=== PATIENT | female | born 1950 | race Caucasian/White ===

== ENCOUNTER → 2017-09-19 09:53 | Outpatient (CLI) | payer MEDICARE, OTHER, SELFPAY ==
[2017-09-27 14:22] LABS: HPV Reflexed? YES, CHARGE PATIENT
== END ==
PROVIDERS: Visit Provider Obstetrics & Gynecology
DX: Z12.4 Encounter for screening for malignant neoplasm of cervix (principal)
CPT/HCPCS: 87624; 88175; G0145

== ENCOUNTER → 2018-01-15 17:03 | Outpatient (CLI) | payer MEDICARE, OTHER, SELFPAY ==
[2018-01-15 18:32] LABS: Hematocrit 38.8 % (37-47); Hemoglobin 13.2 g/dl (12.0-15.0); Mean Corpuscular Volume 87.8 fL (81-99); Red Blood Count 4.42 M/mm3 (4.2-5.4); White Blood Count 6.2 K/mm3 (4.4-11.0)
[2018-01-15 18:34] LABS: Mean Corpuscular Hgb 29.9 pg (27.0-32.0)
[2018-01-15 18:39] LABS: Basophil% 0.5 % (0-1); Eosinophils% 0.8 % (0-5); Lymphocyte % 35.7 % (19-41); Mean Platelet Vol. 9.4 fl (6.2-12.0); Monocyte% 7.2 % (0-10); Neutrophil % 55.6 % (47-70); POSITIVE COUNT NO; POSITIVE DIFFERENTIAL NO; POSITIVE MORPHOLOGY NO; Platelet Count 249 K/mm3 (150-450); RBC Distribution Width SD 38.1 fl (35.1-43.9)
[2018-01-15 18:40] LABS: Absolute Lymphocyte Count 2.22 X10^3/ul (0.83-4.51); Absolute Neutrophil Count 3.5 X10^3/uL (2.0-7.7); Basophil# 0.03 X10^3/uL; Eosinophil# 0.05 X10^3/uL; Lymphocyte # 2.22 X10^3/ul (4.0); Monocyte# 0.45 X10^3/uL; Neutrophil # 3.45 X10^3/uL (2.7-7.7)
[2018-01-15 18:58] LABS: ALB/GLOB Ratio 1.5 RATIO (0.9-2.4); AST(SGOT) 17 U/L (15-37); Alanine Aminotransfer ALT/SGPT 29 U/L (13-56); Albumin, Serum 4.1 g/dL (3.2-5.0); Alkaline Phosphatase 78 U/L (45-117); Anion Gap 7 (5-15); BUN 11 mg/dL (7-18); BUN/Creat Ratio 15.4 RATIO (10-20); Calcium,Total 9.6 mg/dL (8.5-10.1); Chloride 103 mmol/L (98-107); Creatinine, Serum 0.71 mg/dL (0.55-1.02); EST Glomerular Filtration Rate 87 mL/min (>60); Est Glom Filt Rate - Afr Amer 105 mL/min (>60); Globulin 2.8 g/dL (2.2-4.2); Glucose 101 mg/dL (74-106); Potassium 3.6 mmol/L (3.5-5.1); Protein, Total 6.9 g/dL (6.4-8.2); Sodium Level 141 mmol/L (136-145); Thyroid Stim Hormone (TSH) 0.09 uIU/mL (0.358-3.74)
[2018-01-16 09:12] LABS: Vitamin D,25 Hydroxy 50.4 ng/mL (29.95-100.01)
[2018-01-17 09:34] LABS: Hep C Antibodies <0.1 s/co ratio (0.0-0.9)
== END ==
PROVIDERS: Family Provider Family Medicine Geriatric Medicine; PCP Family Medicine Geriatric Medicine; Visit Provider Family Medicine Geriatric Medicine
DX: E55.9 Vitamin D deficiency, unspecified (principal); I10 Essential (primary) hypertension; Z13.89 Encounter for screening for other disorder
CPT/HCPCS: 36415; 80053; 82306; 84443; 85025; 86803

== ENCOUNTER → 2018-01-29 08:53 | Outpatient (CLI) | payer MEDICARE, OTHER, SELFPAY ==
--- NOTE | 2018-01-29 08:55 | BI_ITS ---
MAMMOGRAPHY - BILATERAL SCREENING REASON FOR EXAM: Female, 67 years old. Routine annual screening examination. PERTINENT HISTORY: Non-contributory. TECHNIQUE: Digital bilateral breast ya (3D mammographic acquisition) in the CC and MLO projections. 2-D mediolateral oblique (MLO) and craniocaudad (CC) views of both breasts were obtained. CAD: Full Field Digital Mammography with Computer Added Detection was performed. COMPARISON: Comparison is made with prior study dated January 25, 2016 April 20, 2014. FINDINGS: Breast Composition: There are scattered areas of fibroglandular density. There are no dominant masses or suspicious calcifications. Stable benign-appearing bilateral axillary lymph nodes. No other significant abnormalities are identified. BI/SCREENING MAMM (CAD), BILAT IMPRESSION: Stable bilateral screening mammogram. Yearly follow-up mammogram recommended. (A) ASSESSMENT CATEGORY: BIRADS Category 2: Benign. A letter regarding these results will be sent to the patient by the facility within 30 days. Approximately 10% of breast cancers are not detected by mammography. A normal mammogram should not delay biopsy of a clinically suspicious abnormality. [id number] Electronically Signed: Chema Olguin MD at 10:17 EDT Tel [phone], Service support ,
--- NOTE | 2018-01-29 09:16 | BD_ITS ---
STUDY: DUAL ENERGY X-RAY ABSORPTIOMETRY / DXA REASON FOR EXAM: Female, 67 years old. The patient is postmenopausal. Loss of height. TECHNIQUE: Bone Mineral Density (BMD) measurements of lumbar spine and bilateral hips were obtained. COMPARISON: Comparison is made with prior examination dated January 25, 2016. FINDINGS: Lumbar Spine (L1-L4): g/cm2 (1.145) / T-score (-0.3) / Z-score (1.3) Findings are suggestive of normal bone density with a low fracture risk. Left Femur Total: g/cm2 (0.946) / T-score (-0.5) / Z-score (0.8) Left Femoral Neck: g/cm2 (0.938) / T-score (-0.7) / Z-score (0.8) Right Femur Total: g/cm2 (0.873) / T-score (-1.1) / Z-score (0.2) Right Femoral Neck: g/cm2 (0.764) / T-score (-2.0) / Z-score (0.4) The T-Scores on the most recent prior examination were: Lumbar Spine (L1-L4): There has been worsening of bone density since the previous examination. Left Femur Total: which represents a worsening of 1.1%. Right Femur Total: which represents no significant change. . BD/Dexa Bone Density Study IMPRESSION: The patient is considered osteopenic as outlined below according to World Misael Organization (WHO) criteria with a moderate fracture risk. There has been worsening of bone density since the previous examination. Reference Information: The T-score is the number of standard deviations above or below the standard which is normal for young adults at their peak bone mineral density. The World Health Organization (WHO) interprets the T-scores as follows: Above -1 Normal bone density Between -1 and -2.5 Osteopenia Equal to / or below -2.5 Osteoporosis As a practical clinical guideline, osteopenia may be graded as follows: Mild -1 through -1.5 Moderate -1.6 through -2.0 Severe -2.1 through -2.4 The Z-score is the number of standard deviations above or below age-matched controls. A Z-score of less than -1.5 would be considered abnormal. References: 1. NIH Osteoporosis and Related Bone Diseases http://www.osteo.org 2. International Society for Clinical Densitometry http://www.iscd.org 3. National Osteoporosis Foundation http://www.nof.org Electronically Signed: Chema Olguin MD at 14:36 EDT Tel [phone], Service support ,
== END ==
PROVIDERS: Family Provider Family Medicine Geriatric Medicine; PCP Family Medicine Geriatric Medicine; Visit Provider Obstetrics & Gynecology
DX: Z12.31 Encounter for screening mammogram for malignant neoplasm of breast (principal); Z78.0 Asymptomatic menopausal state
CPT/HCPCS: 77063; 77067; 77080

== ENCOUNTER → 2018-03-19 16:55 | Outpatient (CLI) | payer MEDICARE, OTHER, SELFPAY ==
--- NOTE | 2018-03-19 17:00 | RAD_ITS ---
STUDY: X-RAY - UNILATERAL RIBS ( LEFT ) WITH CHEST REASON FOR EXAM: Female, 67 years old. Lateral left rib pain one week after fall. TECHNIQUE - RIBS: 4 view(s) of the ribs. TECHNIQUE - CHEST: Single frontal view of the chest. COMPARISON: None. FINDINGS - RIBS: Normal visualized ribs without a demonstrated fracture. FINDINGS - CHEST: The lungs are clear and expanded. There is no demonstrated pleural abnormality. Normal size heart. Normal mediastinum and felipe. Normal visualized pulmonary arteries. Normal visualized aortic arch and descending thoracic aorta. Normal visualized thoracic spine. Normal visualized ribs, clavicles, and shoulders. There is no demonstrated abnormality of the visualized soft tissue structures of the upper abdomen. RAD/Ribs Uni Min 3V w/PA Chest IMPRESSION: RIBS: Normal x-ray examination of the left ribs. CHEST: Normal x-ray examination of the chest. Electronically Signed: Phil Mares MD at 19:59 EDT , Service support ,
== END ==
PROVIDERS: Family Provider Family Medicine Geriatric Medicine; PCP Family Medicine Geriatric Medicine; Visit Provider Family Medicine Geriatric Medicine
DX: R07.81 Pleurodynia (principal)
CPT/HCPCS: 71101

== ENCOUNTER 2018-04-30 08:59 | Emergency (ER) | payer MEDICARE, OTHER, SELFPAY ==
[2018-04-30 09:00] VITALS: BP 122/88; PULSE 64; RESP 15; TEMP 36.4; O2SAT 99; BMI 27.7
--- NOTE | 2018-04-30 09:26 | ED.VISSUMM ---
- ER Visit Summary Date of Service: 04/30/18 Chief Complaint: Pain deformity left wrist and abrasion right forearm status post fall History of Present Illness: The patient is a 67 F who presents because of deformity left wrist status post fall. She was walking down a disability ramp that apparently was covered for loss. She lost her balance. She landed on her outstretched left upper extremity. She also noted abrasion distal volar right forearm. She is on no anticoagulant. She denies head trauma. Denies neck pain. She denies paresthesia, anesthesia motor expressly the time of the injury. She denies cardiac respiratory symptoms. Please read written note for complete detail. Physical Examination: Vital signs noted. Head is atraumatic normocephalic. Pupils equal round reactive. Extra muscle intact. There is no confines basal skull fracture. Trach is midline. Is no pain the patient cervical spine and C-spine was cleared per Nexus criteria. Heart is regular without murmur, gallop or rub. S1 and S2 are normal. Lungs are clear to auscultation with good movement of air bilaterally. Axillary, median, radial and ulnar function intact. There is no pain palpation of the clavicle, AC joint or proximal humerus bilaterally. There is no pain the patient of the medial or lateral epicondyles, olecranon process or radial head bilaterally. There is slight discomfort volar surface distal right forearm. There is no pain the patient of the distal radius or ulna. There is no pain the patient of the carpal bones, metacarpal bones or phalanges on the right. There is deformity to the left wrist. There is no pain the patient the phalanges or metacarpal bones. There is a step-off appreciated distal left radius. Test Results: Three-view x-ray of the left wrist was obtained which reveals a distal transverse radial fracture with 30 degrees volar apex angulation and a nondisplaced fracture of the ulnar styloid. This film was interpreted by me. Postreduction film reveals good alignment and to length on the PA film. Lateral film reveals 5% step-off with loss of volar tilt. The ulnar styloid is now displaced. Emergency Department Course and Treatment: A hematoma block was placed with 1% lidocaine by me prior to x-rays. Patient was placed in finger traps with weight added gradually to a total of 12-1/2 pounds. Reduction was undertaken by me. She was placed in short arm AP plaster splint.. Treatment Plan: Rest, ice and elevation. She was referred to orthopedics. Spoke with Dr. Heena Street who requested patient call the office to be seen next week. He was discharged with a sling. Disposition: Discharged to home Impression: 1. Fall secondary to snider/ice 2. Abrasion and contusion distal right volar forearm 3. Colles' fracture left wrist initial encounter 4. Hematoma block placed by ED physician 5. Reduction of Colles' fracture by ED physician 6. Application of plaster short arm AP splint by ED physician This note was generated with [employer] dictation software. It may contain incorrect words, spelling, and punctuation that were not noted in review of the chart prior to signing ED Disposition - Plan for ED Patient: Chief Complaint: Upper Extremity Injury Instructions: ED Fx Forearm Radius Ulna Redu Requ Prescriptions: Oxycodone HCl/Acetaminophen [Percocet 5/325] 1 tablet PO Q6H PRN PRN 5 Days #20 tablet PRN Reason: Pain Referrals: Lamine Manzanares Chi, MD [Primary Care Provider] - Allyssa Cabral DO [STAFF PHYSICIAN] - 5-7 Days Additional Instructions: Keep your left wrist elevated for the next 2-3 days above your nose. Apply ice 6-8 times a day 20-30 minutes at a time. Your prescription was electronically transmitted to [facility] pharmacy your designated pharmacy of choice.
--- NOTE | 2018-04-30 09:30 | ED.DCSUM_ITS ---
- ER Visit Summary Date of Service: 04/30/18 Chief Complaint: Pain deformity left wrist and abrasion right forearm status post fall History of Present Illness: The patient is a 67 F who presents because of deformity left wrist status post fall. She was walking down a disability ramp that apparently was covered for loss. She lost her balance. She landed on her outstretched left upper extremity. She also noted abrasion distal volar right forearm. She is on no anticoagulant. She denies head trauma. Denies neck pain. She denies paresthesia, anesthesia motor expressly the time of the injury. She denies cardiac respiratory symptoms. Please read written note for complete detail. Physical Examination: Vital signs noted. Head is atraumatic normocephalic. Pupils equal round reactive. Extra muscle intact. There is no confines basal skull fracture. Trach is midline. Is no pain the patient cervical spine and C- spine was cleared per Nexus criteria. Heart is regular without murmur, gallop or rub. S1 and S2 are normal. Lungs are clear to auscultation with good moveme nt of air bilaterally. Axillary, median, radial and ulnar function intact. There is no pain palpation of the clavicle, AC joint or proximal humerus bilaterally. There is no pain the patient of the medial or lateral epicondyles, olecranon process or radial head bilaterally. There is slight discomfort volar surface distal right forearm. There is no pain the patient of the distal radius or ulna. There is no pain the patient of the carpal bones, metacarpal bones or phalanges on the right. There is deformity to the left wrist. There is no pain the patient the phalanges or metacarpal bones. There is a step-off appreciated distal left radius. Test Results: Three-view x-ray of the left wrist was obtained which reveals a distal transverse radial fracture with 30 degrees volar apex angulation and a nondisplaced fracture of the ulnar styloid. This film was interpreted by me. Postreduction film reveals good alignment and to length on the PA film. Lateral film reveals 5% step-off with loss of volar tilt. The ulnar styloid is now displaced. Emergency Department Course and Treatment: A hematoma block was placed with 1% lidocaine by me prior to x-rays. Patient was placed in finger traps with weight added gradually to a total of 12-1/2 pounds. Reduction was undertaken by me. She was placed in short arm AP plaster splint.. Treatment Plan: Rest, ice and elevation. She was referred to orthopedics. Spoke with Dr. Heena Street who requested patient call the office to be seen next week. He was discharged with a sling. Disposition: Discharged to home Impression: 1. Fall secondary to snider/ice 2. Abrasion and contusion distal right volar forearm 3. Colles' fracture left wrist initial encounter 4. Hematoma block placed by ED physician 5. Reduction of Colles' fracture by ED physician 6. Application of plaster short arm AP splint by ED physician This note was generated with [employer] dictation software. It may contain incorrect words, spelling, and punctuation that were not noted in review of the chart prior to signing ED Disposition - Plan for ED Patient: Chief Complaint: Upper Extremity Injury Instructions: ED Fx Forearm Radius Ulna Redu Requ Prescriptions: Oxycodone HCl/Acetaminophen [Percocet 5/325] 1 tablet PO Q6H PRN PRN 5 Days #20 tablet PRN Reason: Pain Referrals: Lamine Manzanares Chi, MD [Primary Care Provider] - Allyssa Cabral DO [STAFF PHYSICIAN] - 5-7 Days Additional Instructions: Keep your left wrist elevated for the next 2-3 days above your nose. Apply ice 6-8 times a day 20-30 minutes at a time. Your prescription was electronically transmitted to [facility] pharmacy your designated pharmacy of choice.
--- NOTE | 2018-04-30 09:35 | RAD_ITS ---
STUDY: X-RAY - LEFT WRIST REASON FOR EXAM: Female, 67 years old. Pain and swelling. TECHNIQUE: 3 view(s) of the wrist were obtained. COMPARISON: None. FINDINGS: There is a comminuted fracture of the distal radial metaphysis with dorsal facing. Nondisplaced linear fracture of the distal ulna extending to the ulnar styloid. Normal radiocarpal articulation. Disruption of the distal radial ulnar articulation. Normal carpal bones. Normal carpal articulations. Normal carpometacarpal articulation of the thumb. Normal second through fifth carpometacarpal articulations. Normal visualized metacarpal bones. Diffuse soft tissue swelling. RAD/Wrist min 3 Views IMPRESSION: Comminuted fracture of the distal radial metaphysis with dorsal facing. Nondisplaced linear fracture of the distal ulna with extension to the ulnar styloid. Electronically Signed: Chema Olguin MD at 9:52 EDT Tel [phone], Service support ,
--- NOTE | 2018-04-30 10:28 | RAD_ITS ---
STUDY: X-RAY - LEFT WRIST REASON FOR EXAM: Female, 67 years old. Post reduction examination. TECHNIQUE: 3 view(s) of the wrist were obtained in a cast. COMPARISON: None. FINDINGS: There is satisfactory reduction of the comminuted fracture of the distal radius as well as the distal ulna. RAD/Wrist min 3 Views IMPRESSION: Satisfactory reduction Electronically Signed: Chema Olguin MD at 10:50 EDT Tel [phone], Service support ,
[2018-04-30] MEDS: oxyCODONE 5 MG Tablet PO (12:27)
[2018-04-30 12:33] VITALS: BP 123/82; PULSE 72; RESP 14; O2SAT 98
== END 2018-04-30 12:35 | disposition home or self-care (01) ==
PROVIDERS: Emergency Provider Emergency Medicine; Family Provider Family Medicine Geriatric Medicine; PCP Family Medicine Geriatric Medicine
DX: S52.532A Colles' fracture of left radius, initial encounter for closed fracture (principal); S52.612A Displaced fracture of left ulna styloid process, initial encounter for closed fracture; S50.811A Abrasion of right forearm, initial encounter; S50.11XA Contusion of right forearm, initial encounter; W00.9XXA Unspecified fall due to ice and snow, initial encounter; Y93.01 Activity, walking, marching and hiking; Y92.9 Unspecified place or not applicable; I10 Essential (primary) hypertension; E78.00 Pure hypercholesterolemia, unspecified; E03.9 Hypothyroidism, unspecified; Z79.82 Long term (current) use of aspirin; Z79.899 Other long term (current) drug therapy
CPT/HCPCS: 25605; 73110; 99284

== ENCOUNTER → 2018-05-07 14:38 | Outpatient (CLI) | payer MEDICARE, OTHER, SELFPAY ==
--- NOTE | 2018-05-07 14:40 | RAD_ITS ---
STUDY: X-RAY - LEFT WRIST REASON FOR EXAM: Fracture. TECHNIQUE: 2 view(s) of the wrist were obtained. COMPARISON: Radiographs 04/30/2018. FINDINGS: There is no interval change of the distal radial fracture with mild dorsal displacement as on the post reduction radiographs. There is no interval change of the nondisplaced distal ulnar fracture. Normal radiocarpal articulation. Normal distal radioulnar articulation. Normal carpal bones. Normal carpal articulations. There is joint space narrowing of the carpometacarpal articulation of the thumb. Normal second through fifth carpometacarpal articulations. Normal visualized metacarpal bones. There is an overlying cast. RAD/Wrist 2 Views IMPRESSION: No interval change distal radial and ulnar fractures. Electronically Signed: David Mosquera MD at 10:12 EST Tel , Service support ,
== END ==
PROVIDERS: Family Provider Family Medicine Geriatric Medicine; PCP Family Medicine Geriatric Medicine; Referring Provider Orthopaedic Surgery; Visit Provider Orthopaedic Surgery
DX: M25.532 Pain in left wrist (principal)
CPT/HCPCS: 73100

== ENCOUNTER → 2018-05-11 07:07 | Outpatient (CLI) | payer MEDICARE, OTHER, SELFPAY ==
--- NOTE | 2018-05-11 06:16 | CT_ITS ---
STUDY: CT OF THE LEFT WRIST WITHOUT CONTRAST REASON FOR EXAM: Female, 67 years old. No left wrist fracture. Work up. RADIATION DOSAGE (If Supplied By Facility): CTDIvol = ( 24.58 ) mGy, DLP = ( 597.48 ) mGycm. Individualized dose optimization techniques were used for this CT.? TECHNIQUE: Contiguous axial images of the left wrist were obtained without contrast. Coronal, sagittal, 3-D reconstruction and bone and soft tissue algorithm images were provided for interpretation. COMPARISON: X-rays of the wrist dated April 30, 2018 and May 07, 2018. FINDINGS: There is generalized osteopenia. There is a comminuted fracture of the distal radius with impaction at the fracture site. There are fracture fragments projected radially. There is a minimally displaced fracture of the base of the ulnar styloid (coronal series 601 images 19-30). There is severe arthrosis of the first carpometacarpal joint with multiple intra-articular osteochondral bodies (coronal series 601 images 22-29). CT/Extremity Upper without Contra IMPRESSION: Osteopenia with an impacted comminuted fracture of the distal radius. Minimally displaced fracture through the base of the ulnar styloid. Severe osteoarthritic changes of the first carpometacarpal joint. Electronically Signed: Celestino Lowe MD at 17:49 EST , Service support ,
--- NOTE | 2018-05-11 06:16 | CT_ITS ---
STUDY: CT OF THE LEFT WRIST WITHOUT CONTRAST REASON FOR EXAM: Female, 67 years old. No left wrist fracture. Work up. RADIATION DOSAGE (If Supplied By Facility): CTDIvol = ( 24.58 ) mGy, DLP = ( 597.48 ) mGycm. Individualized dose optimization techniques were used for this CT.? TECHNIQUE: Contiguous axial images of the left wrist were obtained without contrast. Coronal, sagittal, 3-D reconstruction and bone and soft tissue algorithm images were provided for interpretation. COMPARISON: X-rays of the wrist dated April 30, 2018 and May 07, 2018. FINDINGS: There is generalized osteopenia. There is a comminuted fracture of the distal radius with impaction at the fracture site. There are fracture fragments projected radially. There is a minimally displaced fracture of the base of the ulnar styloid (coronal series 601 images 19-30). There is severe arthrosis of the first carpometacarpal joint with multiple intra-articular osteochondral bodies (coronal series 601 images 22-29). CT/Coronals Sag Multi Obl 3-D Rec IMPRESSION: Osteopenia with an impacted comminuted fracture of the distal radius. Minimally displaced fracture through the base of the ulnar styloid. Severe osteoarthritic changes of the first carpometacarpal joint. Electronically Signed: Celestino Lowe MD at 17:49 EST , Service support ,
== END ==
PROVIDERS: Family Provider Family Medicine Geriatric Medicine; PCP Family Medicine Geriatric Medicine; Referring Provider Orthopaedic Surgery; Visit Provider Orthopaedic Surgery
DX: S62.102A Fracture of unspecified carpal bone, left wrist, initial encounter for closed fracture (principal)
CPT/HCPCS: 73200; 76377

== ENCOUNTER 2018-05-15 11:11 | Day surgery (SDC) | payer MEDICARE, OTHER, SELFPAY ==
--- NOTE | 2018-05-14 14:15 | EKG12_ITS ---
Test Reason : PREOP Blood Pressure : / mmHG Vent. Rate : 057 BPM Atrial Rate : 057 BPM P-R Int : 162 ms QRS Dur : 082 ms QT Int : 394 ms P-R-T Axes : 052 024 020 degrees QTc Int : 383 ms Sinus bradycardia Otherwise normal ECG Confirmed by DAVID LYNCH, JULES ([id number]), multimedia editor MODESTO GOINS ([id number]) on 05/17/2018 2:38:44 PM Referred By: Allyssa Cabral Confirmed By:JULES HERNANDEZ MD
[2018-05-14 16:32] LABS: Anion Gap 5 (5-15); BUN 10 mg/dL (7-18); BUN/Creat Ratio 15.9 RATIO (10-20); Calcium,Total 9.4 mg/dL (8.5-10.1); Chloride 105 mmol/L (98-107); Creatinine, Serum 0.63 mg/dL (0.55-1.02); EST Glomerular Filtration Rate 100 mL/min (>60); Est Glom Filt Rate - Afr Amer 121 mL/min (>60); Glucose 80 mg/dL (74-106); Potassium 3.2 mmol/L (3.5-5.1); Sodium Level 141 mmol/L (136-145); Thyroid Stim Hormone (TSH) 0.37 uIU/mL (0.358-3.74)
[2018-05-15] VITALS (7 sets, daily range): BP systolic 107–154; BP diastolic 62–77; PULSE 62–80; RESP 16; TEMP 36.6–37; O2SAT 93–100; BMI 26.9
--- NOTE | 2018-05-15 12:30 | RAD_ITS ---
STUDY: X-RAY - LEFT WRIST REASON FOR EXAM: ORIF left wrist. TECHNIQUE: 2 fluoroscopic views view(s) of the wrist were obtained. COMPARISON: Radiographs 05/07/2018. FINDINGS: There is an orthopedic plate and screws transfixing a distal radial fracture in anatomical alignment and position. There is a nondisplaced fracture of the distal ulna. Electronically Signed: David Mosquera MD at 15:45 EST Tel , Service support , RAD/Wrist 2 Views
[2018-05-15] MEDS: Cefazolin 2 GM in 0.9% Normal Saline 100 ML IV (13:35)
--- NOTE | 2018-05-15 13:37 | DCINST_ITS ---
Discharge Diet: No Restrictions - follow up in 2 weeks in clinic, keep dressing clean and dry, call with concerns Allergies/Adverse Reactions: Allergies No Known Allergies Allergy (Verified 05/14/18 13:31) Medications to take at Discharge Aspirin [Aspirin EC] 81 mg PO DAILY 04/30/18 Calcium Carbonate/Vitamin D3 [Calcium 500-Vit D3 600 Tablet] 1 ea PO BID 04/30/18 Levothyroxine Sodium 112 mcg PO DAILY 04/30/18 Losartan/Hydrochlorothiazide [Hyzaar 100-12.5 Tablet] 1 ea PO DAILY 04/30/18 Multivitamin [Daily Multiple Vitamin] 1 ea PO DAILY 04/30/18 Furlong-3 Fatty Acids/Fish Oil [Fish Oil 1,000 mg Capsule] 1 ea PO DAILY 04/30/18 Pravastatin Sodium 40 mg PO DAILY 04/30/18 Vitamin E 1,000 unit PO DAILY 04/30/18 Acetaminophen/Codeine #3 [Tylenol #3 Tablet] 1 - 2 tablet PO Q6H PRN PRN #30 tablet 05/15/18 The following prescriptions were given: Acetaminophen/Codeine #3 [Tylenol #3 Tablet] 1 - 2 tablet PO Q6H PRN PRN #30 tablet PRN Reason: Pain Orders to be completed after discharge: 12 Lead EKG [CVS] Time Frame: 05/14/18, Location: None Selected Basic Metabolic Profile (BMP) Time Frame: 05/14/18, Location: Laboratory Thyroid Stim Hormone (TSH) Time Frame: 05/14/18, Location: Laboratory Primary Care Physician: Lamine Manzanares Chi, MD [Primary Care Provider] - Test Results: Test results from this visit will be discussed in further detail at your follow- up appointment, if applicable.
--- NOTE | 2018-05-15 13:39 | OP.PCM_ITS ---
Report of Operation Date of Procedure: 05/15/18 Pre-Operative Diagnosis: left distal radius and ulna fracture Post-Operative Diagnosis: same Surgery/Procedure Performed:: orif left distal radius Type of Anesthesia:: General Anesthesiologist: Christian Madsen Estimated Blood Loss (mL): none Fluids Replaced: 1200ml lr Description of Procedure: Preoperative note Patient is a 67-year-old female who fell onto outstretched left right hand left hand. She had immediate pain deformity ER confirmed distal radius and distal ulna fracture she was seen in my clinic we did order a CAT scan to see how the ulnar was in her radius. All treatment options were given to patient. 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 Risks benefits and alternatives surgery discussed with patient. Risks including but not limited to blood loss, blood clot, infection, neurovascular injury, failure procedure, loss of life and loss of limb. Patient is aware like proceed with ORIF left distal radius possible ulna. Operative note Patient seen and examined preoperative holding area. Left wrist was marked. Patient brought to the operating placed supine on the operating table. Signing, anesthesia, antibiotics were administered. Left arm was prepped and draped in usual sterile fashion with a tourniquet around her upper arm. We marked out our incision by palpating her FCR. Timeout was performed. Then elevated exsanguinated and the tourniquet was raised to 250 torr. We then performed a timeout. We then used a 15 blade to cut through the skin dissect down tenotomies of the FCR the FCR was resected with retracted ulnarly resect r esected the FCR fascia down to the pronator quadratus pronator quadratus was resected sharply off of its radial portal border. We then were able to dissect down she had quite a bit of scar tissue around her distal radius fracture it was [id number] is quite comminuted. We did use a bone pick to irrigate out the fracture site. The incision was irrigated with copious muscle sterile saline. We placed the appropriate plate and placed on the regular width 2.4 volar distal radius plate. We then used a K wire was transfixed the plate to bone after we had good placement of the plate on the bone. We then placed a cortical screw in the radial styloid piece to suck the bone plate down to bone. We then filled the remaining holes with locking screws we did have one exchanged for locking from a cortical screw which was the ulnar distal hole after transfixing the plate to bone just for better fixation after all of the screws were placed. See chart for further details as far as screw length. We then placed our 2 7 screws cortical screws after drilling appropriately we did with the distal screws as well. Placed 212 and 140 mm screw in the shaft. We irrigated the incision with copious amounts of sterile saline. The pronator was laid on top of the plate as well as the FCR fascia. We then closed the skin and subcu subcuticular with 3-0 Vicryl in a running 4-0 Monocryl. Sterile dressings and a splint was applied. Patient tolerated procedure well there are no comp occasions tourniquet was deflated for total working time of 70 minutes. Postoperative note Nonweightbearing left upper extremity Hospital pharmacy has prescription Call with increased pain numbness tingling or further issues arise Follow-up in 2 weeks Keep dressing clean and dry Dragon disclaimer This note was generated with [employer] dictation software. It may contain incorrect words, spelling, and punctuation that were not noted in checking the note before signing.
[2018-05-15] MEDS: Mupirocin Ointment 22gm Tube 1 APPLIC (14:19)
[2018-05-15] MEDS: HYDROcodone Bitartrate/Apap 5/325 Tablet PO (16:46)
== END 2018-05-15 18:42 | disposition home or self-care (01) ==
LOC: SDC 11:12 → AC 11:12
PROVIDERS: Family Provider Family Medicine Geriatric Medicine; PCP Family Medicine Geriatric Medicine; Referring Provider Orthopaedic Surgery; Visit Provider Orthopaedic Surgery
PROC: (CPT 25607; principal; 2018-05-15 12:15)
DX: S52.552A Other extraarticular fracture of lower end of left radius, initial encounter for closed fracture (principal); S52.602A Unspecified fracture of lower end of left ulna, initial encounter for closed fracture; W19.XXXA Unspecified fall, initial encounter; Y93.9 Activity, unspecified; Y92.9 Unspecified place or not applicable; I10 Essential (primary) hypertension; R00.1 Bradycardia, unspecified; Z79.82 Long term (current) use of aspirin; Z79.899 Other long term (current) drug therapy
CPT/HCPCS: 01830; 25607; 36415; 73100; 76000; 80048; 84443; 93005; C1713; J7120; J2405

== ENCOUNTER → 2018-05-30 13:00 | Outpatient (CLI) | payer MEDICARE, OTHER, SELFPAY ==
[2018-05-30 12:59] VITALS: BMI 26.9
--- NOTE | 2018-05-30 13:04 | RAD_ITS ---
STUDY: X-RAY - LEFT WRIST REASON FOR EXAM: Female, 67 years old. Postop TECHNIQUE: 3 view(s) of the wrist were obtained. COMPARISON: May 07, 2018 FINDINGS: Status post ORIF for a distal radial fracture. Fracture fragments are well aligned and approximated. Healing fracture involving distal end of the ulna. Cast in place. RAD/Wrist min 3 Views IMPRESSION: Status post ORIF of the distal radial fracture. Healing distal ulnar fracture. Electronically Signed: Billy Colemna DO at 8:22 EST Tel [phone], Service support ,
--- OUTSIDE RECORDS SUMMARY | 2018-07-25 16:54 | XMS RPT_ITS ---
:1950 Author Organization OHIP Support Name Relationship Address Phone EUGENIA CASON Unavailable [id number] + [place] [address] MOSHE STEPHANIE Unavailable [address] + [place] [address] [employer] Unavailable [address] + [place] [address] HOLLIS CASONSA Unavailable [address] + [place] [address] MOSHE STEPHANIE Unavailable [address] + [place] [address] [employer] Unavailable [address] + [place] [address] TIMNicole, EUGENIA Unavailable [address] + [place] [address] MOSHE, STEPHANIE Unavailable [address] + [place] [address] [employer] Unavailable [address] + [place] [address] YOAV, EUGENIA Unavailable [address] + [place] [address] MOSHE, STEPHANIE Unavailable [address] + [place] [address] [employer] Unavailable [address] + [place] [address] YOAV, EUGENIA Unavailable [address] + [place] [address] MOSHE STEPHANIE Unavailable [address] + [place] [address] [employer] Unavailable [address] + [place] [address] YOAVHOLLISSA Unavailable [address] + [place] [address] STEPHANIE MESA Unavailable [address] + [place] [address] [employer] Unavailable [address] + [place] [address] YOAVHOLLISSA Unavailable [address] + [place] [address] STEPHANIE MESA Unavailable [address] + [place] [address] [employer] Unavailable [address] + [place] [address] YOAVHOLLISSA Unavailable [address] + [place] [address] STEPHANIE MESA Unavailable [address] + [place] [address] [employer] Unavailable [address] + [place] [address] YOAV, EUGENIA Unavailable [address] + [place] [address] STEPHANIE MESA Unavailable [address] + [place] [address] [employer] Unavailable [address] + [place] [address] YOAV, EUGENIA Unavailable [address] + [place] [address] STEPHANIE MESA Unavailable [address] + [place] [address] [employer] Unavailable [address] + [place] [address] HOLLIS CASONSA Unavailable [address] + [place] [address] STEPHANIE MESA Unavailable [address] + [place] [address] [employer] Unavailable [address] + [place] [address] YOAV, EUGENIA Unavailable [address] + [place] [address] STEPHANIE MESA Unavailable [address] + [place] [address] [employer] Unavailable [address] + [place] [address] YOAV, EUGENIA Unavailable [address] + [place] [address] STEPHANIE MESA Unavailable [address] + [place] [address] [employer] Unavailable [address] + [place] [address] YOAV, EUGENIA Unavailable [address] + [place] [address] STEPHANIE MESA Unavailable [address] + [place] [address] [employer] Unavailable [address] + [place] [address] YOAV, EUGENIA Unavailable [address] + [place] [address] STEPHANIE MESA Unavailable [address] + [place] [address] [employer] Unavailable [address] + [place] [address] YOAV, EUGENIA Unavailable [address] + [place] [address] STEPHANIE MESA Unavailable [address] + [place] [address] [employer] Unavailable [address] + [place] [address] YOAV, EUGENIA Unavailable [address] + [place] [address] STEPHANIE MESA Unavailable [address] + [place] [address] [employer] Unavailable [address] + [place] [address] HOLLIS CASONSA Unavailable [address] + [place] [address] ELDER MESAOLE Unavailable [address] + [place] [address] [employer] Unavailable [address] + [place] [address] YOAV, EUGENIA Unavailable [address] + [place] [address] MOSHE STEPHANIE Unavailable [address] + [place] [address] [employer] Unavailable [address] + [place] [address] HOLLIS CASONSA Unavailable [address] + [place] [address] ELDER MESAOLE Unavailable [address] + [place] [address] [employer] Unavailable [address] + [place] [address] YOAV, EUGENIA Unavailable [address] + [place] [address] ELDER MESAOLE Unavailable [address] + [place] [address] [employer] Unavailable [address] + [place] [address] Care Team Providers Name Role Phone Allyssa Leal Attending Unavailable Allyssa Leal Referring Unavailable Leighton, Lamine Chi Primary Care Unavailable Leighton, Lamine Chi Attending Unavailable Leighton, Lamine Chi Primary Care Unavailable Leighton, Lamine Chi Attending Unavailable Leighton, Lamine Chi Primary Care Unavailable Leighton, Lamine Chi Attending Unavailable Leighton, Lamine Chi Primary Care Unavailable Allyssa Leal Attending Unavailable Leighton, Lamine Chi Attending Unavailable Leighton, Lamine Chi Primary Care Unavailable Leighton, Lamine Chi Attending Unavailable Leighton, Lamine Chi Referring Unavailable Leighton, Lamine Chi Primary Care Unavailable Allyssa Leal Attending Unavailable Leighton, Lamine Chi Primary Care Unavailable Leighton, Lamine Chi Attending Unavailable Leighton, Lamine Chi Primary Care Unavailable Leighton, Lamine Chi Attending Unavailable Leighton, Lamine Chi Referring Unavailable Leighton, Lamine Chi Primary Care Unavailable Leighton, Lamine Chi Primary Care Unavailable Prieto, Idris Attending Unavailable Chicorelli, Allyssa Attending Unavailable Leighton, Lamine Chi Referring Unavailable Chicorelli, Allyssa Attending Unavailable Chicorelli, Allyssa Referring Unavailable Leighton, Lamine Chi Primary Care Unavailable Chicorelli, Allyssa Attending Unavailable Leighton, Lamine Chi Primary Care Unavailable Chicorelli, Allyssa Referring Unavailable Chicorelli, Allyssa Attending Unavailable Chicorelli, Allyssa Referring Unavailable Leighton, Lamine Chi Primary Care Unavailable DeHorta, Evan Consulting Unavailable Chicorelli, Allyssa Attending Unavailable Leighton, Lamine Chi Referring Unavailable Lavinia, Gaylord Attending Unavailable Chicorelli, Allyssa Referring Unavailable Chicorelli, Allyssa Attending Unavailable Leighton, Lamine Chi Referring Unavailable Chicorelli, Allyssa Attending Unavailable Chicorelli, Allyssa Referring Unavailable Leighton, Lamine Chi Primary Care Unavailable Chicorelli, Allyssa Attending Unavailable Leighton, Lamine Chi Primary Care Unavailable Chicorelli, Allyssa Referring Unavailable Chicorelli, Allyssa Attending Unavailable PROBLEMS PROBLEMS DATE TYPE CONDITION / CODE ATTENDING STATUS SOURCE 06/12/2018 Unknown R87.610 - Atypical ShrinerAllyssa Active [facility] squamous cells of Community undetermined Hospital significance on Repository cytologic smear of cervix (ASC-US) / R87.610(ICD-10) 05/30/2018 Unknown S52.502A - Chicorelli, Active [facility] Unspecified fracture Allyssa Community of the lower end of Hospital left radius, initial Repository encounter for closed fracture / S52.502A(ICD-10) 06/03/2018 Unknown S52.552A - Other Chicorelli, Active [facility] extraarticular Allyssa Community fracture of lower Hospital end of left radius, Repository initial encounter for closed fracture / S52.552A(ICD-10) 06/03/2018 Unknown S52.602A - Chicorelli, Active [facility] Unspecified fracture Allyssa Community of lower end of left Hospital ulna, initial Repository encounter for closed fracture / S52.602A(ICD-10) 05/14/2018 Unknown S52.552D - Other Chicorelli, Active [facility] extraarticular Allyssa Community fracture of lower Hospital end of left radius, Repository subsequent encounter for closed fracture with routine healing / S52.552D(ICD-10) 05/22/2018 Unknown R00.1 - Bradycardia, Lavinia, Dayday Active [facility] unspecified / Community R00.1(ICD-10) Hospital Repository 05/11/2018 Unknown S62.102A - Fracture Chicorelli, Active [facility] of unspecified Allyssa [facility] carpal bone, left Hospital wrist, initial Repository encounter for closed fracture / S62.102A(ICD-10) 05/07/2018 Unknown M25.531 - Pain in Chicorelli, Active [facility] right wrist / [facility] M25.531(ICD-10) Hospital Repository 04/30/2018 Unknown S52.599A - Other Prieto, Idris Active [facility] fractures of lower Community end of unspecified Hospital radius, initial Repository encounter for closed fracture / S52.599A(ICD-10) 03/19/2018 Unknown R07.89 - Other chest Leighton, Lamine Chi Active [place] pain / Community R07.89(ICD-10) Hospital Repository 01/29/2018 Unknown Z12.31 - Encounter Allyssa Leal Active [place] for screening Community mammogram for Hospital malignant neoplasm Repository of breast / Z12.31(ICD-10) 01/29/2018 Unknown Z78.0 - Asymptomatic Allyssa Leal Active [place] menopausal state / Community Z78.0(ICD-10) Hospital Repository 09/19/2017 Unknown Z12.4 - Encounter Allyssa Leal Active [place] for screening for Community malignant neoplasm Hospital of cervix / Repository Z12.4(ICD-10) 09/10/2017 Unknown E03.9 - Leighton, Lamine Chi Active [facility] Hypothyroidism, Community unspecified / Hospital E03.9(ICD-10) Repository 10/24/2017 Unknown M54.9 - Dorsalgia, Leighton, Lamine Chi Active [facility] unspecified / Community M54.9(ICD-10) Hospital Repository 08/10/2017 Unknown I10 - Essential Leighton, Lamine Chi Active [place] (primary) Community hypertension / Hospital I10(ICD-10) Repository PROCEDURES PROCEDURES No Procedure Records FoundRESULTS RESULTS OT GENERAL EVALUATION Observed: 06/18/2018 Status: F Source: [place] 1:29 PM [facility] HOSPITAL REPOSITORY [facility] Occupational Therapy [facility] [address] [place] [address]. [address] [place] [address] Fax REHABILITATION SERVICES INITIAL EVALUATION MR#: [id number] Acct: [id number] Name: KJ DUMAS Rep #: [id number] : 1950 67 From: Riya JUSTICE/Kaley, CHT Referring Dr.: Allyssa Cabral DO Status: REG RCR Insurance: MEDICARE PART A B Eval Date: AE SR SUPPLEMENT INS Patient's Visit Information KJ DUMAS is a 67 year old F, referred to Occupational Therapy by Allyssa Cabral DO, with a diagnosis of S/P L ORIF. Date of Evaluation: 06/17/18 Occupational Therapist: Riya Willett, BOBR/Kaley, CHT - Subjective Subjective: pt. arrives and states that she fell outside on a handicap ramp on 04/30/18. Pt. went to the ER, and the MD tried to reset the radius. pt. had sx on 05/15/18 and is now almost 5 weeks post sx. pt. reports that she has been exercising her wrist at home and that it is doing well. pt. here today to make sure that she is doing everything she can at home, and today would like HEP. pt. does not want to recieve OT services at this time. - Pain L wrist 0 Pain Intensity Range: 0, 1, 2, 3 - Objective Objective/Observation: pt. ulnar head is very prominent - ROM Wrist: 43/43 L 70/48 R ROM Comments: supination 85 in L and 100 in R. UD 10, RD [address], 30 UD L - Strength Rental Sales Agent: 16# in L and 50# in R Lateral Pinch: 7# in L and 13# in R Tripod Pinch: 6# in L and 12# in R Strength Comments: no pain during strength testing - Sensation Sensation Comments: denies - Quick DASH-Disab of Arm,Shoulder AND Hand Quick DASH Score: 6.6650 - Goals Goal:: Patient will increase overall expander strength by 20 lbs. by completing strengthening exercises and stretches in order to complete BADL s and IADL s. Patient will improve lateral and tripod grasps by 5 lbs. by completing strengthening and stretching exercises in order to complete BADL s and IADL s. Goal:: Patient will increase ROM in wrist in all planes by 10 degrees by completing strengthening and stretching exercises in order to complete BADL s and IADL s. Goal:: Patient will report no pain in order to complete BADL s and IADL s with increased I. Goal:: patient will report completion of and demo understanding of HEP for increased I with BADL's and IADL's. - Rehabilitation General Assessment: Patient presents today after having S/P L ORIF on 05/15/18. pt. presents with decrease in strength, ROM, increase in pain and decreased ability to complete BADL's and IADL's. pt. reports that she is doing well and would like a HEP and no OT services at this time. Today, OT educated and instructed pt. in HEP and provided theraband to assist with exercises. Rehabilitation Potential: Good - Anticipated Interventions Anticipated Interventions: A/AAROM/PROM, Strengthening, Triggerpoint Release, Modalities, Joint Protection/Energy Conservation, Ergonomic Education, ADL Training, Home Program - Visit Plan Frequency: eval only Duration: eval only TEXT: Thank you for the opportunity to evaluate your patient. For Medicare and Medicare HMO plans, please review the plan of care and approve it. It will need to be FAXED BACK to us at [phone] for Medicare purposes. Please let me know if there are questions or concerns regarding this plan of care. Physician Signature: Date: <Electronically signed by Riya JUSTICE/KVNG Roche> 06/18/18 1329 CC: Allyssa Cabral DO; Lamine Manzanares MD RADHA Signed For Medicare only, by signing this I certify the plan of care. Physicians Signature Date PAP Chris W/RFX HRHPV Collected: 06/12/2018 Status: F Source: [place] 2:15 PM [facility] REPOSITORY Order Comment: CYTOLOGY INFORMATION: - CLINICAL INFORMATION: - DATE LMP/MENOPAUSE: MENOPAUSE - COLLECTION VIAL: Thin Prep Vial - PATHOLOGIST ASSISTANT SOURCE: CERVICAL/ENDOCERVICAL - COLLECTION TECHNIQUE: BRUSH/SPATULA Specimen Comment: [id number] Specimen Comment: Source.............Cervix;Endocervix Specimen Comment: Other..............Post Menopausal Specimen Comment: No. of containers..01 ThinPrep Vial TYPE CODE TESTS RESULT OUT OF RANGE REFERENCE UNITS LAB L7400.0800 . Normal DIAGN Comment Result Comment: NEGATIVE FOR INTRAEPITHELIAL LESION AND MALIGNANCY. CELLULAR CHANGES ASSOCIATED WITH ATROPHY ARE PRESENT. LAB L7400.0900 . Normal ADEQ Comment Result Comment: Satisfactory for evaluation. Endocervical component may not be distinguished in cases of atrophy. LAB L7400.1400 . Normal PERFORM Comment Result Comment: Olivia Bauer, Telecasting Technician (ASCP) LAB L7400.2575 . Normal TEST METHOD Comment Result Comment: This liquid based ThinPrep(R) pap test was screened with the use of an image guided system. LAB L7400.2600 . Normal . COMM LAB L7400.2700 . Normal PAPSMR Comment Result Comment: The Pap smear is a screening test designed to aid in the detection of premalignant and malignant conditions of the uterine cervix. It is not a diagnostic procedure and should not be used as the sole means of detecting cervical cancer. Both false-positive and false-negative reports do occur. LAB L7400.2800 . Normal HPV RFLX Comment Result Comment: The HPV DNA reflex criteria were not met with this specimen result therefore, no HPV testing was performed. Performed at: [facility] [place] [id number] [employer]: Karen Yusuf MD, Phone: [phone] Performed By: #### L7400.0350 #### [facility] (refer to report for specific site) refer to report for address and phone number ORTHOPEDIC VISIT Observed: 06/11/2018 Status: F Source: [place] REPORT 9:19 AM [facility] REPOSITORY [facility] [address] [place] [address] OFFICE VISIT Date of Service: 05/30/18 MR#: [id number] Acct: [id number] Name: KJ DUMAS Rep #: [id number] : 1950 Provider: Allyssa Cabral DO Age/Sex: 67/F Location: [facility] [place].[facility] Status: Signed Intake Vital Signs05/30/18 Body Mass Index (BMI) 26.9 Intake Visit Reasons: LEFT WRIST Is patient in pain?: Yes Allergies No Known Allergies Allergy (Verified 05/30/18 12:57) Medications Aspirin [Aspirin EC] 81 mg PO DAILY 04/30/18 [History Confirmed 05/14/18] Calcium Carbonate/Vitamin D3 [Calcium 500-Vit D3 600 Tablet] 1 ea PO BID 04/30/18 [History Confirmed 05/14/18] Levothyroxine Sodium 112 mcg PO DAILY 04/30/18 [History Confirmed 05/14/18] Losartan/Hydrochlorothiazide [Hyzaar 100-12.5 Tablet] 1 ea PO DAILY 04/30/18 [History Confirmed 05/14/18] Multivitamin [Daily Multiple Vitamin] 1 ea PO DAILY 04/30/18 [History Confirmed 05/14/18] [place]-3 Fatty Acids/Fish Oil [Fish Oil 1,000 mg Capsule] 1 ea PO DAILY 04/30/18 [History Confirmed 05/14/18] Pravastatin Sodium 40 mg PO DAILY 04/30/18 [History Confirmed 05/14/18] Vitamin E 1,000 unit PO DAILY 04/30/18 [History Confirmed 05/14/18] Acetaminophen/Codeine #3 [Tylenol #3 Tablet] 1 - 2 tab PO Q6H PRN PRN #30 tab 05/15/18 [Rx] PFSH Social History Smoking Status: Never smoker HPI LEFT WRIST: Details: KJ DUMAS is a 67 year old F here today for left wrist ORIF dos 05/15/18. Patient is doing well. She continues to wear her splint at all times. She is able to move her fingers with no pain. Denies numbness, tingling or other associated symptoms. [facility] Const Reports system reviewed and no additional complaints, except as docu Eyes Reports system reviewed and no additional complaints, except as docu ENT Reports system reviewed and no additional complaints, except as docu Card Reports system reviewed and no additional complaints, except as docu Resp Reports system reviewed and no additional complaints, except as docu GI Reports system reviewed and no additional complaints, except as docu Reports system reviewed and no additional complaints, except as docu Musc Reports joint pain Skin/Breast Reports system reviewed and no additional complaints, except as docu Neuro Yes system reviewed and no additional complaints, except as docu Psych Reports system reviewed and no additional complaints, except as docu Endo Reports system reviewed and no additional complaints, except as docu Ortho Exam Left Wrist/Hand Skin/Wound: Yes healing Contralateral Normal: Yes A1 radha trigger: No Motor: EPL: 5, FDP-2: 5, 1st Dorsal Interosseous: 5, APB: 5 Sensation: Radial: I, Ulnar: I, Median: I Assessment AND Plan Plan Personally reviewed the surgical images if available, the surgery procedure and reviewed the post op care instructions. Monitor for signs of infection, redness, warmth, swelling in excess, drainage, opening of incision site/sites, and/or fever. Patient with signs of stiffness consistent with postop changes. No numbness tingling or other issues. Patient given a prescription for OT for therapy to regain range of motion. Patient recently lost her and is taking time for herself so not sure she will do occupational therapy for a little while. X-rays of the wrist show well aligned fracture no signs of loosening or other issues. All questions answered. Patient in agreement of plan.Follow up in 4 weeks with Brenden or sooner if pain, swelling, numbness or associated symptoms, or concerns develop. Orders Orders: Coding Level of Care Code Global Post Op 06/11/18 0919 <Electronically signed by Allyssa Cabral DO> Date Allyssa Cabral DO Cosigner Signature: Date (if applicable) CC: OPERATIVE REPORT Observed: 06/04/2018 Status: F Source: [place] 2:33 PM [facility] REPOSITORY [facility] Medical Records Department [address] [place] [address] Operative Report 05/15/18 1339 MR#: [id number] Acct: [id number] Name: KJ DUMAS Rep #: [id number] : 1950 67 From: Allyssa Cabral DO PCP: Leighton LYNCH,Lamine Jordan [place] [facility] [facility] of Operation Date of Procedure: 05/15/18 Pre-Operative Diagnosis: left distal radius and ulna fracture Post-Operative Diagnosis: same Surgery/Procedure Performed:: orif left distal radius Type of Anesthesia:: General Anesthesiologist: Christian Madsen Estimated Blood Loss (mL): none Fluids Replaced: 1200ml lr Description of Procedure: Preoperative note Patient is a 67-year-old female who fell onto outstretched left right hand left hand. She had immediate pain deformity ER confirmed distal radius and distal ulna fracture she was seen in my clinic we did order a CAT scan to see how the ulnar was in her radius. All treatment options were given to patient. 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 Risks benefits and alternatives surgery discussed with patient. Risks including but not limited to blood loss, blood clot, infection, neurovascular injury, failure procedure, loss of life and loss of limb. Patient is aware like proceed with ORIF left distal radius possible ulna. Operative note Patient seen and examined preoperative holding area. Left wrist was marked. Patient brought to the operating placed supine on the operating table. Signing, anesthesia, antibiotics were administered. Left arm was prepped and draped in usual sterile fashion with a tourniquet around her upper arm. We marked out our incision by palpating her FCR. Timeout was performed. Then elevated exsanguinated and the tourniquet was raised to 250 torr. We then performed a timeout. We then used a 15 blade to cut through the skin dissect down tenotomies of the FCR the FCR was resected with retracted ulnarly resect resected the FCR fascia down to the pronator quadratus pronator quadratus was resected sharply off of its radial portal border. We then were able to dissect down she had quite a bit of scar tissue around her distal radius fracture it was [id number] is quite comminuted. We did use a bone pick to irrigate out the fracture site. The incision was irrigated with copious muscle sterile saline. We placed the appropriate plate and placed on the regular width 2.4 volar distal radius plate. We then used a K wire was transfixed the plate to bone after we had good placement of the plate on the bone. We then placed a cortical screw in the radial styloid piece to suck the bone plate down to bone. We then filled the remaining holes with locking screws we did have one exchanged for locking from a cortical screw which was the ulnar distal hole after transfixing the plate to bone just for better fixation after all of the screws were placed. See chart for further details as far as screw length. We then placed our 2 7 screws cortical screws after drilling appropriately we did with the distal screws as well. Placed 212 and 140 mm screw in the shaft. We irrigated the incision with copious amounts of sterile saline. The pronator was laid on top of the plate as well as the FCR fascia. We then closed the skin and subcu subcuticular with 3-0 Vicryl in a running 4-0 Monocryl. Sterile dressings and a splint was applied. Patient tolerated procedure well there are no comp occasions tourniquet was deflated for total working time of 70 minutes. Postoperative note Nonweightbearing left upper extremity Hospital pharmacy has prescription Call with increased pain numbness tingling or further issues arise Follow-up in 2 weeks Keep dressing clean and dry Dragon disclaimer This note was generated with [employer] dictation software. It may contain incorrect words, spelling, and punctuation that were not noted in checking the note before signing. 06/04/18 7163 <Electronically signed by Allyssa Cabral DO> Date Allyssa Cabral DO CC: Allyssa Cabral DO; Evan Hager MD; Lamine Manzanares MD Signed WRIST MIN 3 VIEWS Observed: 05/30/2018 Status: F Source: [place] 1:04 PM [facility] HOSPITAL REPOSITORY [facility] Imaging Services [address] [place] [address] Wrist min 3 Views MR#: [id number] Acct: [id number] Name: KJ DUMAS Rep #: [id number] : 1950 F 67 From: Billy Coleman DO PCP: Lamine Manzanares MD, Chi Status: REG CLI Study: Wrist min 3 Views Date of Exam: 05/30/18 Exam# [id number] Ordering Dr: Allyssa Cabral DO STUDY: X-RAY - LEFT WRIST REASON FOR EXAM: Female, 67 years old. Postop TECHNIQUE: 3 view(s) of the wrist were obtained. COMPARISON: May 07, 2018 FINDINGS: Status post ORIF for a distal radial fracture. Fracture fragments are well aligned and approximated. Healing fracture involving distal end of the ulna. Cast in place. RAD/Wrist min 3 Views IMPRESSION: Status post ORIF of the distal radial fracture. Healing distal ulnar fracture. Electronically Signed: Billy Coleman DO at 8:22 EST Tel [phone], Service support , CC: Allyssa Cabral DO; Lamine Manzanares MD Debt Recovery Officer: Signed 12 LEAD ELECTROCARDIOGRAM Observed: 05/17/2018 Status: F Source: [place] 2:39 PM [facility] REPOSITORY [facility] Cardiovascular Services [address] [place] [address] 12 Lead EKG 05/14/18 1422 MR#: [id number] Acct: [id number] Name: KJ DUMAS Rep #: [id number] : 1950 67 From: Dayday Kate MD Attending Dr: Allyssa Cabral DO Status: [facility] Ordering Dr: Allyssa Cabral DO Date: 05/14/18 [place] [facility] [place] F C Admitted: Test Reason : PREOP Blood Pressure : / mmHG Vent. Rate : 057 BPM Atrial Rate : 057 BPM P-R Int : 162 ms QRS Dur : 082 ms QT Int : 394 ms P-R-T Axes : 052 024 020 degrees QTc Int : 383 ms Sinus bradycardia Otherwise normal ECG Confirmed by LAVINIA LYNCH, DAYDAY ([id number]), newspaper or periodical editor MODESTO GOINS ([id number]) on 05/17/2018 2:38:44 PM Referred By: Allyssa Cabral Confirmed By:DAYDAY KATE MD 05/17/18 1438 Date Dayday Kate MD CC: Allyssa Cabral DO; Lamine Manzanares MD Signed DISCHARGE INSTRUCTION Observed: 05/15/2018 Status: F Source: [place] 1:37 PM [facility] REPOSITORY [facility] Medical Records Department [address] [place] [address] Instructions for Home/Discharge Instructions 05/15/18 1335 MR#: [id number] Acct: [id number] Name: KJ DUMAS Rep #: [id number] : 1950 67 From: Allyssa Cabral DO PCP: Lamine Manzanares MD, Chi Status: REG SDC Discharge Diet: No Restrictions - follow up in 2 weeks in clinic, keep dressing clean and dry, call with concerns Allergies/Adverse Reactions: Allergies No Known Allergies Allergy (Verified 05/14/18 13:31) Medications to take at Discharge Aspirin [Aspirin EC] 81 mg PO DAILY 04/30/18 Calcium Carbonate/Vitamin D3 [Calcium 500-Vit D3 600 Tablet] 1 ea PO BID 04/30/18 Levothyroxine Sodium 112 mcg PO DAILY 04/30/18 Losartan/Hydrochlorothiazide [Hyzaar 100-12.5 Tablet] 1 ea PO DAILY 04/30/18 Multivitamin [Daily Multiple Vitamin] 1 ea PO DAILY 04/30/18 [place]-3 Fatty Acids/Fish Oil [Fish Oil 1,000 mg Capsule] 1 ea PO DAILY 04/30/18 Pravastatin Sodium 40 mg PO DAILY 04/30/18 Vitamin E 1,000 unit PO DAILY 04/30/18 Acetaminophen/Codeine #3 [Tylenol #3 Tablet] 1 - 2 tablet PO Q6H PRN PRN #30 tablet 05/15/18 The following prescriptions were given: Acetaminophen/Codeine #3 [Tylenol #3 Tablet] 1 - 2 tablet PO Q6H PRN PRN #30 tablet PRN Reason: Pain Orders to be completed after discharge: 12 Lead EKG [CVS] Time Frame: 05/14/18, Location: None Selected Basic Metabolic Profile (BMP) Time Frame: 05/14/18, Location: Laboratory Thyroid Stim Hormone (TSH) Time Frame: 05/14/18, Location: Laboratory Primary Care Physician: Lamine Manzanares Chi, MD [Primary Care Provider] - Test Results: Test results from this visit will be discussed in further detail at your follow-up appointment, if applicable. 05/15/18 1337 <Electronically signed by Allyssa Cabral DO> Date Allyssa Cabral DO CC: Evan Hager MD; Lamine Manzanares MD WRIST 2 VIEWS Observed: 05/15/2018 Status: F Source: [place] 4:40 AM [facility] REPOSITORY [facility] Imaging Services [address] [place] [address] Wrist 2 Views MR#: [id number] Acct: [id number] Name: KJ DUMAS Rep #: [id number] : 1950 F 67 From: David Mosquera MD PCP: Lamine Manzanares MD, Chi Status: REG [facility] [place]: Wrist 2 Views Date of Exam: 05/15/18 Exam# [id number] Ordering Dr: Allyssa Cabral DO STUDY: X-RAY - LEFT WRIST REASON FOR EXAM: ORIF left wrist. TECHNIQUE: 2 fluoroscopic views view(s) of the wrist were obtained. COMPARISON: Radiographs 05/07/2018. FINDINGS: There is an orthopedic plate and screws transfixing a distal radial fracture in anatomical alignment and position. There is a nondisplaced fracture of the distal ulna. Electronically Signed: David Mosquera MD at 15:45 EST Tel , Service support , RAD/Wrist 2 Views CC: Allyssa Cabral DO; Lamine Manzanares MD Debt Recovery Officer: Signed BASIC METABOLIC Collected: 05/14/2018 Status: F Source: [place] PROFILE (BMP) 2:07 PM [facility] REPOSITORY TYPE CODE TESTS RESULT OUT OF RANGE REFERENCE UNITS LAB L501.0100 74-106 mg/dL Normal GLU 80 Result Comment: Please note revised GLUCOSE reference range effective 2017. LAB L501.1000 7-18 mg/dL Normal BUN 10 LAB L501.1100 0.55-1.02 mg/dL Normal CREAT,SERUM 0.63 Result Comment: The validity of the calculated GFR AND GFRAA in patients over 70 years has not been determined. Clinical correlation is essential. LAB L501.1110 >60 mL/min Normal EST GFR 100 Result Comment: Non- GFR Calc LAB L501.1115 >60 mL/min Normal EST GFR - AA 121 Result Comment: GFR Calc LAB L501.1300 10-20 RATIO Normal BUN/CRE 15.9 LAB L501.2200 8.5-10.1 mg/dL CA Normal 9.4 LAB L501.5300 136-145 mmol/L NA Normal 141 LAB L501.5600 3.5-5.1 mmol/L Low K 3.2 LAB L501.5900 98-107 mmol/L CL Normal 105 LAB L501.6100 21.0-32.0 mmol/L Normal CO2 31.0 LAB L501.6200 5-15 Normal GAP 5 Performed By: #### L500.2500, L501.9520 #### [facility] [address] [place], [place], [address] THYROID STIM HORMONE Collected: 05/14/2018 Status: F Source: [place] (TSH) 2:07 PM [facility] REPOSITORY TYPE CODE TESTS RESULT OUT OF RANGE REFERENCE UNITS LAB L501.9520 0.358-3.74 uIU/mL Normal TSH 0.37 Performed By: #### L500.2500, L501.9520 #### [facility] [address] [place], [address] ORTHOPEDIC VISIT Observed: 05/14/2018 Status: F Source: [place] REPORT 1:41 PM [facility] REPOSITORY [facility] [address] [place] [address] [address] [place] [address] OFFICE VISIT Date of Service: 05/14/18 MR#: [id number] Acct: [id number] Name: KJ DUMAS Rep #: [id number] : 1950 Provider: Allyssa Cabral DO Age/Sex: 67/F [place] [facility] [place] [place]: Signed Intake Intake Visit Reasons: LEFT WRIST Is patient in pain?: Yes Allergies No Known Allergies Allergy (Verified 05/14/18 13:31) Medications Aspirin [Aspirin EC] 81 mg PO DAILY 04/30/18 [History Confirmed 05/14/18] Calcium Carbonate/Vitamin D3 [Calcium 500-Vit D3 600 Tablet] 1 ea PO BID 04/30/18 [History Confirmed 05/14/18] Levothyroxine Sodium 112 mcg PO DAILY 04/30/18 [History Confirmed 05/14/18] Losartan/Hydrochlorothiazide [Hyzaar 100-12.5 Tablet] 1 ea PO DAILY 04/30/18 [History Confirmed 05/14/18] Multivitamin [Daily Multiple Vitamin] 1 ea PO DAILY 04/30/18 [History Confirmed 05/14/18] [place]-3 Fatty Acids/Fish Oil [Fish Oil 1,000 mg Capsule] 1 ea PO DAILY 04/30/18 [History Confirmed 05/14/18] Pravastatin Sodium 40 mg PO DAILY 04/30/18 [History Confirmed 05/14/18] Vitamin E 1,000 unit PO DAILY 04/30/18 [History Confirmed 05/14/18] PFSH Social History Smoking Status: Never smoker HPI LEFT WRIST: Details: KJ DUMAS is a 67 year old F here today for a followup on her right wrist fracture. Patient states that she is doing better and her pain is less. She has been wearing her splint at all times. Patient is able to move his fingers with no pain. Denies numbness, tingling or other associated symptoms. She had her CT scan which is here for review. ROS Const Reports system reviewed and no additional complaints, except as docu Eyes Reports system reviewed and no additional complaints, except as docu ENT Reports system reviewed and no additional complaints, except as docu Card Reports system reviewed and no additional complaints, except as docu Resp Reports system reviewed and no additional complaints, except as docu GI Reports system reviewed and no additional complaints, except as docu Reports system reviewed and no additional complaints, except as docu Musc Reports joint pain Skin/Breast Reports system reviewed and no additional complaints, except as docu Neuro Yes system reviewed and no additional complaints, except as docu Psych Reports system reviewed and no additional complaints, except as docu Endo Reports system reviewed and no additional complaints, except as docu Ortho Exam Left Wrist/Hand Motor: EPL: 5, FDP-2: 5, 1st Dorsal Interosseous: 5, APB: 5 Sensation: Radial: I, Ulnar: I, Median: I Assessment AND Plan 1. Other closed extra-articular fracture of distal end of left radius with routine healing, subsequent encounter S52.220M Plan Personally reviewed the CT scan and explained that the best option based on her injury and her lifestyle is to plate the radius and leave the ulna to heal. Reviewed the pre-operative plans with the patient. Risks and benefits of the procedure were fully explained, including but not limited to infection, neurovascular injury, continued pain, arthritis, stiffness, need for further surgery, re-injury, DVT, PE, general risks of anesthesia, and loss of limb or life. The patient understands all the risks and does wish to proceed with written consent. Follow up postop or sooner if pain, swelling, numbness or associated symptoms, or concerns develop. All questions answered. Patient in agreement of plan. Coding Level of Care Code Off vis,est,level 3 Diagnoses Other closed extra-articular fracture of distal end of left radius with routine healing, subsequent encounter S52.100O Encounter type: subsequent encounter Fracture healing: with routine healing Fracture morphology: other extra-articular Fracture type: closed 05/14/18 1341 <Electronically signed by Allyssa Chicorelli DO> Date Allyssa Cabral DO Cosigner Signature: Date (if applicable) CC: EXTREMITY UPPER Observed: 05/11/2018 Status: F Source: [place] WITHOUT CONTRA 6:25 AM [facility] REPOSITORY [facility] Imaging Services [address] [place] [address] Extremity Upper without Contra MR#: [id number] Acct: [id number] Name: KJ DUMAS Rep #: [id number] : 1950 F 67 From: Celestino Lowe MD PCP: Leighton LYNCH,Lamine Jordan Status: REG CLI Study: Extremity Upper without Contra Date of Exam: 05/11/18 Exam# [id number] Ordering Dr: Allyssa Cabral DO STUDY: CT OF THE LEFT WRIST WITHOUT CONTRAST REASON FOR EXAM: Female, 67 years old. No left wrist fracture. Work up. RADIATION DOSAGE (If Supplied By Facility): CTDIvol = ( 24.58 ) mGy, DLP = ( 597.48 ) mGycm. Individualized dose optimization techniques were used for this CT.? TECHNIQUE: Contiguous axial images of the left wrist were obtained without contrast. Coronal, sagittal, 3-D reconstruction and bone and soft tissue algorithm images were provided for interpretation. COMPARISON: X-rays of the wrist dated April 30, 2018 and May 07, 2018. FINDINGS: There is generalized osteopenia. There is a comminuted fracture of the distal radius with impaction at the fracture site. There are fracture fragments projected radially. There is a minimally displaced fracture of the base of the ulnar styloid (coronal series 601 images 19-30). There is severe arthrosis of the first carpometacarpal joint with multiple intra-articular osteochondral bodies (coronal series 601 images 22-29). CT/Extremity Upper without Contra IMPRESSION: Osteopenia with an impacted comminuted fracture of the distal radius. Minimally displaced fracture through the base of the ulnar styloid. Severe osteoarthritic changes of the first carpometacarpal joint. Electronically Signed: Celestino Lowe MD at 17:49 EST , Service support , CC: Allyssa Cabral DO; Lamine Manzanares MD Debt Recovery Officer: Signed UDAY LAMB Observed: 05/11/2018 Status: F Source: [place] OBL 3-D REC 6:25 AM [facility] Imaging Services [address] [place] [address] Obl 3-D Rec MR#: [id number] Acct: [id number] Name: KJ DUMAS Rep #: [id number] : 1950 F 67 From: Celestino Lowe MD PCP: Leighton LYNCH,Lamine Jordan Status: REG CLI Study: Uday Graham Multi Obl 3-D Rec Date of Exam: 05/11/18 Exam# [id number] Ordering Dr: Allyssa Cabral DO STUDY: CT OF THE LEFT WRIST WITHOUT CONTRAST REASON FOR EXAM: Female, 67 years old. No left wrist fracture. Work up. RADIATION DOSAGE (If Supplied By Facility): CTDIvol = ( 24.58 ) mGy, DLP = ( 597.48 ) mGycm. Individualized dose optimization techniques were used for this CT.? TECHNIQUE: Contiguous axial images of the left wrist were obtained without contrast. Coronal, sagittal, 3-D reconstruction and bone and soft tissue algorithm images were provided for interpretation. COMPARISON: X-rays of the wrist dated April 30, 2018 and May 07, 2018. FINDINGS: There is generalized osteopenia. There is a comminuted fracture of the distal radius with impaction at the fracture site. There are fracture fragments projected radially. There is a minimally displaced fracture of the base of the ulnar styloid (coronal series 601 images 19-30). There is severe arthrosis of the first carpometacarpal joint with multiple intra-articular osteochondral bodies (coronal series 601 images 22-29). CT/Coronals Sag Multi Obl 3-D Rec IMPRESSION: Osteopenia with an impacted comminuted fracture of the distal radius. Minimally displaced fracture through the base of the ulnar styloid. Severe osteoarthritic changes of the first carpometacarpal joint. Electronically Signed: Celestino Lowe MD at 17:49 EST , Service support , CC: Allyssa Cabral DO; Lamine Manzanares MD Debt Recovery Officer: Signed ORTHOPEDIC VISIT Observed: 05/09/2018 Status: F Source: [place] REPORT 1:38 PM [facility] REPOSITORY [facility] [address] [place] [address] OFFICE VISIT Date of Service: 05/07/18 MR#: [id number] Acct: [id number] Name: KJ DUMAS Rep #: [id number] : 1950 Provider: Allyssa Cabral DO Age/Sex: 67/F [place] [facility] [place] [place]: Signed Intake Intake Visit Reasons: LEFT WRIST Is patient in pain?: Yes Pain scale (1-10): 8 Allergies No Known Allergies Allergy (Verified 05/07/18 14:38) Medications Aspirin [Aspirin EC] 81 mg PO DAILY 04/30/18 [History Confirmed 05/07/18] Baclofen [Lioresal] 10 mg PO QHS 04/30/18 [History Confirmed 05/07/18] Bupropion HCl [Bupropion HCl Sr] 150 mg PO DAILY 04/30/18 [History Confirmed 05/07/18] Calcium Carbonate/Vitamin D3 [Calcium 500-Vit D3 600 Tablet] 1 ea PO DAILY 04/30/18 [History Confirmed 05/07/18] Diclofenac Sodium 50 mg PO BID 04/30/18 [History Confirmed 05/07/18] Levothyroxine Sodium 112 mcg PO DAILY 04/30/18 [History Confirmed 05/07/18] Losartan/Hydrochlorothiazide [Hyzaar 100-12.5 Tablet] 1 ea PO DAILY 04/30/18 [History Confirmed 05/07/18] Multivitamin [Daily Multiple Vitamin] 1 ea PO DAILY 04/30/18 [History Confirmed 05/07/18] [place]-3 Fatty Acids/Fish Oil [Fish Oil 1,000 mg Capsule] 1 ea PO DAILY 04/30/18 [History Confirmed 05/07/18] Pravastatin Sodium 40 mg PO DAILY 04/30/18 [History Confirmed 05/07/18] Vitamin E 1,000 unit PO DAILY 04/30/18 [History Confirmed 05/07/18] PFSH Social History Smoking Status: Never smoker HPI LEFT WRIST: Details: KJ DUMAS is a 67 year old F here today for a left wrist fracture. Patient notes that she fell on 04/30/18. She had wrist deformity and went to the ED. She was reduced and put into a splint which she has been wearing at all times. Patient notes that she had a nurse rewrap her wrist due to tightness and she has a blister which she now has covered. She is able to move her fingers with no pain. Patient has swelling and bruising of her fingers. She states that she is in significant pain. She is taking tylenol for pain. Denies numbness, tingling or other associated symptoms. ROS Const Reports system reviewed and no additional complaints, except as docu Eyes Reports system reviewed and no additional complaints, except as docu ENT Reports system reviewed and no additional complaints, except as docu Card Reports system reviewed and no additional complaints, except as docu Resp Reports system reviewed and no additional complaints, except as docu GI Reports system reviewed and no additional complaints, except as docu Reports system reviewed and no additional complaints, except as docu Musc Reports joint pain Skin/Breast Reports system reviewed and no additional complaints, except as docu Neuro Yes system reviewed and no additional complaints, except as docu Psych Reports system reviewed and no additional complaints, except as docu Endo Reports system reviewed and no additional complaints, except as docu Assessment AND Plan Plan patient has well aligned radius but ulnar styloid is off so needs provisional stabilization as druj may be unstable and would assess this intraop. 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 In the interim we will get a CAT scan see the quality of the bone of the ulnar styloid determine whether or not this can be pinned versus needing a plate. We will discuss this once we get her CT results and follow-up with her on Sunday possible OR on Sunday. All questions answered. Patient in agreement of plan. Personally reviewed the patient's medical history, medications, surgeries and recent exams if available. X-rays were reviewed. There is improved alignment post reduction of the ulna and radius noted. She has fracture blisters and is not a great candidate for casting, we will order a CT scan and consent for surgery. She has Orders Orders: Coding Level of Care Code Off vis,new,level 3 05/09/18 1338 <Electronically signed by Allyssa Cabral DO> Date Allyssa Cabral DO Cosigner Signature: Date (if applicable) CC: WRIST 2 VIEWS Observed: 05/07/2018 Status: F Source: [place] 2:41 PM [facility] REPOSITORY [facility] Imaging Services [address] [place] [address] Wrist 2 Views MR#: [id number] Acct: [id number] Name: KJ DUMAS Dimitris Rep #: [id number] : 1950 F 67 From: David Mosquera MD PCP: Leighton LYNCH,Lamine Jordan Status: REG CLI Study: Wrist 2 Views Date of Exam: 05/07/18 Exam# [id number] Ordering Dr: Allyssa Cabral DO STUDY: X-RAY - LEFT WRIST REASON FOR EXAM: Fracture. TECHNIQUE: 2 view(s) of the wrist were obtained. COMPARISON: Radiographs 04/30/2018. FINDINGS: There is no interval change of the distal radial fracture with mild dorsal displacement as on the post reduction radiographs. There is no interval change of the nondisplaced distal ulnar fracture. Normal radiocarpal articulation. Normal distal radioulnar articulation. Normal carpal bones. Normal carpal articulations. There is joint space narrowing of the carpometacarpal articulation of the thumb. Normal second through fifth carpometacarpal articulations. Normal visualized metacarpal bones. There is an overlying cast. RAD/Wrist 2 Views IMPRESSION: No interval change distal radial and ulnar fractures. Electronically Signed: David Mosquera MD at 10:12 EST Tel , Service support , CC: Allyssa Cabral DO; Lamine Manzanares MD Debt Recovery Officer: Signed EMERGENCY DEPARTMENT Observed: 04/30/2018 Status: F Source: [place] SUMMARY 11:12 AM [facility] REPOSITORY [facility] Medical Records Department [address] [place] [address] Emergency Department Summary 04/30/18 0926 MR#: [id number] Acct: [id number] Name: KJ DUMAS Dimitris Rep #: [id number] : 1950 67 From: Idris Prieto MD PCP: Lamine Manzanares MD, Chi Status: REG ER - ER Visit Summary Date of Service: 04/30/18 Chief Complaint: Pain deformity left wrist and abrasion right forearm status post fall History of Present Illness: The patient is a 67 F who presents because of deformity left wrist status post fall. She was walking down a disability ramp that apparently was covered for loss. She lost her balance. She landed on her outstretched left upper extremity. She also noted abrasion distal volar right forearm. She is on no anticoagulant. She denies head trauma. Denies neck pain. She denies paresthesia, anesthesia motor expressly the time of the injury. She denies cardiac respiratory symptoms. Please read written note for complete detail. Physical Examination: Vital signs noted. Head is atraumatic normocephalic. Pupils equal round reactive. Extra muscle intact. There is no confines basal skull fracture. Trach is midline. Is no pain the patient cervical spine and C-spine was cleared per Nexus criteria. Heart is regular without murmur, gallop or rub. S1 and S2 are normal. Lungs are clear to auscultation with good movement of air bilaterally. Axillary, median, radial and ulnar function intact. There is no pain palpation of the clavicle, AC joint or proximal humerus bilaterally. There is no pain the patient of the medial or lateral epicondyles, olecranon process or radial head bilaterally. There is slight discomfort volar surface distal right forearm. There is no pain the patient of the distal radius or ulna. There is no pain the patient of the carpal bones, metacarpal bones or phalanges on the right. There is deformity to the left wrist. There is no pain the patient the phalanges or metacarpal bones. There is a step-off appreciated distal left radius. Test Results: Three-view x-ray of the left wrist was obtained which reveals a distal transverse radial fracture with 30 degrees volar apex angulation and a nondisplaced fracture of the ulnar styloid. This film was interpreted by me. Postreduction film reveals good alignment and to length on the PA film. Lateral film reveals 5% step-off with loss of volar tilt. The ulnar styloid is now displaced. Emergency Department Course and Treatment: A hematoma block was placed with 1% lidocaine by me prior to x-rays. Patient was placed in finger traps with weight added gradually to a total of 12-1/2 pounds. Reduction was undertaken by me. She was placed in short arm AP plaster splint.. Treatment Plan: Rest, ice and elevation. She was referred to orthopedics. Spoke with Dr. Heena Street who requested patient call the office to be seen next week. He was discharged with a sling. Disposition: Discharged to home Impression: 1. Fall secondary to snider/ice 2. Abrasion and contusion distal right volar forearm 3. Colles' fracture left wrist initial encounter 4. Hematoma block placed by ED physician 5. Reduction of Colles' fracture by ED physician 6. Application of plaster short arm AP splint by ED physician This note was generated with [employer] dictation software. It may contain incorrect words, spelling, and punctuation that were not noted in review of the chart prior to signing ED Disposition - Plan for ED Patient: Chief Complaint: Upper Extremity Injury Instructions: ED Fx Forearm Radius Ulna Redu Requ Prescriptions: Oxycodone HCl/Acetaminophen [Percocet 5/325] 1 tablet PO Q6H PRN PRN 5 Days #20 tablet PRN Reason: Pain Referrals: Lamine Manzanares Chi, MD [Primary Care Provider] - Allyssa Cabral DO [STAFF PHYSICIAN] - 5-7 Days Additional Instructions: Keep your left wrist elevated for the next 2-3 days above your nose. Apply ice 6-8 times a day 20-30 minutes at a time. Your prescription was electronically transmitted to [facility] pharmacy your designated pharmacy of choice. What to do if you have Problems For any increased pain, shortness of breath, bleeding, nausea or vomiting, chest pain, or any unexpected problems, contact your Primary Care Provider. Call [facility] ([phone]) or report to the closest Emergency Room. Call 911 if necessary. 04/30/18 1112 <Electronically signed by Idris Prieto MD> Date Idris Prieto MD Cosigner Signature (If Indicated): Date CC: Allyssa Cabral DO; Lamine Manzanares MD WRIST MIN 3 VIEWS Observed: 04/30/2018 Status: F Source: [place] 10:27 AM [facility] REPOSITORY [facility] Imaging Services [address] [place] [address] Wrist min 3 Views MR#: [id number] Acct: [id number] Name: KJ DUMAS Rep #: [id number] : 1950 F 67 From: Chema Olguin MD PCP: Lamine Manzanares MD, Chi Status: REG ER Study: Wrist min 3 Views Date of Exam: 04/30/18 Exam# [id number] Ordering Dr: Idris Prieto MD STUDY: X-RAY - LEFT WRIST REASON FOR EXAM: Female, 67 years old. Post reduction examination. TECHNIQUE: 3 view(s) of the wrist were obtained in a cast. COMPARISON: None. FINDINGS: There is satisfactory reduction of the comminuted fracture of the distal radius as well as the distal ulna. RAD/Wrist min 3 Views IMPRESSION: Satisfactory reduction Electronically Signed: Chema Olguin MD at 10:50 EDT Tel [phone], Service support , CC: Lamine Manzanares MD; Idris Prieto MD Debt Recovery Officer: Signed WRIST MIN 3 VIEWS Observed: 04/30/2018 Status: F Source: [place] 9:18 AM [facility] REPOSITORY [facility] Imaging Services [address] [place], [place] [id number] Wrist min 3 Views MR#: [id number] Acct: [id number] Name: DUMASKJ K Rep #: [id number] : 1950 F 67 From: Chema Olguin MD PCP: Lamine Manzanares MD, Chi Status: REG ER Study: Wrist min 3 Views Date of Exam: 04/30/18 Exam# [id number] Ordering Dr: Idris Prieto MD STUDY: X-RAY - LEFT WRIST REASON FOR EXAM: Female, 67 years old. Pain and swelling. TECHNIQUE: 3 view(s) of the wrist were obtained. COMPARISON: None. FINDINGS: There is a comminuted fracture of the distal radial metaphysis with dorsal facing. Nondisplaced linear fracture of the distal ulna extending to the ulnar styloid. Normal radiocarpal articulation. Disruption of the distal radial ulnar articulation. Normal carpal bones. Normal carpal articulations. Normal carpometacarpal articulation of the thumb. Normal second through fifth carpometacarpal articulations. Normal visualized metacarpal bones. Diffuse soft tissue swelling. RAD/Wrist min 3 Views IMPRESSION: Comminuted fracture of the distal radial metaphysis with dorsal facing. Nondisplaced linear fracture of the distal ulna with extension to the ulnar styloid. Electronically Signed: Chema Olguin MD at 9:52 EDT Tel [phone], Service support , CC: Lamine Manzanares MD; Idris Prieto MD Debt Recovery Officer: Signed RIBS UNI MIN 3V Observed: 03/19/2018 Status: F Source: [place] W/PA CHEST 4:58 PM [facility] REPOSITORY [facility] Imaging Services [address] [place] [address]90 Ribs Uni Min 3V w/PA Chest MR#: [id number] Acct: [id number] Name: KJ DUMAS Rep #: [id number] : 1950 F 67 From: Luis Mares MD PCP: Lamine Manzanares MD, Chi Status: REG CLI Study: Ribs Uni Min 3V w/PA Chest Date of Exam: 03/19/18 Exam# [id number] Ordering Dr: Lamine Manzanares MD STUDY: X-RAY - UNILATERAL RIBS ( LEFT ) WITH CHEST REASON FOR EXAM: Female, 67 years old. Lateral left rib pain one week after fall. TECHNIQUE - RIBS: 4 view(s) of the ribs. TECHNIQUE - CHEST: Single frontal view of the chest. COMPARISON: None. FINDINGS - RIBS: Normal visualized ribs without a demonstrated fracture. FINDINGS - CHEST: The lungs are clear and expanded. There is no demonstrated pleural abnormality. Normal size heart. Normal mediastinum and felipe. Normal visualized pulmonary arteries. Normal visualized aortic arch and descending thoracic aorta. Normal visualized thoracic spine. Normal visualized ribs, clavicles, and shoulders. There is no demonstrated abnormality of the visualized soft tissue structures of the upper abdomen. RAD/Ribs Uni Min 3V w/PA Chest IMPRESSION: RIBS: Normal x-ray examination of the left ribs. CHEST: Normal x-ray examination of the chest. Electronically Signed: Phil Mares MD at 19:59 EDT , Service support , CC: Lamine Manzanares MD Debt Recovery Officer: Signed SCREENING MAMM (CAD), Observed: 01/29/2018 Status: F Source: [facility] 8:55 AM [facility] REPOSITORY [facility] Imaging Services [address] [place] [address] SCREENING MAMM (CAD), BILAT MR#: [id number] Acct: [id number] Name: KJ DUMAS Rep #: [id number] : 1950 F 67 From: Chema Olguin MD PCP: Lamine Manzanares MD, Chi Status: REG CLI Study: SCREENING MAMM (CAD), BILAT Date of Exam: 01/29/18 Exam# [id number] Ordering Dr: Allyssa Leal MD MAMMOGRAPHY - BILATERAL SCREENING REASON FOR EXAM: Female, 67 years old. Routine annual screening examination. PERTINENT HISTORY: Non-contributory. TECHNIQUE: Digital bilateral breast ya (3D mammographic acquisition) in the CC and MLO projections. 2-D mediolateral oblique (MLO) and craniocaudad (CC) views of both breasts were obtained. CAD: Full Field Digital Mammography with Computer Added Detection was performed. COMPARISON: Comparison is made with prior study dated January 25, 2016 April 20, 2014. FINDINGS: Breast Composition: There are scattered areas of fibroglandular density. There are no dominant masses or suspicious calcifications. Stable benign-appearing bilateral axillary lymph nodes. No other significant abnormalities are identified. BI/SCREENING MAMM (CAD), BILAT IMPRESSION: Stable bilateral screening mammogram. Yearly follow-up mammogram recommended. (A) ASSESSMENT CATEGORY: BIRADS Category 2: Benign. A letter regarding these results will be sent to the patient by the facility within 30 days. Approximately 10% of breast cancers are not detected by mammography. A normal mammogram should not delay biopsy of a clinically suspicious abnormality. [id number] Electronically Signed: Chema Olguin MD at 10:17 EDT Tel [phone], Service support , CC: Allyssa Leal MD; Lamine Manzanares MD Debt Recovery Officer: Signed DEXA BONE DENSITY Observed: 01/29/2018 Status: F Source: [place] STUDY 8:55 AM [facility] REPOSITORY [facility] Imaging Services [address] [place] [address]671 Dexa Bone Density Study MR#: [id number] Acct: [id number] Name: KJ DUMAS Rep #: [id number] : 1950 F 67 From: Chema Olguin MD PCP: Lamine Manzanares MD, Chi Status: REG CLI Study: Dexa Bone Density Study Date of Exam: 01/29/18 Exam# [id number] Ordering Dr: Allyssa Leal MD STUDY: DUAL ENERGY X-RAY ABSORPTIOMETRY / DXA REASON FOR EXAM: Female, 67 years old. The patient is postmenopausal. Loss of height. TECHNIQUE: Bone Mineral Density (BMD) measurements of lumbar spine and bilateral hips were obtained. COMPARISON: Comparison is made with prior examination dated January 25, 2016. FINDINGS: Lumbar Spine (L1-L4): g/cm2 (1.145) / T-score (-0.3) / Z-score (1.3) Findings are suggestive of normal bone density with a low fracture risk. Left Femur Total: g/cm2 (0.946) / T-score (-0.5) / Z- score (0.8) Left Femoral Neck: g/cm2 (0.938) / T-score (-0.7) / Z- score (0.8) Right Femur Total: g/cm2 (0.873) / T-score (-1.1) / Z- score (0.2) Right Femoral Neck: g/cm2 (0.764) / T-score (-2.0) / Z-score (0.4) The T-Scores on the most recent prior examination were: Lumbar Spine (L1-L4): There has been worsening of bone density since the previous examination. Left Femur Total: which represents a worsening of 1.1%. Right Femur Total: which represents no significant change. . BD/Dexa Bone Density Study IMPRESSION: The patient is considered osteopenic as outlined below according to World Misael Organization (WHO) criteria with a moderate fracture risk. There has been worsening of bone density since the previous examination. Reference Information: The T-score is the number of standard deviations above or below the standard which is normal for young adults at their peak bone mineral density. The World Health Organization (WHO) interprets the T-scores as follows: Above -1 Normal bone density Between -1 and -2.5 Osteopenia Equal to / or below -2.5 Osteoporosis As a practical clinical guideline, osteopenia may be graded as follows: Mild -1 through -1.5 Moderate -1.6 through -2.0 Severe -2.1 through -2.4 The Z-score is the number of standard deviations above or below age-matched controls. A Z-score of less than -1.5 would be considered abnormal. References: 1. NIH Osteoporosis and Related Bone Diseases http://www.osteo.org 2. International Society for Clinical Densitometry http://www.iscd.org 3. National Osteoporosis Foundation http://www.nof.org Electronically Signed: Chema Olguin MD at 14:36 EDT Tel [phone], Service support , CC: Allyssa Leal MD; Lamine Manzanares MD Debt Recovery Officer: Signed CBC W/DIFF, AUTOMATED Collected: 01/15/2018 Status: F Source: [place] 5:10 PM [facility] REPOSITORY TYPE CODE TESTS RESULT OUT OF RANGE REFERENCE UNITS LAB L100.1000 4.4-11.0 K/mm3 Normal WBC 6.2 LAB L100.1200 4.2-5.4 M/mm3 Normal RBC 4.42 LAB L100.1300 12.0-15.0 g/dl Normal HGB 13.2 LAB L100.1400 37-47 % Normal HCT 38.8 LAB L100.1500 81-99 fL Normal MCV 87.8 LAB L100.1600 27.0-32.0 pg Normal MCH 29.9 LAB L100.1700 32-36 g/gl Normal MCHC 34.0 LAB L100.1810 11.6-14.6 % Normal RDW CV 12.0 LAB L100.1820 35.1-43.9 fl Normal RDW SD 38.1 LAB L100.1900 150-450 K/mm3 Normal PLT 249 LAB L100.2000 6.2-12.0 fl Normal MPV 9.4 LAB L100.2100 47-70 % Normal NEUT% 55.6 LAB L100.2200 19-41 % Normal LY% 35.7 LAB L100.2300 0-10 % Normal MONO% 7.2 LAB L100.2400 0-5 % Normal EO% 0.8 LAB L100.2500 0-1 % Normal BASO% 0.5 LAB L100.2550 0.0-0.9 % Normal IM GRAN % 0.200 Result Comment: IG% - Immature Granulocytes (promyelocytes, myelocytes and metamyelocytes) > 1% indicates that a LEFT SHIFT is Present. LAB L100.2620 2.0-7.7 X10 3/uL Normal Absolute Neut 3.5 LAB L100.2720 0.83-4.51 X10 3/ul Normal Absolute Lymph 2.22 Performed By: #### L100.0100 #### [facility] [address] [place], [address] COMPREHENSIVE METABOLIC Collected: 01/15/2018 Status: F Source: [facility] 5:10 PM [facility] REPOSITORY TYPE CODE TESTS RESULT OUT OF RANGE REFERENCE UNITS LAB L501.0100 74-106 mg/dL Normal GLU 101 Result Comment: Fasting Glucose result from 100 to 125 mg/dL suggests IMPAIRED HOMEOSTASIS per A.D.A. criteria. Please note revised GLUCOSE reference range effective 2017. LAB L501.1000 7-18 mg/dL Normal BUN 11 LAB L501.1100 0.55-1.02 mg/dL Normal CREAT,SERUM 0.71 Result Comment: The validity of the calculated GFR AND GFRAA in patients over 70 years has not been determined. Clinical correlation is essential. LAB L501.1110 >60 mL/min Normal EST GFR 87 Result Comment: Non- GFR Calc LAB L501.1115 >60 mL/min Normal EST GFR - AA 105 Result Comment: GFR Calc LAB L501.1300 10-20 RATIO Normal BUN/CRE 15.4 LAB L501.1500 6.4-8.2 g/dL T Normal PROT 6.9 LAB L501.1800 3.2-5.0 g/dL Normal ALB 4.1 LAB L501.1950 2.2-4.2 g/dL Normal GLOB 2.8 LAB L501.2000 0.9-2.4 RATIO Normal A/G 1.5 LAB L501.2200 8.5-10.1 mg/dL CA Normal 9.6 LAB L501.4100 15-37 U/L Normal AST 17 LAB L501.4305 45-117 U/L Normal ALK P 78 LAB L501.4405 13-56 U/L Normal ALT 29 LAB L501.4600 0.20-1.00 mg/dL T Normal BILI 0.40 LAB L501.5300 136-145 mmol/L NA Normal 141 LAB L501.5600 3.5-5.1 mmol/L K Normal 3.6 LAB L501.5900 98-107 mmol/L CL Normal 103 LAB L501.6100 21.0-32.0 mmol/L Normal CO2 31.0 LAB L501.6200 5-15 Normal GAP 7 Performed By: #### L500.4050, L501.9520 #### [facility] [address] [facility] [address] [place], [place], [id number] THYROID STIM HORMONE Collected: 01/15/2018 Status: F Source: [place] (TSH) 5:10 PM [facility] REPOSITORY TYPE CODE TESTS RESULT OUT OF RANGE REFERENCE UNITS LAB L501.9520 0.358-3.74 uIU/mL Low TSH 0.09 Performed By: #### L500.4050, L501.9520 #### [facility] [address] [facility] [address] [place], [place], [address] VITAMIN D,25 HYDROXY Collected: 01/15/2018 Status: F Source: [place] 5:10 PM [facility] REPOSITORY TYPE CODE TESTS RESULT OUT OF RANGE REFERENCE UNITS LAB L506.1000 29.95-100.01 ng/mL Normal Vitamin D 50.4 25-OH Result Comment: Vitamin D 25(OH) Status Range Deficiency <20 ng/mL (50nmol/L) Insuffciency 20 - 30 ng/mL (50 - 75 nmol/L) Sufficiency 30 - 100 ng/mL (75 - 250 nmol/L) Toxicity >100 ng/mL (>250 nmol/L) Performed By: #### L506.1000 #### [facility] [address] [facility] [place], [place], [address] HEPATITIS C ANTIBODIES Collected: 01/15/2018 Status: F Source: [place] 5:10 PM [facility] REPOSITORY TYPE CODE TESTS RESULT OUT OF RANGE REFERENCE UNITS LAB L3100.0650 0.0-0.9 s/co ratio Normal HEP C AB <0.1 Result Comment: Negative: < 0.8 Indeterminate: 0.8 - 0.9 Positive: > 0.9 The CDC recommends that a positive HCV antibody result be followed up with a HCV Nucleic Acid Amplification test (426469). Performed at: [facility] [id number] [employer]: Rashel Mclain PhD, Phone: [phone] Performed By: #### L3100.0625 #### [facility] (refer to report for specific site) refer to report for address and phone number PAP I-G W/RFX HRHPV Collected: 09/19/2017 Status: C Source: [place] 9:15 AM [facility] REPOSITORY Order Comment: CYTOLOGY INFORMATION: - CLINICAL INFORMATION: - DATE LMP/MENOPAUSE: MENOPAUSE - COLLECTION VIAL: Thin Prep Vial - PATHOLOGIST ASSISTANT SOURCE: CERVICAL/ENDOCERVICAL - COLLECTION TECHNIQUE: BRUSH/SPATULA Specimen Comment: [id number] Specimen Comment: No. of containers..01 ThinPrep Vial TYPE CODE TESTS RESULT OUT OF REFERENCE UNITS RANGE LAB L7400.0800 . High DIAGN Comment Result Comment: EPITHELIAL CELL ABNORMALITY. ATYPICAL SQUAMOUS CELLS OF UNDETERMINED SIGNIFICANCE. CELLULAR CHANGES ASSOCIATED WITH ATROPHY ARE PRESENT. LAB L7400.0900 . Normal ADEQ Comment Result Comment: Satisfactory for evaluation. Endocervical component may not be distinguished in cases of atrophy. LAB L7400.1400 . Normal PERFORM Comment Result Comment: Charles Gunn, Telecasting Technician (ASCP) LAB L7400.1700 . Normal SIGN Comment Result Comment: Maame Echols MD, Pathologist LAB L7400.1720 . Normal Path prov. Comment ICD9 Result Comment: R87.610 LAB L7400.2575 . Normal TEST METHOD Comment Result Comment: This liquid based ThinPrep(R) pap test was screened with the use of an image guided system. LAB L7400.2600 . Normal . COMM LAB L7400.2700 . Normal PAPSMR Comment Result Comment: The Pap smear is a screening test designed to aid in the detection of premalignant and malignant conditions of the uterine cervix. It is not a diagnostic procedure and should not be used as the sole means of detecting cervical cancer. Both false-positive and false-negative reports do occur. LAB L7400.2800 . Normal HPV RFLX Comment Result Comment: See below for HPV testing results. LAB L7400.2900 . Normal Test not HPV HC,HGH performed RISK Result Comment: The quantity of specimen remaining in the vial after Pap slide preparation was less than the 4 mL minimum cell suspension required. Low sample cellularity may be the cause. See HPV, low volume rfx test result. This high-risk HPV test detects thirteen high-risk types (16/18/31/33/35/39/45/51/52/56/58/59/68) without differentiation. HPV, low volume rfx: Negative AMENDED REPORT 09/27/17 1422 HPV HC,HGH RISK previously reported as: Test not performed The quantity of specimen remaining in the vial after Pap slide preparation was less than the 4 mL minimum cell suspension required. Low sample cellularity may be the cause. See HPV, low volume rfx test result. This high-risk HPV test detects thirteen high-risk types (16/18/31/33/35/39/45/51/52/56/58/59/68) without differentiation. Performed By: #### L7400.0350 #### [facility] (refer to report for specific site) refer to report for address and phone number LUMBAR SPINE 2 OR 3 Observed: 07/18/2017 Status: F Source: [place] VIEWS 5:28 PM [facility] REPOSITORY [facility] Imaging Services [address] [place] [address] Lumbar Spine 2 or 3 Views MR#: [id number] Acct: [id number] Name: KJ DUMAS Rep #: [id number] : 1950 F 66 From: Elayne Aguirre MD PCP: Lamine Manzanares MD, Chi Status: REG CLI Study: Lumbar Spine 2 or 3 Views Date of Exam: 07/18/17 Exam# [id number] Ordering Dr: Lamine Manzanares MD STUDY: X-RAY - LUMBAR SPINE REASON FOR EXAM: Female, 66 years old. Lower back pain. TECHNIQUE: 3 view(s) of the lumbar spine were obtained. COMPARISON: None FINDINGS: Normal lumbar lordosis. There is no substantial scoliosis. There is a normal alignment of the vertebrae. There is multilevel endplate spondylosis of the lumbar vertebrae. There is multi-level degenerative disc disease with multi-level disc space narrowing. The soft tissue structures are unremarkable. RAD/Lumbar Spine 2 or 3 Views IMPRESSION: Degenerative changes of the spine, as detailed above. Electronically Signed: Elayne Aguirre MD at 7:04 EST Tel , Service support , CC: Lamine Manzanares MD Debt Recovery Officer: Signed CBC W/DIFF, AUTOMATED Collected: 07/18/2017 Status: F Source: [place] 4:22 PM [facility] REPOSITORY TYPE CODE TESTS RESULT OUT OF RANGE REFERENCE UNITS LAB L100.1000 4.4-11.0 K/mm3 Normal WBC 5.8 LAB L100.1200 4.2-5.4 M/mm3 Normal RBC 4.38 LAB L100.1300 12.0-15.0 g/dl Normal HGB 12.9 LAB L100.1400 37-47 % Normal HCT 40.2 LAB L100.1500 81-99 fL Normal MCV 91.8 LAB L100.1600 27.0-32.0 pg Normal MCH 29.5 LAB L100.1700 32-36 g/gl Normal MCHC 32.1 LAB L100.1810 11.6-14.6 % Normal RDW CV 12.7 LAB L100.1820 35.1-43.9 fl Normal RDW SD 42.7 LAB L100.1900 150-450 K/mm3 Normal PLT 238 LAB L100.2000 6.2-12.0 fl Normal MPV 9.9 LAB L100.2100 47-70 % Normal NEUT% 55.8 LAB L100.2200 19-41 % Normal LY% 38.0 LAB L100.2300 0-10 % Normal MONO% 3.6 LAB L100.2400 0-5 % Normal EO% 2.1 LAB L100.2500 0-1 % Normal BASO% 0.5 LAB L100.2550 0.0-0.9 % Normal IM GRAN % 0.000 Result Comment: IG% - Immature Granulocytes (promyelocytes, myelocytes and metamyelocytes) > 1% indicates that a LEFT SHIFT is Present. LAB L100.2620 2.0-7.7 X10 3/uL Normal Absolute Neut 3.2 LAB L100.2720 0.83-4.51 X10 3/ul Normal Absolute Lymph 2.19 Performed By: #### L100.0100 #### [facility] [address] [place], [place], [address] VITAMIN D,25 HYDROXY Collected: 07/18/2017 Status: F Source: [place] 4:22 PM [facility] REPOSITORY TYPE CODE TESTS RESULT OUT OF RANGE REFERENCE UNITS LAB L506.1000 ng/mL Normal Vitamin D 25.9 25-OH Result Comment: Vitamin D 25(OH) Status Range Deficiency <20 ng/mL (50nmol/L) Insuffciency 20 - 30 ng/mL (50 - 75 nmol/L) Sufficiency 30 - 100 ng/mL (75 - 250 nmol/L) Toxicity >100 ng/mL (>250 nmol/L) Performed By: #### L506.1000 #### [facility] [address] [place], [place], [address] COMPREHENSIVE METABOLIC Collected: 07/18/2017 Status: F Source: [facility] 4:22 PM [facility] REPOSITORY TYPE CODE TESTS RESULT OUT OF RANGE REFERENCE UNITS LAB L501.0100 70-110 mg/dL High GLU 130 Result Comment: Fasting Glucose result greater than or equal to 126 mg/dL suggests DIABETES MELLITUS per A.D.A. criteria. LAB L501.1000 7-18 mg/dL Normal BUN 13 LAB L501.1100 0.55-1.02 mg/dL High CREAT,SERUM 1.18 Result Comment: The validity of the calculated GFR AND GFRAA in patients over 70 years has not been determined. Clinical correlation is essential. LAB L501.1110 >60 mL/min Low EST GFR 49 Result Comment: Non- GFR Calc LAB L501.1115 >60 mL/min Low EST GFR - AA 59 Result Comment: GFR Calc LAB L501.1300 10-20 RATIO Normal BUN/CRE 11.0 LAB L501.1500 6.4-8.2 g/dL T Normal PROT 6.8 LAB L501.1800 3.4-5.0 g/dL Normal ALB 3.8 Result Comment: Please note revised Albumin AND Globulin reference range effective 2017. LAB L501.1950 2.2-4.2 g/dL Normal GLOB 3.0 LAB L501.2000 0.9-2.4 RATIO Normal A/G 1.3 LAB L501.2200 8.5-10.1 mg/dL Normal CA 9.4 LAB L501.4100 15-37 U/L Normal AST 15 LAB L501.4305 45-117 U/L Normal ALK P 75 LAB L501.4405 12-78 U/L Normal ALT 30 LAB L501.4600 0.20-1.00 mg/dL Normal T BILI 0.30 LAB L501.5300 136-145 mmol/L Normal NA 140 LAB L501.5600 3.5-5.1 mmol/L Normal K 3.5 LAB L501.5900 98-107 mmol/L Normal CL 105 LAB L501.6100 21.0-32.0 mmol/L Normal CO2 27.0 LAB L501.6200 5-15 Normal GAP 8 Performed By: #### L500.4050, L501.9520 #### [facility] [address] [place], [place], [address] THYROID STIM HORMONE Collected: 07/18/2017 Status: F Source: [place] (TSH) 4:22 PM [facility] REPOSITORY TYPE CODE TESTS RESULT OUT OF RANGE REFERENCE UNITS LAB L501.9520 0.358-3.74 uIU/mL High TSH 6.52 Performed By: #### L500.4050, L501.9520 #### [facility] [address] [place], [place], [address] ALLERGIES ALLERGIES DATE TYPE / CODE NAME / CODE REACTION SEVERITY SOURCE 05/30/2018 Drug No Known Unknown [facility] Allergy/4160 Allergies/F00 Hospital 26789(SNOMED 6370300(RXNOR Repository CT) M) ENCOUNTERS ENCOUNTERS ADMIT/DISCHARGE ACCOUNT ADMITTING ENCOUNTER LOCATION SOURCE NUMBER CLASS 06/17/2018 [id number] Ambulatory [place] 4 [facility] Repository 06/12/2018 [id number] Ambulatory [place] 3 [facility] ing[facility] Repository 05/30/2018 [id number] Ambulatory [place] 4 [facility] ing:HPRAD Repository 05/30/2018/ [id number] Ambulatory BMSBuilding:B [place] 8 5 [facility] Repository 05/15/2018/ [id number] Ambulatory [place] 8 8 [facility] Hospital ing:SDCRoom: Repository AC17 05/15/2018/ [id number] Ambulatory BMSBuilding:B [place] 8 4 MS.[facility] Repository 05/14/2018/ [id number] Ambulatory BMSBuilding:B [place] 8 8 [facility] Repository 05/14/2018 [id number] Ambulatory BMSBuilding:W [place] 2 [facility] Repository 05/11/2018 [id number] Ambulatory [place] 5 [facility] ing:CT Repository 05/07/2018 [id number] Ambulatory [place] 0 [facility] ing:HPRAD Repository 05/07/2018/ [id number] Ambulatory BMSBuilding:B [place] 8 7 [facility] Repository 04/30/2018/ [id number] Emergency [place] 8 0 [facility]ED Repository 03/21/2018 [id number] Ambulatory [place] 9 [facility] ing:LAB.FUTUR Repository E 03/19/2018 [id number] Ambulatory [place] 8 [facility] ing[facility]RAD Repository 01/29/2018 [id number] Ambulatory [place] 1 [facility] ing:OPBD Repository 01/15/2018 [id number] Ambulatory [place] 5 [facility] ing:LAB Repository 01/01/2018 [id number] Ambulatory [place] 4 [facility] ing:LAB.FUTUR Repository E 09/19/2017 [id number] Ambulatory [place] 3 [facility] ing:LABSPEC Repository 08/30/2017 [id number] Ambulatory [place] 2 [facility] ing:LAB.FUTUR Repository E 07/18/2017 [id number] Ambulatory [place] 8 [facility] ing:RAD Repository 07/18/2017 [id number] Ambulatory [place] 2 [facility] ing:POLAB3 Repository PAYERS PAYERS ENCOUNTER GUARANTOR PAYER SUBSCRIBER SOURCE 06/17/2018 KJ K Primary KJ K [place] [address] Insurance:MEDICARE PART SORENSENDOB: [address] BPolicy Number: [id number] Hospital [address]Chn: ([phone] [id number] Repository [phone] () Date:2015-10-31 06/17/2018 Secondary KJ K [place] Insurance:AETNA SR SORENSENDOB: Community SUPPLEMENT INSPolicy [id number] Hospital Number: Repository [id number] Date:3473-12-36SJVOZ SENIOR SUPPLEMENT [id number] [place] [id number]: 06/17/2018 Tertiary Insurance:SELF NOT GIVENUNK [place] PAY INSURANCEPolicy Community Number: Effective Hospital Date:2018-05-30 Repository 06/12/2018 KJ K Primary KJ K [place] [address] Insurance:MEDICARE PART SORENSENDOB: [address] BPolicy Number: [id number] Hospital [address]Hdp: [phone] [id number] Repository [phone] () Date:2018-06-12 06/12/2018 Secondary KJ K [place] Insurance:AETNA SR SORENSENDOB: Community SUPPLEMENT INSPolicy [id number] Hospital Number: Repository [id number] Date:[id number] SENIOR SUPPLEMENT INSPO [id number] [place] [phone]: 06/12/2018 Tertiary Insurance:SELF NOT GIVENUNK [place] PAY INSURANCEPolicy Community Number: Effective Hospital Date:2018-06-12 Repository 05/30/2018 KJ K Primary KJ K [place] [address] Insurance:MEDICARE PART SORENSENDOB: Community [address] [place], [place] [address] A BPolicy Number: [id number] [facility] 01476Swh: [phone] [id number] Repository [phone] () Date:2018-05-30 05/30/2018 Secondary KJ K Brandyn Insurance:AETNA SR SOR[place]: Community SUPPLEMENT INSPolicy [id number] Hospital Number: Repository [id number] Date:0770-00-85AJQNG SENIOR SUPPLEMENT IN[address] [place] [address]CD: 05/30/2018 Tertiary Insurance:SELF NOT GIVENUNK Shubert PAY INSURANCEPolicy Community Number: Effective Hospital Date:2018-05-30 Repository 05/30/2018 KJ K Primary KJ K Shubert [address] Insurance:MEDICARE PART SORENSENDOB: Community [address] [place] [address] A BPolicy Number: [id number] Hospital 70364Qqq: [phone] [id number] Repository [phone] () Date:2018-05-27 05/30/2018 Secondary KJ K Brandyn Insurance:AETNA SR SORENSENDOB: Community SUPPLEMENT INSPolicy [id number] Hospital Number: Repository [id number] Date:2206-39-51KIAKV SENIOR SUPPLEMENT [address] [place] [address]-9[address]QS: 05/30/2018 Tertiary Insurance:SELF NOT GIVENUNK Shubert PAY INSURANCEPolicy Community Number: Effective Hospital Date:2018-05-30 Repository 05/15/2018 KJ K Primary KJ K Brandyn [address] Insurance:MEDICARE PART SORENSENDOB: Community [address] [place] [address] az A BPolicy Number: [id number] Hospital 98919Ded: [phone] [id number] Repository [phone] () Date:2018-05-10 05/15/2018 Secondary KJ K Brandyn Insurance:AETNA SR SORENSENDOB: Community SUPPLEMENT INSPolicy [id number] Hospital Number: Repository [id number] Date:1784-05-69FSLUN SENIOR SUPPLEMENT [address] [place] [address]GD: 05/15/2018 Tertiary Insurance:SELF NOT GIVENUNK Brandyn PAY INSURANCEPolicy Community Number: Effective Hospital Date:2018-05-10 Repository 05/15/2018 KJ K Primary KJ K Shubert [address] Insurance:MEDICARE PART SORENSENDOB: Community [address] [place] [address] A BPolicy Number: [id number] Hospital 07227Igx: [phone] [id number] Repository [phone] () Date:2018-05-10 05/15/2018 Secondary KJ K Shubert Insurance:AETNA SR [place]OB: Community SUPPLEMENT INSPolicy [id number] Hospital Number: Repository [id number] Date:9796-97-54YURXQ SENIOR SUPPLEMENT [address] [place] [address]SM: 05/15/2018 Tertiary Insurance:SELF NOT GIVENUNK Shubert PAY INSURANCEPolicy Community Number: Effective Hospital Date:2018-05-15 Repository 05/14/2018 KJ K Primary KJ K Brandyn [address] Insurance:MEDICARE PART SORENSENDOB: Community [address] [place] [address] A BPolicy Number: [id number] Hospital 99432Hzo: [phone] [id number] Repository [phone] () Date:2018-05-07 05/14/2018 Secondary KJ K Shubert Insurance:AETNA SR [place]ORENSENDOB: Community SUPPLEMENT INSPolicy [id number] Hospital Number: Repository [id number] Date:8017-65-74AGONU SENIOR SUPPLEMENT [address] [place] [address]SP: 05/14/2018 Tertiary Insurance:SELF NOT GIVENUNK Shubert PAY INSURANCEPolicy Community Number: Effective Hospital Date:2018-05-14 Repository 05/14/2018 KJ K Primary KJ K Brandyn [address] Insurance:MEDICARE PART SORENSENDOB: Community [address] [place], [place] [address]jens A BPolicy Number: [id number] Hospital 227[address]Aku: [phone] [id number] Repository [phone] () Date:2018-05-10 05/14/2018 Secondary KJ K Shubert Insurance:AETNA SR SORENSENDOB: Community SUPPLEMENT INSPolicy [id number] Hospital Number: Repository [id number] Date:6104-03-31ZQTZL SENIOR SUPPLEMENT [address] [place] [address]TZ: 05/14/2018 Tertiary Insurance:SELF NOT GIVENUNK Shubert PAY INSUR[employer]Policy Community Number: Effective Hospital Date:2018-05-14 Repository 05/11/2018 KJ K Primary KJ K Brandyn [address] Insurance:MEDICARE PART SORENSENDOB: Community [address] [place] [address] az A BPolicy Number: [id number] Hospital 41113Bfp: [phone] [id number] Repository [phone] () Date:2018-05-08 05/11/2018 Secondary KJ K Shubert Insurance:AETNA SR [place]ORENSENDOB: Community SUPPLEMENT INSPolicy [id number] Hospital Number: Repository [id number] Date:4389-11-62BKSRE SENIOR SUPPLEMENT [address] [place] [address]224[address]XV: 05/11/2018 Tertiary Insurance:SELF NOT GIVENUNK Brandyn PAY INSURANCEPolicy Community Number: Effective Hospital Date:2018-05-08 Repository 05/07/2018 KJ K Primary KJ K Shubert [address] Insurance:MEDICARE PART SORENSENDOB: Community [address] [place] [address] az Patrick BPolicy Number: [id number] Hospital 53[address]Hye: ([phone]) [id number] Repository [phone] () Date:2018-05-07 05/07/2018 Secondary KJ K Shubert Insurance:AETNA SR [place]ORENSENDOB: Community SUPPLEMENT INSPolicy [id number] Hospital Number: Repository [id number] Date:3433-11-80MMHMG SENIOR SUPPLEMENT [address] [address] [address]CO: 05/07/2018 Tertiary Insurance:SELF NOT GIVENUNK Brandyn PAY INSURANCEPolicy Community Number: Effective Hospital Date:2018-05-07 Repository 05/07/2018 KJ K Primary KJ K Brandyn [address] Insurance:MEDICARE PART SORENSENDOB: Community [address] [place] [address] A BPolicy Number: [id number] Hospital 57712Zzv: [phone] [id number] Repository [phone] () Date:2018-04-30 05/07/2018 Secondary KJ K Shubert Insurance:AETNA SR SORENSENDOB: Community SUPPLEMENT INSPolicy [id number] Hospital Number: Repository [id number] Date:6754-33-64XCYCH SENIOR SUPPLEMENT [address] [address], [place] [address]FW: 05/07/2018 Tertiary Insurance:SELF NOT GIVENUNK Shubert PAY INSURANCEPolicy Community Number: Effective Hospital Date:2018-04-30 Repository 04/30/2018 KJ K Primary KJ K Brandyn [address] Insurance:MEDICARE PART SORENSENDOB: Community [address] [place] [address] A BPolicy Number: [id number] Hospital 34245Hpt: [phone] [id number] Repository [phone] () Date:2018-04-30 04/30/2018 Secondary KJ K Shubert Insurance:AETNAPolicy SORENSENDOB: Community Number: [id number] Hospital [id number] Repository Date:7968-16-77KV [address] KISHAN SMITH [address]EF: 04/30/2018 Tertiary Insurance:SELF NOT GIVENUNK Shubert PAY INSURANCEPolicy Community Number: Effective Hospital Date:2018-04-30 Repository 03/21/2018 KJ K Primary KJ K Brandyn [address] Insurance:MEDICARE PART SORENSENDOB: Community [id number] Dariela Nguyen BPolicy Number: [id number] [id number] Repository 495[address]Yks: ([phone]) Date:2018-02-07 [phone] () 03/21/2018 Secondary KJ K Shubert Insurance:AETNAPolicy [place]ORENSENDOB: Community Number: [id number] Indian Health CenterBPVZRXEffective Repository Date:8654-86-27[address] [address]ID: 03/21/2018 Tertiary Insurance:SELF NOT GIVENUNK Brandyn PAY INSURANCEPolicy Community Number: Effective Hospital Date:2018-02-07 Repository 03/19/2018 KJ K Primary KJ K Brandyn [address] Insurance:MEDICARE PART SORENSENDOB: Community [id number] Dariela Nguyen BPolicy Number: [id number] [place], [place] [id number] Repository [address]Qnw: ([phone]) Date:2018-03-19 [phone] () 03/19/2018 Secondary KJ K Brandyn Insurance:AETNAPolicy SORENSENDOB: Community Number: [id number] McKinley Christian [facility] Care ServicesVZRXEffective Repository Date:9554-23-59[address] [address]JU: 03/19/2018 Tertiary Insurance:SELF NOT GIVENUNK Brandyn PAY INSURANCEPolicy Community Number: Effective Hospital Date:2018-03-19 Repository 01/29/2018 KJ K Primary KJ K Shubert [address] Insurance:MEDICARE PART SORENSENDOB: Community [id number] Dariela Nguyen BPolicy Number: [id number] Bend, [place] [id number] Repository 00[address]Kxi: ([phone]) Date:2017-09-21 [phone] () 01/29/2018 Secondary KJ K Shubert Insurance:AETNAPolicy SORENSENDOB: Community Number: [id number] McKinley Christian Health Care ServicesVZRXEffective Repository Date:7878-16-99[id number] KISHAN SMITH [address]ZA: 01/29/2018 Tertiary Insurance:SELF NOT GIVENUNK Shubert PAY INSUR[employer]Policy Community Number: Effective Hospital Date:2017-09-21 Repository 01/15/2018 KJ K Primary KJ K Shubert [address] Insurance:MEDICARE PART SORENSENDOB: Community [id number] A BPolicy Number: [id number] [place], [place] [id number] Repository [address]Ewt: ([phone]) Date:2018-01-15 [phone] () 01/15/2018 Secondary KJ K Brandyn Insurance:AETNA SR SORENSENDOB: Community SUPPLEMENT INSPolicy [id number] Hospital Number: Repository [id number] Date:7143-98-60BVVPZ SENIOR SUPPLEMENT INSPO [address] [place] [address]RS: 01/15/2018 Tertiary Insurance:SELF NOT GIVENUNK Shubert PAY INSUR[employer]Policy Community Number: Effective Hospital Date:2018-01-15 Repository 01/01/2018 KJ Primary KJ Shubert [address] Insurance:MEDICARE PART SORENSENDOB: Community [id number] Dariela ORTEGA A BPolicy Number: [id number] Bend, [place] [id number] Repository [address]Key: ([phone]) Date:2018-01-01 [phone] () 01/01/2018 Secondary KJ Brandyn Insurance:AETNA SR SORENSENDOB: Community SUPPLEMENT INSPolicy [id number] Hospital Number: Repository [id number] Date:0534-31-47CGGKS SENIOR SUPPLEMENT INSPO [address] [place] [address]IN: 01/01/2018 Tertiary Insurance:SELF NOT GIVENUNK Brandyn PAY INSURANCEPolicy Community Number: Effective Hospital Date:2018-01-01 Repository 09/19/2017 KJ Primary KJ Brandyn [address] Insurance:MEDICARE PART SORENSENDOB: Community [id number] Dariela Nguyen BPolicy Number: [id number] Bend, [place] [id number] Repository 587[address]Bgu: (740) Date:2017-09-19 [phone] () 09/19/2017 Secondary KJ Shubert Insurance:AETNAPolicy SORENSENDOB: Community Number: [id number] Ana Health [id number] Repository Date:6999-82-17IS [address] KISHAN SMITH [address]PJ: 09/19/2017 Tertiary Insurance:SELF NOT GIVENUNK Shubert PAY INSUR[employer]Policy Community Number: Effective Hospital Date:2017-09-19 Repository 08/30/2017 KJ Primary KJ Brandyn [address] Insurance:MEDICARE PART SORENSENDOB: Community [id number] Dariela Nguyen BPolicy Number: [id number] Bend, [place] [id number] Repository [address]Hpd: (740) Date:2017-07-27 [phone] () 08/30/2017 Secondary NOT GIVENUNK Brandyn Insurance:SELF PAY Community INSURANCEPolicy Number: Hospital Effective Repository Date:2017-07-27 07/18/2017 KJ Primary KJ Brandyn [address] Insurance:MEDICARE PART SORENSENDOB: Community [id number] Dariela Nguyen BPolicy Number: [id number] Bend, [place] [id number] Repository [address]67[address]Urz: (740) Date:2017-07-18 [phone] () 07/18/2017 Secondary KJ Brandyn Insurance:AETNAPolicy SORENSENDOB: Community Number: [id number] Ana Health [id number] Repository Date:4468-53-11[address]TYKISHAN QUEZADA [address]SE: 07/18/2017 Tertiary Insurance:SELF NOT GIVENUNK Shubert PAY INSURANCEPolicy Community Number: Effective Hospital Date:2017-07-18 Repository 07/18/2017 KJ Primary KJ Shubert [address] Insurance:MEDICARE PART SORENSENDOB: Community [id number] Nguyen BPolicy Number: [id number] Bend, [place] [id number] Repository 14262Zld: [phone]) Date:2017-07-18 [phone] ([phone]) 07/18/2017 Secondary NOT GIVENUNK Brandyn Insurance:SELF PAY Community INSURANCEPolicy Number: Hospital Effective Repository Date:2017-07-18
== END ==
PROVIDERS: Family Provider Family Medicine Geriatric Medicine; PCP Family Medicine Geriatric Medicine; Referring Provider Orthopaedic Surgery; Visit Provider Orthopaedic Surgery
DX: S52.502A Unspecified fracture of the lower end of left radius, initial encounter for closed fracture (principal)
CPT/HCPCS: 73110

== ENCOUNTER → 2018-06-12 15:58 | Outpatient (CLI) | payer MEDICARE, OTHER, SELFPAY ==
[2018-05-30 12:59] VITALS: BMI 26.9
[2018-06-18 10:34] LABS: HPV Reflexed? NOT INDICATED
--- OUTSIDE RECORDS SUMMARY | 2018-07-29 21:47 | XMS RPT_ITS ---
:1950 Author Organization OHIP Support Name Relationship Address Phone EUGENIA CASON Unavailable [id number] + [place] [address] MOSHE STEPHANIE Unavailable [address] + [place] [address] [employer] [employer] Unavailable [address] + [place] [address] HOLLIS CASONSA Unavailable [address] + [place] [address] MOSHE STEPHANIE Unavailable [address] + [place] [address] [employer] [facility] Unavailable [address] + [place] [address] TIMHOLLIS RiveraSA Unavailable [address] + [place] [address] MOSHE, STEPHANIE Unavailable [address] + [place] [address] [employer] [facility] [employer] Unavailable [address] + [place] [address] YOAV, EUGENIA Unavailable [address] + [place] [address] MOSHE, STEPHANIE Unavailable [address] + [place] [address] [employer] [facility] Unavailable [address] + [place] [address] YOAV, EUGENIA Unavailable [address] + [place] [address] MOSHE STEPHANIE Unavailable [address] + [place] [address] [employer] [facility] Unavailable [address] + [place] [address] HOLLIS CASONSA Unavailable [address] + [place] [address] STEPHANIE MESA Unavailable [address] + [place] [address] [employer] [facility] Unavailable [address] + [place] [address] YOAV, EUGENIA Unavailable [address] + [place] [address] STEPHANIE MESA Unavailable [address] + [place] [address] [employer] [facility] Unavailable [address] + [place] [address] HOLLIS CASONSA Unavailable [address] + [place] [address] STEPHANIE MESA Unavailable [address] + [place] [address] [employer] [facility] Unavailable [address] + [place] [address] YOAV, EUGENIA Unavailable [address] + [place] [address] STEPHANIE MESA Unavailable [address] + [place] [address] [employer] [facility] Unavailable [address] + [place] [address] YOAV, EUGENIA Unavailable [address] + [place] [address] STEPHANIE MESA Unavailable [address] + [place] [address] [employer] [facility] Unavailable [address] + [place] [address] HOLLIS CASONSA Unavailable [address] + [place] [address] STEPHANIE MESA Unavailable [address] + [place] [address] [employer] [facility] Unavailable [address] + [place] [address] YOAVHOLLISSA Unavailable [address] + [place] [address] STEPHANIE MESA Unavailable [address] + [place] [address] [employer] [facility] Unavailable [address] + [place] [address] YOAV, EUGENIA Unavailable [address] + [place] [address] STEPHANIE MESA Unavailable [address] + [place] [address] [employer] [facility] Unavailable [address] + [place] [address] YOAVHOLLISSA Unavailable [address] + [place] [address] STEPHANIE MESA Unavailable [address] + [place] [address] [employer] [facility] Unavailable [address] + [place] [address] YOAV, EUGENIA Unavailable [address] + [place] [address] STEPHANIE MESA Unavailable [address] + [place] [address] [employer] [facility] Unavailable [address] + [place] [address] YOAV, EUGENIA Unavailable [address] + [place] [address] STEPHANIE MESA Unavailable [address] + [place] [address] [employer] [facility] Unavailable [address] + [place] [address] YOAV EUGENIA Unavailable [address] + [place] [address] STEPHANIE MESA Unavailable [address] + [place] [address] [employer] [facility] Unavailable [address] + [place] [address] HOLLIS CASONSA Unavailable [address] + [place] [address] ELDER MESAOLE Unavailable [address] + [place] [address] [employer] [facility] Unavailable [address] + [place] [address] YOAV, EUGENIA Unavailable [address] + [place] [address] ELDER MESAOLE Unavailable [address] + [place] [address] [facility] [facility] Unavailable [address] + [place] [address] YOAV EUGENIA Unavailable [address] + [place] [address] ELDER MESAOLE Unavailable [address] + [place] [address] [employer] [facility] Unavailable [address] + [place] [address] YOAV, EUGENIA Unavailable [address] + [place] [address] ELDER MESAOLE Unavailable [address] + [place] [address] [employer] [facility] Unavailable [address] + [place] [address] Care Team Providers Name Role Phone Allyssa Leal Attending Unavailable Allyssa Leal Referring Unavailable Leihgton, Lamine Chi Primary Care Unavailable Zain Rodriguez Attending Unavailable Leighton, Lamine Chi Referring Unavailable Leighton, Lamine Chi Attending Unavailable Leighton, [...] Attending Unavailable Leighton, Lamine Chi Referring Unavailable LaviniaConstantino paredesril Attending Unavailable Chicorelli, Allyssa Referring Unavailable Chicorelli, [...] R87.610(ICD-10) 05/30/2018 Unknown S52.502A - Chicorelli, Active [place] Unspecified fracture Allyssa Community of the lower [...] S52.552D(ICD-10) 05/22/2018 Unknown R00.1 - Bradycardia, Lavinia, [place] Active [place] unspecified / Community R00.1(ICD-10) Hospital Repository 05/11/2018 Unknown S62.102A - Fracture Chicorelli, Active [place] of unspecified Allyssa [facility] carpal bone, left Hospital wrist, initial Repository encounter for closed fracture / S62.102A(ICD-10) 05/07/2018 Unknown M25.531 - Pain in Chicorelli, Active [place] right wrist / [facility] M25.531(ICD-10) Hospital Repository 04/30/2018 Unknown S52.599A - Other Prieto, Idris Active [place] fractures of lower Community end of unspecified Hospital radius, initial Repository encounter for closed fracture / S52.599A(ICD-10) 03/19/2018 Unknown R07.89 - Other chest Leighton, Lamine Chi Active [place] pain / Community R07.89(ICD-10) Hospital Repository 01/29/2018 Unknown Z12.31 - Encounter Allyssa Leal Active [place] for screening Community mammogram for Hospital malignant neoplasm Repository of breast / Z12.31(ICD-10) 01/29/2018 Unknown Z78.0 - Asymptomatic Allyssa Leal Active [place] menopausal state / Community Z78.0(ICD-10) Hospital Repository 09/19/2017 Unknown Z12.4 - Encounter Allyssa Leal Active [place] for screening for Community malignant neoplasm Hospital of cervix / Repository Z12.4(ICD-10) 09/10/2017 Unknown E03.9 - Leighton, Lamine Chi Active [place] Hypothyroidism, Community unspecified / Hospital E03.9(ICD-10) Repository PROCEDURES PROCEDURES No Procedure Records FoundRESULTS RESULTS CBC W/DIFF, AUTOMATED Collected: 07/16/2018 Status: F Source: [facility] TYPE CODE TESTS RESULT OUT OF RANGE REFERENCE UNITS LAB L100.1000 4.4-11.0 K/mm3 Normal WBC 7.1 LAB L100.1200 4.2-5.4 M/mm3 Normal RBC 4.27 LAB L100.1300 12.0-15.0 g/dl Normal HGB 12.7 LAB L100.1400 37-47 % Normal HCT 38.8 LAB L100.1500 81-99 fL Normal MCV 90.9 LAB L100.1600 27.0-32.0 pg Normal MCH 29.7 LAB L100.1700 32-36 g/gl Normal MCHC 32.7 LAB L100.1810 11.6-14.6 % Normal RDW CV 12.5 LAB L100.1820 35.1-43.9 fl Normal RDW SD 40.9 LAB L100.1900 150-450 K/mm3 Normal PLT 267 LAB L100.2000 6.2-12.0 fl Normal MPV 9.9 LAB L100.2100 47-70 % Normal NEUT% 59.7 LAB L100.2200 19-41 % Normal LY% 30.4 LAB L100.2300 0-10 % Normal MONO% 6.8 LAB L100.2400 0-5 % Normal EO% 2.4 LAB L100.2500 0-1 % Normal BASO% 0.4 LAB L100.2550 0.0-0.9 % Normal IM GRAN % 0.300 Result Comment: IG% - Immature Granulocytes (promyelocytes, myelocytes and metamyelocytes) > 1% indicates that a LEFT SHIFT is Present. LAB L100.2620 2.0-7.7 X10 3/uL Normal Absolute Neut 4.2 LAB L100.2720 0.83-4.51 X10 3/ul Normal Absolute Lymph 2.16 Performed By: #### L100.0100 #### [facility] [address] [place], [address] COMPREHENSIVE METABOLIC Collected: 07/16/2018 Status: F Source: [facility] 4:35 PM [facility] REPOSITORY TYPE CODE TESTS RESULT OUT OF RANGE REFERENCE UNITS LAB L501.0100 74-106 mg/dL Normal GLU 97 Result Comment: Please note revised GLUCOSE reference range effective 2017. LAB L501.1000 7-18 mg/dL Normal BUN 16 LAB L501.1100 0.55-1.02 mg/dL Normal CREAT,SERUM 0.79 Result Comment: The validity of the calculated GFR AND GFRAA in patients over 70 years has not been determined. Clinical correlation is essential. LAB L501.1110 >60 mL/min Normal EST GFR 78 Result Comment: Non- GFR Calc LAB L501.1115 >60 mL/min Normal EST GFR - AA 94 Result Comment: GFR Calc LAB L501.1300 10-20 RATIO High BUN/CRE 20.4 LAB L501.1500 6.4-8.2 g/dL T Normal PROT 6.8 LAB L501.1800 3.2-5.0 g/dL Normal ALB 3.7 LAB L501.1950 2.2-4.2 g/dL Normal GLOB 3.1 LAB L501.2000 0.9-2.4 RATIO Normal A/G 1.2 LAB L501.2200 8.5-10.1 mg/dL CA Normal 9.1 LAB L501.4100 15-37 U/L Low AST 14 LAB L501.4305 45-117 U/L Normal ALK P 84 LAB L501.4405 13-56 U/L Normal ALT 30 LAB L501.4600 0.20-1.00 mg/dL T Normal BILI 0.20 LAB L501.5300 136-145 mmol/L NA Normal 139 LAB L501.5600 3.5-5.1 mmol/L K Normal 3.5 LAB L501.5900 98-107 mmol/L CL Normal 105 LAB L501.6100 21.0-32.0 mmol/L Normal CO2 25.0 LAB L501.6200 5-15 Normal GAP 9 Performed By: #### L500.4050, L501.9520 #### [facility] [address] [place], [address] THYROID STIM HORMONE Collected: 07/16/2018 Status: F Source: [place] (TSH) 4:35 PM [facility] REPOSITORY TYPE CODE TESTS RESULT OUT OF RANGE REFERENCE UNITS LAB L501.9520 0.358-3.74 uIU/mL Normal TSH 0.64 Performed By: #### L500.4050, L501.9520 #### [facility] [address] [place], [address] VITAMIN D,25 HYDROXY Collected: 07/16/2018 Status: F Source: [place] 4:35 PM [facility] REPOSITORY TYPE CODE TESTS RESULT OUT OF RANGE REFERENCE UNITS LAB L506.1000 29.95-100.01 ng/mL Normal Vitamin D 57.1 25-OH Result Comment: Vitamin D 25(OH) Status Range Deficiency <20 ng/mL (50nmol/L) Insuffciency 20 - 30 ng/mL (50 - 75 nmol/L) Sufficiency 30 - 100 ng/mL (75 - 250 nmol/L) Toxicity >100 ng/mL (>250 nmol/L) Performed By: #### L506.1000 #### [facility] [address] [place], [address] ORTHOPEDIC VISIT Observed: 06/28/2018 Status: F Source: [place] REPORT 4:10 PM [facility] REPOSITORY [facility] Orthopaedics AND Sports Medicine [address] [place] [address] [address] [place] [address] OFFICE VISIT Date of Service: 06/27/18 MR#: [id number] Acct: [id number] Name: KJ DUMAS Dimitris Rep #: [id number] : 1950 Provider: ROSALINO Rodriguez Age/Sex: 67/F Location: [facility] Status: Signed Intake Intake Visit Reasons: LEFT WRIST Allergies No Known Allergies Allergy (Verified 05/30/18 [...] ea PO DAILY 04/30/18 [History Confirmed 05/14/18] [place]-3 Fatty Acids/Fish Oil [Fish Oil 1,000 mg [...] 67 year old F here today for postop follow-up from ORIF of the left wrist which was done 6 weeks ago. This time patient states she is doing well with almost full range of motion. She has minimal discomfort no evidence of swelling. She has no numbness or tingling noted in the hands. She has no other concerns at this time. Ortho Exam Right Wrist/Hand Skin/Wound: No Ecchymosis, No Swelling Left Wrist/Hand Skin/Wound: Yes healed, No Ecchymosis, No Swelling Contralateral Normal: Yes Left Wrist: Yes ROM-Extension 0-60 and Yes ROM-Flexion 0-80 Motor: EPL: 5, FDP-2: 5 Sensation: Radial: I, Ulnar: I, Median: I WRIST: At this time patient has no evident abnormality of the wrist. She has no localized or generalized swelling. Her incision is healing well without any redness or signs of infection. She has some minor areas with some evidence of scar tissue at the same time there is no tenderness on palpation. Her range of motion is pretty much back to full range of motion comparable to the right wrist. She has very good strength that is almost back to full strength. She does have some minor discomfort with resistance. Assessment AND Plan Problems 1. Status post wrist surgery Z98.890 2. Orthopedic aftercare Z47.89 Plan Patient is doing very well 6 weeks postop from left wrist ORIF. Range of motion is almost back to full range of motion comparable to the right wrist as well as her strength. She has a very good healed incision site without any signs of infection or tingling. At this time patient can continue working on range of motion and strength as tolerated. She can ice and take anti-inflammatories as needed for pain and inflammation. We will recheck in 6 weeks making sure that range of motion and strength is back to full. She can notify sooner of any injuries, increasing pain, increased swelling or other symptoms. This note was generated with [email or web address] software. It may contain incorrect words, spelling, and punctuation that were not noted in checking the note before signing. Coding Level of Care Code Global Post Op Diagnoses Status post wrist surgery Z98.890 Orthopedic aftercare Z47.89 06/28/18 1610 <Electronically signed by Zain JERRY> Date Zain JERRY Cosigner Signature: Date (if applicable) CC: OT GENERAL EVALUATION Observed: 06/18/2018 Status: F Source: [place] 1:29 PM [facility] REPOSITORY [facility] Occupational Therapy [facility] [address] [place] [address]. [address] [place], [place] [address] Fax REHABILITATION SERVICES INITIAL EVALUATION MR#: [id number] Acct: [id number] Name: KJ DUMAS Rep #: [id number] : 1950 67 From: Riya JUSTICE/BEV RocheT Referring Dr.: Alylssa Cabral DO Status: REG RCR Insurance: MEDICARE PART A B Eval Date: SR SUPPLEMENT INS Patient's Visit Information KJ DUMAS is a 67 year old F, referred to Occupational Therapy by Allyssa Cabral DO, with a diagnosis of S/P L ORIF. Date of Evaluation: 06/17/18 Occupational Therapist: RESHMA Farley/Kaley, CHT - Subjective Subjective: pt. 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 by completing strengthening [...] to be FAXED BACK to us at [phone] for Medicare purposes. Please let me know if there are questions or concerns regarding this plan of care. Physician Signature: Date: <Electronically signed by Riya ALICEA CHT> 06/18/18 1329 CC: Allyssa Cabral DO; Lamine Manzanares MD MK Signed For Medicare only, by signing this I certify the plan of care. 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 Normal PERFORM Comment Result Comment: Oilvia Bauer, Terrazzo Polisher (ASCP) LAB L7400.0566 . Normal TEST METHOD Comment Result Comment: [...] no HPV testing was performed. Performed at: [facility] [id number] Apiarist: Karen Yusuf MD, Phone: [phone] Performed By: #### L7400.0350 #### [facility] (refer to report for specific site) refer to report for address and phone number ORTHOPEDIC VISIT Observed: 06/11/2018 Status: F Source: [place] REPORT 9:19 AM [facility] REPOSITORY [facility] Orthopaedics AND Sports Medicine [address] [place] [address] OFFICE VISIT Date of Service: 05/30/18 MR#: [id number] Acct: [id number] Name: DUMASKJ K Rep #: [id number] : 1950 Provider: Allyssa Cabral DO Age/Sex: 67/F Location: [facility] Status: Signed Intake Vital Signs05/30/18 Body Mass [...] ea PO DAILY 04/30/18 [History Confirmed 05/14/18] Renton-3 Fatty Acids/Fish Oil [Fish Oil 1,000 mg [...] OPERATIVE REPORT Observed: 06/04/2018 Status: F Source: [place] 2:33 PM [facility] REPOSITORY [facility] Medical Records Department [address] [place] [address] Operative Report 05/15/18 1339 MR#: [id number] Acct: [id number] Name: KJ DUMAS Rep #: [id number] : 1950 67 From: Allyssa Cabral DO PCP: Lamine Manzanares MD, Chi Status: [facility] Y Location: [facility] Report of Operation Date of Procedure: 05/15/18 [...] 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 We did use a [...] Dragon disclaimer This note was generated with [employer] dictation software. It may contain incorrect words, spelling, and punctuation that were not noted in checking the note before signing. 06/04/18 1433 <Electronically signed by Allyssa Cabral DO> Date Allyssa Cabral DO CC: Allyssa Cabral DO; Evan Hager MD; Lamine Manzanares MD Signed WRIST MIN 3 VIEWS Observed: 05/30/2018 Status: F Source: [place] 1:04 PM [facility] REPOSITORY [facility] Imaging Services [address] [place] [address] Wrist min 3 Views MR#: [id number] Acct: [id number] Name: KJ DUMAS Rep #: [id number] : 1950 F 67 From: Billy Coleman DO PCP: Lamine Manzanares MD, Chi Status: REG CLI Study: Wrist min 3 Views Date of Exam: 05/30/18 Exam# [id number] Ordering Dr: Allyssa Cabral DO STUDY: X-RAY [...] Billy Coleman DO at 8:22 EST Tel [phone], Service support , CC: Allyssa Cabral DO; Lamine Manzanares MD Tub Chucker: Signed 12 LEAD ELECTROCARDIOGRAM Observed: 05/17/2018 Status: F Source: [place] 2:39 PM [facility] REPOSITORY [facility] Cardiovascular Services [address] [place] [address] 12 Lead EKG 05/14/18 1422 MR#: [id number] Acct: [id number] Name: KJ DUMAS Rep #: [id number] : 1950 67 From: Dayday Kate MD Attending Dr: Allyssa Cabral DO Status: DEP SDC Ordering Dr: Allyssa Cabral DO Date: 05/14/18 Location: [facility] Sex: F C Admitted: Test Reason : PREOP Blood Pressure : / mmHG Vent. Rate : 057 BPM Atrial Rate : 057 BPM P-R Int : 162 ms QRS Dur : 082 ms QT Int : 394 ms P-R-T Axes : 052 024 020 degrees QTc Int : 383 ms Sinus bradycardia Otherwise normal ECG Confirmed by LAVINIA LYNCH, DAYDAY ([id number]), story editor MODESTO GOINS ([id number]) on 05/17/2018 2:38:44 PM Referred By: Allyssa Cabral Confirmed By:DAYDAY KATE MD 05/17/18 1438 Date Dayday Kate MD CC: Allyssa Cabral DO; Lamine Manzanares MD Signed DISCHARGE INSTRUCTION Observed: 05/15/2018 Status: F Source: [place] 1:37 PM [facility] REPOSITORY [facility] Medical Records Department [address] [place] [address] Instructions for Home/Discharge Instructions 05/15/18 1335 MR#: [id number] Acct: [id number] Name: KJ DUMAS Rep #: [id number] : 1950 67 From: Allyssa Cabral DO PCP: Lamine Manzanares MD, Chi Status: REG [facility] Discharge Diet: No Restrictions - follow up [...] Multiple Vitamin] 1 ea PO DAILY 04/30/18 [place]-3 Fatty Acids/Fish Oil [Fish Oil 1,000 mg [...] 2 VIEWS Observed: 05/15/2018 Status: F Source: [place] 4:40 AM [facility] REPOSITORY [facility] Imaging Services [address] [place] [address] Wrist 2 Views MR#: [id number] Acct: [id number] Name: KJ DUMAS Rep #: [id number] : 1950 F 67 From: David Mosquera MD PCP: Leighton LYNCH,Lamine Jordan Status: REG [facility] Study: Wrist 2 Views Date of Exam: 05/15/18 Exam# [id number] Ordering Dr: Allyssa Cabral DO STUDY: X-RAY [...] CC: Allyssa Cabral DO; Lamine Manzanares MD Tub Chucker: Signed BASIC METABOLIC Collected: 05/14/2018 Status: F Source: [place] PROFILE (BMP) 2:07 PM [facility] REPOSITORY TYPE CODE TESTS RESULT OUT OF [...] 5 Performed By: #### L500.2500, L501.9520 #### [facility] [address] [place], [place], [id number] THYROID STIM HORMONE Collected: 05/14/2018 Status: F Source: [place] ([facility]) 2:07 PM [facility] REPOSITORY TYPE CODE TESTS RESULT OUT OF RANGE REFERENCE UNITS LAB L501.9520 0.358-3.74 uIU/mL Normal TSH 0.37 Performed By: #### L500.2500, L501.9520 #### [facility] [address] [place], [place], [address] ORTHOPEDIC VISIT Observed: 05/14/2018 Status: F Source: [place] RE[facility] 1:41 PM [facility] REPOSITORY [facility] [address] [place] [address] OFFICE VISIT Date of Service: 05/14/18 MR#: [id number] Acct: [id number] Name: KJ DUMAS Rep #: [id number] : 1950 Provider: Allyssa Cabral DO Age/Sex: 67/F Location: [facility] Status: Signed Intake Intake Visit Reasons: LEFT [...] ea PO DAILY 04/30/18 [History Confirmed 05/14/18] [place]-3 Fatty Acids/Fish Oil [Fish Oil 1,000 mg [...] left radius with routine healing, subsequent encounter S54.487M Plan Personally reviewed the CT scan and [...] left radius with routine healing, subsequent encounter S52.552D Encounter type: subsequent encounter Fracture healing: with routine healing Fracture morphology: other extra-articular Fracture type: closed 05/14/18 1341 <Electronically signed by Allyssa Cabral DO> Date Allyssa Cabral DO Cosigner Signature: Date (if applicable) CC: EXTREMITY UPPER Observed: 05/11/2018 Status: F Source: [place] WITHOUT CONTRA 6:25 AM [facility] REPOSITORY [facility] Imaging Services [address] [place] [address] Extremity Upper without Contra MR#: [id number] Acct: [id number] Name: KJ DUMAS Rep #: [id number] : 1950 F 67 From: Celestino Lowe MD PCP: Leighton LYNCH,Lamine Chi Status: REG CLI Study: Extremity Upper without Contra Date of Exam: 05/11/18 Exam# [id number] Ordering Dr: Allyssa Cabral DO STUDY: CT [...] CC: Allyssa Cabral DO; Lamine Manzanares MD Tub Chucker: Signed CARENBritt JR ADONIS Observed: 05/11/2018 Status: F Source: [place] OBL 3-D REC 6:25 AM [facility] REPOSITORY [facility] Imaging Services [address] [place] [address] [facility] Multi Obl 3-D Rec MR#: [id number] Acct: [id number] Name: KJ DUMAS Rep #: [id number] : 1950 F 67 From: Celestino Lowe MD PCP: Leighton LYNCH,Lamine Jordan Status: REG CLI Study: [facility] Multi Obl 3-D Rec Date of Exam: 05/11/18 Exam# [id number] Ordering Dr: Allyssa Cabral DO STUDY: CT [...] CC: Allyssa Cabral DO; Lamine Manzanares MD Tub Chucker: Signed ORTHOPEDIC VISIT Observed: 05/09/2018 Status: F Source: [place] REPORT 1:38 PM [facility] REPOSITORY [facility] Orthopaedics AND Sports Medicine [address] [place] [address] OFFICE VISIT Date of Service: 05/07/18 MR#: [id number] Acct: [id number] Name: KJ DUMAS Rep #: [id number] : 1950 Provider: Allyssa Cabral DO Age/Sex: 67/F Location: [facility] Status: Signed Intake Intake Visit Reasons: LEFT [...] ea PO DAILY 04/30/18 [History Confirmed 05/07/18] [place]-3 Fatty Acids/Fish Oil [Fish Oil 1,000 mg Capsule] 1 ea PO DAILY 04/30/18 [History Confirmed 05/07/18] Pravastatin Sodium 40 mg PO DAILY 04/30/18 [History Confirmed 05/07/18] Vitamin E 1,000 unit PO DAILY 04/30/18 [History Confirmed 05/07/18] [facility] Social History Smoking Status: Never smoker HPI [...] 2 VIEWS Observed: 05/07/2018 Status: F Source: [place] 2:41 PM [facility] REPOSITORY [facility] Imaging Services [address] [place] [address] Wrist 2 Views MR#: [id number] Acct: [id number] Name: KJ DUMAS Rep #: [id number] : 1950 F 67 From: David Mosquera MD PCP: Lamine Manzanares MD, Chi Status: REG CLI Study: Wrist 2 Views Date of Exam: 05/07/18 Exam# [id number] Ordering Dr: Allyssa Cabral DO STUDY: X-RAY [...] CC: Allyssa Cabral DO; Lamine Manzanares MD Tub Chucker: Signed EMERGENCY DEPARTMENT Observed: 04/30/2018 Status: F Source: [place] SUMMARY 11:12 AM [facility] REPOSITORY [facility] Medical Records Department [address] [place] [address] Emergency Department Summary 04/30/18 0926 MR#: [id number] Acct: [id number] Name: KJ DUMAS Rep #: [id number] : 1950 67 From: Idris Preito MD PCP: Leighton LYNCH,Lamine Jordan Status: REG ER - ER Visit Summary [...] ED physician This note was generated with DarkWorks dictation software. It may contain incorrect words, [...] time. Your prescription was electronically transmitted to [facility] pharmacy your designated pharmacy of choice. What to do if you have Problems For any increased pain, shortness of breath, bleeding, nausea or vomiting, chest pain, or any unexpected problems, contact your Primary Care Provider. Call [employer] [facility] ([phone]) or report to the closest Emergency Room. Call 911 if necessary. 04/30/18 1112 <Electronically signed by Idris Prieto MD> Date Idris Rogers Signature (If Indicated): Date CC: Allyssa Cabral DO; Lamine Manzanares MD WRIST MIN 3 VIEWS Observed: 04/30/2018 Status: F Source: [place] 10:27 AM [facility] REPOSITORY [facility] Imaging Services [address] [place] [address] Wrist min 3 Views MR#: [id number] Acct: [id number] Name: KJ DUMAS Rep #: [id number] : 1950 F 67 From: Chema Olguin MD PCP: Lamine Manzanares MD, Chi Status: REG ER Study: Wrist min 3 Views Date of Exam: 04/30/18 Exam# [id number] Ordering Dr: Idris Prieto MD STUDY: X-RAY [...] Chema Olguin MD at 10:50 EDT Tel [phone], Service support , CC: Lamine Manzanares MD; Idris Prieto MD Tub Chucker: Signed WRIST MIN 3 VIEWS Observed: 04/30/2018 Status: F Source: [place] 9:18 AM [facility] REPOSITORY [facility] Imaging Services [address] [place] [address] Wrist min 3 Views MR#: [id number] Acct: [id number] Name: KJ DUMAS Rep #: [id number] : 1950 F 67 From: Chema Olguin MD PCP: Leighton LYNCH,Lamine Jordan Status: REG ER Study: Wrist min 3 Views Date of Exam: 04/30/18 Exam# [id number] Ordering Dr: Idris Prieto MD STUDY: X-RAY [...] Chema Olguin MD at 9:52 EDT Tel [phone], Service support , CC: Lamine Manzanares MD; Idris Prieto MD Tub Chucker: Signed RIBS UNI MIN 3V Observed: 03/19/2018 Status: F Source: [place] W/PA CHEST 4:58 PM [facility] REPOSITORY [facility] Imaging Services [address] [place] [address] Ribs Uni Min 3V w/PA Chest MR#: [id number] Acct: [id number] Name: KJ DUMAS Rep #: [id number] : 1950 F 67 From: Luis Mares MD PCP: Lamine Manzanares MD, Chi Status: REG CLI Study: Ribs Uni Min 3V w/PA Chest Date of Exam: 03/19/18 Exam# [id number] Ordering Dr: Lamine Manzanares MD STUDY: X-RAY [...] Service support , CC: Lamine Manzanares MD Tub Chucker: Signed SCREENING MAMM (CAD), Observed: 01/29/2018 Status: F Source: [place] BILAT 8:55 AM [facility] REPOSITORY [facility] Imaging Services [address] [place] [address] SCREENING MAMM (CAD), BILAT MR#: [id number] Acct: [id number] Name: KJ DUMAS Rep #: [id number] : 1950 F 67 From: Chema Olguin MD PCP: Leighton LYNCH,Lamine Jordan Status: REG CLI Study: SCREENING MAMM (CAD), BILAT Date of Exam: 01/29/18 Exam# [id number] Ordering Dr: Allyssa Leal MD MAMMOGRAPHY - [...] delay biopsy of a clinically suspicious abnormality. [id number] Electronically Signed: Chema Olguin MD at 10:17 EDT Tel [phone], Service support , CC: Allyssa Leal MD; Lamine Manzanares MD Tub Chucker: Signed DEXA BONE DENSITY Observed: 01/29/2018 Status: F Source: [place] STUDY 8:55 AM [facility] REPOSITORY [facility] Imaging Services [address] [place] [address] Dexa Bone Density Study MR#: [id number] Acct: [id number] Name: KJ DUMAS Rep #: [id number] : 1950 F 67 From: Chema Olguin MD PCP: Lamine Manzanares MD, Chi Status: REG CLI Study: Dexa Bone Density Study Date of Exam: 01/29/18 Exam# [id number] Ordering Dr: Allyssa Leal MD STUDY: DUAL [...] Chema Olguin MD at 14:36 EDT Tel [phone], Service support , CC: Allyssa Leal MD; Lamine Manzanares MD Tub Chucker: Signed CBC W/DIFF, AUTOMATED Collected: 01/15/2018 Status: F Source: [place] 5:10 PM [facility] REPOSITORY TYPE CODE TESTS RESULT OUT OF [...] Lymph 2.22 Performed By: #### L100.0100 #### [facility] [address] [place], [address] COMPREHENSIVE METABOLIC Collected: 01/15/2018 Status: F Source: [facility] 5:10 PM [facility] REPOSITORY TYPE CODE TESTS RESULT OUT OF [...] 7 Performed By: #### L500.4050, L501.9520 #### [facility] [address] [place], [address] THYROID STIM HORMONE Collected: 01/15/2018 Status: F Source: [place] (TSH) 5:10 PM [facility] REPOSITORY TYPE CODE TESTS RESULT OUT OF RANGE REFERENCE UNITS LAB L501.9520 0.358-3.74 uIU/mL Low TSH 0.09 Performed By: #### L500.4050, L501.9520 #### [facility] [address] [place], [address] VITAMIN D,25 HYDROXY Collected: 01/15/2018 Status: F Source: [place] 5:10 PM [facility] REPOSITORY TYPE CODE TESTS RESULT OUT OF RANGE REFERENCE UNITS LAB L506.1000 29.95-100.01 ng/mL Normal Vitamin D 50.4 25-OH Result Comment: Vitamin D 25(OH) Status Range Deficiency <20 ng/mL (50nmol/L) Insuffciency 20 - 30 ng/mL (50 - 75 nmol/L) Sufficiency 30 - 100 ng/mL (75 - 250 nmol/L) Toxicity >100 ng/mL (>250 nmol/L) Performed By: #### L506.1000 #### [facility] [address] [place], [address] HEPATITIS C ANTIBODIES Collected: 01/15/2018 Status: F Source: [place] 5:10 PM [facility] REPOSITORY TYPE CODE TESTS RESULT OUT OF RANGE REFERENCE UNITS LAB L3100.0650 0.0-0.9 s/co ratio Normal HEP C AB <0.1 Result Comment: Negative: < 0.8 Indeterminate: 0.8 - 0.9 Positive: > 0.9 The CDC recommends that a positive HCV antibody result be followed up with a HCV Nucleic Acid Amplification test (463071). 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 of containers..01 ThinPrep Vial [...] Normal PERFORM Comment Result Comment: Charles Gunn, Terrazzo Polisher (ASCP) LAB L7400.1700 . Normal SIGN Comment [...] to report for address and phone number ALLERGIES ALLERGIES DATE TYPE / CODE NAME / CODE REACTION SEVERITY SOURCE 05/30/2018 Drug No Known Unknown [place] [facility] Allergy/4160 Allergies/F00 [facility] [address](SNOMED 1070220(RXNOR Repository CT M) ENCOUNTERS ENCOUNTERS ADMIT/DISCHARGE ACCOUNT ADMITTING ENCOUNTER LOCATION SOURCE NUMBER CLASS 07/16/2018 [id number] [place] 1 [facility] ing:POLAB3 Repository 06/27/2018/ [id number] Ambulatory BMSBuilding:B [place] 8 6 [facility] Repository 06/17/2018 [id number] Ambulatory [place] 4 [facility] ing:OT Repository 06/12/2018 [id number] Ambulatory [place] 3 [facility] ing:LABSPEC Repository 05/30/2018 [id number] Ambulatory [place] 4 [facility] ing:HPRAD Repository 05/30/2018/ [id number] Ambulatory BMSBuilding:B [place] 8 5 [facility] Repository 05/15/2018/ [id number] Ambulatory [place] 8 8 [facility] ing:SDCRoom: Repository AC17 05/15/2018/ [id number] Ambulatory BMSBuilding:B [place] 8 4 MS.CF.[facility] Repository 05/14/2018/ [id number] Ambulatory BMSBuilding:B [place] 8 8 [facility] Repository 05/14/2018 [id number] Ambulatory BMSBuilding:W [place] 2 [facility] Repository 05/11/2018 [id number] Ambulatory [place] 5 [facility] ing:CT Repository 05/07/2018 [id number] Ambulatory [place] 0 [facility] ing:HPRAD Repository 05/07/2018/ [id number] Ambulatory BMSBuilding:B [place] 8 7 [facility] Repository 04/30/2018/ [id number] Emergency [place] 8 0 [facility] ing:ED Repository 03/21/2018 [id number] Ambulatory [place] 9 [facility] ing:LAB.FUTUR Repository E 03/19/2018 [id number] Ambulatory [place] 8 [facility] Hospital ing:RAD Repository 01/29/2018 [id number] Ambulatory [place] 1 [facility] ing:OPBD Repository 01/15/2018 [id number] Ambulatory [place] 5 [facility] ing:LAB Repository 01/01/2018 [id number] Ambulatory [place] 4 [facility] ing:LAB.FUTUR Repository E 09/19/2017 [id number] Ambulatory [place] 3 [facility] ing:LABSPEC Repository 08/30/2017 [id number] Ambulatory [place] 2 [facility] ing:LAB.FUTUR Repository E PAYERS PAYERS ENCOUNTER GUARANTOR PAYER SUBSCRIBER SOURCE 07/16/2018 KJ Shanks Primary KJ K [place] [address] Insurance:MEDICARE PART SORENSENDOB: [address] A BPolicy Number: [id number] Hospital [address]Rpl: [phone]) [id number] Repository [phone] () Date:2018-07-16 07/16/2018 Secondary KJ K [place] Insurance:AETNA SR SORENSENDOB: Community SUPPLEMENT INSPolicy [id number] Hospital Number: Repository [id number] Date:6008-94-44COHGZ SENIOR SUPPLEMENT [address] [place] [address]DJ: 07/16/2018 Tertiary Insurance:SELF NOT GIVENUNK [place] PAY INSURANCEPolicy Community Number: Effective Hospital Date:2018-07-16 Repository 06/27/2018 KJ Shanks Primary KJ K [place] [address] Insurance:MEDICARE PART SORENSENDOB: [address] A BPolicy Number: [id number] Hospital [address]Zte: [phone]) [id number] Repository [phone] () Date:2018-05-30 06/27/2018 Secondary KJ K [place] Insurance:AETNA SR SORENSENDOB: Community SUPPLEMENT INSPolicy [id number] Hospital Number: Repository [id number] Date:6402-93-95AWAPO SENIOR SUPPLEMENT [address] [place] [address]BN: 06/27/2018 Tertiary Insurance:SELF NOT GIVENUNK [place] PAY INSURANCEPolicy Community Number: Effective Hospital Date:2018-06-26 Repository 06/17/2018 KJ K Primary KJ K [place] [address] Insurance:MEDICARE PART SORENSENDOB: [facility] A BPolicy Number: [id number] Hospital [address]Pvk: [phone]) [id number] Repository [phone] () Date:2015-10-31 06/17/2018 Secondary KJ K [place] Insurance:AETNA SR SORENSENDOB: Community SUPPLEMENT INSPolicy [id number] Hospital Number: Repository [id number] Date:5852-31-41BOXYR SENIOR SUPPLEMENT [address] [place] [address]KK: 06/17/2018 Tertiary Insurance:SELF NOT GIVENUNK [place] PAY INSURANCEPolicy Community Number: Effective Hospital Date:2018-05-30 Repository 06/12/2018 KJ K Primary KJ K [place] [address] Insurance:MEDICARE PART SORENSENDOB: Community [facility] A BPolicy Number: [id number] Hospital [address]Ari: [phone]) [id number] Repository [phone] () Date:2018-06-12 06/12/2018 Secondary KJ K [place] Insurance:AETNA SR SORENSENDOB: Community SUPPLEMENT INSPolicy [id number] Hospital Number: Repository [id number] Date:6217-07-83ZTMDZ SENIOR SUPPLEMENT [address] [place] [address]GM: 06/12/2018 Tertiary Insurance:SELF NOT GIVENUNK [place] PAY INSURANCEPolicy Community Number: Effective Hospital Date:2018-06-12 Repository 05/30/2018 KJ K Primary KJ K [place] [address] Insurance:MEDICARE PART SORENSENDOB: Community [address] [place], [place] [address]jens A BPolicy Number: [id number] Hospital [address]Jbl: [phone] [id number] Repository [phone] (HP) Date:2018-05-30 05/30/2018 Secondary KJ K [place] Insurance:AETNA SR SORENSENDOB: Community SUPPLEMENT INSPolicy [id number] Hospital Number: Repository [id number] Date:0667-27-28KWCHD SENIOR SUPPLEMENT [id number] [place] [address]JR: 05/30/2018 Tertiary Insurance:SELF NOT GIVENUNK [place] PAY INSURANCEPolicy Community Number: Effective Hospital Date:2018-05-30 Repository 05/30/2018 KJ K Primary KJ K [place] [address] Insurance:MEDICARE PART SORENSENDOB: Community [address] [place] [place] [address] co A BPolicy Number: [id number] Hospital [address]16[address]Mzr: [phone]) [id number] Repository [phone] () Date:2018-05-27 05/30/2018 Secondary KJ K [place] Insurance:AETNA SR SORENSENDOB: Community SUPPLEMENT INSPolicy [id number] Hospital Number: Repository [id number] Date:1557-66-22LWQFP SENIOR SUPPLEMENT [id number] [place] [address]KJ: 05/30/2018 Tertiary Insurance:SELF NOT GIVENUNK [place] PAY INSURANCEPolicy Community Number: Effective Hospital Date:2018-05-30 Repository 05/15/2018 KJ K Primary KJ K [place] [address] Insurance:MEDICARE PART SORENSENDOB: Community [address] [place] [address] co A BPolicy Number: [id number] Hospital [address]Ojn: [phone] [id number] Repository [phone] (HP) Date:2018-05-10 05/15/2018 Secondary KJ K [place] Insurance:AETNA SR SORENSENDOB: Community SUPPLEMENT INSPolicy [id number] Hospital Number: Repository [id number] Date:9525-27-22FTDQS SENIOR SUPPLEMENT [address] [address]ELKVQXQ, [place] [address]OJ: 05/15/2018 Tertiary Insurance:SELF NOT GIVENUNK [place] PAY INSURANCEPolicy Community Number: Effective Hospital Date:2018-05-10 Repository 05/15/2018 KJ K Primary KJ K [place] [address] Insurance:MEDICARE PART SORENSENDOB: Community [facility] [place] A BPolicy Number: [id number] Hospital [address]Ihh: ([phone]) [id number] Repository [phone] () Date:2018-05-10 05/15/2018 Secondary KJ K [place] Insurance:AETNA SR SORENSENDOB: Community SUPPLEMENT INSPolicy [id number] Hospital Number: Repository [id number] Date:3353-85-95XFJJV SENIOR SUPPLEMENT [address] [place] [address]OJ: 05/15/2018 Tertiary Insurance:SELF NOT GIVENUNK [place] PAY INSURANCEPolicy Community Number: Effective Hospital Date:2018-05-15 Repository 05/14/2018 KJ K Primary KJ K [place] [address] Insurance:MEDICARE PART SORENSENDOB: Community [address] [place] [address] [place] A BPolicy Number: [id number] Hospital [address]Xzq: ([phone]) [id number] Repository [phone] () Date:2018-05-07 05/14/2018 Secondary KJ K [place] Insurance:AETNA SR SORENSENDOB: Community SUPPLEMENT INSPolicy [id number] Hospital Number: Repository [id number] Date:9747-64-24EUMLE SENIOR SUPPLEMENT [address] [place] [address]BI: 05/14/2018 Tertiary Insurance:SELF NOT GIVENUNK [place] PAY INSURANCEPolicy Community Number: Effective Hospital Date:2018-05-14 Repository 05/14/2018 KJ K Primary KJ K [place] [address] Insurance:MEDICARE PART SORENSENDOB: Community [address] [place] [address] A BPolicy Number: [id number] Hospital 218[address]Cnw: [phone]) [id number] Repository [phone] () Date:2018-05-10 05/14/2018 Secondary KJ Dimitris [place] Insurance:AETNA SR SORENSENDOB: Community SUPPLEMENT INSPolicy [id number] Hospital Number: Repository [id number] Date:1055-91-18WILYP SENIOR SUPPLEMENT [address] [place] [address]QN: 05/14/2018 Tertiary Insurance:SELF NOT GIVENUNK [place] PAY INSURANCEPolicy Community Number: Effective Hospital Date:2018-05-14 Repository 05/11/2018 KJ Dimitris Primary KJ K [place] [address] Insurance:MEDICARE PART SORENSENDOB: Community [address] [place] [place] [address] co A BPolicy Number: [id number] Hospital 718[address]Gtc: ([phone]) [id number] Repository [phone] () Date:2018-05-08 05/11/2018 Secondary JK K [place] Insurance:AETNA SR SORENSENDOB: Community SUPPLEMENT INSPolicy [id number] Hospital Number: Repository [id number] Date:6756-93-26XSPYU SENIOR SUPPLEMENT [address] [place] [address]JQ: 05/11/2018 Tertiary Insurance:SELF NOT GIVENUNK [place] PAY INSURANCEPolicy Community Number: Effective Hospital Date:2018-05-08 Repository 05/07/2018 KJ Shanks Primary KJ Shanks [place] [address] Insurance:MEDICARE PART SORENSENDOB: Community [address] [place] [address] A BPolicy Number: [id number] Hospital 618[address]Vnx: [phone] [id number] Repository [phone] () Date:2018-05-07 05/07/2018 Secondary KJ K [place] Insurance:AETNA SR SORENSENDOB: Community SUPPLEMENT INSPolicy [id number] Hospital Number: Repository [id number] Date:1487-62-06CIRWV SENIOR SUPPLEMENT [address] [place] [address]PQ: 05/07/2018 Tertiary Insurance:SELF NOT GIVENUNK [place] PAY INSURANCEPolicy Community Number: Effective Hospital Date:2018-05-07 Repository 05/07/2018 KJ K Primary KJ K [place] [address] Insurance:MEDICARE PART SORENSENDOB: Community [address] [place] [address] A BPolicy Number: [id number] Hospital [address]Jer: [phone]) [id number] Repository [phone] (HP) Date:2018-04-30 05/07/2018 Secondary KJ K [place] Insurance:AETNA SR SORENSENDOB: Community SUPPLEMENT INSPolicy [id number] Hospital Number: Repository [id number] Date:3711-64-83VLMEF SENIOR SUPPLEMENT [address] [address], [place] [address]KE: 05/07/2018 Tertiary Insurance:SELF NOT GIVENUNK [place] PAY INSURANCEPolicy Community Number: Effective Hospital Date:2018-04-30 Repository 04/30/2018 KJ K Primary KJ K [place] [address] Insurance:MEDICARE PART SORENSENDOB: Community [address] [place] [address] A BPolicy Number: [id number] Hospital [address]Ssn: ([phone]) [id number] Repository [phone] (HP) Date:2018-04-30 04/30/2018 Secondary KJ K [place] Insurance:AETNAPolicy SORENSENDOB: Community Number: [id number] Hospital [id number] Repository Date:2495-98-58SS [address] KISHAN SMITH [address]EZ: 04/30/2018 Tertiary Insurance:SELF NOT GIVENUNK [place] PAY INSURANCEPolicy Community Number: Effective Hospital Date:2018-04-30 Repository 03/21/2018 KJ K Primary KJ K [place] [address] Insurance:MEDICARE PART SORENSENDOB: Community [id number] Dariela Nguyen BPolicy Number: [id number], [place] [id number] Repository [address]Kdt: (007) Date:2018-02-07 [phone] () 03/21/2018 Secondary KJ K [place] Insurance:AETNAPolicy SORENSENDOB: Community Number: [id number] Health Care [id number] Repository Date:9393-17-32QE [address] [address]AX: 03/21/2018 Tertiary Insurance:SELF NOT GIVENUNK [place] PAY INSURANCEPolicy Community Number: Effective Hospital Date:2018-02-07 Repository 03/19/2018 KJ Dimitris Primary KJ K [place] [address] Insurance:MEDICARE PART SORENSENDOB: Community [id number]iel[address] Nguyen BPolicy Number: [id number], [place] [id number] Repository [address]Biy: (457) Date:2018-03-19 [phone] () 03/19/2018 Secondary KJ K [place] Insurance:AETNAPolicy SORENSENDOB: Community Number: [email or web address]]VZRXEffective Repository Date:9408-64-39[address], [place] [address]ZF: 03/19/2018 Tertiary Insurance:SELF NOT GIVENUNK [place] PAY INSURANCEPolicy Community Number: Effective Hospital Date:2018-03-19 Repository 01/29/2018 KJ Dimitris Primary KJ K [place] [address] Insurance:MEDICARE PART SORENSENDOB: Community [id number] Dariela Nguyen BPolicy Number: [id number], [place] [id number] Repository [address]Mnl: (066) Date:2017-09-21 [phone] () 01/29/2018 Secondary KJ K [place] Insurance:AETNAPolicy SORENSENDOB: Community Number: [id number] [facility] [[email or web address]]VZRXEffective Repository Date:1894-23-90QH [address], [place] [address]RR: 01/29/2018 Tertiary Insurance:SELF NOT GIVENUNK [place] PAY INSURANCEPolicy Community Number: Effective Hospital Date:2017-09-21 Repository 01/15/2018 KJ K Primary KJ K [place] [address] Insurance:MEDICARE PART SORENSENDOB: Community [id number] Dariela Nguyen BPolicy Number: [id number], [place] [id number] Repository [address]Qqo: (843) Date:2018-01-15 [phone] () 01/15/2018 Secondary KJ K [place] Insurance:AETNA SR SORENSENDOB: Community SUPPLEMENT INSPolicy [id number] Hospital Number: Repository [id number] Date:1615-27-74BIFNZ SENIOR SUPPLEMENT [address] [place] [address]MN: 01/15/2018 Tertiary Insurance:SELF NOT GIVENUNK [place] PAY INSURANCEPolicy Community Number: Effective Hospital Date:2018-01-15 Repository 01/01/2018 KJ Primary KJ [place] [address] Insurance:MEDICARE PART SORENSENDOB: Community [id number] Dariela Nguyen BPolicy Number: [id number], [place] [id number] Repository [address]Uwa: (436) Date:2018-01-01 [phone] () 01/01/2018 Secondary KJ [place] Insurance:AETNA SR SORENSENDOB: Community SUPPLEMENT INSPolicy [id number] Hospital Number: Repository [id number] Date:1404-46-06YHZCR SENIOR SUPPLEMENT [id number] [place] [address]DO: 01/01/2018 Tertiary Insurance:SELF NOT GIVENUNK [place] PAY INSURANCEPolicy Community Number: Effective Hospital Date:2018-01-01 Repository 09/19/2017 KJ Primary KJ [place] [address] Insurance:MEDICARE PART SORENSENDOB: Community [id number] Dariela Nguyen BPolicy Number: [id number], [place] [id number] Repository [address]Vwl: (213) Date:2017-09-19 [phone] () 09/19/2017 Secondary KJ [place] Insurance:AETNAPolicy SORENSENDOB: Community Number: [id number] Hospital [id number] Repository Date:7526-62-97EG [address] LUIS KISHAN [address]IV: 09/19/2017 Tertiary Insurance:SELF NOT GIVENUNK [place] PAY INSURANCEPolicy Community Number: Effective Hospital Date:2017-09-19 Repository 08/30/2017 KJ [place] [address] Insurance:MEDICARE PART SORENSENDOB: [facility] [id number] Dariela Nguyen BPolicy Number: [id number], [place] [id number] Repository [address]Yho: [phone]) Date:2017-07-27 [phone] () 08/30/2017 Secondary NOT GIVENUNK [place] Insurance:SELF PAY Community INSURANCEPolicy Number: Hospital Effective Repository Date:2017-07-27
== END ==
PROVIDERS: Family Provider Family Medicine Geriatric Medicine; PCP Family Medicine Geriatric Medicine; Referring Provider Obstetrics & Gynecology; Visit Provider Obstetrics & Gynecology
DX: R87.610 Atypical squamous cells of undetermined significance on cytologic smear of cervix (ASC-US) (principal)
CPT/HCPCS: 88175; G0145

== ENCOUNTER 2018-06-17 16:23 | Outpatient (RCR) | payer MEDICARE, OTHER, SELFPAY ==
[2018-05-30 12:59] VITALS: BMI 26.9
--- NOTE | 2018-06-18 09:52 | HP.OTEVAL_ITS ---
Patient's Visit Information KJ DUMAS is a 67 year old F, referred to Occupational Therapy by Allyssa Cabral DO, with a diagnosis of S/P L ORIF. Date of Evaluation: 06/17/18 Occupational Therapist: Riya Willett, OTR/L, CHT - Subjective Subjective: pt. arrives and states that she fell outside on a handicap ramp on 04/30/18. Pt. went to the ER, and the MD tried to reset the radius. pt. had sx on 05/15/18 and is now almost 5 weeks post sx. pt. reports that she has been exercising her wrist at home and that it is doing well. pt. here today to make sure that she is doing everything she can at home, and today would like HEP. pt. does not want to recieve OT services at this time. - Pain L wrist 0 Pain Intensity Range: 0, 1, 2, 3 - Objective Objective/Observation: pt. ulnar head is very prominent - ROM Wrist: 43/43 L 70/48 R ROM Comments: supination 85 in L and 100 in R. UD 10, RD [address], 30 UD L - Strength Renal Dietitian: 16# in L and 50# in R Lateral Pinch: 7# in L and 13# in R Tripod Pinch: 6# in L and 12# in R Strength Comments: no pain during strength testing - Sensation Sensation Comments: denies - Quick DASH-Disab of Arm,Shoulder& Hand Quick DASH Score: 6.6650 - Goals Goal:: Patient will increase overall sports book writer strength by 20 lbs. by completing strengthening exercises and stretches in order to complete BADL?s and IADL?s. Patient will improve lateral and tripod grasps by 5 lbs. by completing strengthening and stretching exercises in order to complete BADL?s and IADL?s. Goal:: Patient will increase ROM in wrist in all planes by 10 degrees by completing strengthening and stretching exercises in order to complete BADL?s and IADL?s. Goal:: Patient will report no pain in order to complete BADL?s and IADL?s with increased I. Goal:: patient will report completion of and demo understanding of HEP for increased I with BADL's and IADL's. - Rehabilitation General Assessment: Patient presents today after having S/P L ORIF on 05/15/18. pt. presents with decrease in strength, ROM, increase in pain and decreased ability to complete BADL's and IADL's. pt. reports that she is doing well and would like a HEP and no OT services at this time. Today, OT educated and instructed pt. in HEP and provided theraband to assist with exercises. Rehabilitation Potential: Good - Anticipated Interventions Anticipated Interventions: A/AAROM/PROM, Strengthening, Triggerpoint Release, Modalities, Joint Protection/Energy Conservation, Ergonomic Education, ADL Training, Home Program - Visit Plan Frequency: eval only Duration: eval only TEXT: Thank you for the opportunity to evaluate your patient. For Medicare and Medicare HMO plans, please review the plan of care and approve it. It will need to be FAXED BACK to us at [phone] for Medicare purposes. Please let me know if there are questions or concerns regarding this plan of care. Physician Signature: Date:
--- OUTSIDE RECORDS SUMMARY | 2018-09-19 09:10 | XMS RPT_ITS ---
:1950 Author Organization OHIP Support Name Relationship Address Phone EUGENIA CASON Unavailable [id number] + [place] [address] MOSHE STEPHANIE Unavailable [address] + [place] [address] [employer] Unavailable [address] + [place] [address] HOLLIS CASONSA Unavailable [address] + [place] [address] MOSHE STEPHANIE Unavailable [address] + [place] [address] [employer] Unavailable [address] + [place] [address] TIMHOLLIS RiveraSA Unavailable [address] + [place] [address] MOSHE, STEPHANIE Unavailable [address] + [place] [address] [employer] Unavailable [address] + [place] [address] YOAV, EUGENIA Unavailable [address] + [place] [address] MOSHE, STEPHANIE Unavailable [address] + [place] [address] [employer] Unavailable [address] + [place] [address] YOAV, EUGENIA Unavailable [address] + [place] [address] MOSHE STEPHANIE Unavailable [address] + [place] [address] [employer] Unavailable [address] + [place] [address] HOLLIS CASONSA Unavailable [address] + [place] [address] STEPHANIE MESA Unavailable [address] + [place] [address] [employer] Unavailable [address] + [place] [address] YOAV, EUGENIA Unavailable [address] + [place] [address] STEPHANIE MESA Unavailable [address] + [place] [address] [employer] Unavailable [address] + [place] [address] HOLLIS CASONSA Unavailable [address] + [place] [address] STEPHANIE MESA Unavailable [address] + [place] [address] [employer] Unavailable [address] + [place] [address] YOAV, EUGENIA Unavailable [address] + [place] [address] STEPHANIE MESA Unavailable [address] + [place] [address] [employer] Unavailable [address] + [place] [address] YOAV, EUGENIA Unavailable [address] + [place] [address] STEPHANIE MESA Unavailable [address] + [place] [address] [employer] Unavailable [address] + [place] [address] HOLLIS CASONSA Unavailable [address] + [place] [address] STEPHANIE MESA Unavailable [address] + [place] [address] [employer] Unavailable [address] + [place] [address] YOAVHOLLISSA Unavailable [address] + [place] [address] STEPHANIE MESA Unavailable [address] + [place] [address] [employer] Unavailable [address] + [place] [address] YOAV, EUGENIA Unavailable [address] + [place] [address] STEPHANIE MESA Unavailable [address] + [place] [address] [employer] Unavailable [address] + [place] [address] YOAVHOLLISSA Unavailable [address] + [place] [address] STEPHANIE MESA Unavailable [address] + [place] [address] [employer] Unavailable [address] + [place] [address] YOAV, EUGENIA Unavailable [address] + [place] [address] STEPHANIE MESA Unavailable [address] + [place] [address] [employer] Unavailable [address] + [place] [address] YOAV, EUGENIA Unavailable [address] + [place] [address] STEPHANIE MESA Unavailable [address] + [place] [address] [employer] Unavailable [address] + [place] [address] YOAV EUGENIA Unavailable [address] + [place] [address] STEPHANIE MESA Unavailable [address] + [place] [address] [employer] Unavailable [address] + [place] [address] HOLLIS CASONSA Unavailable [address] + [place] [address] ELDER MESAOLE Unavailable [address] + [place] [address] [employer] Unavailable [address] + [place] [address] YOAV, EUGENIA Unavailable [address] + [place] [address] ELDER MESAOLE Unavailable [address] + [place] [address] [employer] Unavailable [address] + [place] [address] YOAV EUGENIA Unavailable [address] + [place] [address] ELDER MESAOLE Unavailable [address] + [place] [address] [employer] Unavailable [address] + [place] [address] YOAV, EUGENIA Unavailable [address] + [place] [address] ELDER MESAOLE Unavailable [address] + [place] [address] [employer] Unavailable [address] + [place] [address] Care Team Providers Name Role Phone Allyssa Leal Attending Unavailable Allyssa Leal Referring Unavailable Leighton, Lamine Chi Primary Care Unavailable Zain Rodriguez [...] R87.610(ICD-10) 05/30/2018 Unknown S52.502A - Chicorelli, Active [place] Unspecified fracture Allyssa Community of the lower [...] S52.552D(ICD-10) 05/22/2018 Unknown R00.1 - Bradycardia, Lavinia, [place] Active [place] unspecified / Community R00.1(ICD-10) Hospital Repository 05/11/2018 Unknown S62.102A - Fracture Chicorelli, Active [place] of unspecified Allyssa [facility] carpal bone, left Hospital wrist, initial Repository encounter for closed fracture / S62.102A(ICD-10) 05/07/2018 Unknown M25.531 - Pain in Chicorelli, Active [place] right wrist / [facility] M25.531(ICD-10) Hospital Repository 04/30/2018 Unknown S52.599A - Other Prieto, Idris Active [place] fractures of lower Community end of unspecified Hospital radius, initial Repository encounter for closed fracture / S52.599A(ICD-10) 03/19/2018 Unknown R07.89 - Other chest Leighton, Lamine Chi Active [place] pain / Community R07.89(ICD-10) Hospital Repository 01/29/2018 Unknown Z12.31 - Encounter Allyssa Leal Active [place] for screening Community mammogram for Hospital malignant neoplasm Repository of breast / Z12.31(ICD-10) 01/29/2018 Unknown Z78.0 - Asymptomatic Allyssa Leal Active [place] menopausal state / Community Z78.0(ICD-10) Hospital Repository 09/19/2017 Unknown Z12.4 - Encounter Allyssa Leal Active [place] for screening for Community malignant neoplasm Hospital of cervix / Repository Z12.4(ICD-10) 09/10/2017 Unknown E03.9 - Leighton, Lamine Chi Active [place] Hypothyroidism, Community unspecified / Hospital E03.9(ICD-10) Repository [...] Lymph 2.16 Performed By: #### L100.0100 #### [facility] [address] [place], [address] COMPREHENSIVE METABOLIC Collected: 07/16/2018 Status: F Source: [facility] 4:35 PM [facility] REPOSITORY TYPE CODE TESTS RESULT OUT OF [...] 9 Performed By: #### L500.4050, L501.9520 #### [facility] [address] [place], [address] THYROID STIM HORMONE Collected: 07/16/2018 Status: F Source: [place] ([facility]) 4:35 PM [facility] REPOSITORY TYPE CODE TESTS RESULT OUT OF RANGE REFERENCE UNITS LAB L501.9520 0.358-3.74 uIU/mL Normal TSH 0.64 Performed By: #### L500.4050, L501.9520 #### [facility] [address] [place], [address] VITAMIN D,25 HYDROXY Collected: 07/16/2018 Status: F Source: [facility] 4:35 PM [facility] REPOSITORY TYPE CODE TESTS RESULT OUT OF RANGE REFERENCE UNITS LAB L506.1000 29.95-100.01 ng/mL Normal Vitamin D 57.1 25-OH Result Comment: Vitamin D 25(OH) Status Range Deficiency <20 ng/mL (50nmol/L) Insuffciency 20 - 30 ng/mL (50 - 75 nmol/L) Sufficiency 30 - 100 ng/mL (75 - 250 nmol/L) Toxicity >100 ng/mL (>250 nmol/L) Performed By: #### L506.1000 #### [facility] [address] [place], [address] ORTHOPEDIC VISIT Observed: 06/28/2018 Status: F Source: [place] REPORT 4:10 PM [facility] REPOSITORY [facility] Orthopa[facility]ics AND Sports Medicine [address] [place] [address] [address] [place] [address] OFFICE VISIT Date of Service: 06/27/18 MR#: [id number] Acct: [id number] Name: KJ DUMAS Dimitris Rep #: [id number] : 1950 Provider: ROSALINO Rodriguez Age/Sex: 67/F Location: [facility] Status: Signed Intake Intake Visit Reasons: LEFT [...] ea PO DAILY 04/30/18 [History Confirmed 05/14/18] [place]-3 Fatty Acids/Fish Oil [Fish Oil 1,000 mg [...] other symptoms. This note was generated with uGiftation software. It may contain incorrect words, spelling, and punctuation that were not noted in checking the note before signing. Coding Level of Care Code Global Post Op Diagnoses Status post wrist surgery Z98.890 Orthopedic aftercare Z47.89 06/28/18 1610 <Electronically signed by Zain JERRY> Date Zain JERRY Cosigner Signature: Date (if applicable) CC: OT GENERAL EVALUATION Observed: 06/18/2018 Status: F Source: [place] 1:29 PM [facility] REPOSITORY [facility] Occupational Therapy [facility] [address] [place] [address]. 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 by completing strengthening [...] to be FAXED BACK to us at [phone] for Medicare purposes. Please let me know [...] 06/12/2018 Status: F Source: [facility] 2:15 PM [facility] REPOSITORY Order Comment: CYTOLOGY INFORMATION: - CLINICAL INFORMATION: - DATE LMP/MENOPAUSE: MENOPAUSE - COLLECTION VIAL: Thin Prep Vial - BOATHOUSE KEEPER SOURCE: CERVICAL/ENDOCERVICAL - COLLECTION TECHNIQUE: BRUSH/SPATULA Specimen Comment: [id number] Specimen Comment: Source.............Cervix;Endocervix Specimen Comment: Other..............Post Menopausal [...] Normal PERFORM Comment Result Comment: Olivia Bauer, Nut Sorter (ASCP) LAB L7400.4708 . Normal TEST METHOD Comment Result Comment: [...] no HPV testing was performed. Performed at: [facility] [id number] Glue Sprayer: Karen Yusuf MD, Phone: [phone] Performed By: #### L7400.0350 #### [facility] (refer to report for specific site) refer to report for address and phone number ORTHOPEDIC VISIT Observed: 06/11/2018 Status: F Source: [place] REPORT 9:19 AM [facility] REPOSITORY [facility] Orthopaedics AND Sports Medicine [address] [place] [address] OFFICE VISIT Date of Service: 05/30/18 MR#: [id number] Acct: [id number] Name: DUMASKJ K Rep #: [id number] : 1950 Provider: Allyssa Cabral DO Age/Sex: 67/F [place] [facility] [place] [place]: Signed Intake Vital Signs05/30/18 Body Mass [...] ea PO DAILY 04/30/18 [History Confirmed 05/14/18] [place]-3 Fatty Acids/Fish Oil [Fish Oil 1,000 mg [...] OPERATIVE REPORT Observed: 06/04/2018 Status: F Source: [place] 2:33 PM [facility] REPOSITORY [facility] Medical Records Department [address] [place] [address] Operative Report 05/15/18 1339 MR#: [id number] Acct: [id number] Name: KJ DUMAS Rep #: [id number] : 1950 67 From: Allyssa Cabral DO PCP: Lamine Manzanares MD, Chi Status: [facility] Location: [facility] Report of Operation Date of Procedure: 05/15/18 [...] 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 We did use a [...] Dragon disclaimer This note was generated with Funderbeam dictation software. It may contain incorrect words, spelling, and punctuation that were not noted in checking the note before signing. 06/04/18 1433 <Electronically signed by Allyssa Cabral DO> Date Allyssa Cabral DO CC: Allyssa Cabral DO; Evan Hager MD; Lamine Manzanares MD Signed WRIST MIN 3 VIEWS Observed: 05/30/2018 Status: F Source: [place] 1:04 PM [facility] REPOSITORY [facility] Imaging Services [address] [place] [address] Wrist min 3 Views MR#: [id number] Acct: [id number] Name: KJ DUMAS Rep #: [id number] : 1950 F 67 From: Billy Coleman DO PCP: Lamine Manzanares MD, Chi Status: REG CLI Study: Wrist min 3 Views Date of Exam: 05/30/18 Exam# [id number] Ordering Dr: Allyssa Cabral DO STUDY: X-RAY [...] Billy Coleman DO at 8:22 EST Tel [phone], Service support , CC: Allyssa Cabral DO; Lamine Manzanares MD Technical Marketing Consultant: Signed 12 LEAD ELECTROCARDIOGRAM Observed: 05/17/2018 Status: F Source: [place] 2:39 PM [facility] REPOSITORY [facility] Cardiovascular Services [address] [place] [address] 12 Lead EKG 05/14/18 1422 MR#: [id number] Acct: [id number] Name: KJ DUMAS Rep #: [id number] : 1950 67 From: Dayday Kate MD Attending Dr: Allyssa Cabral DO Status: DEP SDC Ordering Dr: Allyssa Cabral DO Date: 05/14/18 Location: [facility] Sex: F C Admitted: Test Reason : PREOP Blood Pressure : / mmHG Vent. Rate : 057 BPM Atrial Rate : 057 BPM P-R Int : 162 ms QRS Dur : 082 ms QT Int : 394 ms P-R-T Axes : 052 024 020 degrees QTc Int : 383 ms Sinus bradycardia Otherwise normal ECG Confirmed by LAVINIA LYNCH, DAYDAY ([id number]), science editor MODESTO GOINS ([id number]) on 05/17/2018 2:38:44 PM Referred By: Allyssa Cabral Confirmed By:DAYDAY KATE MD 05/17/18 1438 Date Dayday Kate MD CC: Allyssa Cabral DO; Lamine Manzanares MD Signed DISCHARGE INSTRUCTION Observed: 05/15/2018 Status: F Source: [place] 1:37 PM [facility] REPOSITORY [facility] Medical Records Department [address] [place] [address] Instructions for Home/Discharge Instructions 05/15/18 1335 MR#: [id number] Acct: [id number] Name: KJ DUMAS Rep #: [id number] : 1950 67 From: Allyssa Cabral DO PCP: Lamine Manzanares MD, Chi Status: REG [facility] Discharge Diet: No Restrictions - follow up [...] Multiple Vitamin] 1 ea PO DAILY 04/30/18 [place]-3 Fatty Acids/Fish Oil [Fish Oil 1,000 mg [...] 05/15/2018 Status: F Source: [place] 4:40 AM [facility] REPOSITORY [facility] Imaging Services [address] [place] [address] Wrist 2 Views MR#: [id number] Acct: [id number] Name: KJ DUMAS Rep #: [id number] : 1950 F 67 From: David Mosquera MD PCP: Leighton LYNCH,Lamine Jordan Status: REG [facility] Study: Wrist 2 Views Date of Exam: 05/15/18 Exam# [id number] Ordering Dr: Allyssa Cabral DO STUDY: X-RAY [...] CC: Allyssa Cabral DO; Lamine Manzanares MD Technical Marketing Consultant: Signed BASIC METABOLIC Collected: 05/14/2018 Status: F Source: [place] PROFILE (BMP) 2:07 PM [facility] REPOSITORY TYPE CODE TESTS RESULT OUT OF [...] 5 Performed By: #### L500.2500, L501.9520 #### [facility] [address] [place], [place], [address] THYROID STIM HORMONE Collected: 05/14/2018 Status: F Source: [place] (TSH) 2:07 PM [facility] REPOSITORY TYPE CODE TESTS RESULT OUT OF RANGE REFERENCE UNITS LAB L501.9520 0.358-3.74 uIU/mL Normal TSH 0.37 Performed By: #### L500.2500, L501.9520 #### [facility] [address] [place], [place], [address] ORTHOPEDIC VISIT Observed: 05/14/2018 Status: F Source: [place] REPORT 1:41 PM [facility] REPOSITORY [facility] [address] [place] [address] OFFICE VISIT Date of Service: 05/14/18 MR#: [id number] Acct: [id number] Name: KJ DUMAS Rep #: [id number] : 1950 Provider: Allyssa Cabral DO Age/Sex: 67/F [place] [facility] [place] [place]: Signed Intake Intake Visit Reasons: LEFT [...] ea PO DAILY 04/30/18 [History Confirmed 05/14/18] [place]-3 Fatty Acids/Fish Oil [Fish Oil 1,000 mg [...] left radius with routine healing, subsequent encounter S56.475L Plan Personally reviewed the CT scan and [...] EXTREMITY UPPER Observed: 05/11/2018 Status: F Source: [place] WITHOUT CONTRA 6:25 AM [facility] REPOSITORY [facility] Imaging Services [address] [place] [address] Extremity Upper without Contra MR#: [id number] Acct: [id number] Name: KJ DUMAS Rep #: [id number] : 1950 F 67 From: Celestino Lowe MD PCP: Leighton LYNCH,Lamine Chi Status: REG CLI Study: Extremity Upper without Contra Date of Exam: 05/11/18 Exam# [id number] Ordering Dr: Allyssa Cabral DO STUDY: CT [...] CC: Allyssa Cabral DO; Lamine Manzanares MD Technical Marketing Consultant: Signed CARENBritt JR ADONIS Observed: 05/11/2018 Status: F Source: [place] OBL 3-D REC 6:25 AM [facility] REPOSITORY [facility] Imaging Services [address] [place] [address] [facility] Multi Obl 3-D Rec MR#: [id number] Acct: [id number] Name: KJ DUMAS Rep #: [id number] : 1950 F 67 From: Celestino Lowe MD PCP: Leighton LYNCH,Lamine Jordan Status: REG CLI Study: [facility] Multi Obl 3-D Rec Date of Exam: 05/11/18 Exam# [id number] Ordering Dr: Allyssa Cabral DO STUDY: CT [...] CC: Allyssa Cabral DO; Lamine Manzanares MD Technical Marketing Consultant: Signed ORTHOPEDIC VISIT Observed: 05/09/2018 Status: F Source: [place] REPORT 1:38 PM [facility] REPOSITORY [facility] Orthopaedics AND Sports Medicine [address] [place] [address] OFFICE VISIT Date of Service: 05/07/18 MR#: [id number] Acct: [id number] Name: KJ DUMAS Rep #: [id number] : 1950 Provider: Allyssa Cabral DO Age/Sex: 67/F [place] [facility] [place] Status: Signed Intake Intake Visit Reasons: LEFT [...] ea PO DAILY 04/30/18 [History Confirmed 05/07/18] [place]-3 Fatty Acids/Fish Oil [Fish Oil 1,000 mg Capsule] 1 ea PO DAILY 04/30/18 [History Confirmed 05/07/18] Pravastatin Sodium 40 mg PO DAILY 04/30/18 [History Confirmed 05/07/18] Vitamin E 1,000 unit PO DAILY 04/30/18 [History Confirmed 05/07/18] [facility] Social History Smoking Status: Never smoker HPI [...] 05/07/2018 Status: F Source: [place] 2:41 PM [facility] REPOSITORY [facility] Imaging Services [address] [place] [address] Wrist 2 Views MR#: [id number] Acct: [id number] Name: KJ DUMAS Rep #: [id number] : 1950 F 67 From: David Mosquera MD PCP: Lamine Manzanares MD, Chi Status: REG CLI Study: Wrist 2 Views Date of Exam: 05/07/18 Exam# [id number] Ordering Dr: Allyssa Cabral DO STUDY: X-RAY [...] CC: Allyssa Cabral DO; Lamine Manzanares MD Technical Marketing Consultant: Signed EMERGENCY DEPARTMENT Observed: 04/30/2018 Status: F Source: [facility] SUMMARY 11:12 AM [facility] REPOSITORY [facility] Medical Records Department [address] [place] [address] Emergency Department Summary 04/30/18 0926 MR#: [id number] Acct: [id number] Name: KJ DUMAS Rep #: [id number] : 1950 67 From: Idris Prieto MD PCP: Leighton LYNCH,Lamine Jordan Status: REG [...] ED physician This note was generated with Funderbeam dictation software. It may contain incorrect words, [...] time. Your prescription was electronically transmitted to [facility] pharmacy your designated pharmacy of choice. What to do if you have Problems For any increased pain, shortness of breath, bleeding, nausea or vomiting, chest pain, or any unexpected problems, contact your Primary Care Provider. Call [facility] ([phone]) or report to the closest Emergency Room. Call 911 if necessary. 04/30/18 1112 <Electronically signed by Idris Prieto MD> Date Idris Rogers Signature (If Indicated): Date CC: Allyssa Cabral DO; Lamine Manzanares MD WRIST MIN 3 VIEWS Observed: 04/30/2018 Status: F Source: [place] 10:27 AM [facility] REPOSITORY [facility] Imaging Services [address] [place] [address] Wrist min 3 Views MR#: [id number] Acct: [id number] Name: KJ DUMAS Rep #: [id number] : 1950 F 67 From: Chema Olguin MD PCP: Lamine Manzanares MD, Chi Status: REG ER Study: Wrist min 3 Views Date of Exam: 04/30/18 Exam# [id number] Ordering Dr: Idris Prieto MD STUDY: X-RAY [...] Chema Olguin MD at 10:50 EDT Tel [phone], Service support , CC: Lamine Manzanares MD; Idris Prieto MD Technical Marketing Consultant: Signed WRIST MIN 3 VIEWS Observed: 04/30/2018 Status: F Source: [place] 9:18 AM [facility] REPOSITORY [facility] Imaging Services [address] [place] [address] Wrist min 3 Views MR#: [id number] Acct: [id number] Name: KJ DUMAS Rep #: [id number] : 1950 F 67 From: Chema Olguin MD PCP: Leighton LYNCH,Lamine Jordan Status: REG ER Study: Wrist min 3 Views Date of Exam: 04/30/18 Exam# [id number] Ordering Dr: Idris Prieto MD STUDY: X-RAY [...] Chema Olguin MD at 9:52 EDT Tel [phone], Service support , CC: Lamine Manzanares MD; Idris Prieto MD Technical Marketing Consultant: Signed RIBS UNI MIN 3V Observed: 03/19/2018 Status: F Source: [place] W/PA CHEST 4:58 PM [facility] REPOSITORY [facility] Imaging Services [address] [place] [address] Ribs Uni Min 3V w/PA Chest MR#: [id number] Acct: [id number] Name: KJ DUMAS Rep #: [id number] : 1950 F 67 From: Luis Mares MD PCP: Lamine Manzanares MD, Chi Status: REG CLI Study: Ribs Uni Min 3V w/PA Chest Date of Exam: 03/19/18 Exam# [id number] Ordering Dr: Lamine Manzanares MD STUDY: X-RAY [...] abnormality. Normal size heart. Normal mediastinum and feilpe. Normal visualized pulmonary arteries. Normal visualized aortic [...] Service support , CC: Lamine Manzanares MD Technical Marketing Consultant: Signed SCREENING MAMM (CAD), Observed: 01/29/2018 Status: F Source: [place] BILAT 8:55 AM [facility] REPOSITORY [facility] Imaging Services [address] [place] [address] SCREENING MAMM (CAD), BILAT MR#: [id number] Acct: [id number] Name: KJ DUMAS Rep #: [id number] : 1950 F 67 From: Chema Olguin MD PCP: Leighton LYNCH,Lamine Jordan Status: REG CLI Study: SCREENING MAMM (CAD), BILAT Date of Exam: 01/29/18 Exam# [id number] Ordering Dr: Allyssa Leal MD MAMMOGRAPHY - [...] delay biopsy of a clinically suspicious abnormality. [id number] Electronically Signed: Cheam Olguin MD at 10:17 EDT Tel [phone], Service support , CC: Allyssa Leal MD; Lamine Manzanares MD Technical Marketing Consultant: Signed DEXA BONE DENSITY Observed: 01/29/2018 Status: F Source: [place] STUDY 8:55 AM [facility] REPOSITORY [facility] Imaging Services [address] [place] [address] Dexa Bone Density Study MR#: [id number] Acct: [id number] Name: KJ DUMAS Rep #: [id number] : 1950 F 67 From: Chema Olguin MD PCP: Lamine Manzanares MD, Chi Status: REG CLI Study: Dexa Bone Density Study Date of Exam: 01/29/18 Exam# [id number] Ordering Dr: Allyssa Leal MD STUDY: DUAL [...] Chema Olguin MD at 14:36 EDT Tel [phone], Service support , CC: Allyssa Leal MD; Lamine Manzanares MD Technical Marketing Consultant: Signed CBC W/DIFF, AUTOMATED Collected: 01/15/2018 Status: F Source: [place] 5:10 PM [facility] REPOSITORY TYPE CODE TESTS RESULT OUT OF [...] Lymph 2.22 Performed By: #### L100.0100 #### [facility] [address] [place], [address] COMPREHENSIVE METABOLIC Collected: 01/15/2018 Status: F Source: [facility] 5:10 PM [facility] REPOSITORY TYPE CODE TESTS RESULT OUT OF [...] 7 Performed By: #### L500.4050, L501.9520 #### [facility] [address] [place], [address] THYROID STIM HORMONE Collected: 01/15/2018 Status: F Source: [place] ([facility]) 5:10 PM [facility] REPOSITORY TYPE CODE TESTS RESULT OUT OF RANGE REFERENCE UNITS LAB L501.9520 0.358-3.74 uIU/mL Low TSH 0.09 Performed By: #### L500.4050, L501.9520 #### [facility] [address] [place], [address] VITAMIN D,25 HYDROXY Collected: 01/15/2018 Status: F Source: [place] 5:10 PM [facility] REPOSITORY TYPE CODE TESTS RESULT OUT OF RANGE REFERENCE UNITS LAB L506.1000 29.95-100.01 ng/mL Normal Vitamin D 50.4 25-OH Result Comment: Vitamin D 25(OH) Status Range Deficiency <20 ng/mL (50nmol/L) Insuffciency 20 - 30 ng/mL (50 - 75 nmol/L) Sufficiency 30 - 100 ng/mL (75 - 250 nmol/L) Toxicity >100 ng/mL (>250 nmol/L) Performed By: #### L506.1000 #### [facility] [address] [place], [address] HEPATITIS C ANTIBODIES Collected: 01/15/2018 Status: F Source: [place] 5:10 PM [facility] REPOSITORY TYPE CODE TESTS RESULT OUT OF RANGE REFERENCE UNITS LAB L3100.0650 0.0-0.9 s/co ratio Normal HEP C AB <0.1 Result Comment: Negative: < 0.8 Indeterminate: 0.8 - 0.9 Positive: > 0.9 The CDC recommends that a positive HCV antibody result be followed up with a HCV Nucleic Acid Amplification test ([id number]). Performed at: [facility] [id number] Glue Sprayer: Rashel Mclain PhD, Phone: [phone] Performed By: #### L3100.0625 #### [facility] (refer to report for specific site) refer to report for address and phone number PAP I-G W/RFX HRHPV Collected: 09/19/2017 Status: C Source: [place] 9:15 AM [facility] REPOSITORY Order Comment: CYTOLOGY INFORMATION: - CLINICAL INFORMATION: - DATE LMP/MENOPAUSE: MENOPAUSE - COLLECTION VIAL: Thin Prep Vial - BOATHOUSE KEEPER SOURCE: CERVICAL/ENDOCERVICAL - COLLECTION TECHNIQUE: BRUSH/SPATULA Specimen Comment: [id number] Specimen Comment: No. of containers..01 ThinPrep Vial [...] Normal PERFORM Comment Result Comment: Charles Gunn, Nut Sorter (ASCP) LAB L7400.1700 . Normal SIGN Comment [...] No Known Unknown [place] [facility] Allergy/4160 Allergies/F00 [facility] [address](SNOMED 2010964(RXNOR Repository CT M) ENCOUNTERS ENCOUNTERS ADMIT/DISCHARGE ACCOUNT ADMITTING ENCOUNTER LOCATION SOURCE NUMBER CLASS 07/16/2018 [id number] Ambulatory [place] 1 [facility] Hospital ing:POLAB3 Repository 06/27/2018/ [id number] Ambulatory BMSBuilding:B [place] 8 6 [place].[facility] Repository 06/17/2018 [id number] Ambulatory [place] 4 [facility] Hospital ing:OT Repository 06/12/2018 [id number] Ambulatory [place] 3 [facility] Hospital ing:LABSPEC Repository 05/30/2018 [id number] Ambulatory [place] 4 [facility] Hospital ing:HPRAD Repository 05/30/2018/ [id number] Ambulatory BMSBuilding:B [place] 8 5 MS.[facility] Repository 05/15/2018/ [id number] Ambulatory [place] 8 8 [facility] Hospital ing:SDCRoom: Repository AC17 05/15/2018/ [id number] Ambulatory BMSBuilding:B [place] 8 4 MS.CF.[facility] Repository 05/14/2018/ [id number] Ambulatory BMSBuilding:B [place] 8 8 [facility] Repository 05/14/2018 [id number] Ambulatory BMSBuilding:W [place] 2 [facility] Repository 05/11/2018 [id number] Ambulatory [place] 5 [facility] Hospital ing:CT Repository 05/07/2018 [id number] Ambulatory [place] 0 [facility] Hospital ing:HPRAD Repository 05/07/2018/ [id number] Ambulatory BMSBuilding:B [place] 8 7 [facility] Repository 04/30/2018/ [id number] Emergency [place] 8 0 [facility] Hospital ing:ED Repository 03/21/2018 [id number] Ambulatory [place] 9 [facility] Hospital ing:LAB.FUTUR Repository E 03/19/2018 [id number] Ambulatory [place] 8 [facility] Hospital ing:RAD Repository 01/29/2018 [id number] Ambulatory [place] 1 [facility] ing:OPBD Repository 01/15/2018 [id number] Ambulatory [place] 5 [facility] ing:LAB Repository 01/01/2018 [id number] Ambulatory [place] 4 [facility] ing:LAB.FUTUR Repository E 09/19/2017 [id number] Ambulatory [place] 3 [facility] ing:LABSPEC Repository 08/30/2017 [id number] Ambulatory [place] 2 [facility] ing:LAB.FUTUR Repository E PAYERS PAYERS ENCOUNTER GUARANTOR PAYER SUBSCRIBER SOURCE 07/16/2018 KJ Shanks Primary KJ K [place] [address] Insurance:MEDICARE PART SORENSENDOB: [address] A BPolicy Number: [id number] [address]Gcp: [phone] [id number] Repository [phone] () Date:2018-07-16 07/16/2018 Secondary KJ K [place] Insurance:AETNA SR SORENSENDOB: Community SUPPLEMENT INSPolicy [id number] Hospital Number: Repository [id number] Date:3903-92-52FAUON SENIOR SUPPLEMENT [address] [place] [address]TS: 07/16/2018 Tertiary Insurance:SELF NOT GIVENUNK [place] PAY INSURANCEPolicy Community Number: Effective Hospital Date:2018-07-16 Repository 06/27/2018 KJ Shanks Primary KJ K [place] [address] Insurance:MEDICARE PART SORENSENDOB: [address] A BPolicy Number: [id number] Hospital [address]Fik: [phone] [id number] Repository [phone] () Date:2018-05-30 06/27/2018 Secondary KJ K [place] Insurance:AETNA SR SORENSENDOB: Community SUPPLEMENT INSPolicy [id number] Hospital Number: Repository [id number] Date:6173-06-93ZYEQS SENIOR SUPPLEMENT [id number] [place] [address]TP: 06/27/2018 Tertiary Insurance:SELF NOT GIVENUNK [place] PAY INSURANCEPolicy Community Number: Effective Hospital Date:2018-06-26 Repository 06/17/2018 KJ K Primary KJ K [place] [address] Insurance:MEDICARE PART SORENSENDOB: [facility] A BPolicy Number: [id number] Hospital [address]Kcc: [phone] [id number] Repository [phone] () Date:2015-10-31 06/17/2018 Secondary KJ K [place] Insurance:AETNA SR SORENSENDOB: Community SUPPLEMENT INSPolicy [id number] Hospital Number: Repository [id number] Date:5232-07-08KJPHF SENIOR SUPPLEMENT [address] [place] [address]YN: 06/17/2018 Tertiary Insurance:SELF NOT GIVENUNK [place] PAY INSURANCEPolicy Community Number: Effective Hospital Date:2018-05-30 Repository 06/12/2018 KJ K Primary KJ K [place] [address] Insurance:MEDICARE PART SORENSENDOB: Community [facility] A BPolicy Number: [id number] Hospital [address]Oqt: [phone] [id number] Repository [phone] () Date:2018-06-12 06/12/2018 Secondary KJ K [place] Insurance:AETNA SR SORENSENDOB: Community SUPPLEMENT INSPolicy [id number] Hospital Number: Repository [id number] Date:0685-89-90TIQEY SENIOR SUPPLEMENT [address] [place] [address]JC: 06/12/2018 Tertiary Insurance:SELF NOT GIVENUNK [place] PAY INSURANCEPolicy Community Number: Effective Hospital Date:2018-06-12 Repository 05/30/2018 KJ K Primary KJ K [place] [address] Insurance:MEDICARE PART SORENSENDOB: Community [address] [place], [place] [address]jens A BPolicy Number: [id number] Hospital [address]Ixo: ([phone]) [id number] Repository [phone] (HP) Date:2018-05-30 05/30/2018 Secondary KJ K [place] Insurance:AETNA SR SORENSENDOB: Community SUPPLEMENT INSPolicy [id number] Hospital Number: Repository [id number] Date:2778-65-28XPBAT SENIOR SUPPLEMENT [address] [place] [address]DM: 05/30/2018 Tertiary Insurance:SELF NOT GIVENUNK [place] PAY INSURANCEPolicy Community Number: Effective Hospital Date:2018-05-30 Repository 05/30/2018 KJ K Primary KJ K [place] [address] Insurance:MEDICARE PART SORENSENDOB: Community [address] [place] [address] in A BPolicy Number: [id number] Hospital [address]Ctw: [phone] [id number] Repository [phone] () Date:2018-05-27 05/30/2018 Secondary KJ K [place] Insurance:AETNA SR SORENSENDOB: Community SUPPLEMENT INSPolicy [id number] Hospital Number: Repository [id number] Date:4974-97-54HCCKX SENIOR SUPPLEMENT [address] [place] [address]XO: 05/30/2018 Tertiary Insurance:SELF NOT GIVENUNK [place] PAY INSURANCEPolicy Community Number: Effective Hospital Date:2018-05-30 Repository 05/15/2018 KJ K Primary KJ K [place] [address] Insurance:MEDICARE PART SORENSENDOB: Community [address] [place] [address] in A BPolicy Number: [id number] Hospital [address]Rnw: [phone] [id number] Repository [phone] (HP) Date:2018-05-10 05/15/2018 Secondary KJ K [place] Insurance:AETNA SR SORENSENDOB: Community SUPPLEMENT INSPolicy [id number] Hospital Number: Repository [id number] Date:1210-40-98FWSGL SENIOR SUPPLEMENT [address] [address], [place] [address]ML: 05/15/2018 Tertiary Insurance:SELF NOT GIVENUNK [place] PAY INSURANCEPolicy Community Number: Effective Hospital Date:2018-05-10 Repository 05/15/2018 KJ K Primary KJ K [place] [address] Insurance:MEDICARE PART SORENSENDOB: Community [facility] [place] A BPolicy Number: [id number] Hospital 69[address]Wkx: [phone]) [id number] Repository [phone] () Date:2018-05-10 05/15/2018 Secondary KJ K [place] Insurance:AETNA SR SORENSENDOB: Community SUPPLEMENT INSPolicy [id number] Hospital Number: Repository [id number] Date:5365-09-03GUPLN SENIOR SUPPLEMENT [address] [place] [address]TZ: 05/15/2018 Tertiary Insurance:SELF NOT GIVENUNK [place] PAY INSURANCEPolicy Community Number: Effective Hospital Date:2018-05-15 Repository 05/14/2018 KJ K Primary KJ K [place] [address] Insurance:MEDICARE PART SORENSENDOB: Community [address] [place] [address] [place] A BPolicy Number: [id number] Hospital 420[address]Bfu: [phone]) [id number] Repository [phone] () Date:2018-05-07 05/14/2018 Secondary KJ K [place] Insurance:AETNA SR SORENSENDOB: Community SUPPLEMENT INSPolicy [id number] Hospital Number: Repository [id number] Date:6380-14-54CIDWS SENIOR SUPPLEMENT [address] [place] [address]VX: 05/14/2018 Tertiary Insurance:SELF NOT GIVENUNK [place] PAY INSURANCEPolicy Community Number: Effective Hospital Date:2018-05-14 Repository 05/14/2018 KJ K Primary KJ K [place] [address] Insurance:MEDICARE PART SORENSENDOB: Community [address] [place] [address] A BPolicy Number: [id number] Hospital 04990Zhx: [phone]) [id number] Repository [phone] () Date:2018-05-10 05/14/2018 Secondary KJ Dimitrsi [place] Insurance:AETNA SR SORENSENDOB: Community SUPPLEMENT INSPolicy [id number] Hospital Number: Repository [id number] Date:2352-63-48HBUFN SENIOR SUPPLEMENT [address] [place] [address]NF: 05/14/2018 Tertiary Insurance:SELF NOT GIVENUNK [place] PAY INSURANCEPolicy Community Number: Effective Hospital Date:2018-05-14 Repository 05/11/2018 KJ Dimitris Primary KJ K [place] [address] Insurance:MEDICARE PART SORENSENDOB: Community [address] [place] [address] in A BPolicy Number: [id number] Hospital 352[address]Ecy: ([phone]) [id number] Repository [phone] () Date:2018-05-08 05/11/2018 Secondary KJ K [place] Insurance:AETNA SR SORENSENDOB: Community SUPPLEMENT INSPolicy [id number] Hospital Number: Repository [id number] Date:8454-40-86GEXMA SENIOR SUPPLEMENT IN[address]SYVLC[address]JA[address] [place] [address]PX: 05/11/2018 Tertiary Insurance:SELF NOT GIVENUNK [place] PAY INSURANCEPolicy Community Number: Effective Hospital Date:2018-05-08 Repository 05/07/2018 KJ Shanks Primary KJ Shanks [place] [address] Insurance:MEDICARE PART SORENSENDOB: Community [address] [place] [address] A BPolicy Number: [id number] Hospital 39233Dlg: [phone]) [id number] Repository [phone] () Date:2018-05-07 05/07/2018 Secondary KJ K [place] Insurance:AETNA SR SORENSENDOB: Community SUPPLEMENT INSPolicy [id number] Hospital Number: Repository [id number] Date:7712-57-92NEDTM SENIOR SUPPLEMENT IN[address]O [id number] [place] [address]TZ: 05/07/2018 Tertiary Insurance:SELF NOT GIVENUNK [place] PAY INSURANCEPolicy Community Number: Effective Hospital Date:2018-05-07 Repository 05/07/2018 KJ K Primary KJ K [place] [address] Insurance:MEDICARE PART SORENSENDOB: Community [address] [place] [address] A BPolicy Number: [id number] Hospital 06655Rdt: ([phone]) [id number] Repository [phone] (HP) Date:2018-04-30 05/07/2018 Secondary KJ K [place] Insurance:AETNA SR SORENSENDOB: Community SUPPLEMENT INSPolicy [id number] Hospital Number: Repository [id number] Date:0949-84-25GSTMA SENIOR SUPPLEMENT [address] [address]XJNN[place]MTM, [place] [address]NO: 05/07/2018 Tertiary Insurance:SELF NOT GIVENUNK [place] PAY INSURANCEPolicy Community Number: Effective Hospital Date:2018-04-30 Repository 04/30/2018 KJ K Primary KJ K [place] [address] Insurance:MEDICARE PART SORENSENDOB: Community [address] [place] [address] A BPolicy Number: [id number] Hospital 15243Bas: [phone]) [id number] Repository [phone] (HP) Date:2018-04-30 04/30/2018 Secondary KJ K [place] Insurance:AETNAPolicy SORENSENDOB: Community Number: [id number] Hospital [id number] Repository Date:8277-51-95CD [address] KISHAN SMITH [address]SQ: 04/30/2018 Tertiary Insurance:SELF NOT GIVENUNK [place] PAY INSURANCEPolicy Community Number: Effective Hospital Date:2018-04-30 Repository 03/21/2018 KJ K Primary KJ K [place] [address] Insurance:MEDICARE PART SORENSENDOB: Community [id number] Dariela Nguyen BPolicy Number: [id number], [place] [id number] Repository [address]Biq: (139) Date:2018-02-07 [phone] () 03/21/2018 Secondary KJ K [place] Insurance:AETNAPolicy SORENSENDOB: Community Number: [id number] General HospitalBPVZRXEffective Repository Date:6891-84-36ZF [address] [address]KX: 03/21/2018 Tertiary Insurance:SELF NOT GIVENUNK [place] PAY INSURANCEPolicy Community Number: Effective Hospital Date:2018-02-07 Repository 03/19/2018 KJ Dimitris Primary KJ K [place] [address] Insurance:MEDICARE PART SORENSENDOB: Community [id number] Dariela Nguyen BPolicy Number: [id number], [place] [id number] Repository [address]Dmc: (932) Date:2018-03-19 [phone] () 03/19/2018 Secondary KJ K [place] Insurance:AETNAPolicy SORENSENDOB: Community Number: [id number] Comprehensive Health CenterVZRXEffective Repository Date:1692-26-58PC [address], [place] [address]UB: 03/19/2018 Tertiary Insurance:SELF NOT GIVENUNK [place] PAY INSURANCEPolicy Community Number: Effective Hospital Date:2018-03-19 Repository 01/29/2018 KJ Dimitris Primary KJ K [place] [address] Insurance:MEDICARE PART SORENSENDOB: Community [id number] Dariela Nguyen BPolicy Number: [id number], [place] [id number] Repository [address]Ogh: (162) Date:2017-09-21 [phone] () 01/29/2018 Secondary KJ K [place] Insurance:AETNAPolicy SORENSENDOB: Community Number: [id number] Comprehensive Health CenterVZRXEffective Repository Date:1120-85-36YD [address] [address]WD: 01/29/2018 Tertiary Insurance:SELF NOT GIVENUNK [place] PAY INSURANCEPolicy Community Number: Effective Hospital Date:2017-09-21 Repository 01/15/2018 KJ K Primary KJ K [place] [address] Insurance:MEDICARE PART SORENSENDOB: Community [id number] Dariela Nguyen BPolicy Number: [id number], [place] [id number] Repository [address]Uhd: (997) Date:2018-01-15 [phone] () 01/15/2018 Secondary KJ K [place] Insurance:AETNA SR SORENSENDOB: Community SUPPLEMENT INSPolicy [id number] Hospital Number: Repository [id number] Date:6739-08-36IYYZS SENIOR SUPPLEMENT IN[address] [place] [address]KE: 01/15/2018 Tertiary Insurance:SELF NOT GIVENUNK [place] PAY INSURANCEPolicy Community Number: Effective Hospital Date:2018-01-15 Repository 01/01/2018 KJ Primary KJ [place] [address] Insurance:MEDICARE PART SORENSENDOB: Community [id number] Dariela Nguyen BPolicy Number: [id number], [place] [id number] Repository [address]Xbw: (555) Date:2018-01-01 [phone] () 01/01/2018 Secondary KJ [place] Insurance:AETNA SR SORENSENDOB: Community SUPPLEMENT INSPolicy [id number] Hospital Number: Repository [id number] Date:3784-22-37WPHRM SENIOR SUPPLEMENT IN[address]JV[address] [place] [address]VY: 01/01/2018 Tertiary Insurance:SELF NOT GIVENUNK [place] PAY INSURANCEPolicy Community Number: Effective Hospital Date:2018-01-01 Repository 09/19/2017 KJ Primary KJ [place] [address] Insurance:MEDICARE PART SORENSENDOB: Community [id number] Dariela Nguyen BPolicy Number: [id number], [place] [id number] Repository 235[address]Kll: (928) Date:2017-09-19 [phone] () 09/19/2017 Secondary KJ [place] Insurance:AETNAPolicy SORENSENDOB: Community Number: [id number] Hospital [id number] Repository Date:3165-14-25RO [address] LUIS KISHAN [address]HG: 09/19/2017 Tertiary Insurance:SELF NOT GIVENUNK [place] PAY INSURANCEPolicy Community Number: Effective Hospital Date:2017-09-19 Repository 08/30/2017 KJ [place] [address] Insurance:MEDICARE PART SORENSENDOB: [facility] [id number] Dariela Nguyen BPolicy Number: [id number], [place] [id number] Repository [address]Uaq: 740) Date:2017-07-27 [phone] () 08/30/2017 Secondary NOT GIVENUNK [place] Insurance:SELF PAY Community INSURANCEPolicy Number: Hospital Effective Repository Date:2017-07-27
--- NOTE | 2018-12-12 07:56 | HP.OT.NRP ---
HP - Discharge Summary - Patient Information KJ DUMAS was seen in my office for initial evaluation on 06/17/18. The following Plan of Care was established for this patient: Initial Frequency: eval only Initial Duration: eval only - Anticipated Interventions Anticipated Interventions: A/AAROM/PROM, Strengthening, Triggerpoint Release, Modalities, Joint Protection/Energy Conservation, Ergonomic Education, ADL Training, Home Program This patient was last seen in our office 06/17/18. Pertinent comments regarding their Occupational therapy will appear below: PT was seen for inital Eval only. Pt was given a HEP. Pt has not called with questions or concerns at this time. Pt. D/C. At this point I will be discontinuing this patient from occupational therapy. I would be happy to see this patient again in the future if found appropriate by the physician. Thank you! Riya Willett, OTR/L, CHT
== END 2018-06-17 19:00 | disposition home or self-care (01) ==
LOC: OT 16:23
PROVIDERS: Family Provider Family Medicine Geriatric Medicine; PCP Family Medicine Geriatric Medicine; Referring Provider Orthopaedic Surgery; Visit Provider Orthopaedic Surgery
DX: Z98.890 Other specified postprocedural states (principal)
CPT/HCPCS: 97166

== ENCOUNTER → 2018-07-16 16:33 | Outpatient (CLI) | payer MEDICARE, OTHER, SELFPAY ==
[2018-06-28 16:10] VITALS: BMI 26.9
[2018-07-16 17:16] LABS: Absolute Lymphocyte Count 2.16 X10^3/ul (0.83-4.51); Absolute Neutrophil Count 4.2 X10^3/uL (2.0-7.7); Basophil# 0.03 X10^3/uL; Basophil% 0.4 % (0-1); Eosinophil# 0.17 X10^3/uL; Eosinophils% 2.4 % (0-5); Hematocrit 38.8 % (37-47); Hemoglobin 12.7 g/dl (12.0-15.0); Lymphocyte # 2.16 X10^3/ul (4.0); Lymphocyte % 30.4 % (19-41); Mean Corp Hgb Conc 32.7 g/gl (32-36); Mean Corpuscular Hgb 29.7 pg (27.0-32.0); Mean Corpuscular Volume 90.9 fL (81-99); Mean Platelet Vol. 9.9 fl (6.2-12.0); Monocyte# 0.48 X10^3/uL; Monocyte% 6.8 % (0-10); Neutrophil # 4.24 X10^3/uL (2.7-7.7); Neutrophil % 59.7 % (47-70); Platelet Count 267 K/mm3 (150-450); RBC Distribution Width CV 12.5 % (11.6-14.6); RBC Distribution Width SD 40.9 fl (35.1-43.9); Red Blood Count 4.27 M/mm3 (4.2-5.4); White Blood Count 7.1 K/mm3 (4.4-11.0)
[2018-07-16 17:22] LABS: POSITIVE COUNT NO; POSITIVE DIFFERENTIAL NO; POSITIVE MORPHOLOGY NO
[2018-07-16 17:44] LABS: ALB/GLOB Ratio 1.2 RATIO (0.9-2.4); AST(SGOT) 14 U/L (15-37); Alanine Aminotransfer ALT/SGPT 30 U/L (13-56); Albumin, Serum 3.7 g/dL (3.2-5.0); Alkaline Phosphatase 84 U/L (45-117); Anion Gap 9 (5-15); BUN 16 mg/dL (7-18); BUN/Creat Ratio 20.4 RATIO (10-20); Calcium,Total 9.1 mg/dL (8.5-10.1); Chloride 105 mmol/L (98-107); Creatinine, Serum 0.79 mg/dL (0.55-1.02); EST Glomerular Filtration Rate 78 mL/min (>60); Est Glom Filt Rate - Afr Amer 94 mL/min (>60); Globulin 3.1 g/dL (2.2-4.2); Glucose 97 mg/dL (74-106); Potassium 3.5 mmol/L (3.5-5.1); Protein, Total 6.8 g/dL (6.4-8.2); Sodium Level 139 mmol/L (136-145); Thyroid Stim Hormone (TSH) 0.64 uIU/mL (0.358-3.74)
[2018-07-16 17:47] LABS: Vitamin D,25 Hydroxy 57.1 ng/mL (29.95-100.01)
== END ==
PROVIDERS: Family Provider Family Medicine Geriatric Medicine; PCP Family Medicine Geriatric Medicine; Visit Provider Family Medicine Geriatric Medicine
DX: E55.9 Vitamin D deficiency, unspecified (principal); I10 Essential (primary) hypertension
CPT/HCPCS: 36415; 80053; 82306; 84443; 85025

== ENCOUNTER → 2018-11-07 | Outpatient (CLI) | payer MEDICARE, OTHER, SELFPAY ==
[2018-06-28 16:10] VITALS: BMI 26.9
--- NOTE | 2018-11-07 16:40 | RAD_ITS ---
STUDY: X-RAY CHEST REASON FOR EXAM: Female, 67 years old. Trauma. Left-sided pain. TECHNIQUE: Frontal and lateral views of the chest COMPARISON: 03/09/2018 FINDINGS: The lungs are clear. There are no pleural effusions. There is no pneumothorax. The heart is normal in size. The visualized osseous structures are within normal limits. RAD/Chest PA and Lateral IMPRESSION: No acute thoracic pathology. Electronically Signed: Charles Lai, at 17:12 EDT Tel , Service support ,
== END | disposition home or self-care (01) ==
LOC: POLAB3 16:32 → RAD 16:39
PROVIDERS: Family Provider Family Medicine Geriatric Medicine; PCP Family Medicine Geriatric Medicine; Referring Provider Family Medicine Geriatric Medicine; Visit Provider Family Medicine Geriatric Medicine
DX: R06.02 Shortness of breath (principal); V89.2XXA Person injured in unspecified motor-vehicle accident, traffic, initial encounter
CPT/HCPCS: 36415; 71046; 85379

== ENCOUNTER → 2019-01-30 | Outpatient (CLI) | payer MEDICARE, OTHER, SELFPAY ==
[2018-06-28 16:10] VITALS: BMI 26.9
[2019-01-30 16:55] LABS: Absolute Lymphocyte Count 2.23 X10^3/uL (0.83-4.51); Absolute Neutrophil Count 4.4 X10^3/uL (2.0-7.7); Basophil# 0.04 X10^3/uL; Basophil% 0.6 % (0-1); Eosinophil# 0.07 X10^3/uL; Hematocrit 39.6 % (37-47); Hemoglobin 13.1 g/dL (12.0-15.0); Lymphocyte # 2.23 X10^3/ul (4.0); Lymphocyte % 31.2 % (19-41); Mean Corp Hgb Conc 33.1 g/dL (32-36); Mean Corpuscular Hgb 30.5 pg (27.0-32.0); Mean Corpuscular Volume 92.3 fL (81-99); Mean Platelet Vol. 9.9 fl (6.2-12.0); Monocyte# 0.39 X10^3/uL; Monocyte% 5.5 % (0-10); NRBC Flagged by Analyzer 0 % (0-5); Neutrophil % 61.4 % (47-70); Platelet Count 252 K/mm3 (150-450); RBC Distribution Width CV 12.8 % (11.6-14.6); RBC Distribution Width SD 43.2 fl (35.1-43.9); Red Blood Count 4.29 M/mm3 (4.2-5.4); White Blood Count 7.2 K/mm3 (4.4-11.0)
[2019-01-30 17:21] LABS: Vitamin D,25 Hydroxy 40.2 ng/mL (29.95-100.01)
[2019-01-30 17:22] LABS: BUN 13 mg/dL (7-18); Creatinine, Serum 0.73 mg/dL (0.55-1.02); Glucose 100 mg/dL (74-106)
[2019-01-30 17:23] LABS: ALB/GLOB Ratio 1.3 RATIO (0.9-2.4); AST(SGOT) 10 U/L (15-37); Alanine Aminotransfer ALT/SGPT 27 U/L (13-56); Albumin, Serum 3.9 g/dL (3.2-5.0); Alkaline Phosphatase 79 U/L (45-117); Anion Gap 8 (5-15); BUN/Creat Ratio 17.7 RATIO (10-20); Calcium,Total 9.5 mg/dL (8.5-10.1); Chloride 107 mmol/L (98-107); EST Glomerular Filtration Rate 84 mL/min (>60); Est Glom Filt Rate - Afr Amer 101 mL/min (>60); Globulin 2.9 g/dL (2.2-4.2); Potassium 3.5 mmol/L (3.5-5.1); Protein, Total 6.8 g/dL (6.4-8.2); Sodium Level 143 mmol/L (136-145); Thyroid Stim Hormone (TSH) 0.66 uIU/mL (0.358-3.74)
== END | disposition home or self-care (01) ==
LOC: POLAB3 09:28
PROVIDERS: Family Provider Family Medicine Geriatric Medicine; PCP Family Medicine Geriatric Medicine; Visit Provider Family Medicine Geriatric Medicine
DX: E55.9 Vitamin D deficiency, unspecified (principal); I10 Essential (primary) hypertension
CPT/HCPCS: 36415; 80053; 82306; 84443; 85025

== ENCOUNTER → 2019-02-11 | Outpatient (CLI) | payer MEDICARE, OTHER, SELFPAY ==
[2018-06-28 16:10] VITALS: BMI 26.9
--- NOTE | 2019-02-11 15:11 | BI_ITS ---
MAMMOGRAPHY - BILATERAL SCREENING REASON FOR EXAM: Female, 68 years old. Routine annual screening examination. PERTINENT HISTORY: Non-contributory. TECHNIQUE: Digital bilateral breast karena (3D mammographic acquisition) in the CC and MLO projections. 2-D mediolateral oblique (MLO) and craniocaudad (CC) views of both breasts were obtained. CAD: Full Field Digital Mammography with Computer Added Detection was performed. COMPARISON: Comparison is made with prior study dated January 29, 2018 and January 25, 2016. FINDINGS: Breast Composition: There are scattered areas of fibroglandular density. There are no dominant masses or suspicious calcifications. No other significant abnormalities are identified. There has been no significant change since the prior study. BI/SCREEN MAMM (CAD) W/KARENA BILAT IMPRESSION: Stable bilateral screening mammogram. Yearly follow-up mammogram recommended. (A) ASSESSMENT CATEGORY: BIRADS Category 1: Negative. A letter regarding these results will be sent to the patient by the facility within 30 days. Approximately 10% of breast cancers are not detected by mammography. A normal mammogram should not delay biopsy of a clinically suspicious abnormality. [id number] Electronically Signed: Chema Olguin, at 8:31 EDT , Service support ,
== END | disposition home or self-care (01) ==
LOC: OPBI 15:09
PROVIDERS: Family Provider Family Medicine Geriatric Medicine; PCP Family Medicine Geriatric Medicine; Referring Provider Family Medicine Geriatric Medicine; Visit Provider Family Medicine Geriatric Medicine
DX: Z12.31 Encounter for screening mammogram for malignant neoplasm of breast (principal)
CPT/HCPCS: 77063; 77067

== ENCOUNTER 2019-03-31 14:48 | Emergency (ER) | payer MEDICARE, OTHER, SELFPAY ==
[2018-06-28 16:10] VITALS: BMI 26.9
[2019-03-31 14:48] VITALS: BP 167/73; PULSE 78; RESP 16; TEMP 36.6; O2SAT 99; BMI 27.9
--- NOTE | 2019-03-31 15:02 | VDLE_ITS ---
Reason For Study: Pain RIGHT GSV is normal. CFV is compressible, spontaneous, phasic, competent and demonstrates normal augmentation. FV is compressible, spontaneous, phasic, competent and demonstrates normal augmentation. POP V is compressible, spontaneous, phasic, competent and demonstrates normal augmentation. T/P Trunk is compressible. PTV is compressible. RT PerV is compressible. Nonvascularized structue noted in the right popliteal fossa measuring approximently 1.30 x 1.31 x 3.96 cm. Procedure Exam performed portable in ED. A preliminary report was called and/or faxed to [facility]. Interpretation Summary Deep veins of the right lower extremity are patent and compressible segmentally. There is no evidence of right lower extremity deep vein thrombosis. Valvular competence appears intact within the proximal deep venous system on the right . The right great saphenous vein appears patent and compressible segmentally. A non-vascular, hypoechoic structure is noted in the right popliteal space, measuring 1.30 cm x 1.31 cm x 3.96 cm. This probably represents a popliteal cyst. Clinical correlation is advised. Ordering Physician: Evan Martins Referring Physician: Lamine Manzanares Chi Performed By: Loida Petit RVT
--- NOTE | 2019-03-31 15:33 | RAD_ITS ---
STUDY: X-RAY - RIGHT FEMUR REASON FOR STUDY: Female, 68 years old. Pain following a fall. TECHNIQUE: 2 view(s) of the femur. COMPARISON: None. FINDINGS: Normal visualized femur. Normal visualized soft tissue structure. RAD/Femur Min 2 Views IMPRESSION: Normal x-ray examination of the femur. Electronically Signed: Chema Olguin, at 16:09 EDT , Service support ,
--- NOTE | 2019-03-31 16:29 | ED.VISSUMM ---
- ER Visit Summary Date of Service: 03/31/19 Chief Complaint: Right leg pain History of Present Illness: The patient is a 68 F who presents with right leg pain that has been getting worse over the past 2 weeks. Patient states her pain is worse at night. Patient states she does have some weakness in her right leg. Patient states the pain is sharp. Patient states pain is worse over the anterior aspect of the right thigh. Patient states the pain radiates into her knee. Patient states she has a history of prior DVT and is concerned that this may be from a DVT. Patient is not on any anticoagulants at this time. Physical Examination: Vital signs are stable except for slightly elevated blood pressure 167/73. Patient is afebrile. Patient is in no acute distress. Oral mucosa is pink and moist. Neck is supple. Trachea is midline. There is no JVD noted. Heart was regular rate and rhythm. Lungs are clear and equal bilaterally. Abdomen is soft and nontender. Cranial nerves II through XII are intact. There are no focal motor or sensory deficits noted. Musculoskeletal exam revealed some mild tenderness of the anterior aspect of the right thigh. There is no calf tenderness or edema. Pedal pulses are equal bilaterally. Test Results: Venous duplex of the right lower extremity was obtained. There is no evidence of DVT. X-rays of the right femur were obtained. There is no evidence of bone cancer or fracture. These were interpreted by the radiologist and myself. Emergency Department Course and Treatment: Patient was advised of her results. Patient was instructed to follow-up with her primary care physician tomorrow as scheduled. Patient was instructed to continue Tylenol or ibuprofen as needed for pain. Patient understood and was agreeable with the plan. All questions were answered. Disposition: Discharge home Impression: Right thigh pain This note was generated with [employer] dictation software. It may contain incorrect words, spelling, and punctuation that were not noted in review of the chart prior to signing ED Disposition - Plan for ED Patient: Disposition: Home or Assisted Living Diagnosis: Right thigh pain Instructions: MUSCLE STRAIN, Extremity Referrals: Lamine Manzanares Chi, MD [Primary Care Provider] - Keep Jessica appointment
[2019-03-31 16:43] VITALS: BP 136/83; PULSE 78; RESP 18
[2019-03-31 16:45] VITALS: BP 136/83
== END 2019-03-31 16:45 | disposition home or self-care (01) ==
LOC: ED 16:36
PROVIDERS: Emergency Provider Emergency Medicine; Family Provider Family Medicine Geriatric Medicine; PCP Family Medicine Geriatric Medicine
DX: M79.651 Pain in right thigh (principal); R29.898 Other symptoms and signs involving the musculoskeletal system; I10 Essential (primary) hypertension; E78.00 Pure hypercholesterolemia, unspecified; E03.9 Hypothyroidism, unspecified; Z86.718 Personal history of other venous thrombosis and embolism; Z79.82 Long term (current) use of aspirin; Z79.899 Other long term (current) drug therapy
CPT/HCPCS: 73552; 93971; 99282

== ENCOUNTER → 2019-06-06 08:53 | Outpatient (CLI) | payer MEDICARE, OTHER, SELFPAY ==
[2019-06-06 08:35] VITALS: BMI 27.9
--- NOTE | 2019-06-06 09:02 | RAD_ITS ---
STUDY: X-RAY - RIGHT KNEE REASON FOR EXAM: Female, 68 years old. Pain. TECHNIQUE: 4 view(s) of the knee. COMPARISON: None. FINDINGS: Normal visualized distal femur. Normal visualized proximal tibia and fibula. Normal proximal tibiofibular articulation. Normal medial femorotibial compartment. There is mild degenerative arthrosis of the lateral femorotibial compartment. Normal patellofemoral articulation. The soft tissue structures are unremarkable. RAD/Knee 4 or More Views IMPRESSION: Mild degenerative changes. Electronically Signed: Yi Purvis MD at 22:24 EST Tel , Service support ,
--- NOTE | 2019-06-06 09:02 | RAD_ITS ---
STUDY: X-RAY - RIGHT TIBIA AND FIBULA REASON FOR EXAM: Female, 68 years old. Pain TECHNIQUE: 2 view(s) of the tibia and fibula were obtained. COMPARISON: None. FINDINGS: There is demineralization of the tibia. There is demineralization of the fibula. The soft tissue structures are unremarkable. RAD/Tibia & Fibula 2 Views IMPRESSION: Demineralization of the osseous structures. Electronically Signed: Phil Christina MD at 9:01 EST , Service support ,
== END ==
PROVIDERS: Family Provider Family Medicine Geriatric Medicine; PCP Family Medicine Geriatric Medicine; Referring Provider Orthopaedic Surgery; Visit Provider Orthopaedic Surgery
DX: M25.561 Pain in right knee (principal); M79.661 Pain in right lower leg
CPT/HCPCS: 73564; 73590

== ENCOUNTER → 2019-06-13 16:13 | Outpatient (CLI) | payer MEDICARE, OTHER, SELFPAY ==
[2019-06-06 08:35] VITALS: BMI 27.9
--- NOTE | 2019-06-13 16:20 | MRI_ITS ---
HISTORY: rt pain painno known injury, severe pain entire knee x 2 months EXAMINATION: MR Knee W/O Contrast TECHNIQUE: Multiplanar and multisequence MR images of the right knee. IV Contrast dosage and agent: None. 197 images COMPARISON: X-rays of the right knee from June 06, 2019 FINDINGS: BONE: Minimal marrow edema within the midportion of the posterior aspect of the tibial plateau, deep to the insertion of the PCL. There is an additional marrow edema posteriorly on the medial tibial plateau subcortical marrow, at the insertion of the semimembranosus.. JOINT: A knee effusion is present. MUSCLES: There does appear to be some tendinosis and perhaps partial avulsion of the semimembranosus from the posterior medial portion of the tibial plateau MENISCI: There is fraying and degeneration to the medial meniscus, posterior horn. The anterior horn is somewhat displaced ventrally out of the joint. The meniscus is also somewhat medially displaced out of the joint. There may be a horizontal tear through the inferior aspect of the posterior horn of the medial meniscus extending to the inferior articular surface. There is some additional edema within the tibial plateau at the root origin of the posterior horn of the medial meniscus, posterior to the medial tibial spine There is a horizontal tear with fraying and degeneration and protrusion of the anterior horn of the lateral meniscus. The lateral meniscus is displaced laterally outside of the joint due to disease mostly within the anterior horn of the lateral meniscus. CRUCIATE LIGAMENTS: Anterior and posterior cruciate ligaments are intact. COLLATERAL LIGAMENTS: Some fluid is present both deep and superficial to the lateral collateral ligament at its origin with some increased signal within the ligament itself. Some fluid is present both deep and superficial to the medial collateral ligament, however, with normal signal within the ligament. CARTILAGE: Articular cartilage within the medial portion of the knee joint is slightly thinned especially on the medial aspect of the tibial plateau. There is no denuding of cartilage. There is some thinning to the cartilage on the lateral surface of the trochlea at its articulation with the patella. OTHER SOFT TISSUES: A Edmonds's cyst is present. There is some abnormal increased T2-weighted signal within the origin of the medial head of the gastrocnemius muscle with a partial avulsion perhaps. Similar disease is present to the lateral head, but to a much lesser degree. MRI/Lower Ext Joint Only (Routine) IMPRESSION: Partial avulsion of the semimembranosus from its insertion on the posterior lateral aspect of the tibial plateau with some marrow edema adjacent to the insertion of the tendon. Meniscal degenerative change. I believe there is a horizontal tear to the anterior horn of the lateral meniscus with protrusion of much of the lateral meniscus in a ball lateral to the knee joint. Inferior surface horizontal tearing and/or degeneration of the posterior horn of the medial meniscus with some extension of the medial meniscus medially outside of the joint with some additional chondromalacia on the medial aspect of the tibial plateau. Grade 1 diseased but medial collateral and lateral collateral ligaments. Small effusion. Small Edmonds's cyst. at 0620 Reported and signed by: Jordi Nevarez MD Electronically Signed: Jordi Nevarez MD at 6:20 EST Tel , Service support ,
== END ==
PROVIDERS: Family Provider Family Medicine Geriatric Medicine; PCP Family Medicine Geriatric Medicine; Referring Provider Orthopaedic Surgery; Visit Provider Orthopaedic Surgery
DX: M25.461 Effusion, right knee (principal); M71.21 Synovial cyst of popliteal space [Baker], right knee; M25.561 Pain in right knee
CPT/HCPCS: 73721

== ENCOUNTER → 2019-06-30 16:52 | Outpatient (CLI) | payer MEDICARE, OTHER, SELFPAY ==
[2019-06-18 15:46] VITALS: BMI 27.9
--- NOTE | 2019-06-30 16:54 | RAD_ITS ---
STUDY: X-RAY - LEFT HUMERUS REASON FOR EXAM: Female, 68 years old. arm pain, fall TECHNIQUE: 2 view(s) of the humerus. COMPARISON: None. FINDINGS: Normal visualized humerus. There is no demonstrated fracture or osseous destructive process. There is no demonstrated soft tissue abnormality. RAD/Humerus min 2 Views IMPRESSION: No fracture or malalignment. Electronically Signed: Richie Rivera MD (Brooks) at 13:40 EST , Service support ,
--- NOTE | 2019-06-30 16:55 | RAD_ITS ---
STUDY: X-RAY - LEFT SHOULDER REASON FOR EXAM: Female, 68 years old. fall, arm pain TECHNIQUE: 4 view(s) of the shoulder. COMPARISON: None. FINDINGS: Normal glenohumeral articulation. Normal acromioclavicular joint. Normal acromion. Normal humeral head and visualized proximal humerus. The soft tissue structures are unremarkable. Normal visualized pulmonary apex. RAD/Shoulder min 2 Views IMPRESSION: No fracture or malalignment. Electronically Signed: Richie Rivera MD (Brooks) at 13:39 EST , Service support ,
== END ==
PROVIDERS: Family Provider Family Medicine Geriatric Medicine; PCP Family Medicine Geriatric Medicine; Referring Provider Family Medicine Geriatric Medicine; Visit Provider Family Medicine Geriatric Medicine
DX: M25.512 Pain in left shoulder (principal); M79.602 Pain in left arm
CPT/HCPCS: 73030; 73060

== ENCOUNTER 2019-07-03 05:56 | Day surgery (SDC) | payer MEDICARE, OTHER, SELFPAY ==
[2019-06-18 15:46] VITALS: BMI 27.9
[2019-07-03 06:41] VITALS: BP 158/79; PULSE 66; RESP 14; TEMP 36.5; O2SAT 96; BMI 27.2
[2019-07-03] MEDS: Cefazolin 2 GM in 0.9% Normal Saline 100 ML IV (07:23)
--- NOTE | 2019-07-03 07:28 | HP.PCM_ITS ---
History and Physical Date of Admission: 07/03/19 Intake Vital Signs 06/18/19 BMI 27.9 Intake Visit Reasons: RIGHT KNEE Is patient in pain?: Yes Allergies No Known Allergies Allergy (Verified 06/18/19 15:46) [facility] Social History (Updated 06/18/19 @ 16:24 by Sergo Gipson DO) Smoking Status: Never smoker HPI RIGHT KNEE: Details: Parts of this documentation were recorded by a scribe, this documentation accurately reflects the service provided and the decisions made by me, Sergo Gipson DO 06/18/19 0802. KJ DUMAS is a 68 year old F here today for a followup after her right knee MRI. She states that she is not improved. She complains of pain over her medial knee. Her pain is worse at night. Patient states that her swelling has increased. She describes her pain as a throbbing pain. Denies numbness, tingling or other associated symptoms. She states that she falls frequently. Patient states that she had a fall just prior to when she noticed her pain. She states that she has knee instability. ROS Musc Reports joint pain, Reports joint swelling, Reports stiffness Skin/Breast Reports system reviewed and no additional complaints, except as docu Neuro Yes system reviewed and no additional complaints, except as docu Ortho Exam Right Knee Skin/Wound: Yes CDI, No erythema, No ecchymosis, Yes swelling Examination: Yes Med jt line tenderness, Yes Pain with flexion, Yes Molina's Test KNEE: bakers cyst Right Knee Skin/Wound: No erythema, No ecchymosis, Yes swelling Contralateral Normal: Yes Homans Sign: No 1+: Effusion Knee ROM: No ROM-Extension -20 to 0 (lacking 7), No ROM-Flexion 0-140 (90) Examination: Yes Med jt line tenderness, No Lat jt line tenderness, Yes Molina's Test, Yes TTP Pes Anserine Stability: NML: Anterior Drawer, NML: Posterior Drawer Patella Grind: No KNEE: no patellar instability small backers cyst Supplemental Info 06/13/2019 MRI right knee:IMPRESSION: Partial avulsion of the semimembranosus from its insertion on the posterior lateral aspect of the tibial plateau with some marrow edema adjacent to the insertion of the tendon. Meniscal degenerative change. I believe there is a horizontal tear to the anterior horn of the lateral meniscus with protrusion of much of the lateral meniscus in a ball lateral to the knee joint. Inferior surface horizontal tearing and/or degeneration of the posterior horn of the medial meniscus with some extension of the medial meniscus medially outside of the joint with some additional chondromalacia on the medial aspect of the tibial plateau. Grade 1 diseased but medial collateral and lateral collateral ligaments. Small effusion. Small Edmonds's cyst. Assessment & Plan Problems 1. Acute lateral meniscus tear of right knee, subsequent encounter S83.281D 2. Acute medial meniscus tear of right knee, subsequent encounter S83.241D Plan Spoke with the patient about the anatomy of the knee and etiology of her pain. Spoke with her about her meniscus tears. Recommended a knee arthroscopy. Explained she might continue to have knee pain but the acute pain will be resolved. Patient may take tylenol for pain. Reviewed the pre-operative plans with the patient. Risks and benefits of the procedure were fully explained, including but not limited to infection, neurovascular injury, continued pain, arthritis, stiffness, need for further surgery, re-injury, DVT, PE, general risks of anesthesia, and loss of limb or life. The patient understands all the risks and does wish to proceed with written consent. Follow up for 2 week post op or sooner if pain, swelling, numbness or associated symptoms, or concerns develop. All questions answered. Patient in agreement of plan. Coding Level of Care Code Off vis,est,level 3 Diagnoses Acute lateral meniscus tear of right knee, subsequent encounter S83.281D ??Encounter type: subsequent encounter Acute medial meniscus tear of right knee, subsequent encounter S83.241D ??Encounter type: subsequent encounter I have re-examined the patient. There are no clinical changes since date of exam
[2019-07-03] MEDS: Epinephrine (1 mg/ml) 1 MG/ML VIAL (07:44)
[2019-07-03] MEDS: MethylPREDNISolone Acetate 80 MG/ML Vial (07:50)
[2019-07-03] MEDS: Bupivacaine Mpf 0.5% 30 ML VIAL (07:50)
[2019-07-03] MEDS: Lactated Ringers 1,000 ML 100 ML IV ×2 (08:00→08:42)
[2019-07-03] MEDS: Bupiv/Epi 0.5% Mpf 30 ML Vial (08:05)
[2019-07-03 08:15] VITALS: BP 145/73; BP 158/79; PULSE 85; RESP 16; TEMP 36.3; O2SAT 94
--- NOTE | 2019-07-03 08:18 | PCM.DC.ORTHO ---
Discharge Diet: No Restrictions Call your doctor if you observe: Shortness of breath, Chest pain Additional Instructions: Ice and elevate next 72 hours .keep dressing on clean and dry for 48 hours then may remove begin showering daily but do not submerge in tub or pool. After shower may apply Band-Aids . Encourage knee range of motion weightbearing as tolerated, use crutches until confident in knee then may discontinue. No strenuous activity. When not ambulating keep iced and elevated next 72 hours. Allergies/Adverse Reactions: Allergies No Known Allergies Allergy (Verified 07/03/19 06:40) Medications to take at Discharge Aspirin [Aspirin EC] 81 mg PO DAILY 04/30/18 Calcium Carbonate/Vitamin D3 [Calcium 500-Vit D3 600 Tablet] 1 ea PO BID 04/30/18 Levothyroxine Sodium 112 mcg PO DAILY 04/30/18 Multivitamin [Daily Multiple Vitamin] 1 ea PO DAILY 04/30/18 Fairplay-3 Fatty Acids/Fish Oil [Fish Oil 1,000 mg Capsule] 1 ea PO DAILY 04/30/18 Pravastatin Sodium 40 mg PO DAILY 04/30/18 Vitamin E 1,000 unit PO DAILY 04/30/18 bupropion HCl 150 mg tablet,12 hr sustained-release 150 mg PO BID #180 ea 06/06/19 L.acidoph,Paracasei, B.lactis [Probiotic] 1 ea PO DAILY 06/26/19 Losartan Potassium [Cozaar] 100 mg PO DAILY 06/26/19 Hydrocodone Bitart/Apap 5-325 [[place] 5MG-325MG] 1 - 2 tablet PO Q4H PRN PRN 5 Days #30 tablet 07/03/19 The following prescriptions were given: Hydrocodone Bitart/Apap 5-325 [[place] 5MG-325MG] 1 - 2 tablet PO Q4H PRN PRN 5 Days #30 tablet PRN Reason: Pain Transmission Status: Sent to [facility] Primary Care Physician: Lamine Manzanares Chi, MD [Primary Care Provider] - Test Results: Test results from this visit will be discussed in further detail at your follow-up appointment, if applicable. Please Follow Up With: Sergo Gipson DO - 2 weeks
--- NOTE | 2019-07-03 08:28 | OP.PCM_ITS ---
Report of Operation Date of Procedure: 07/03/19 Description of Surgical Findings:: Preop diagnosis: Right knee medial and lateral meniscal tear Postoperative diagnosis: Right knee horizontal tear posterior horn medial meniscus large radial and horizontal tear anterior horn lateral meniscus grade 2-3 cartilage wear medial and lateral compartments Procedure: Right knee arthroscopic partial medial meniscectomy partial lateral meniscectomy Anesthesia: General Estimated blood loss: 5 mL Tourniquet time: 20 minutes 300 mmHg Complications: none Indication for procedure: 68-year old female with mechanical symptoms and knee pain MRI evidence meniscal tears large. The patient did wish to proceed with an elective arthroscopic surgery to attempt to alleviate the symptoms. Risk benefits and alternatives of the procedure were reviewed including risk of bleeding infection nerve artery tissue damage need for further surgery continued pain and expected postoperative course. Procedure: The patient was met in the preoperative holding area. The operative extremity was identified by both patient and physician and family and marked. Patient was brought back to the operating room on a wheeled cart and transferred to the operating table in the supine position. Anesthesia was started. A well- padded tourniquet was placed on the operative extremity. A lower extremity leg mahmood was secured to the operative extremity. The contralateral extremity was well-padded and the end of the bed was flexed to 90 degrees. The patient was prepped and draped in the usual sterile fashion. A timeout was called to ensure the proper patient, procedure, and extremity were being contemplated. 0.5% Marcaine with epinephrine was injected into the planned incisional areas under the skin only. An Esmarch was used to exsanguinate the extremity and the tourniquet was inflated. An 11 blade scalpel was used to make a stab incision in the anterior lateral portal. The arthroscope was inserted into the intercondylar notch and inflow and outflow tubes were attached. Arthroscopic visualization began. The medial compartment was entered. An 18-gauge spinal needle was used to establish the placement for anterior medial portal. An 11 blade scalpel was used to make a stab incision. Blunt probe was inserted followed by a meniscal probe. Obvious horizontal tear posterior horn medial meniscus with grade 2-3 cartilage wear the ACL was found to be intact. The lateral compartment was entered the anterior horn lateral meniscus tear with the use of arthroscopic biting instruments and deacon and ArthroCare wand a partial lateral meniscectomy was performed. The arthroscope was switched to the medial portal to complete the procedure. The medial and lateral gutters were inspected and were free of loose bodies. The patellofemoral joint was inspected grade 2 patella and trochlea. There was good patellar tracking. The knee was thoroughly irrigated and drained. An intra-articular injection with 5 cc 0.5% Marcaine plain 4 mg of morphine and 40 mg of Depo-Medrol was injected intra- articularly. The arthroscope was removed the portals were closed with 3-0 nylon arthroscopic stitches. Followed by Xeroform 4 x 4's ABDs web roll and an Norberto wrap. The tourniquet was let down and the drapes were removed. All counts were correct. The patient was brought back to the PACU in stable condition.
[2019-07-03 08:30] VITALS: BP 158/79; BP 164/74; PULSE 80; RESP 16; O2SAT 97
[2019-07-03 08:45] VITALS: BP 158/79; BP 161/79; PULSE 71; RESP 16; O2SAT 96
[2019-07-03 09:00] VITALS: BP 152/87; BP 158/79; PULSE 68; RESP 16; TEMP 36.4; O2SAT 96
[2019-07-03 09:56] VITALS: BP 158/79
== END 2019-07-03 09:58 | disposition home or self-care (01) ==
LOC: SDC 06:00 → AC 06:02
PROVIDERS: Family Provider Family Medicine Geriatric Medicine; PCP Family Medicine Geriatric Medicine; Referring Provider Orthopaedic Surgery; Visit Provider Orthopaedic Surgery
PROC: (CPT 29870; principal; 2019-07-03 07:10)
DX: S83.281A Other tear of lateral meniscus, current injury, right knee, initial encounter (principal); S83.241A Other tear of medial meniscus, current injury, right knee, initial encounter; W19.XXXA Unspecified fall, initial encounter; Y93.9 Activity, unspecified; Y92.9 Unspecified place or not applicable; Y99.9 Unspecified external cause status; E78.00 Pure hypercholesterolemia, unspecified; F32.9 Major depressive disorder, single episode, unspecified; F41.9 Anxiety disorder, unspecified; Z79.82 Long term (current) use of aspirin; Z79.899 Other long term (current) drug therapy
CPT/HCPCS: 29880; J7120; J2405

== ENCOUNTER → 2019-07-31 16:11 | Outpatient (CLI) | payer MEDICARE, OTHER, SELFPAY ==
[2019-07-16 10:59] VITALS: BMI 27.2
[2019-07-31 16:37] LABS: Absolute Lymphocyte Count 2.09 X10^3/uL (0.83-4.51); Basophil# 0.03 X10^3/uL; Basophil% 0.4 % (0-1); Eosinophil# 0.07 X10^3/uL; Hematocrit 38.4 % (37-47); Hemoglobin 12.4 g/dL (12.0-15.0); Lymphocyte # 2.09 X10^3/ul (4.0); Lymphocyte % 31.3 % (19-41); Mean Corp Hgb Conc 32.3 g/dL (32-36); Mean Corpuscular Hgb 30.2 pg (27.0-32.0); Mean Corpuscular Volume 93.7 fL (81-99); Mean Platelet Vol. 9.4 fl (6.2-12.0); Monocyte# 0.41 X10^3/uL; Monocyte% 6.1 % (0-10); NRBC Flagged by Analyzer 0 % (0-5); Neutrophil # 4.04 X10^3/uL (2.7-7.7); Neutrophil % 60.8 % (47-70); Platelet Count 295 K/mm3 (150-450); RBC Distribution Width CV 12.3 % (11.6-14.6); RBC Distribution Width SD 42.8 fl (35.1-43.9); White Blood Count 6.7 K/mm3 (4.4-11.0)
[2019-07-31 17:30] LABS: Vitamin D,25 Hydroxy 40.8 ng/mL (29.95-100.01)
[2019-07-31 17:33] LABS: ALB/GLOB Ratio 1.2 RATIO (0.9-2.4); AST(SGOT) 18 U/L (15-37); Alanine Aminotransfer ALT/SGPT 27 U/L (13-56); Albumin, Serum 3.6 g/dL (3.2-5.0); Alkaline Phosphatase 77 U/L (45-117); Anion Gap 3 (5-15); BUN 15 mg/dL (7-18); BUN/Creat Ratio 16.4 RATIO (10-20); Calcium,Total 9.3 mg/dL (8.5-10.1); Chloride 107 mmol/L (98-107); Creatinine, Serum 0.92 mg/dL (0.55-1.02); EST Glomerular Filtration Rate 65 mL/min (>60); Est Glom Filt Rate - Afr Amer 78 mL/min (>60); Globulin 3.1 g/dL (2.2-4.2); Glucose 108 mg/dL (74-106); Potassium 3.7 mmol/L (3.5-5.1); Protein, Total 6.7 g/dL (6.4-8.2); Sodium Level 140 mmol/L (136-145); Thyroid Stim Hormone (TSH) 0.44 uIU/mL (0.358-3.74)
== END ==
PROVIDERS: PCP Family Medicine Geriatric Medicine; Visit Provider Family Medicine Geriatric Medicine
DX: I10 Essential (primary) hypertension (principal); E55.9 Vitamin D deficiency, unspecified
CPT/HCPCS: 36415; 80053; 82306; 84443; 85025

== ENCOUNTER → 2020-01-12 14:34 | Outpatient (CLI) | payer MEDICARE, OTHER, SELFPAY ==
[2020-01-12 14:27] VITALS: BMI 27.2
--- NOTE | 2020-01-12 14:36 | RAD_ITS ---
STUDY: X-RAY - PELVIS AND LEFT HIP REASON FOR EXAM: Pain, recent falls. TECHNIQUE: 2 views of the pelvis and hip. COMPARISON: Radiograph of the pelvis 02/13/2017. FINDINGS: There is a soft tissue calcification lateral to the left iliac wing. Normal visualized bilateral iliac wings, visualized sacroiliac joints and visualized sacrum. Normal bilateral superior and inferior pubic rami. Normal pubic symphysis. Normal bilateral ischial tuberosities. Normal visualized femoral head. Normal acetabulum. Normal hip joint. RAD/HIP, UNI W/ Pelvis 2-3 Views IMPRESSION: Soft tissue calcification lateral to left iliac wing. Otherwise, unremarkable x-ray examination of the pelvis and left hip. Electronically Signed: David Mosquera MD at 15:01 EDT Tel , Service support ,
== END ==
PROVIDERS: PCP Family Medicine Geriatric Medicine; Referring Provider Orthopaedic Surgery; Visit Provider Orthopaedic Surgery
DX: M25.552 Pain in left hip (principal)
CPT/HCPCS: 73502

== ENCOUNTER → 2020-02-03 09:06 | Outpatient (CLI) | payer MEDICARE, OTHER, SELFPAY ==
[2019-08-18 15:42] VITALS: BMI 27.2
[2020-01-12 14:27] VITALS: BMI 27.2
--- NOTE | 2020-02-03 09:11 | BD_ITS ---
STUDY: DUAL ENERGY X-RAY ABSORPTIOMETRY / DXA REASON FOR EXAM: Female, 69 years old. 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 COMPARISON: Comparison is made with prior study dated 01/29/2018. FINDINGS: Lumbar Spine (L1-L4): g/cm2 (1.094) / T-score (-0.7) / Z-score (0.9) Findings are suggestive of normal bone density with a low fracture risk. Left Femur Total: g/cm2 (0.849) / T-score (-1.3) / Z-score (0.2) Left Femoral Neck: g/cm2 (0.842) / T-score (-1.4) / Z-score (0.2) Right Femur Total: g/cm2 (0.761) / T-score (-2.0) / Z-score (-0.5) Right Femoral Neck: g/cm2 (0.708) / T-score (-2.4) / Z-score (-0.7) The T-Scores on the most recent prior examination were: Lumbar Spine (L1-L4): There has been worsening of bone density since the previous examination. Left Femur Total: which represents a worsening of 10.3%. Right Femur Total: which represents a worsening of 12.8%. BD/Dexa Bone Density Study IMPRESSION: The patient is considered osteopenic as outlined below according to World Misael Organization (WHO) criteria with a high fracture risk. There has been worsening of bone density since the previous examination. Reference Information: The T-score is the number of standard deviations above or below the standard which is normal for young adults at their peak bone mineral density. The World Health Organization (WHO) interprets the T-scores as follows: Above -1 Normal bone density Between -1 and -2.5 Osteopenia Equal to / or below -2.5 Osteoporosis As a practical clinical guideline, osteopenia may be graded as follows: Mild -1 through -1.5 Moderate -1.6 through -2.0 Severe -2.1 through -2.4 The Z-score is the number of standard deviations above or below age-matched controls. A Z-score of less than -1.5 would be considered abnormal. References: 1. NIH Osteoporosis and Related Bone Diseases http://www.osteo.org 2. International Society for Clinical Densitometry http://www.iscd.org 3. National Osteoporosis Foundation http://www.nof.org Electronically Signed: Chema Olguin, at 14:16 EDT , Service support ,
== END ==
PROVIDERS: PCP Family Medicine Geriatric Medicine; Referring Provider Family Medicine Geriatric Medicine; Visit Provider Family Medicine Geriatric Medicine
DX: Z78.0 Asymptomatic menopausal state (principal); M85.80 Other specified disorders of bone density and structure, unspecified site
CPT/HCPCS: 77080

== ENCOUNTER → 2020-02-05 10:00 | Outpatient (CLI) | payer MEDICARE, OTHER, SELFPAY ==
[2020-01-12 14:27] VITALS: BMI 27.2
[2020-02-05 17:36] LABS: Vitamin D,25 Hydroxy 51.2 ng/mL
[2020-02-05 17:43] LABS: ALB/GLOB Ratio 1.2 RATIO (0.9-2.4); AST(SGOT) 11 U/L (15-37); Alanine Aminotransfer ALT/SGPT 23 U/L (13-56); Albumin, Serum 3.6 g/dL (3.2-5.0); Alkaline Phosphatase 89 U/L (45-117); Anion Gap 8 (5-15); BUN 13 mg/dL (7-18); BUN/Creat Ratio 18.2 RATIO (10-20); Calcium,Total 9.3 mg/dL (8.5-10.1); Chloride 107 mmol/L (98-107); Creatinine, Serum 0.71 mg/dL (0.55-1.02); EST Glomerular Filtration Rate 86 mL/min (>60); Est Glom Filt Rate - Afr Amer 104 mL/min (>60); Globulin 3.1 g/dL (2.2-4.2); Glucose 106 mg/dL (74-106); Potassium 3.4 mmol/L (3.5-5.1); Protein, Total 6.7 g/dL (6.4-8.2); Sodium Level 141 mmol/L (136-145); Thyroid Stim Hormone (TSH) 0.21 uIU/mL (0.358-3.74)
[2020-02-05 17:48] LABS: Absolute Lymphocyte Count 2.07 X10^3/uL (0.83-4.51); Absolute Neutrophil Count 4.2 X10^3/uL (2.0-7.7); Basophil# 0.04 X10^3/uL; Basophil% 0.6 % (0-1); Eosinophil# 0.12 X10^3/uL; Eosinophils% 1.8 % (0-5); Hematocrit 38.9 % (37-47); Hemoglobin 12.8 g/dL (12.0-15.0); Lymphocyte # 2.07 X10^3/ul (4.0); Lymphocyte % 30.2 % (19-41); Mean Corp Hgb Conc 32.9 g/dL (32-36); Mean Corpuscular Hgb 29.6 pg (27.0-32.0); Mean Platelet Vol. 9.9 fl (6.2-12.0); Monocyte# 0.39 X10^3/uL; Monocyte% 5.7 % (0-10); NRBC Flagged by Analyzer 0 % (0-5); Neutrophil % 61.3 % (47-70); Platelet Count 235 K/mm3 (150-450); RBC Distribution Width CV 12.2 % (11.6-14.6); Red Blood Count 4.32 M/mm3 (4.2-5.4); White Blood Count 6.9 K/mm3 (4.4-11.0)
== END ==
PROVIDERS: PCP Family Medicine Geriatric Medicine; Visit Provider Family Medicine Geriatric Medicine
DX: I10 Essential (primary) hypertension (principal); E55.9 Vitamin D deficiency, unspecified
CPT/HCPCS: 36415; 80053; 82306; 84443; 85025

== ENCOUNTER → 2020-02-13 09:47 | Outpatient (CLI) | payer MEDICARE, OTHER, SELFPAY ==
[2019-08-18 15:42] VITALS: BMI 27.2
[2020-01-12 14:27] VITALS: BMI 27.2
--- NOTE | 2020-02-13 10:03 | BI_ITS ---
MAMMOGRAPHY - BILATERAL SCREENING REASON FOR EXAM: Female, 69 years old. Routine annual screening examination. PERTINENT HISTORY: Non-contributory. TECHNIQUE: Digital bilateral breast karena (3D mammographic acquisition) in the CC and MLO projections. 2-D mediolateral oblique (MLO) and craniocaudad (CC) views of both breasts were obtained. CAD: Full Field Digital Mammography with Computer Added Detection was performed. COMPARISON: Comparison is made with prior study dated 02/11/2019 and 01/29/2018. FINDINGS: Breast Composition: There are scattered areas of fibroglandular density. There are no dominant masses or suspicious calcifications. Stable benign-appearing bilateral axillary lymph nodes. No other significant abnormalities are identified. There has been no significant change since the prior study. BI/SCREEN MAMM (CAD) W/KARENA BILAT IMPRESSION: Stable bilateral screening mammogram. Yearly follow-up mammogram recommended. (A) ASSESSMENT CATEGORY: BIRADS Category 1: Negative. A letter regarding these results will be sent to the patient by the facility within 30 days. Approximately 10% of breast cancers are not detected by mammography. A normal mammogram should not delay biopsy of a clinically suspicious abnormality. [id number] Electronically Signed: Chema Olguin, at 11:03 EDT , Service support ,
== END ==
PROVIDERS: PCP Family Medicine Geriatric Medicine; Referring Provider Family Medicine Geriatric Medicine; Visit Provider Family Medicine Geriatric Medicine
DX: Z12.31 Encounter for screening mammogram for malignant neoplasm of breast (principal); Z78.0 Asymptomatic menopausal state
CPT/HCPCS: 77063; 77067

== ENCOUNTER → 2020-02-24 10:43 | Outpatient (CLI) | payer MEDICARE, OTHER, SELFPAY ==
[2020-01-12 14:27] VITALS: BMI 27.2
[2020-02-24 13:17] LABS: Anion Gap 7 (5-15); BUN 7 mg/dL (7-18); BUN/Creat Ratio 9.6 RATIO (10-20); Calcium,Total 9.6 mg/dL (8.5-10.1); Chloride 110 mmol/L (98-107); Creatinine, Serum 0.73 mg/dL (0.55-1.02); EST Glomerular Filtration Rate 85 mL/min (>60); Est Glom Filt Rate - Afr Amer 102 mL/min (>60); Glucose 86 mg/dL (74-106); Potassium 3.7 mmol/L (3.5-5.1); Sodium Level 143 mmol/L (136-145)
== END ==
PROVIDERS: PCP Family Medicine Geriatric Medicine; Visit Provider Family Medicine Geriatric Medicine
DX: E87.6 Hypokalemia (principal)
CPT/HCPCS: 36415; 80048

== ENCOUNTER → 2020-04-01 16:29 | Outpatient (CLI) | payer MEDICARE, OTHER, SELFPAY ==
[2020-01-12 14:27] VITALS: BMI 27.2
[2020-04-01 17:49] LABS: Thyroid Stim Hormone (TSH) 1.28 uIU/mL (0.358-3.74)
== END ==
PROVIDERS: PCP Family Medicine Geriatric Medicine; Visit Provider Family Medicine Geriatric Medicine
DX: E03.9 Hypothyroidism, unspecified (principal)
CPT/HCPCS: 36415; 84443

== ENCOUNTER → 2020-08-05 13:22 | Outpatient (CLI) | payer MEDICARE, OTHER, SELFPAY ==
[2020-01-12 14:27] VITALS: BMI 27.2
[2020-08-05 17:14] LABS: Absolute Lymphocyte Count 2.47 X10^3/uL (0.83-4.51); Absolute Neutrophil Count 3.5 X10^3/uL (2.0-7.7); Basophil# 0.06 X10^3/uL; Basophil% 0.9 % (0-1); Eosinophil# 0.09 X10^3/uL; Eosinophils% 1.4 % (0-5); Hematocrit 41.1 % (37-47); Hemoglobin 13.4 g/dL (12.0-15.0); Lymphocyte # 2.47 X10^3/ul (4.0); Lymphocyte % 37.9 % (19-41); Mean Corp Hgb Conc 32.6 g/dL (32-36); Mean Corpuscular Hgb 29.5 pg (27.0-32.0); Mean Corpuscular Volume 90.3 fL (81-99); Monocyte% 6.1 % (0-10); NRBC Flagged by Analyzer 0 % (0-5); Neutrophil # 3.49 X10^3/uL (2.7-7.7); Neutrophil % 53.5 % (47-70); Platelet Count 293 K/mm3 (150-450); RBC Distribution Width CV 12.6 % (11.6-14.6); RBC Distribution Width SD 41.4 fl (35.1-43.9); Red Blood Count 4.55 M/mm3 (4.2-5.4); White Blood Count 6.5 K/mm3 (4.4-11.0)
[2020-08-05 17:25] LABS: Vitamin D,25 Hydroxy 36.8 ng/mL
[2020-08-05 17:40] LABS: ALB/GLOB Ratio 1.2 RATIO (0.9-2.4); AST(SGOT) 19 U/L (15-37); Alanine Aminotransfer ALT/SGPT 24 U/L (13-56); Albumin, Serum 3.7 g/dL (3.2-5.0); Alkaline Phosphatase 114 U/L (45-117); Anion Gap 7 (5-15); BUN 15 mg/dL (7-18); BUN/Creat Ratio 16.3 RATIO (10-20); Calcium,Total 9.2 mg/dL (8.5-10.1); Chloride 106 mmol/L (98-107); Creatinine, Serum 0.92 mg/dL (0.55-1.02); EST Glomerular Filtration Rate 64 mL/min (>60); Est Glom Filt Rate - Afr Amer 77 mL/min (>60); Glucose 102 mg/dL (74-106); Potassium 3.4 mmol/L (3.5-5.1); Protein, Total 6.7 g/dL (6.4-8.2); Sodium Level 140 mmol/L (136-145); Thyroid Stim Hormone (TSH) 2.75 uIU/mL (0.358-3.74)
== END ==
PROVIDERS: PCP Family Medicine Geriatric Medicine; Visit Provider Family Medicine Geriatric Medicine
DX: I10 Essential (primary) hypertension (principal); E55.9 Vitamin D deficiency, unspecified; R20.9 Unspecified disturbances of skin sensation
CPT/HCPCS: 36415; 80053; 82306; 84443; 85025

== ENCOUNTER → 2020-08-05 14:25 | Outpatient (CLI) | payer MEDICARE, OTHER, SELFPAY ==
[2020-01-12 14:27] VITALS: BMI 27.2
--- NOTE | 2020-08-05 14:29 | CT_ITS ---
STUDY: CT BRAIN WITHOUT CONTRAST REASON FOR EXAM: Female, 69 years old. 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 Individualized dose optimization techniques were used for this CT. COMPARISON: Comparison is made with prior examination 08/31/2011. FINDINGS: Normal soft tissue structures. Normal calvarium. There is mild cerebral atrophy with widening of the extra-axial spaces and ventricular dilatation. Normal white matter tracts of the cerebral hemispheres. There are small punctate calcifications of the basal ganglia which are seen in the aging brain as a normal variant. Normal brainstem. Normal cerebellum. There is no intracranial hemorrhage. There are no findings of an acute ischemic infarction. Atherosclerotic calcification of the vertebral arteries and cavernous portions of the internal carotid arteries bilaterally. Normal visualized paranasal sinuses. CT/Brain/Head without Contrast IMPRESSION: Chronic involutional changes of the brain. Electronically Signed: Chema Olguin MD at 15:12 EST , Service support ,
== END ==
PROVIDERS: PCP Family Medicine Geriatric Medicine; Visit Provider Family Medicine Geriatric Medicine
DX: R20.9 Unspecified disturbances of skin sensation (principal)
CPT/HCPCS: 70450

== ENCOUNTER 2020-09-16 10:30 | Outpatient (RCR) | payer MEDICARE, OTHER, SELFPAY ==
--- NOTE | 2020-09-01 10:17 | HP.PTEVAL ---
Patient's Visit Information KJ DUMAS is a 69 year old F referred to Physical Therapy by Dr. Sergo Gipsno DO with a diagnosis of cervical radiculopathy. Date of Evaluation: 09/01/20 Physical Therapist: Evan Valenzuela, DPT, OCS, CSCS - Visit Plan Frequency: 3x /Week Duration: 4-6 Weeks Plan: 3x/week for 4-6 weeks. 1. cervical traction each visit and monitor response. 2. ensure impingement precautions, US nonthermal to L supraspinatus each visit, PROM L shoulder elevation adn IR stretches with pec stretch. 3. strengthen RC and postural muscles. Neck strengthening,postural focus. Monitor neck for need for further eval. - Subjective Got L shoulder pain in June, Worsened past few weeks adn is eating tylenol all the time now. The pain is intermittent. It hurts to towel dry her back. Comfortable at rest. Hard to lift 25# dog as it hurts, she used to do this all the time. It feels weak doing this also. Pain is shoulder and down and nothing in the neck. Gave anti inflammtory last week and it might help a little bit. Pain is in L shoulder adn upper arm at 3-4/10 with lifting or bad psoition, then gone at rest. Rare numbness and tingling in that arm but it does feel weak. Is right handed. Sleep is interrupted as she has to take a lot of meds. Sleeps on back with arm across chest feels best. Reaching behind her really hurts. Retired. Spends day running grandchildren around and can still do this, things with L arm just hurt. Has an ex routine that she is not doing as she did not want to hurt anything. Basic ADLs are getting done. - Pain L shoulder Pain Intensity (Out of 10): 0 Pain Intensity Range: 0, 4 - Objective Posture is forward head and protracted scapula. Slightly elevated B scapula. Functional mobility is good with I gait and transfers. Scapula move well. Cervical aROM is fulla nd painfree in SB and rotation to 80 degrees B, ext is 65 without pain. Flexion is full without pain. - c/s compression. R UE aROM WFL, LUE shoulder flexion 130 pain, abd 110 pain, ext rotation 80 wihtou pain, IR is to PSIS with pain. Moderately tender supraspinatus L. PROM with a litte traction to 150 flexiona nd abduction with less pain. reflexes 2/3 bi and triceps. Sensation UE WNL to gross light touch. Strength B triceps and biceps and wrist flex/ext and thumb ext symmetrical and 4/5, shoulder flexion and abduction L 3+ and painful, moreso with empty can, R is 4/4 and no pain. + HK, + neer impingement today on L. - ext rotation lag test, - drop arm. - Goals Goal 1:: Full aROM L shoulder elevationa dn IR without pain Goal Time Frame: 4-6 Weeks Goal 2:: Patient feel activity 80% back to normal and pain 0-1/10 at all times and manageable Goal Time Frame: 4-6 Weeks Goal 3:: Dry back without deficits or pain. 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 Rehabilitation Potential: Fair - Anticipated Interventions Patient/Client Instruction: Educate patient on: Condition, Plan of Care For the Purpose of:: To decrease pain, To increase ROM, To improve muscle performance and motor function Therapeutic Exercise to Include: Strength training, Flexibilty training, Gait and locomotor training, Neuromotor development, Passive ROM, Active ROM, Scapular Strength/Stabilization For the Purpose of:: To decrease pain, To increase ROM, To improve muscle performance and motor function, To increase tolerance to activity/condition/position, To improve ability of physical actions for home/community/work/leisure, To improve health of tissue Manual Therapy Techniques to Include: Mobilization, Passive ROM, Soft tissue mobilization For the Purpose of:: To decrease pain, To increase ROM Ultrasound (thermal/non thermal): Yes - nonthermal Intermittent cervical traction: Yes For the Purpose of:: To decrease pain, To decrease swelling/inflammation, To increase ROM Thank you for the opportunity to evaluate your patient. For Medicare and Medicare HMO plans, please review the plan of care and approve it. It will need to be FAXED BACK to us at [phone] for Medicare purposes. For Medicare only, by signing this I certify the plan of care. Please let me know if there are questions or concerns regarding this plan of care. Physician Signature: Date:
--- NOTE | 2020-09-16 11:21 | HP.PTREVAL ---
Dr. Sergo Gipson, DO, It has been my pleasure to treat KJ DUMAS over the last 6 visits for cervical radiculopathy. Please see the progress note below for an update on the physical therapy plan of care! Subjective: I feel so much better. Arm does not hurt. Not needing tylenol and can sleep better. L shoulder still hurts at times. when we poke at it. To doctor in September. Activities pretty normal. Doing HEP with band at home. Objective/Function: Full aROM B shoulders and neck without pain today. Some pain in shoulder with LLA resisted abduction but transient. Strength is 4- abd, 4 flexion, 4+ IR and ER shoulder and biceps and triceps. Posture is still forward head. Overall significantly better., Need to build cnsistency without in clinic treatment. Plan Plan: f/u two weeks to ensure progress with condition via HEP. Goals Goal 1:: Full aROM L shoulder elevationa dn IR without pain Goal Time Frame: 4-6 Weeks Goal Progress: Goal Met Goal 2:: Patient feel activity 80% back to normal and pain 0-1/10 at all times and manageable Goal Time Frame: 4-6 Weeks Goal Progress: Goal Met Goal 3:: Dry back without deficits or pain. 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 Goal Time Frame: 4-6 Weeks Goal Progress: Goal Met Anticipated Interventions Patient/Client Instruction: Educate patient on: Condition, Plan of Care For the Purpose of:: To decrease pain, To increase ROM, To improve muscle performance and motor function Therapeutic Exercise to Include: Strength training, Flexibilty training, Gait and locomotor training, Neuromotor development, Passive ROM, Active ROM, Scapular Strength/Stabilization For the Purpose of:: To decrease pain, To increase ROM, To improve muscle performance and motor function, To increase tolerance to activity/condition/position, To improve ability of physical actions for home/community/work/leisure, To improve health of tissue Manual Therapy Techniques to Include: Mobilization, Passive ROM, Soft tissue mobilization For the Purpose of:: To decrease pain, To increase ROM Ultrasound (thermal/non thermal): Yes - nonthermal Intermittent cervical traction: Yes For the Purpose of:: To decrease pain, To decrease swelling/inflammation, To increase ROM Please do not hesitate to contact me at [phone] by phone or if you have questions or concerns regarding this new plan of care! Sincerely, Evan Valenzuela, DPT, OCS, CSCS
--- NOTE | 2020-11-17 13:28 | HP.PTDCNRP_ITS ---
KJ DUMAS was seen in my office for initial evaluation on 09/01/20. The following Plan of Care was established for this patient: Initial Frequency: 3x /Week Initial Duration: 4-6 Weeks Patient/Client Instruction: Educate patient on: Condition, Plan of Care For the Purpose of:: To decrease pain, To increase ROM, To improve muscle performance and motor function Therapeutic Exercise to Include: Strength training, Flexibilty training, Gait and locomotor training, Neuromotor development, Passive ROM, Active ROM, Scapular Strength/Stabilization For the Purpose of:: To decrease pain, To increase ROM, To improve muscle perfor richard and motor function, To increase tolerance to activity/condition/position, To improve ability of physical actions for home/community/work/leisure, To improve health of tissue Manual Therapy Techniques to Include: Mobilization, Passive ROM, Soft tissue mobilization For the Purpose of:: To decrease pain, To increase ROM Ultrasound (thermal/non thermal): Yes - nonthermal Intermittent cervical traction: Yes For the Purpose of:: To decrease pain, To decrease swelling/inflammation, To increase ROM This patient was last seen in our office 09/16/20. Pertinent comments regarding their Physical therapy will appear below: Pt seen 6 visits of her plan of care adn was 100% better. she was to f/u as needed to ensure maitnenance but did not. at this point, it has been over two months and I will discontinue due to nonattendance. At this point I will be discontinuing this patient from physical therapy. I would be happy to see this patient again in the future if found appropriate by the physician. Thank you! Evan Valenzuela, DPT, OCS, CSCS
== END 2020-09-16 19:00 | disposition home or self-care (01) ==
LOC: PT 10:30
PROVIDERS: PCP Family Medicine Geriatric Medicine; Referring Provider Orthopaedic Surgery; Visit Provider Orthopaedic Surgery
DX: M50.323 Other cervical disc degeneration at C6-C7 level (principal); M54.10 Radiculopathy, site unspecified
CPT/HCPCS: 97012; 97035; 97110; 97162; 97164

== ENCOUNTER → 2020-09-27 07:05 | Outpatient (CLI) | payer MEDICARE, OTHER, SELFPAY ==
[2020-01-12 14:27] VITALS: BMI 27.2
--- NOTE | 2020-09-27 09:17 | NEURO ---
NCS and/or EMG Patient Report Ordering Doctor: Lamine Manzanares Chi DATE OF SERVICE: 09/27/20 Indication: Pain and stiffness involving the palms of both hands. Intermittent tingling of all fingers with activity (right greater than left). No neck pain or radicular symptoms. Evaluate for entrapment neuropathy. Findings: Nerve conduction studies were performed in the right and left upper extremities. The right median motor study recording the abductor pollicis brevis showed a normal amplitude, mildly prolonged distal latency and normal conduction velocity. The right ulnar motor study recording the abductor digiti minimi showed a normal amplitude, normal distal latency and normal conduction velocity. No conduction block or focal slowing was present across the elbow. The right median sensory response recording digit two showed a normal amplitude, prolonged latency and slowed conduction velocity. The right ulnar sensory response recording digit five showed a normal amplitude, latency and conduction velocity. The right radial sensory response recording over the extensor snuff box showed a normal amplitude, normal latency and borderline conduction velocity. The left median motor study recording the abductor pollicis brevis showed a normal amplitude, normal distal latency and normal conduction velocity. The left ulnar motor study recording the abductor digiti minimi showed a normal amplitude, normal distal latency and normal conduction velocity. No conduction block or focal slowing was present across the elbow. The left median sensory response recording digit two showed a normal amplitude, latency and conduction velocity. The left ulnar sensory response recording digit five showed a normal amplitude, latency and conduction velocity. The left radial sensory response recording over the extensor snuff box showed a normal amplitude, normal latency and borderline conduction velocity. Right median-ulnar lumbrical / interosseous motor latencies showed a normal median latency compared to the ulnar. Left median-ulnar lumbrical / interosseous motor latencies showed a normal median latency compared to the ulnar. Needle EMG of the right upper extremity and cervical paraspinal muscles was performed. No denervation was seen in any muscle. All motor unit morphology, activation and recruitment patterns were normal. Impression: This is a mildly abnormal study. 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 There is no active denervation of the thenar muscles. These findings are compatible with the clinical diagnosis of carpal tunnel syndrome. In addition, there is no electrophysiologic evidence of superimposed cervical radiculopathy or ulnar neuropathy in the right upper extremity. There is no electrophysiologic evidence of nerve entrapment in the left upper extremity. Woodrow Acevedo D.O.
== END ==
PROVIDERS: PCP Family Medicine Geriatric Medicine; Referring Provider Family Medicine Geriatric Medicine; Visit Provider Family Medicine Geriatric Medicine
DX: R20.0 Anesthesia of skin (principal)
CPT/HCPCS: 95886; 95913

== ENCOUNTER → 2020-12-08 15:37 | Outpatient (CLI) | payer MEDICARE, OTHER, SELFPAY ==
--- NOTE | 2020-12-08 15:50 | RAD_ITS ---
STUDY: X-RAY - CERVICAL SPINE REASON FOR EXAM: Female, 70 years old. NECK PAIN TECHNIQUE: 4 view(s) of the cervical spine were obtained. COMPARISON: 08/25/2020 FINDINGS: Normal anterior atlantoaxial articulation. Normal odontoid process. There is straightening of the normal cervical lordosis. There is multi-level endplate spondylosis. There is multi-level degenerative disc disease with multilevel disc space narrowing most pronounced at C5-6 and C6-7. The soft tissue structures are unremarkable. RAD/Cerv Spine 2 or 3 Views IMPRESSION: Multilevel degenerative changes, no acute findings. No significant interval change Electronically Signed: Phil Christina MD at 10:12 EDT , Service support ,
== END ==
PROVIDERS: PCP Family Medicine Geriatric Medicine; Referring Provider Family Medicine Geriatric Medicine; Visit Provider Family Medicine Geriatric Medicine
DX: M54.2 Cervicalgia (principal)
CPT/HCPCS: 72040

== ENCOUNTER 2020-12-17 07:20 | Emergency (ER) | payer MEDICARE, OTHER, SELFPAY ==
[2020-12-17 07:21] VITALS: BP 170/95; PULSE 96; RESP 16; TEMP 36.1; O2SAT 97; BMI 28.3
--- NOTE | 2020-12-17 07:40 | RAD_ITS ---
STUDY: X-RAY CHEST REASON FOR EXAM: Female, 70 years old. Back pain, cough TECHNIQUE: PA and lateral views. COMPARISON: 11/07/2018. FINDINGS: Horizontal linear subsegmental atelectases in left lung base. No suspicious infiltrates. There is no demonstrated pleural abnormality. Normal size heart. Normal mediastinum and felipe. Normal visualized pulmonary arteries. Normal visualized aortic arch and descending thoracic aorta. Normal visualized thoracic spine. Normal visualized ribs, clavicles, and shoulders. There is no demonstrated abnormality of the visualized soft tissue structures of the upper abdomen. RAD/Chest PA and Lateral IMPRESSION: Horizontal linear subsegmental atelectases in left lung base otherwise negative chest radiographs and without significant change since 11/07/2018. Electronically Signed: Sharan Carballo MD at 9:25 EDT , Service support ,
--- NOTE | 2020-12-17 07:40 | RAD_ITS ---
STUDY: X-RAY - THORACIC SPINE REASON FOR EXAM: Female, 70 years old. Pain TECHNIQUE: 3 view(s) of the thoracic spine were obtained. COMPARISON: None. FINDINGS: Normal kyphosis of the thoracic spine. There is no substantial scoliosis. Normal thoracic vertebrae and endplates. Normal disc space heights. The soft tissue structures are unremarkable. RAD/Thoracic Spine 3 Views IMPRESSION: Normal x-ray examination of the thoracic spine. Electronically Signed: Sharan Carballo MD at 9:27 EDT , Service support ,
--- NOTE | 2020-12-17 07:40 | EKG12_ITS ---
Test Reason : Blood Pressure : / mmHG Vent. Rate : 079 BPM Atrial Rate : 079 BPM P-R Int : 150 ms QRS Dur : 088 ms QT Int : 364 ms P-R-T Axes : 042 017 026 degrees QTc Int : 417 ms Normal sinus rhythm Cannot rule out Inferior infarct , age undetermined Abnormal ECG Confirmed by JIMENA LYNCH, ELIJAH ([id number]), news copy editor AMPARO PLATT ([id number]) on 12/20/2020 11:00:54 A M Referred By: CHERELLE Confirmed By:IMMANUEL HESS MD
--- NOTE | 2020-12-17 07:42 | EDS_ITS ---
HPI History of Present Illness Chief Complaint: Back Informant: patient Onset/Context/Timing Onset: Weeks (2) Context: Gradual Onset Injury: - (denies) Timing: Continuous Quality: Aching Location: - (posterior neck, now upper back) Current Severity: Severe Maximum Severity: Severe Worsened by: improves with Nothing Relieved by: Nothing; Not Relieved By Medications (tried Tylenol, a whole bottle (24 caplets over 5d)) Associated Symptoms Associated Symptoms: Abdominal Pain; Negative for Numbness, Tingling, Radiation to Right Leg, Radiation to Left Leg, Fever, Dysuria, Unable to Ambulate, Unable to Transfer, Urinary Retention, Urinary Incontinence, Constipation and Fecal Incontinence Narrative Narrative: Patient states she had spontaneous onset of discomfort in her neck around 2 weeks ago, she states the pain was severe and it was making her neck difficult to move due to pain. She saw her PCP and had some x-rays performed, had some injections that included Toradol and placed on some prescriptions 1 of which was baclofen, she states within 1 or 2 days of all of that her pain seemed to let up significantly, and seemed to moved down into her upper back where it has been for the last 6 days or so. She states the pain is severe and constant, there all the time. She denies being able to manipulate it in any way including with positions, movements, or activities. She denies any trouble breathing or pleuritic discomfort. She denies having any chest discomfort although later she states she has a little tightness but did not really notice until I asked, and has been having a minor nonproductive cough for the last day or 2. No fevers or chills. She also denies abdominal pain but then states that in the right upper quadrant laterally she is having some discomfort now that I asked her, and she just figured it was all the Tylenol I took. She states in the last 5 days she has taken a whole bottle which is 24 caplets. She was taking 1300 mg no more than 3 times a day for the last 4 or 5 days. She denies any itching or jaundice. No history of liver problems. No history of cardiac issues. She denies any falls or injuries, or obvious event length with the onset of pain that she can think of. She does say that the pain was severe in the shower and she could not do it, and when asked why she really cannot say, just that she was shaky. [facility] Medical History Borderline hyperlipidemia Hypertension Hypothyroidism Osteoarthritis Home Medications aspirin 81 mg PO DAILY 04/30/18 [History Last Taken Unknown] calcium carbonate-vitamin D3 1 ea PO BID 04/30/18 [History Last Taken Unknown] multivitamin 1 ea PO DAILY 04/30/18 [History Last Taken Unknown] omega-3 fatty acids-fish oil 1 ea PO DAILY 04/30/18 [History Last Taken Unknown] pravastatin 40 mg PO DAILY 04/30/18 [History Last Taken Unknown] vitamin E 1,000 unit PO DAILY 04/30/18 [History Last Taken Unknown] bupropion HCl 150 mg tablet,12 hr sustained-release 150 mg PO BID #180 ea 06/06/19 [History Last Taken Unknown] losartan 100 mg PO DAILY 06/26/19 [History Last Taken 07/03/19 04:00 100 MG] levothyroxine 112 mcg tablet 88 mcg PO DAILY tab 08/25/20 [History Last Taken Unknown] meloxicam 7.5 mg PO DAILY PRN #10 tab 12/17/20 [Rx Last Taken Unknown] orphenadrine citrate 100 mg PO Q12H PRN #6 tab 12/17/20 [Rx Last Taken Unknown] Allergy/AdvReac Type Severity Reaction Status Date / Time No Known Allergies Allergy Verified 12/17/20 07:20 Surgical History History of arthroplasty of right knee History of surgery on left wrist Social History Smoking Status: Never smoker ROS ROS ED Constitutional Constitutional ED: Denies chills, fever(s), sweats or weakness Eyes Eyes: Denies change in vision or diplopia ENT ENT ED: Denies rhinorrhea or sore throat Cardiovascular Cardiovascular: Reports as per HPI; Denies chest pain or palpitations Respiratory/Chest Respiratory/Chest: Reports cough; Denies dyspnea, sputum or wheezing Gastrointestinal Gastrointestinal: Reports as per HPI; Denies abdominal pain, diarrhea, melena, nausea, rectal bleeding or vomiting Genitourinary Genitourinary ED: Denies dysuria or hematuria Musculoskeletal Musculoskeletal: Reports as per HPI and back pain; Denies extremity pain or neck pain Integumentary Denies abscess or rash Neurologic Neurologic: Denies headache(s), paresthesias or weakness Psychiatric Psychiatric: Denies anxiety or suicidal thoughts EXAM Physical Exam Const Vital Signs: 12/17/20 07:21 Temperature 97.0 F L Temperature Source Temporal Pulse Rate 96 Respiratory Rate 16 Blood Pressure 170/95 H Blood Pressure Mean 120 Pulse Ox 97 Oxygen Delivery Method Room Air Positive well nourished and well developed General Appearance ED: well developed and NAD HEENT Reports moist mucous membranes normocephalic and atraumatic Eyes PERRL and EOMs intact bilaterally Neck full ROM and supple Resp normal respiratory effort and clear to auscultation bilaterally Cardio regular rate, regular rhythm and no murmurs GI non-tender and non-distended Auscultation: normoactive bowel sounds Palpation: soft Back/Spine no CVA tenderness and normal to inspection Back/Spine Narrative: Diffusely tender throughout central thoracic spine, mostly upper. Midline and bilateral paraspinal musculature are included. No cervical or lumbar tenderness. Full range of motion throughout spine/back. General Back: other FROM; able to bend over and touch toes and stand back up w/o difficulty Thoracic Spine / Upper Back: normal to inspection, thoracic ROM normal, thoracic spinal tenderness, paraspinal muscle tenderness bilateral and paraspinal muscle spasm bilateral Lumbar Spine / Lower Back: normal to inspection and lumbar ROM normal; Negative for lumbar spinal tenderness Extremity normal to inspection General Extremety ED: Negative for edema, pulses abnormal or tenderness General Extremity: Negative for edema or pulses abnormal Neuro oriented x3, CN's II-XII intact bilaterally, no sensory deficits noted and gait normal Sensorium / Orientation: awake and alert Motor Exam: strength 5/5 throughout Deep Tendon Reflexes: Rt Triceps (C7): 2+, Lt Triceps (C7): 2+, Rt Biceps (C5, C6): 2+, Lt Biceps (C5, C6): 2+, Rt Brachioradialis (C6): 2+, Lt Brachioradialis (C6): 2+, Rt Patellar (L4): 2+, Lt Patellar (L4): 2+, Rt Ankle (S1): 2+ and Lt Ankle (S1): 2+ Deep Tendon Reflexes Back: Rt Patellar (L4): 2+, Lt Patellar (L4): 2+, Rt Ankle (S1): 2+ and Lt Ankle (S1): 2+ Plantar Reflex: Downgoing: bilateral (no clonus) Psych thought process normal, cooperative and speech normal Psych Narrative: Anxious and tearful at times, but very pleasant and for the most part does not appear to be in severe discomfort. Skin no rashes or lesions noted and no wounds MDM MDM MDM Narrative Medical decision making narrative: Given the patient's age and nonspecific symptoms without obvious etiology, work-up was performed including x-rays of the chest and thoracic spine, and cardiac work-up, as well as other labs that included liver enzymes given her concern about Tylenol and some discomfort in her right upper quadrant. All of this is unremarkable as below. I initially gave her a tramadol but it did not help at all. She said she was miserable. I reexamined her with a more thorough neurologic exam, her reflexes are normal, I can definitely make the pain worse by palpating gently throughout the affected area which is normal on inspection. This argues against spinal canal/neurologic etiologies and for musculoskeletal ones. Therefore she was given intramuscular Toradol in addition to a dose of Norflex. On reevaluation she states she feels much better and the pain is almost completely resolved and she is comfortable going home. She usually takes meloxicam but has been out of it for a week or 2, so I gave her a short refill as well as a prescription for Norflex since it is not as sedating as cyclobenzaprine which I try to avoid for 70-year-old that live alone. Discussed with the patient, she has made an appointment with her PCP for Sunday as today is Sunday and she is comfortable with this plan going home today. Lab Data Attestation: I reviewed the patient's lab results. Labs: Laboratory Results - last 24 hr 12/17/20 12/17/20 08:02 08:02 WBC 10.4 RBC 4.27 Hgb 12.6 Hct 39.0 MCV 91.3 MCH 29.5 MCHC 32.3 RDW Std Deviation 46.4 H RDW Coeff of Angela 14.0 Plt Count 292 MPV 9.0 Immature Gran % (Auto) 0.400 Neut % (Auto) 83.2 H Lymph % (Auto) 11.9 L Reagan % (Auto) 2.9 Eos % (Auto) 1.2 Baso % (Auto) 0.4 Absolute Neuts (auto) 8.6 H Absolute Lymphs (auto) 1.23 Nucleated RBC % 0 Sodium 139 Potassium 3.3 L Chloride 103 Carbon Dioxide 29.0 Anion Gap 7 BUN 9 Creatinine 0.73 Estim Creat Clear Calc 47.10 Est GFR (MDRD) Af Amer 102 Est GFR (MDRD) Non-Af 84 BUN/Creatinine Ratio 12.3 Glucose 110 H Calcium 9.1 Total Bilirubin 0.90 AST 14 L ALT 48 Alkaline Phosphatase 139 H Troponin I < 0.015 Total Protein 6.9 Albumin 3.2 Globulin 3.7 Albumin/Globulin Ratio 0.9 Radiography Diagnostic Testing: Radiology Impression Chest X-Ray 12/17/20 07:40 IMPRESSION: Horizontal linear subsegmental atelectases in left lung base otherwise negative chest radiographs and without significant change since 11/07/2018. Electronically Signed: Sharan Carballo MD at 9:25 EDT , Service support , Thoracic Spine X-Ray 12/17/20 07:40 IMPRESSION: Normal x-ray examination of the thoracic spine. Electronically Signed: hSaran Carballo MD at 9:27 EDT , Service support , EKG Initial EKG: Attestation: I personally reviewed and interpreted this EKG as follows: Interpretation: No Acute Injury Pattern Comments: Normal EKG with sinus rhythm at 79. Q waves in lead III which are isolated and consistent with normal. Prior EKG tracings: available for review Prior: Unchanged Discharge Plan Triage Chief Complaint: Back ED Provider: Adrian Zamorano Dx/Rx/DC Orders Clinical Impression: Musculoskeletal back pain Instructions: ED Back and Neck Pain, General Prescriptions: New orphenadrine citrate 100 mg tablet extended release 100 mg PO Q12H PRN (Reason: muscle spasm) Qty: 6 RF: 0 meloxicam 7.5 mg tablet 7.5 mg PO DAILY PRN (Reason: pain) Qty: 10 RF: 0 No Action bupropion HCl 150 mg tablet sustained-release 12 hr 150 mg PO BID Qty: 180 RF: 0 multivitamin 1 EACH tablet 1 ea PO DAILY RF: 0 vitamin E 1,000 UNIT capsule 1,000 unit PO DAILY RF: 0 pravastatin 40 MG tablet 40 mg PO DAILY RF: 0 aspirin 81 MG tablet,delayed release (DR/EC) 81 mg PO DAILY RF: 0 omega-3 fatty acids-fish oil 1 EACH capsule 1 ea PO DAILY RF: 0 calcium carbonate-vitamin D3 1 EACH tablet 1 ea PO BID RF: 0 levothyroxine 112 mcg tablet 88 mcg PO DAILY RF: 0 losartan 100 MG tablet 100 mg PO DAILY RF: 0 Primary Care Provider: Lamine Manzanares Chi Referrals: Lamine Manzanares Chi, MD [Primary Care Provider] - [facility] appointment Disposition Disposition: Home, self care
[2020-12-17] MEDS: traMADol 50 MG Tablet PO (07:50)
[2020-12-17 08:09] LABS: Absolute Lymphocyte Count 1.23 X10^3/uL (0.83-4.51); Absolute Neutrophil Count 8.6 X10^3/uL (2.0-7.7); Basophil# 0.04 X10^3/uL; Basophil% 0.4 % (0-1); Eosinophil# 0.12 X10^3/uL; Eosinophils% 1.2 % (0-5); Hemoglobin 12.6 g/dL (12.0-15.0); Lymphocyte # 1.23 X10^3/ul (0.83-4.51); Lymphocyte % 11.9 % (19-41); Mean Corp Hgb Conc 32.3 g/dL (32-36); Mean Corpuscular Hgb 29.5 pg (27.0-32.0); Mean Corpuscular Volume 91.3 fL (81-99); Monocyte% 2.9 % (0-10); NRBC Flagged by Analyzer 0 % (0-5); Neutrophil # 8.62 X10^3/uL (2.7-7.7); Neutrophil % 83.2 % (47-70); Platelet Count 292 K/mm3 (150-450); RBC Distribution Width SD 46.4 fl (35.1-43.9); Red Blood Count 4.27 M/mm3 (4.2-5.4); White Blood Count 10.4 K/mm3 (4.4-11.0)
[2020-12-17 08:26] LABS: ALB/GLOB Ratio 0.9 RATIO (0.9-2.4); AST(SGOT) 14 U/L (15-37); Alanine Aminotransfer ALT/SGPT 48 U/L (13-56); Albumin, Serum 3.2 g/dL (3.2-5.0); Alkaline Phosphatase 139 U/L (45-117); Anion Gap 7 (5-15); BUN 9 mg/dL (7-18); BUN/Creat Ratio 12.3 RATIO (10-20); Calcium,Total 9.1 mg/dL (8.5-10.1); Chloride 103 mmol/L (98-107); Creatinine, Serum 0.73 mg/dL (0.55-1.02); EST Glomerular Filtration Rate 84 mL/min (>60); Est Glom Filt Rate - Afr Amer 102 mL/min (>60); Globulin 3.7 g/dL (2.2-4.2); Glucose 110 mg/dL (74-106); Potassium 3.3 mmol/L (3.5-5.1); Protein, Total 6.9 g/dL (6.4-8.2); Sodium Level 139 mmol/L (136-145)
[2020-12-17] MEDS: Ketorolac 30 MG/ML Syringe IM (10:19)
[2020-12-17] MEDS: Orphenadrine 60 MG/2 ML Ampul IM (10:20)
[2020-12-17 11:05] VITALS: BP 166/83; PULSE 72; RESP 16; O2SAT 98
== END 2020-12-17 11:59 | disposition home or self-care (01) ==
PROVIDERS: Emergency Provider Emergency Medicine; PCP Family Medicine Geriatric Medicine
DX: M54.9 Dorsalgia, unspecified (principal); M62.830 Muscle spasm of back; R10.9 Unspecified abdominal pain; R05 Cough; M54.2 Cervicalgia; I10 Essential (primary) hypertension; E78.5 Hyperlipidemia, unspecified; E03.9 Hypothyroidism, unspecified; M19.90 Unspecified osteoarthritis, unspecified site; Z79.82 Long term (current) use of aspirin
CPT/HCPCS: 36415; 71046; 72072; 80053; 84484; 85025; 93005; 96372; 99283

== ENCOUNTER 2020-12-20 04:39 | Emergency (ER) | payer MEDICARE, OTHER, SELFPAY ==
[2020-12-20 04:41] VITALS: BP 154/80; PULSE 88; RESP 17; TEMP 36.7; O2SAT 98; BMI 28.1
--- NOTE | 2020-12-20 04:48 | ED.VIS.BACK ---
HPI History of Present Illness Chief Complaint: Back Informant: patient Onset/Context/Timing Onset: Days Context: Gradual Onset Timing: Continuous Quality: Aching and Throbbing Location: Thoracic Current Severity: Moderate Maximum Severity: Severe Worsened by: improves with Movement Relieved by: Nothing Associated Symptoms Associated Symptoms: Negative for Numbness, Tingling, Radiation to Right Leg, Radiation to Left Leg, Fever, Abdominal Pain, Dysuria, Unable to Ambulate, Unable to Transfer and Urinary Retention Narrative Narrative: . Patient is a 70-year-old female with medical history significant for hyperlipidemia, hypothyroidism, and hypertension who presents to the emergency department back pain. Patient denies any history of trauma. She states that about 2 weeks ago, she was having rather significant posterior neck pain. She states that she went to her primary care physician and had injections. She states that she was doing very good for about 24 hours. She states that it felt like it moved to her thoracic back. She states that she has a hard time bending, twisting, moving. The only thing that she can find that has helped her has been walking.She has no difficulty urinating or moving her bowels. She is otherwise been in her normal state of health. She is on anti-inflammatories and antispasmodics and states they have not helped her. [facility] Medical History Borderline hyperlipidemia Hypertension Hypothyroidism Osteoarthritis Home Medications aspirin 81 mg PO DAILY 04/30/18 [History Last Taken Unknown] calcium carbonate-vitamin D3 1 ea PO BID 04/30/18 [History Last Taken Unknown] multivitamin 1 ea PO DAILY 04/30/18 [History Last Taken Unknown] omega-3 fatty acids-fish oil 1 ea PO DAILY 04/30/18 [History Last Taken Unknown] pravastatin 40 mg PO DAILY 04/30/18 [History Last Taken Unknown] vitamin E 1,000 unit PO DAILY 04/30/18 [History Last Taken Unknown] bupropion HCl 150 mg tablet,12 hr sustained-release 150 mg PO BID #180 ea 06/06/19 [History Last Taken Unknown] losartan 100 mg PO DAILY 06/26/19 [History Last Taken 07/03/19 04:00 100 MG] levothyroxine 112 mcg tablet 88 mcg PO DAILY tab 08/25/20 [History Last Taken Unknown] meloxicam 7.5 mg PO DAILY PRN #10 tab 12/17/20 [Rx Last Taken Unknown] orphenadrine citrate 100 mg PO Q12H PRN #6 tab 12/17/20 [Rx Last Taken Unknown] hydrocodone-acetaminophen 1 tab PO Q6H PRN PRN 3 Days #10 tablet 12/20/20 [Rx Last Taken Unknown] Allergy/AdvReac Type Severity Reaction Status Date / Time No Known Allergies Allergy Verified 12/17/20 07:20 Surgical History History of arthroplasty of right knee History of surgery on left wrist Social History Smoking Status: Never smoker ROS ROS ED Constitutional Constitutional ED: Denies chills or fever(s) Eyes Eyes: Denies blurry vision or change in vision ENT ENT ED: Denies ear pain or sore throat Cardiovascular Cardiovascular: Denies chest pain or palpitations Respiratory/Chest Respiratory/Chest: Denies cough, dyspnea or dyspnea on exertion Gastrointestinal Gastrointestinal: Denies abdominal pain, nausea or vomiting Genitourinary Genitourinary ED: Denies dysuria or urinary frequency Musculoskeletal Musculoskeletal: Reports back pain; Denies arthralgias or myalgias Integumentary Denies rash Neurologic Neurologic: Denies headache(s) or paresthesias Psychiatric Psychiatric: Denies anxiety or depression Endocrine Endocrinology: Denies polydipsia or polyuria Allergic/Immunologic Allergic/Immunologic ED: Denies urticaria EXAM Physical Exam Const Vital Signs: 12/20/20 04:41 Temperature 98.1 F Temperature Source Temporal Pulse Rate 88 Respiratory Rate 17 Blood Pressure 154/80 H Blood Pressure Mean 104 Pulse Ox 98 Oxygen Delivery Method Room Air Positive well nourished and well developed General Appearance ED: well developed HEENT Reports normocephalic, head/scalp atraumatic and moist mucous membranes Eyes PERRL and EOMs intact bilaterally Neck no lymphadenopathy and supple General: Negative for tenderness Chest Wall inspection of chest normal Resp normal respiratory effort and clear to auscultation bilaterally Cardio regular rate, regular rhythm and no murmurs GI normal to inspection, nondistended, normoactive bowel sounds Palpation: Negative for tender, guarding or rebound tenderness present Back/Spine no CVA tenderness and normal to inspection Cervical Spine: Negative for cervical spine tenderness Thoracic Spine / Upper Back: paraspinal muscle tenderness; Negative for thoracic spinal tenderness Lumbar Spine / Lower Back: straight leg raise negative bilaterally Extremity normal to inspection General Extremety ED: Negative for tenderness Neuro oriented x3 and CN's II-XII intact bilaterally Neuro Narrative: No focal deficits appreciated. Sensorium / Orientation: alert Psych mental status grossly normal Skin no rashes or lesions noted, no wounds and skin turgor normal MDM MDM MDM Narrative Medical decision making narrative: The patient presents with persistent back pain. She has had no fever. She has no weakness. She states she she feels better when she is up moving around. She is tender over the spine. She is also tender in the musculature. She states that she has had improvement with Toradol before. She is given dose of IM Toradol. I do not feel imaging needed to be repeated as this was done 3 days ago and was unremarkable. The patient does have a standing appointment with her primary care today at 10 AM. The one thing I can offer the patient is pain control. She has been on 2 rounds of prednisone with no improvement. I do not feel that steroids would be of benefit at this point. She will be given a short course of analgesics and will follow-up later today to discuss further management with her PCP. Impression 1. Acute thoracic back pain Discharge Plan Triage Chief Complaint: Back ED Provider: Armin Ward Dx/Rx/DC Orders Instructions: ED Back Pain (Acute or Chronic) Prescriptions: New hydrocodone-acetaminophen [hydrocodone-acetaminophen] 1 TABLET tablet 1 tab PO Q6H PRN PRN (Reason: Pain) 3 Days Qty: 10 RF: 0 No Action bupropion HCl 150 mg tablet sustained-release 12 hr 150 mg PO BID Qty: 180 RF: 0 multivitamin 1 EACH tablet 1 ea PO DAILY RF: 0 vitamin E 1,000 UNIT capsule 1,000 unit PO DAILY RF: 0 pravastatin 40 MG tablet 40 mg PO DAILY RF: 0 aspirin 81 MG tablet,delayed release (DR/EC) 81 mg PO DAILY RF: 0 omega-3 fatty acids-fish oil 1 EACH capsule 1 ea PO DAILY RF: 0 calcium carbonate-vitamin D3 1 EACH tablet 1 ea PO BID RF: 0 levothyroxine 112 mcg tablet 88 mcg PO DAILY RF: 0 losartan 100 MG tablet 100 mg PO DAILY RF: 0 orphenadrine citrate 100 mg tablet extended release 100 mg PO Q12H PRN (Reason: muscle spasm) Qty: 6 RF: 0 meloxicam 7.5 mg tablet 7.5 mg PO DAILY PRN (Reason: pain) Qty: 10 RF: 0 Primary Care Provider: Lamine Manzanares Chi Referrals: Lamine Manzanares Chi, MD [Primary Care Provider] -
[2020-12-20] MEDS: Ketorolac 60 MG/2 ML Vial IM (05:03)
== END 2020-12-20 05:56 | disposition home or self-care (01) ==
LOC: ED 05:33
PROVIDERS: Emergency Provider Emergency Medicine; PCP Family Medicine Geriatric Medicine
DX: M54.6 Pain in thoracic spine (principal); M54.16 Radiculopathy, lumbar region; M54.2 Cervicalgia; I10 Essential (primary) hypertension; E03.9 Hypothyroidism, unspecified; E78.5 Hyperlipidemia, unspecified; M19.90 Unspecified osteoarthritis, unspecified site; Z79.82 Long term (current) use of aspirin; Z79.899 Other long term (current) drug therapy
CPT/HCPCS: 72141; 72146; 72148; 96372; 99282

== ENCOUNTER → 2020-12-20 14:18 | Outpatient (CLI) | payer MEDICARE, OTHER, SELFPAY ==
[2020-12-20 04:41] VITALS: BMI 28.1
--- NOTE | 2020-12-20 14:28 | MRI_ITS ---
STUDY: MRI THORACIC SPINE WITHOUT CONTRAST REASON FOR EXAM: Female, 70 years old. THORACIC RADICULOPATHY TECHNIQUE: Standardized fat and water weighted pulse sequences were obtained in the sagittal and axial planes. COMPARISON: X-ray dated 12/17/2020 FINDINGS: Normal kyphosis of the thoracic spine. There is no substantial scoliosis. T1-2, T2-3, T3-4, T4-5, T5-6, T6-7, T7-8, T8-9, T9-10, T10-11, T11-12: There is mild multilevel disc space narrowing and endplate spondylosis without demonstrated central canal or foraminal stenosis. There is 1.5 cm T1 and T2 hypointense lesion at T11. Normal visualized thoracic cord. MRI/Spine Thoracic (Routine) IMPRESSION: Mild degenerative changes. 1.5 cm T11 lesion. Differential considerations include atypical hemangioma, bone island and metastatic disease. Comparison with prior CT or MRI examinations if available or further evaluation with bone scan can be obtained. Electronically Signed: Lorne Valdez MD at 10:59 EDT Tel , Service support ,
--- NOTE | 2020-12-20 14:56 | MRI_ITS ---
STUDY: MRI LUMBAR SPINE WITHOUT CONTRAST REASON FOR EXAM: Female, 70 years old. RADICULOPATHY TECHNIQUE: Standardized fat and water weighted pulse sequences were obtained in the sagittal and axial planes. COMPARISON: 07/18/2017 lumbar spine x-ray FINDINGS: Normal lumbar lordosis. There is no substantial scoliosis. Normal conus medullaris that terminates at the L1. L1-2: There is minimal disc space narrowing and endplate spondylosis. There is no significant disc herniation, central canal or foraminal stenosis. L2-3: There is mild disc space narrowing and endplates spondylosis. Mild disc bulge and facet arthropathy without significant central canal or foraminal stenosis. Minimal retrolisthesis. L3-4: There is mild disc space narrowing and endplates spondylosis. Mild disc bulge and facet arthropathy with mild central canal stenosis. Mild right and mild left foraminal stenosis. L4-5: There is minimal disc space narrowing and endplates spondylosis. Mild disc bulge and facet arthropathy with mild central canal stenosis. Mild right and mild left foraminal stenosis. L5-S1: There is moderate disc space narrowing and endplates spondylosis. Moderate disc osteophyte complex and mild foraminal arthropathy without significant central canal stenosis. Moderate right and moderate left foraminal stenosis. Normal visualized sacral ala. MRI/Spine Lumbar (Routine) IMPRESSION: L5/S1: Moderate right and moderate left foraminal stenosis. Electronically Signed: Lorne Valdez MD at 11:07 EDT Tel , Service support ,
--- NOTE | 2020-12-20 15:27 | MRI_ITS ---
STUDY: MRI CERVICAL SPINE WITHOUT CONTRAST REASON FOR EXAM: Female, 70 years old. RADICULOPATHY TECHNIQUE: Standardized fat and water weighted pulse sequences were obtained in the sagittal and axial planes. COMPARISON: None FINDINGS: Normal foramen magnum and brainstem-cervical cord junction. Normal cervical lordosis. C2-3: There is minimal disc space narrowing and endplate spondylosis. There is no significant disc herniation, central canal or foraminal stenosis. C3-4: There is minimal disc space narrowing and endplate spondylosis. There is no significant disc herniation, central canal or foraminal stenosis. C4-5: There is minimal disc space narrowing and endplate spondylosis. There is no significant disc herniation, central canal or foraminal stenosis. C5-6: There is mild disc space narrowing and endplates spondylosis. Minimal disc osteophyte complex without significant central canal stenosis. Uncovertebral and facet arthropathy with moderate right and moderate left foraminal stenosis. C6-7: There is moderate disc space narrowing and endplates spondylosis. Minimal disc osteophyte complex and uncovertebral arthropathy without significant central canal stenosis. Mild right and mild left foraminal stenosis. C7-T1: There is minimal disc space narrowing and endplate spondylosis. There is no significant disc herniation, central canal or foraminal stenosis. Normal cervical cord. MRI/Spine Cervical (Routine) IMPRESSION: C5/C6: Moderate right and moderate left foraminal stenosis. Electronically Signed: Lorne Valdez MD at 10:37 EDT Tel , Service support ,
== END ==
PROVIDERS: PCP Family Medicine Geriatric Medicine; Referring Provider Family Medicine Geriatric Medicine; Visit Provider Family Medicine Geriatric Medicine
DX: M54.16 Radiculopathy, lumbar region (principal); M54.2 Cervicalgia
CPT/HCPCS: 72141; 72146; 72148

== ENCOUNTER → 2020-12-30 12:23 | Outpatient (CLI) | payer MEDICARE, OTHER, SELFPAY ==
[2020-12-20 04:41] VITALS: BMI 28.1
--- NOTE | 2020-12-30 12:30 | BD_ITS ---
STUDY: DUAL ENERGY X-RAY ABSORPTIOMETRY / DXA REASON FOR EXAM: Female, 70 years old. 627.8Menopausal postmenopausalBONE DENSITY REASON FOR EXAM TECHNIQUE: Bone Mineral Density (BMD) measurements of lumbar spine and bilateral hips were obtained. COMPARISON: Comparison is made with prior examination 02/03/2020. FINDINGS: Lumbar Spine (L1-L4): g/cm2 (1.063) / T-score (-0.9) / Z-score (0.8) Findings are suggestive of normal bone density with a low fracture risk. Left Femur Total: g/cm2 (0.870) / T-score (-1.1) / Z-score (0.4) Left Femoral Neck: g/cm2 (0.837) / T-score (-1.4) / Z-score (0.2) Right Femur Total: g/cm2 (0.773) / T-score (-1.9) / Z-score (0.4) Right Femoral Neck: g/cm2 (0.729) / T-score (-2.2) / Z-score (-0.5) The T-Scores on the most recent prior examination were: Lumbar Spine (L1-L4): There has been improvement of bone density since the previous examination. Left Femur Total: which represents an improvement of 2.5%. Right Femur Total: which represents an improvement of 1.6%. BD/Dexa Bone Density Study IMPRESSION: The patient is considered osteopenic as outlined below according to World Misael Organization (WHO) criteria with a high fracture risk. There has been improvement of bone density since the previous examination. Reference Information: The T-score is the number of standard deviations above or below the standard which is normal for young adults at their peak bone mineral density. The World Health Organization (WHO) interprets the T-scores as follows: Above -1 Normal bone density Between -1 and -2.5 Osteopenia Equal to / or below -2.5 Osteoporosis As a practical clinical guideline, osteopenia may be graded as follows: Mild -1 through -1.5 Moderate -1.6 through -2.0 Severe -2.1 through -2.4 The Z-score is the number of standard deviations above or below age-matched controls. A Z-score of less than -1.5 would be considered abnormal. References: 1. NIH Osteoporosis and Related Bone Diseases www osteo.org 2. International Society for Clinical Densitometry www iscd.org 3. National Osteoporosis Foundation www nof.org Electronically Signed: Chema Olguin MD at 15:33 EDT , Service support ,
== END ==
PROVIDERS: PCP Family Medicine Geriatric Medicine; Referring Provider Family Medicine Geriatric Medicine; Visit Provider Family Medicine Geriatric Medicine
DX: Z78.0 Asymptomatic menopausal state (principal); M85.80 Other specified disorders of bone density and structure, unspecified site
CPT/HCPCS: 77080

== ENCOUNTER → 2021-02-28 15:29 | Outpatient (CLI) | payer MEDICARE, OTHER, SELFPAY ==
[2021-02-28 17:06] LABS: Absolute Lymphocyte Count 2.01 X10^3/uL (0.83-4.51); Absolute Neutrophil Count 6.7 X10^3/uL (2.0-7.7); Basophil# 0.02 X10^3/uL; Basophil% 0.2 % (0-1); Hematocrit 39.5 % (37-47); Hemoglobin 12.1 g/dL (12.0-15.0); Lymphocyte # 2.01 X10^3/ul (0.83-4.51); Lymphocyte % 22.2 % (19-41); Mean Corp Hgb Conc 30.6 g/dL (32-36); Mean Corpuscular Hgb 29.7 pg (27.0-32.0); Mean Corpuscular Volume 97.1 fL (81-99); Mean Platelet Vol. 9.6 fl (6.2-12.0); Monocyte# 0.34 X10^3/uL; Monocyte% 3.7 % (0-10); NRBC Flagged by Analyzer 0 % (0-5); Neutrophil # 6.67 X10^3/uL (2.7-7.7); Neutrophil % 73.6 % (47-70); Platelet Count 370 K/mm3 (150-450); RBC Distribution Width CV 13.1 % (11.6-14.6); RBC Distribution Width SD 46.6 fl (35.1-43.9); Red Blood Count 4.07 M/mm3 (4.2-5.4); White Blood Count 9.1 K/mm3 (4.4-11.0)
[2021-02-28 17:50] LABS: AST(SGOT) 10 U/L (15-37); Alanine Aminotransfer ALT/SGPT 18 U/L (13-56); Albumin, Serum 3.4 g/dL (3.2-5.0); Alkaline Phosphatase 89 U/L (45-117); Anion Gap 6 (5-15); BUN 9 mg/dL (7-18); Calcium,Total 9.6 mg/dL (8.5-10.1); Chloride 106 mmol/L (98-107); Creatinine, Serum 0.69 mg/dL (0.55-1.02); EST Glomerular Filtration Rate 89 mL/min (>60); Est Glom Filt Rate - Afr Amer 108 mL/min (>60); Globulin 3.3 g/dL (2.2-4.2); Glucose 87 mg/dL (74-106); Potassium 3.5 mmol/L (3.5-5.1); Protein, Total 6.7 g/dL (6.4-8.2); Sodium Level 140 mmol/L (136-145); Thyroid Stim Hormone (TSH) 3.58 uIU/mL (0.358-3.74); Vitamin D,25 Hydroxy 64.3 ng/mL
== END ==
PROVIDERS: PCP Family Medicine Geriatric Medicine; Referring Provider Family Medicine Geriatric Medicine; Visit Provider Family Medicine Geriatric Medicine
DX: I10 Essential (primary) hypertension (principal); E55.9 Vitamin D deficiency, unspecified
CPT/HCPCS: 36415; 80053; 82306; 84443; 85025

== ENCOUNTER 2021-08-29 10:30 | Outpatient (CLI) | payer MEDICARE, OTHER, SELFPAY ==
[2021-08-29 12:17] LABS: Absolute Lymphocyte Count 1.96 X10^3/uL (0.83-4.51); Absolute Neutrophil Count 5.5 X10^3/uL (2.0-7.7); Basophil# 0.02 X10^3/uL; Basophil% 0.3 % (0-1); Hematocrit 40.5 % (37-47); Hemoglobin 13.1 g/dL (12.0-15.0); Lymphocyte # 1.96 X10^3/ul (0.83-4.51); Lymphocyte % 25.1 % (19-41); Mean Corp Hgb Conc 32.3 g/dL (32-36); Mean Corpuscular Hgb 29.3 pg (27.0-32.0); Mean Corpuscular Volume 90.6 fL (81-99); Mean Platelet Vol. 9.7 fl (6.2-12.0); Monocyte# 0.36 X10^3/uL; Monocyte% 4.6 % (0-10); NRBC Flagged by Analyzer 0 % (0-5); Neutrophil # 5.46 X10^3/uL (2.7-7.7); Neutrophil % 69.7 % (47-70); Platelet Count 339 K/mm3 (150-450); RBC Distribution Width CV 13.1 % (11.6-14.6); RBC Distribution Width SD 43.6 fl (35.1-43.9); Red Blood Count 4.47 M/mm3 (4.2-5.4); White Blood Count 7.8 K/mm3 (4.4-11.0)
[2021-08-29 12:27] LABS: Prothrombin Time (Protime)PT. 12.9 SECONDS (11.7-14.9)
[2021-08-29 12:34] LABS: Vitamin D,25 Hydroxy 47.2 ng/mL
[2021-08-29 12:53] LABS: AST(SGOT) 12 U/L (15-37); Alanine Aminotransfer ALT/SGPT 19 U/L (13-56); Albumin, Serum 3.4 g/dL (3.2-5.0); Alkaline Phosphatase 93 U/L (45-117); Anion Gap 5 (5-15); BUN 11 mg/dL (7-18); BUN/Creat Ratio 13.2 RATIO (10-20); Calcium,Total 9.8 mg/dL (8.5-10.1); Chloride 107 mmol/L (98-107); Creatinine, Serum 0.83 mg/dL (0.55-1.02); EST Glomerular Filtration Rate 72 mL/min (>60); Est Glom Filt Rate - Afr Amer 87 mL/min (>60); Globulin 3.3 g/dL (2.2-4.2); Glucose 83 mg/dL (74-106); Potassium 3.7 mmol/L (3.5-5.1); Protein, Total 6.7 g/dL (6.4-8.2); Sodium Level 140 mmol/L (136-145); Thyroid Stim Hormone (TSH) 4.76 uIU/mL (0.358-3.74)
== END 2021-08-29 23:59 | disposition home or self-care (01) ==
PROVIDERS: PCP Family Medicine Geriatric Medicine; Visit Provider Family Medicine Geriatric Medicine
DX: E55.9 Vitamin D deficiency, unspecified (principal); D69.2 Other nonthrombocytopenic purpura; I10 Essential (primary) hypertension
CPT/HCPCS: 36415; 80053; 82306; 84443; 85025; 85610; 85730

== ENCOUNTER → 2021-10-27 | Outpatient (CLI) | payer MEDICARE, OTHER, SELFPAY ==
[2021-10-27 10:55] LABS: Thyroid Stim Hormone (TSH) 0.52 uIU/mL (0.358-3.74)
== END | disposition home or self-care (01) ==
LOC: POLAB3 09:49
PROVIDERS: PCP Family Medicine Geriatric Medicine; Visit Provider Family Medicine Geriatric Medicine
DX: E03.9 Hypothyroidism, unspecified (principal)
CPT/HCPCS: 36415; 84443

== ENCOUNTER → 2021-10-31 | Outpatient (CLI) | payer MEDICARE, OTHER, SELFPAY ==
--- NOTE | 2021-10-31 15:05 | RAD_ITS ---
STUDY: X-RAY - LEFT HAND REASON FOR EXAM: Female, 70 years old. Left hand pain. TECHNIQUE: 4 view(s) of the hand. COMPARISON: None. FINDINGS: Osteopenia. Volar plate and screw fixation of the distal radius. Mild arthrosis of the radiocarpal articulation. Mild arthrosis of the radiocarpal row. Severe arthrosis of the first CMC joint. Moderate arthrosis of the in situ PIP joints. The soft tissue structures are unremarkable. RAD/Hand Min 3 Views IMPRESSION: Osteopenia with diffuse osteoarthritic changes, most marked at the first CMC joint. No acute abnormality, chondrocalcinosis, erosive changes or periostitis. Electronically Signed: Celestino Lowe MD at 11:23 EDT ,
[2021-10-31 15:42] LABS: Absolute Neutrophil Count 5.5 X10^3/uL (2.0-7.7); Basophil# 0.01 X10^3/uL; Basophil% 0.1 % (0-1); Hematocrit 38.4 % (37-47); Hemoglobin 12.4 g/dL (12.0-15.0); Lymphocyte % 26.1 % (19-41); Mean Corp Hgb Conc 32.3 g/dL (32-36); Mean Corpuscular Hgb 28.8 pg (27.0-32.0); Mean Corpuscular Volume 89.3 fL (81-99); Mean Platelet Vol. 9.6 fl (6.2-12.0); Monocyte# 0.43 X10^3/uL; Monocyte% 5.3 % (0-10); NRBC Flagged by Analyzer 0.2 % (0-5); Neutrophil # 5.48 X10^3/uL (2.7-7.7); Neutrophil % 68.3 % (47-70); Platelet Count 356 K/mm3 (150-450); RBC Distribution Width SD 38.9 fl (35.1-43.9)
[2021-10-31 15:55] LABS: Anion Gap 6 (5-15); BUN 7 mg/dL (7-18); BUN/Creat Ratio 9.9 RATIO (10-20); Chloride 106 mmol/L (98-107); Creatinine, Serum 0.71 mg/dL (0.55-1.02); EST Glomerular Filtration Rate 86 mL/min (>60); Est Glom Filt Rate - Afr Amer 105 mL/min (>60); Glucose 90 mg/dL (74-106); Potassium 3.6 mmol/L (3.5-5.1); Sodium Level 140 mmol/L (136-145); Uric Acid 5.1 mg/dL (2.6-6.0)
[2021-10-31 15:58] LABS: Erythrocyte Sedimentation Rate 9 mm/hr (0-30)
== END | disposition home or self-care (01) ==
PROVIDERS: PCP Family Medicine Geriatric Medicine; Visit Provider Family Medicine Geriatric Medicine
DX: M10.9 Gout, unspecified (principal); M79.642 Pain in left hand
CPT/HCPCS: 36415; 73130; 80048; 84550; 85025; 85652; 86140

== ENCOUNTER → 2022-01-27 | Outpatient (CLI) | payer MEDICARE, OTHER, SELFPAY ==
--- NOTE | 2022-01-27 11:26 | VDLE_ITS ---
Reason For Study: RLE EDEMA RIGHT GSV is normal. CFV is compressible, spontaneous, phasic, competent and demonstrates normal augmentation. FV is compressible, spontaneous, phasic, competent and demonstrates normal augmentation. POP V is compressible, spontaneous, phasic, competent and demonstrates normal augmentation. T/P Trunk is compressible. PTV is compressible. RT PerV is compressible. Hypoecoic structure noted in the RT POP FOSSA area measuring 2.97cm x 2.17cm. Procedure This is a venous duplex using B-mode, color flow and spectral Doppler. Exam performed in department. The exam was diagnostic. A preliminary report was called and/or faxed to Dr. Manzanares @ [phone] @1:20 pm. VL/Venous Duplex US, Unilateral Interpretation Summary Deep veins of the right lower extremity are patent and compressible segmentally . There is no evidence of right lower extremity deep vein thrombosis. Valvular competence nataly ears intact within the proximal deep venous system on the right . The right great saphenous vein a ppears patent and compressible segmentally. A non-vascular, hypoechoic structure is noted in the right popliteal space, measuring 2.97 cm x 2.17 cm. This probably represents a popliteal cyst. Clinical correlation is advised. Ordering Physician: Lamine Manzanares Referring Physician: Lamine Manzanares Chi Performed By: Carol Ann Deng, RDCS, RVT
--- NOTE | 2022-01-27 11:37 | RAD_ITS ---
STUDY: X-RAY - RIGHT KNEE REASON FOR EXAM: Female, 71 years old. EDEMA TECHNIQUE: 4 view(s) of the knee. COMPARISON: 06/06/2019 FINDINGS: Normal visualized distal femur. Normal visualized proximal tibia and fibula. Normal proximal tibiofibular articulation. There is no demonstrated fracture. There is mild degenerative arthrosis of the medial femorotibial compartment. There is mild degenerative arthrosis of the lateral femorotibial compartment. There is mild degenerative arthrosis of the patellofemoral articulation. There is a moderate volume joint effusion. The soft tissue structures are unremarkable. RAD/Knee 3 Views IMPRESSION: Tricompartmental DJD, progressed compared to 06/06/2019, with moderate size suprapatellar joint effusion. Electronically Signed: Kel Daigle MD at 1:06 EDT ,
[2022-01-27 15:49] LABS: M R Staph aureus DNA By PCR Negative (Negative); Probe Check PASS; Specimen Processing Control PASS; Staph aureus DNA By PCR NEGATIVE (Negative)
== END | disposition home or self-care (01) ==
PROVIDERS: PCP Family Medicine Geriatric Medicine; Referring Provider Family Medicine Geriatric Medicine; Visit Provider Family Medicine Geriatric Medicine
DX: R60.0 Localized edema (principal)
CPT/HCPCS: 73562; 87070; 87205; 87640; 93971

== ENCOUNTER → 2022-03-10 | Outpatient (CLI) | payer MEDICARE, OTHER, SELFPAY ==
[2022-03-10 12:38] LABS: Absolute Lymphocyte Count 3.22 X10^3/uL (0.83-4.51); Absolute Neutrophil Count 6.6 X10^3/uL (2.0-7.7); Basophil# 0.01 X10^3/uL; Basophil% 0.1 % (0-1); Eosinophil# 0.06 X10^3/uL; Eosinophils% 0.6 % (0-5); Hematocrit 40.2 % (37-47); Hemoglobin 13.1 g/dL (12.0-15.0); Lymphocyte # 3.22 X10^3/ul (0.83-4.51); Lymphocyte % 30.6 % (19-41); Mean Corp Hgb Conc 32.6 g/dL (32-36); Mean Corpuscular Hgb 30.6 pg (27.0-32.0); Mean Corpuscular Volume 93.9 fL (81-99); Monocyte# 0.63 X10^3/uL; NRBC Flagged by Analyzer 0 % (0-5); Neutrophil # 6.56 X10^3/uL (2.7-7.7); Neutrophil % 62.4 % (47-70); Platelet Count 311 K/mm3 (150-450); RBC Distribution Width CV 12.2 % (11.6-14.6); RBC Distribution Width SD 42.4 fl (35.1-43.9); Red Blood Count 4.28 M/mm3 (4.2-5.4); White Blood Count 10.5 K/mm3 (4.4-11.0)
[2022-03-10 12:51] LABS: Vitamin D,25 Hydroxy 39.6 ng/mL
[2022-03-10 12:58] LABS: ALB/GLOB Ratio 1.1 RATIO (0.9-2.4); AST(SGOT) 11 U/L (15-37); Alanine Aminotransfer ALT/SGPT 23 U/L (13-56); Albumin, Serum 3.4 g/dL (3.2-5.0); Alkaline Phosphatase 76 U/L (45-117); Anion Gap 7 (5-15); BUN 12 mg/dL (7-18); Calcium,Total 9.8 mg/dL (8.5-10.1); Chloride 107 mmol/L (98-107); Creatinine, Serum 0.75 mg/dL (0.55-1.02); EST Glomerular Filtration Rate 81 mL/min (>60); Est Glom Filt Rate - Afr Amer 98 mL/min (>60); Glucose 64 mg/dL (74-106); Potassium 3.8 mmol/L (3.5-5.1); Protein, Total 6.4 g/dL (6.4-8.2); Sodium Level 141 mmol/L (136-145); Uric Acid 5.1 mg/dL (2.6-6.0)
== END | disposition home or self-care (01) ==
LOC: POLAB3 08:48
PROVIDERS: PCP Family Medicine Geriatric Medicine; Visit Provider Family Medicine Geriatric Medicine
DX: I10 Essential (primary) hypertension (principal); E55.9 Vitamin D deficiency, unspecified; M10.9 Gout, unspecified
CPT/HCPCS: 36415; 80053; 82306; 84443; 84550; 85025

== ENCOUNTER → 2022-04-11 | Outpatient (CLI) | payer MEDICARE, OTHER, SELFPAY ==
--- NOTE | 2022-04-11 08:10 | BI_ITS ---
MAMMOGRAPHY - BILATERAL SCREENING REASON FOR EXAM: Female, 71 years old. Routine annual screening examination. PERTINENT HISTORY: Non-contributory. TECHNIQUE: Digital bilateral breast karena (3D mammographic acquisition) in the CC and MLO projections. 2-D mediolateral oblique (MLO) and craniocaudad (CC) views of both breasts were obtained. CAD: Full Field Digital Mammography with Computer Added Detection was performed. COMPARISON: Comparison is made with prior examination 02/13/2020 and 02/11/2019. FINDINGS: Breast Composition: There are scattered areas of fibroglandular density. There are no dominant masses or suspicious calcifications. Stable benign appearing bilateral axillary lymph nodes. No other significant abnormalities are identified. There has been no significant change since the prior study. BI/SCRN MAMM (CAD)W/KARENA BILAT IMPRESSION: Stable bilateral screening mammogram. Yearly follow-up mammogram recommended. (A) ASSESSMENT CATEGORY: BIRADS Category 2: Benign. A letter regarding these results will be sent to the patient by the facility within 30 days. Approximately 10% of breast cancers are not detected by mammography. A normal mammogram should not delay biopsy of a clinically suspicious abnormality. [id number] Electronically Signed: Chema Olguin MD at 8:54 EDT ,
[2022-04-11 09:30] LABS: Erythrocyte Sedimentation Rate 11 mm/hr (0-30)
[2022-04-11 09:32] LABS: Basophil# 0.01 X10^3/uL; Basophil% 0.1 % (0-1); Eosinophil# 0.05 X10^3/uL; Eosinophils% 0.7 % (0-5); Hematocrit 41.8 % (37-47); Hemoglobin 13.5 g/dL (12.0-15.0); Lymphocyte % 34.1 % (19-41); Mean Corp Hgb Conc 32.3 g/dL (32-36); Mean Corpuscular Hgb 29.9 pg (27.0-32.0); Mean Corpuscular Volume 92.5 fL (81-99); Mean Platelet Vol. 9.8 fl (6.2-12.0); Monocyte# 0.41 X10^3/uL; Monocyte% 6.1 % (0-10); NRBC Flagged by Analyzer 0 % (0-5); Neutrophil # 3.96 X10^3/uL (2.7-7.7); Neutrophil % 58.9 % (47-70); Platelet Count 333 K/mm3 (150-450); RBC Distribution Width CV 12.2 % (11.6-14.6); RBC Distribution Width SD 41.6 fl (35.1-43.9); Red Blood Count 4.52 M/mm3 (4.2-5.4); White Blood Count 6.7 K/mm3 (4.4-11.0)
[2022-04-11 10:03] LABS: AST(SGOT) 10 U/L (15-37); Alanine Aminotransfer ALT/SGPT 21 U/L (13-56); Albumin, Serum 3.5 g/dL (3.2-5.0); Alkaline Phosphatase 85 U/L (45-117); BUN 10 mg/dL (7-18); Bilirubin, Direct 0.13 mg/dL (0.00-0.30); Creatinine, Serum 0.88 mg/dL (0.55-1.02); EST Glomerular Filtration Rate 68 mL/min (>60); Est Glom Filt Rate - Afr Amer 82 mL/min (>60); Globulin 3.1 g/dL (2.2-4.2); Glucose 87 mg/dL (74-106); Protein, Total 6.6 g/dL (6.4-8.2); Rheumatoid Factor < 10.0 IU/mL (<15); Thyroid Stim Hormone (TSH) 1.64 uIU/mL (0.358-3.74)
[2022-04-11 11:36] LABS: Vitamin D,25 Hydroxy 38.3 ng/mL
[2022-04-12 13:43] LABS: ANTINUCLEAR ANTIBODIES DIRECT Negative (Negative)
[2022-04-15 15:03] LABS: Thyroid Peroxidase AB 50 IU/mL (0-34)
== END | disposition home or self-care (01) ==
PROVIDERS: Specialist; PCP Family Medicine Geriatric Medicine; Referring Provider Family Medicine Geriatric Medicine; Visit Provider Family Medicine Geriatric Medicine
DX: Z12.31 Encounter for screening mammogram for malignant neoplasm of breast (principal); Z78.0 Asymptomatic menopausal state; L50.1 Idiopathic urticaria; T78.3XXD Angioneurotic edema, subsequent encounter; E55.9 Vitamin D deficiency, unspecified; E07.9 Disorder of thyroid, unspecified
CPT/HCPCS: 36415; 77063; 77067; 80076; 82306; 82565; 82947; 83520; 84443; 84520; 84550; 85025; 85652; 86038; 86225; 86235; 86376; 86431

== ENCOUNTER → 2022-08-14 | Outpatient (CLI) | payer MEDICARE, OTHER, SELFPAY ==
[2022-08-20 20:53] LABS: HPV APTIMA, High Risk Negative (Negative)
== END | disposition home or self-care (01) ==
LOC: LABSPEC 11:45
PROVIDERS: PCP Family Medicine Geriatric Medicine; Visit Provider Student in an Organized Health Care Education/Training Program
DX: Z12.4 Encounter for screening for malignant neoplasm of cervix (principal)
CPT/HCPCS: 87624; 88175; G0145

== ENCOUNTER → 2022-09-07 | Outpatient (CLI) | payer MEDICARE, OTHER, SELFPAY ==
[2022-09-07 12:53] LABS: Absolute Lymphocyte Count 2.12 X10^3/uL (0.83-4.51); Eosinophil# 0.01 X10^3/uL; Eosinophils% 0.2 % (0-5); Hematocrit 40.5 % (37-47); Hemoglobin 12.6 g/dL (12.0-15.0); Lymphocyte # 2.12 X10^3/ul (0.83-4.51); Lymphocyte % 32.8 % (19-41); Mean Corp Hgb Conc 31.1 g/dL (32-36); Mean Corpuscular Hgb 28.9 pg (27.0-32.0); Mean Corpuscular Volume 92.9 fL (81-99); Mean Platelet Vol. 9.8 fl (6.2-12.0); Monocyte# 0.35 X10^3/uL; Monocyte% 5.4 % (0-10); NRBC Flagged by Analyzer 0 % (0-5); Neutrophil # 3.97 X10^3/uL (2.7-7.7); Neutrophil % 61.4 % (47-70); Platelet Count 329 K/mm3 (150-450); RBC Distribution Width CV 12.9 % (11.6-14.6); RBC Distribution Width SD 44.1 fl (35.1-43.9); Red Blood Count 4.36 M/mm3 (4.2-5.4); White Blood Count 6.5 K/mm3 (4.4-11.0)
[2022-09-07 13:02] LABS: Vitamin D,25 Hydroxy 31.5 ng/mL
[2022-09-07 13:18] LABS: ALB/GLOB Ratio 1.2 RATIO (0.9-2.4); AST(SGOT) 16 U/L (15-37); Alanine Aminotransfer ALT/SGPT 22 U/L (13-56); Albumin, Serum 3.4 g/dL (3.2-5.0); Alkaline Phosphatase 79 U/L (45-117); Anion Gap 10 (5-15); BUN 8 mg/dL (7-18); BUN/Creat Ratio 9.7 RATIO (10-20); Calcium,Total 9.3 mg/dL (8.5-10.1); Chloride 105 mmol/L (98-107); Creatinine, Serum 0.82 mg/dL (0.55-1.02); EST Glomerular Filtration Rate 72 mL/min (>60); Est Glom Filt Rate - Afr Amer 88 mL/min (>60); Globulin 2.9 g/dL (2.2-4.2); Glucose 110 mg/dL (74-106); Potassium 3.6 mmol/L (3.5-5.1); Protein, Total 6.3 g/dL (6.4-8.2); Sodium Level 139 mmol/L (136-145); Thyroid Stim Hormone (TSH) 6.85 uIU/mL (0.358-3.74)
== END | disposition home or self-care (01) ==
LOC: POLAB3 09:18
PROVIDERS: PCP Family Medicine Geriatric Medicine; Visit Provider Family Medicine Geriatric Medicine
DX: I10 Essential (primary) hypertension (principal); E55.9 Vitamin D deficiency, unspecified
CPT/HCPCS: 36415; 80053; 82306; 84443; 85025

== ENCOUNTER → 2022-09-27 | Outpatient (CLI) | payer MEDICARE, OTHER, SELFPAY | END | disposition home or self-care (01) | PROVIDERS: PCP Family Medicine Geriatric Medicine | DX: L50.1 Idiopathic urticaria (principal); Q82.2 Congenital cutaneous mastocytosis | CPT/HCPCS: 36415; 83520 ==

== ENCOUNTER → 2022-10-23 | Outpatient (CLI) | payer MEDICARE, OTHER, SELFPAY ==
[2022-10-23 13:32] LABS: Thyroid Stim Hormone (TSH) 1.85 uIU/mL (0.358-3.74)
== END | disposition home or self-care (01) ==
LOC: POLAB3 09:11
PROVIDERS: PCP Family Medicine Geriatric Medicine; Visit Provider Family Medicine Geriatric Medicine
DX: E03.9 Hypothyroidism, unspecified (principal)
CPT/HCPCS: 36415; 84443

== ENCOUNTER → 2023-03-26 | Outpatient (CLI) | payer MEDICARE, OTHER, SELFPAY ==
[2023-03-26 12:31] LABS: Absolute Lymphocyte Count 2.31 X10^3/uL (0.83-4.51); Absolute Neutrophil Count 3.6 X10^3/uL (2.0-7.7); Basophil# 0.01 X10^3/uL; Basophil% 0.2 % (0-1); Eosinophil# 0.03 X10^3/uL; Eosinophils% 0.5 % (0-5); Hematocrit 39.5 % (37-47); Hemoglobin 12.8 g/dL (12.0-15.0); Lymphocyte # 2.31 X10^3/ul (0.83-4.51); Lymphocyte % 36.5 % (19-41); Mean Corp Hgb Conc 32.4 g/dL (32-36); Mean Corpuscular Hgb 30.2 pg (27.0-32.0); Mean Corpuscular Volume 93.2 fL (81-99); Monocyte# 0.39 X10^3/uL; Monocyte% 6.2 % (0-10); NRBC Flagged by Analyzer 0 % (0-5); Neutrophil # 3.58 X10^3/uL (2.7-7.7); Neutrophil % 56.4 % (47-70); Platelet Count 263 K/mm3 (150-450); RBC Distribution Width SD 44.9 fl (35.1-43.9); Red Blood Count 4.24 M/mm3 (4.2-5.4); White Blood Count 6.3 K/mm3 (4.4-11.0)
[2023-03-26 12:58] LABS: ALB/GLOB Ratio 1.2 RATIO (0.9-2.4); AST(SGOT) 11 U/L (15-37); Alanine Aminotransfer ALT/SGPT 21 U/L (13-56); Albumin, Serum 3.6 g/dL (3.2-5.0); Alkaline Phosphatase 78 U/L (45-117); Anion Gap 2 (5-15); BUN 12 mg/dL (7-18); BUN/Creat Ratio 13.6 RATIO (10-20); Calcium,Total 9.8 mg/dL (8.5-10.1); Chloride 108 mmol/L (98-107); Creatinine, Serum 0.88 mg/dL (0.55-1.02); EST Glomerular Filtration Rate 67 mL/min (>60); Est Glom Filt Rate - Afr Amer 81 mL/min (>60); Glucose 92 mg/dL (74-106); Potassium 3.9 mmol/L (3.5-5.1); Protein, Total 6.6 g/dL (6.4-8.2); Sodium Level 141 mmol/L (136-145); Thyroid Stim Hormone (TSH) 1.59 uIU/mL (0.358-3.74)
== END | disposition home or self-care (01) ==
LOC: POLAB3 11:00
PROVIDERS: PCP Family Medicine Geriatric Medicine; Visit Provider Family Medicine Geriatric Medicine
DX: I10 Essential (primary) hypertension (principal); E55.9 Vitamin D deficiency, unspecified
CPT/HCPCS: 36415; 80053; 82306; 84443; 85025

== ENCOUNTER → 2023-09-24 | Outpatient (CLI) | payer MEDICARE, OTHER, SELFPAY ==
[2023-09-24 11:36] LABS: Absolute Lymphocyte Count 1.87 X10^3/uL (0.83-4.51); Absolute Neutrophil Count 4.8 X10^3/uL (2.0-7.7); Basophil# 0.01 X10^3/uL; Basophil% 0.1 % (0-1); Eosinophil# 0.01 X10^3/uL; Eosinophils% 0.1 % (0-5); Hematocrit 40.5 % (37-47); Hemoglobin 13.2 g/dL (12.0-15.0); Lymphocyte # 1.87 X10^3/ul (0.83-4.51); Lymphocyte % 26.6 % (19-41); Mean Corp Hgb Conc 32.6 g/dL (32-36); Mean Corpuscular Hgb 29.1 pg (27.0-32.0); Mean Corpuscular Volume 89.2 fL (81-99); Mean Platelet Vol. 9.7 fl (6.2-12.0); Monocyte# 0.29 X10^3/uL; Monocyte% 4.1 % (0-10); NRBC Flagged by Analyzer 0 % (0-5); Neutrophil # 4.83 X10^3/uL (2.7-7.7); Platelet Count 297 K/mm3 (150-450); RBC Distribution Width CV 12.6 % (11.6-14.6); RBC Distribution Width SD 41.1 fl (35.1-43.9); Red Blood Count 4.54 M/mm3 (4.2-5.4)
[2023-09-24 12:13] LABS: ALB/GLOB Ratio 1.2 RATIO (0.9-2.4); AST(SGOT) 13 U/L (15-37); Alanine Aminotransfer ALT/SGPT 18 U/L (13-56); Albumin, Serum 3.4 g/dL (3.2-5.0); Alkaline Phosphatase 90 U/L (45-117); Anion Gap 7 (5-15); BUN 9 mg/dL (7-18); BUN/Creat Ratio 13.7 RATIO (10-20); Calcium,Total 9.6 mg/dL (8.5-10.1); Chloride 107 mmol/L (98-107); Creatinine, Serum 0.66 mg/dL (0.55-1.02); EST Glomerular Filtration Rate 94 mL/min (>60); Est Glom Filt Rate - Afr Amer 113 mL/min (>60); Globulin 2.8 g/dL (2.2-4.2); Glucose 100 mg/dL (74-106); Potassium 3.5 mmol/L (3.5-5.1); Protein, Total 6.2 g/dL (6.4-8.2); Sodium Level 141 mmol/L (136-145); Thyroid Stim Hormone (TSH) 5.73 uIU/mL (0.358-3.74)
== END | disposition home or self-care (01) ==
LOC: POLAB3 09:37
PROVIDERS: PCP Family Medicine Geriatric Medicine; Visit Provider Family Medicine Geriatric Medicine
DX: I10 Essential (primary) hypertension (principal); E55.9 Vitamin D deficiency, unspecified
CPT/HCPCS: 36415; 80053; 82306; 84443; 85025

== ENCOUNTER 2023-10-05 18:32 | Emergency (ER) | payer MEDICARE, OTHER, SELFPAY ==
[2023-10-05 18:33] VITALS: BP 143/98; PULSE 93; RESP 20; TEMP 36.1; O2SAT 99
--- NOTE | 2023-10-05 18:48 | EX.ED.DYSGE1 ---
HPI <ROSALINO Kevin - Last Filed: 10/05/23 20:10> History of Present Illness Chief Complaint: Rash Narrative Narrative: 72-year-old female states she gets idiopathic urticaria since 2006. It flared up 6 days ago and started with itching and a rash on her upper abdomen. 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 This morning she developed more hives on her face and this afternoon around 3 PM while out shopping felt like her tongue was swollen and her throat is sore. She also developed a new area of large red rash on her left upper arm. She states it is never been this severe before which prompted her to come in. She has no chest pain or shortness of breath. Denies new medications. She states she has been treated for this condition off and on for years and it has occurred 3 times since June 2023. [facility] <ROSALINO Kevin - Last Filed: 10/05/23 20:10> [facility] Medical History (Updated 10/05/23 @ 19:59 by ROSALINO Kevin) Borderline hyperlipidemia Hypertension Hypothyroidism Osteoarthritis Rash Home Medications calcium carbonate 500 mg-vitamin D3 15 mcg (600 unit) tablet 1 ea PO BID SUPP;EMENT 04/30/18 [History Last Taken Unknown] multivitamin 1 ea PO DAILY 04/30/18 [History Last Taken Unknown] omega-3 fatty acids-fish oil 340 mg-1,000 mg capsule 1 ea PO DAILY 04/30/18 [History Last Taken Unknown] pravastatin 40 mg tablet 40 mg PO DAILY 04/30/18 [History Last Taken Unknown] vitamin E 670 mg (1,000 unit) capsule 1,000 unit PO DAILY 04/30/18 [History Last Taken Unknown] losartan 100 mg tablet 100 mg PO DAILY 06/26/19 [History Last Taken 07/03/19 04:00 100 MG] famotidine 40 mg tablet 40 mg PO Q12H 03/28/23 [History Last Taken Unknown] fexofenadine 180 mg tablet (Kirstie Allergy) 360 mg PO DAILY 03/28/23 [History Last Taken Unknown] bupropion HCl 150 mg 24 hr tablet, extended release 150 mg PO DAILY 10/05/23 [History Last Taken Unknown] diphenhydramine HCl 25 mg capsule (Benadryl) 25 mg PO TID PRN allergic reaction 7 days #21 caps 10/05/23 [Rx Last Taken Unknown] famotidine 20 mg tablet (Pepcid) 20 mg PO BID 7 days #14 tabs 10/05/23 [Rx Last Taken Unknown] montelukast 10 mg tablet 10 mg PO DAILY 10/05/23 [History Last Taken Unknown] thyroid (pork) 90 mg tablet (TISSUE PACKER Thyroid) 90 mg PO DAILY 10/05/23 [History Last Taken Unknown] Allergy/AdvReac Type Severity Reaction Status Date / Time No Known Allergies Allergy Verified 10/05/23 18:34 Surgical History History of arthroplasty of right knee History of surgery on left wrist Social History Smoking Status: Never smoker ROS <ROSALINO Kevin - Last Filed: 10/05/23 20:10> ROS ED ROS Narrative Constitutional: Negative for fever, chills, malaise. CVS: Negative for chest pain. Respiratory: Negative for shortness of breath. GI: Negative for abdominal pain, nausea, vomiting, diarrhea. Skin: Positive for rash. EXAM <ROSALINO Kevin - Last Filed: 10/05/23 20:10> Physical Exam Narrative Exam Narrative: CONST: Patient sitting in no acute distress. ENT: Normal inspection with no angioedema, moist mucous membranes. No drooling or stridor. NECK: Normal inspection. RESP: No respiratory distress, CTAB. CVS: Regular rate and rhythm, no murmur, no gallop. SKIN: Diffuse urticaria scattered across face, neck and upper chest, and confluent on left upper arm. EXTREMITIES: Normal appearance, no pedal edema. NEURO: Oriented x4. PSYCH: Normal affect. Const Vital Signs: 10/05/23 18:33 10/05/23 18:59 10/05/23 20:05 Temperature 97 F L 98.2 F Temperature Source Temporal Pulse Rate 93 81 79 Respiratory Rate 20 H 18 18 Blood Pressure 143/98 H 140/116 H 130/67 H Blood Pressure Mean 113 124 88 Pulse Ox 99 96 100 Oxygen Delivery Method Room Air Room Air <Dr. Grey Nguyen DO - Last Filed: 10/05/23 21:40> Physical Exam Const Vital Signs: 10/05/23 18:33 10/05/23 18:59 10/05/23 20:05 Temperature 97 F L 98.2 F Temperature Source Temporal Pulse Rate 93 81 79 Respiratory Rate 20 H 18 18 Blood Pressure 143/98 H 140/116 H 130/67 H Blood Pressure Mean 113 124 88 Pulse Ox 99 96 100 Oxygen Delivery Method Room Air Room Air [facility] <ROSALINO Kevin - Last Filed: 10/05/23 20:10> [facility] Narrative Medical decision making narrative: Patient has history of idiopathic urticaria and developed hives 6 days ago which worsened today with facial and left arm involvement. She states her tongue felt swollen and her throat sore 3 hours prior to arrival but this has gone down. She appears well and nontoxic and has stable vital signs. She is speaking full sentences in no distress and has no signs of angioedema. She has diffuse hives on her face, chest, and upper extremities mainly on the left. Heart is regular and lungs are clear. She has no GI involvement. She was treated with IV Solu-Medrol, Pepcid and Benadryl. I do not think she requires epinephrine as she is not in anaphylaxis. She reported symptomatic improvement after treatment. She showed me her bottle of prednisone from her teacher learning disabled with a taper starting at 20 mg twice daily and she is only taking 3 doses so far. I recommended she continue this and I prescribed Pepcid and Benadryl. I discussed symptoms that would warrant immediate return and she was discharged in stable condition. <Dr. Grey Nguyen DO - Last Filed: 10/05/23 21:40> [facility] Narrative Medical decision making narrative: Patient has history of idiopathic urticaria and developed hives 6 days ago which worsened today with facial and left arm involvement. She states her tongue felt swollen and her throat sore 3 hours prior to arrival but this has gone down. She appears well and nontoxic and has stable vital signs. She is speaking full sentences in no distress and has no signs of angioedema. She has diffuse hives on her face, chest, and upper extremities mainly on the left. Heart is regular and lungs are clear. She has no GI involvement. She was treated with IV Solu-Medrol, Pepcid and Benadryl. I do not think she requires epinephrine as she is not in anaphylaxis. She reported symptomatic improvement after treatment. She showed me her bottle of prednisone from her teacher learning disabled with a taper starting at 20 mg twice daily and she is only taking 3 doses so far. I recommended she continue this and I prescribed Pepcid and Benadryl. I discussed symptoms that would warrant immediate return and she was discharged in stable condition. ED attending note: I evaluated the patient in conjunction with the RAE. I agree with his/her statements and above findings. I have personally performed a face to face assessment of the patient and have reviewed the RAE Note. I performed a substantive portion of the visit including all aspects of the following: I personally saw the patient performed chart review, physical exam, reviewed labs, imaging (if obtained), and formulated a treatment and management plan. This note was generated with Conject dictation software. It may contain incorrect words, spelling, and punctuation that were not noted in review of the chart prior to signing. Discharge Plan Triage Chief Complaint: Rash ED Midlevel Provider: Guerita Madrid ED Provider: Grey Nguyen Dx/Rx/DC Orders Clinical Impression: Urticaria Instructions: ED Hives (Adult) Prescriptions: New famotidine [Pepcid] 20 mg tablet 20 mg PO BID 7 Days Qty: 14 0RF diphenhydramine HCl [Benadryl] 25 mg capsule 25 mg PO TID PRN (Reason: allergic reaction) 7 Days Qty: 21 0RF No Action famotidine 40 mg tablet 40 mg PO Q12H Patient Comments: TAKE 1 TABLET BY MOUTH TWICE DAILY 30-60 MINUTES BEFORE BREAKFAST AND EVENING MEAL fexofenadine [Kirstie Allergy] 180 mg tablet 360 mg PO DAILY multivitamin 1 EACH tablet 1 ea PO DAILY vitamin E 1,000 UNIT capsule 1,000 unit PO DAILY pravastatin 40 MG tablet 40 mg PO DAILY omega-3 fatty acids-fish oil 1 EACH capsule 1 ea PO DAILY calcium carbonate-vitamin D3 1 EACH tablet 1 ea PO BID losartan 100 MG tablet 100 mg PO DAILY thyroid (pork) [TISSUE PACKER Thyroid] 90 mg tablet 90 mg PO DAILY montelukast 10 mg tablet 10 mg PO DAILY bupropion HCl 150 mg tablet extended release 24 hr 150 mg PO DAILY Primary Care Provider: Lamine Manzanares Chi Referrals: Lamine Manzanares Chi, MD [Primary Care Provider] - Activity Restrictions/Additional Instructions: I prescribed Pepcid and Benadryl to further treat your allergic symptoms and you should continue the prednisone from your teacher learning disabled. Disposition Disposition: Home, Self Care Discharge Date/Time: 10/05/23 20:17
[2023-10-05] MEDS: MethylPREDNISolone 125 MG/2 ML Vial IV (18:55)
[2023-10-05] MEDS: DiphenhydrAMINE 50 MG/ML Syringe 25 MG IV (18:55)
[2023-10-05] MEDS: 0.9% Normal Saline (1000mL) 1,000 ML 999 ML IV (18:55)
[2023-10-05 18:58] VITALS: BMI 27.6
[2023-10-05 18:59] VITALS: BP 140/116; PULSE 81; RESP 18; O2SAT 96
[2023-10-05] MEDS: Famotidine 200 MG/20 ML MDV 20 MG in 0.9% Normal Saline (Pres. free 8 ML 300 MG IV (19:15)
[2023-10-05 20:05] VITALS: BP 130/67; PULSE 79; RESP 18; TEMP 36.8; O2SAT 100
== END 2023-10-05 20:17 | disposition home or self-care (01) ==
PROVIDERS: Emergency Provider Emergency Medicine; PCP Family Medicine Geriatric Medicine; Visit Provider Emergency Medicine
DX: L50.9 Urticaria, unspecified (principal); J02.9 Acute pharyngitis, unspecified; E78.5 Hyperlipidemia, unspecified; I10 Essential (primary) hypertension; E03.9 Hypothyroidism, unspecified; M19.90 Unspecified osteoarthritis, unspecified site; Z79.899 Other long term (current) drug therapy
CPT/HCPCS: 96361; 96374; 96375; 99283; J7030; A4216; J3490

== ENCOUNTER → 2024-03-31 | Outpatient (CLI) | payer MEDICARE, OTHER, SELFPAY ==
[2024-03-31 10:01] LABS: Absolute Lymphocyte Count 2.62 X10^3/uL (0.83-4.51); Absolute Neutrophil Count 6.4 X10^3/uL (2.0-7.7); Basophil# 0.01 X10^3/uL; Basophil% 0.1 % (0-1); Eosinophil# 0.11 X10^3/uL; Eosinophils% 1.1 % (0-5); Hemoglobin 13.1 g/dL (12.0-15.0); Lymphocyte # 2.62 X10^3/ul (0.83-4.51); Lymphocyte % 27.3 % (19-41); Mean Corpuscular Hgb 28.5 pg (27.0-32.0); Mean Corpuscular Volume 89.1 fL (81-99); Mean Platelet Vol. 9.6 fl (6.2-12.0); Monocyte# 0.44 X10^3/uL; Monocyte% 4.6 % (0-10); NRBC Flagged by Analyzer 0 % (0-5); Neutrophil # 6.41 X10^3/uL (2.7-7.7); Neutrophil % 66.8 % (47-70); Platelet Count 270 K/mm3 (150-450); RBC Distribution Width CV 12.9 % (11.6-14.6); RBC Distribution Width SD 41.9 fl (35.1-43.9); White Blood Count 9.6 K/mm3 (4.4-11.0)
[2024-03-31 10:33] LABS: Vitamin D,25 Hydroxy 52.1 ng/mL
[2024-03-31 10:39] LABS: ALB/GLOB Ratio 1.1 RATIO (0.9-2.4); AST(SGOT) 11 U/L (15-37); Alanine Aminotransfer ALT/SGPT 17 U/L (13-56); Albumin, Serum 3.4 g/dL (3.2-5.0); Alkaline Phosphatase 101 U/L (45-117); Anion Gap 9 (5-15); BUN 11 mg/dL (7-18); BUN/Creat Ratio 13.2 RATIO (10-20); Calcium,Total 9.6 mg/dL (8.5-10.1); Chloride 108 mmol/L (98-107); Creatinine, Serum 0.83 mg/dL (0.55-1.02); EST Glomerular Filtration Rate 71 mL/min (>60); Est Glom Filt Rate - Afr Amer 86 mL/min (>60); Glucose 106 mg/dL (74-106); Potassium 3.5 mmol/L (3.5-5.1); Protein, Total 6.4 g/dL (6.4-8.2); Sodium Level 142 mmol/L (136-145)
== END | disposition home or self-care (01) ==
LOC: POLAB3 09:50
PROVIDERS: PCP Family Medicine Geriatric Medicine; Visit Provider Family Medicine Geriatric Medicine
DX: I10 Essential (primary) hypertension (principal); E03.9 Hypothyroidism, unspecified; E55.9 Vitamin D deficiency, unspecified
CPT/HCPCS: 36415; 80053; 82306; 84443; 85025

== ENCOUNTER → 2024-07-08 | Outpatient (CLI) | payer MEDICARE, OTHER, SELFPAY ==
--- NOTE | 2024-07-08 09:46 | BI_ITS ---
MAMMOGRAPHY - BILATERAL SCREENING REASON FOR EXAM: Female, 73 years old. Routine annual screening examination. PERTINENT HISTORY: Non-contributory. TECHNIQUE: Digital bilateral breast karena (3D mammographic acquisition) in the CC and MLO projections. 2-D mediolateral oblique (MLO) and craniocaudad (CC) views of both breasts were obtained. CAD: Full Field Digital Mammography with Computer Added Detection was performed. COMPARISON: Comparison is made with prior study April 11, 2022 and February 13, 2020. FINDINGS: Breast Composition: There are scattered areas of fibroglandular density. There are no dominant masses or suspicious calcifications. Stable bilateral axillary lymph nodes. No other significant abnormalities are identified. There has been no significant change since the prior study. BI/SCRN MAMM (CAD)W/KARENA BILAT IMPRESSION: Stable bilateral screening mammogram. Yearly follow-up mammogram recommended. (A) ASSESSMENT CATEGORY: BIRADS Category 2: Benign. A letter regarding these results will be sent to the patient by the facility within 30 days. Approximately 10% of breast cancers are not detected by mammography. A normal mammogram should not delay biopsy of a clinically suspicious abnormality. [id number] Electronically Signed: Chema Olguin MD at 12:06 EST ,
--- NOTE | 2024-07-08 09:48 | BD_ITS ---
STUDY: DUAL ENERGY X-RAY ABSORPTIOMETRY / DXA REASON FOR EXAM: Female, 73 years old. 627.8Menopausal postmenopausal BONE DENSITY REASON FOR EXAM TECHNIQUE: Bone Mineral Density (BMD) measurements of lumbar spine and bilateral hips were obtained. COMPARISON: Comparison is made with prior study dated December 30, 2020. FINDINGS: Lumbar Spine (L1-L4): g/cm2 (0.904) / T-score (-1.3) / Z-score (1.0) Findings are suggestive of osteopenia with a low fracture risk. Left Femur Total: g/cm2 (0.739) / T-score (-1.7) / Z-score (0.0) Left Femoral Neck: g/cm2 (0.660) / T-score (-1.7) / Z-score (0.3) Right Femur Total: g/cm2 (0.696) / T-score (-2.0) / Z-score (-0.3) Right Femoral Neck: g/cm2 (0.558) / T-score (-2.6) / Z-score (-0.6) The T-Scores on the most recent prior examination were: Lumbar Spine (L1-L4): There has been worsening of bone density since the previous examination. Left Femur Total: which represents a worsening of 8.5%. Right Femur Total: which represents a worsening of 2.4%. BD/Dexa Bone Density Study IMPRESSION: The patient is considered osteoporotic as outlined below according to World Misael Organization (WHO) criteria with a high fracture risk. There has been worsening of bone density since the previous examination. Reference Information: The T-score is the number of standard deviations above or below the standard which is normal for young adults at their peak bone mineral density. The World Health Organization (WHO) interprets the T-scores as follows: Above -1 Normal bone density Between -1 and -2.5 Osteopenia Equal to / or below -2.5 Osteoporosis As a practical clinical guideline, osteopenia may be graded as follows: Mild -1 through -1.5 Moderate -1.6 through -2.0 Severe -2.1 through -2.4 The Z-score is the number of standard deviations above or below age-matched controls. A Z-score of less than -1.5 would be considered abnormal. References: 1. NIH Osteoporosis and Related Bone Diseases www osteo.org 2. International Society for Clinical Densitometry www iscd.org 3. National Osteoporosis Foundation www nof.org Electronically Signed: Chema Olguin MD at 14:49 EST ,
== END | disposition home or self-care (01) ==
LOC: OPBD 09:43
PROVIDERS: PCP Family Medicine Geriatric Medicine; Referring Provider Family Medicine Geriatric Medicine; Visit Provider Family Medicine Geriatric Medicine
DX: Z13.820 Encounter for screening for osteoporosis (principal); Z78.0 Asymptomatic menopausal state; Z12.31 Encounter for screening mammogram for malignant neoplasm of breast
CPT/HCPCS: 77063; 77067; 77080

== ENCOUNTER → 2024-07-09 | Outpatient (CLI) | payer MEDICARE, OTHER, SELFPAY ==
--- NOTE | 2024-07-09 11:23 | NEURO ---
NCS and/or EMG Patient Report Ordering Doctor: Sergo Gipson DATE OF SERVICE: 07/09/24 Anita presents with complaints of numbness, tingling and pain in both hands. Electrodiagnostic findings: Left median motor nerve demonstrates prolonged latency with normal amplitude and borderline reduced conduction velocity. Right median motor nerve demonstrates prolonged latency with normal amplitude and reduced conduction velocity. Ulnar motor response is within normal limits bilaterally. Prolonged left and right median F?wave. Prolonged median sensory latency at the wrist bilaterally. Normal ulnar and radial sensory responses. Needle EMG testing was performed in the upper limbs. All muscles tested showed no evidence of denervation with normal motor unit action potentials. Electrodiagnostic impression: This is an abnormal study. 1. Electrodiagnostic findings suggestive of bilateral median mononeuropathy. This is consistent with a moderate bilateral carpal tunnel syndrome. Multi Select Codes Neurology Neurology Interp Codes: 67681-51 Musc test done w/n test comp (interp) (2) and 51565-23 Nrv cndj test 9-10 studies (interp)
== END | disposition home or self-care (01) ==
PROVIDERS: PCP Family Medicine Geriatric Medicine; Referring Provider Orthopaedic Surgery; Visit Provider Orthopaedic Surgery
DX: G56.03 Carpal tunnel syndrome, bilateral upper limbs (principal)
CPT/HCPCS: 95886; 95911

== ENCOUNTER → 2024-07-29 | Outpatient (CLI) | payer MEDICARE, OTHER, SELFPAY | END | disposition home or self-care (01) | PROVIDERS: PCP Family Medicine Geriatric Medicine; Visit Provider Family Medicine Geriatric Medicine | DX: R68.83 Chills (without fever) (principal) | CPT/HCPCS: 87631 ==

== ENCOUNTER 2024-08-19 09:09 | Day surgery (SDC) | payer MEDICARE, OTHER, SELFPAY ==
--- NOTE | 2024-07-24 18:29 | PAT.ANE_ITS ---
Pre-Assessment Diagnosis/Proposed Procedure Planned Operative Procedure(s): RIGHT OPEN CARPAL TUNNEL RELEASE AND LEFT CARPAL TUNNEL INJECTION Anesthesia History Anesthesia History - photograph enlarger: Anesthesia History - photograph enlarger Hx Hospitalization No 07/24/24 11:05 Any Problems With Anesthesia No 07/24/24 11:05 Cholinesterase deficiency No 07/24/24 11:05 You/Your Family Experience No 07/24/24 11:05 fever (hyperthermia) with Relationship Recent Exposure to Contagious No 07/03/19 06:41 Disease Does patient have nerve No 07/24/24 11:05 stimulator Patient instructed to have device shut off --Does patient have Pacemaker or ICD? When Was Last Pacemaker Check QUESTION #4 FULL TEXT: You/Your Family Experience fever (hyperthermia) with Anesthesia Last Oral Intake Last Oral intake: Last Oral Intake NPO since Meds taken in AM with sips of water? Meds patient instructed to take am of surgery PONV PONV - photograph enlarger: PONV - photograph enlarger Female Yes 07/24/24 11:05 HX of Motion Sickness No 07/24/24 11:05 HX of N/V After Surgery No 07/24/24 11:05 Non-Smoker Yes 07/24/24 11:05 Duration of Surgery greater No 07/24/24 11:05 than 60 minutes Number of Risk Factors 2 07/24/24 11:05 PONV Score Moderate Risk 07/24/24 11:05 Height & Weight Height & Weight: Anesthesia: Height & Weight Height 5 ft 5 in 07/08/24 09:49 Respiratory Assessment Respiratory Assessment - photograph enlarger: Respiratory Tract Infection Hx - photograph enlarger Hx Respiratory Tract Infection No 07/24/24 11:05 STOP Sleep Apnea STOP Sleep Apnea - photograph enlarger: STOP Sleep Apnea - photograph enlarger Hx Hypertension Yes: CONTROLLED WITH MED 07/24/24 11:05 Hx Sleep Apnea No 07/24/24 11:05 CPAP BIPAP Do you snore loudly (louder No 07/24/24 11:05 than talking or can be heard Do you often feel tired/ Yes 07/24/24 11:05 fatigued/ sleepy during daytime? Has anyone observed you stop No 07/24/24 11:05 breathing during sleep? STOP Results Positive 07/24/24 11:05 QUESTION #5 FULL TEXT : Do you snore loudly (louder than talking or can be heard through closed doors)? 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 Specify any problems Hx of Preganancy in last 3 No 07/24/24 11:05 Months Nurse Filling Out Transfusion DSCHRIBER 07/24/24 11:05 & Questions: Date: 07/24/24 07/24/24 11:05 Time: 11:06 07/24/24 11:05 Patient unable to answer at this time (ie. confused, unrespo /Reproduction History /Reproductive History - photograph enlarger: /Reproductive Hx- photograph enlarger Hx Now No 07/24/24 11:05 Gestational Age (in weeks): EDC: Hx Hx Para Hx Section SAB No 07/24/24 11:05 [facility] Medical History (Updated 07/24/24 @ 11:12 by Cira Xie) Wears glasses Wears contact lenses Wears partial dentures Post-menopausal Depression High cholesterol DVT (deep venous thrombosis) Back pain Seasonal allergies Non-smoker History of stress test Hx of fracture of wrist Osteoarthritis Hypothyroidism Hypertension Home Medications ?Medication ?Instructions ?Recorded ?Last Taken ?Type calcium 500 mg (as 1 ea PO BID SUPP;EMENT 04/30/18 Unknown History carbonate)-vitamin D3 15 mcg (600 unit) tablet multivitamin 1 ea PO DAILY 04/30/18 Unknown History omega-3 fatty acids-fish oil 340 1 ea PO DAILY 04/30/18 Unknown History mg-1,000 mg capsule pravastatin 40 mg tablet 40 mg PO QHS 04/30/18 Unknown History vitamin E 670 mg (1,000 unit) 1,000 unit PO DAILY 04/30/18 Unknown History capsule losartan 100 mg tablet 100 mg PO DAILY 06/26/19 07/03/19 04:00 History 100 MG famotidine 40 mg tablet 40 mg PO Q12H 03/28/23 Unknown History fexofenadine 180 mg tablet 360 mg PO BID 03/28/23 Unknown History (Kirstie Allergy) bupropion HCl 150 mg 24 hr tablet, 150 mg PO DAILY 10/05/23 Unknown History extended release thyroid (pork) 90 mg tablet (SKI BASE TRIMMER 90 mg PO DAILY 10/05/23 Unknown History Thyroid) omalizumab 150 mg/mL subcutaneous 150 mg subcut Q4W 06/11/24 Unknown History auto-injector (Xolair) Lactobacillus acidophilus 250 500 mmu cells PO DAILY 07/24/24 Unknown History million cell capsule (Probiotic Acidophilus) Allergy/AdvReac Type Severity Reaction Status Date / Time No Known Allergies Allergy Verified 07/24/24 11:00 Surgical History (Updated 07/24/24 @ 11:12 by Cira Xie) Hx of knee surgery Social History Smoking Status: Never smoker Audit: Pertinent Findings Pertinent Findings EKG Perinent findings: December 17, 2020. Normal sinus rhythm. Cannot rule out inferior infarct. Recommendation Anesthesia Recommendation Anesthesia recommendation: OPTIMIZED for anesthesia
[2024-08-19] VITALS (9 sets, daily range): BP systolic 138–176; BP diastolic 66–83; PULSE 64–71; RESP 16; TEMP 36.4–36.8; O2SAT 98–100; BMI 26.4
--- NOTE | 2024-08-19 09:48 | PRE.ANES_ITS ---
ASA Classification* ASA Classification ASA Classification: 2 Assessment & Plan Anesthesia* Anesthesia Assessment Anesthesia Assessment: Discussed sedation and/or anesthesia options, risks, benefits, and alternatives with patient/parents/legal guardian/POA. Questions invited. The patient/parents/legal guardian/POA seems to understand and agrees to proceed with anesthesia plan. Reviewed the physical assessment, medical history, allergy history and patient home medications list prior to surgery/procedure/anesthetic and documented any changes. Performed airway and anesthesia risk assessments. Anesthesia Type Anesthesia Type: MAC History Source History Obtained from:: Patient and Chart Anesthesia Focused Assessment* Temperature: 97.6 F Pulse Rate: 71 Blood Pressure: 176/74 Respiratory Rate: 16 Pulse Ox: 100 Oxygen Delivery Method: Room Air Airway Assessment Mouth opens: >3 cm Mallampati Score: III Teeth Condition: Caps/Crowns (Multiple crowns. They are all tight.) Neck Range of motion (ROM): Full ROM Focused Labs Anesthesia Preop lab: CBC WBC 9.6 K/mm3 (4.4-11.0) 03/31/24 09:03/31/24 RBC 4.60 M/mm3 (4.2-5.4) 03/31/24 09:03/31/24 Hgb 13.1 g/dL (12.0-15.0) 03/31/24 09:50 03/31/24 Hct 41.0 % (37-47) 03/31/24 09:50 03/31/24 Plt Count 270 K/mm3 (150-450) 03/31/24 09:50 03/31/24 CHEMISTRY Potassium 3.5 mmol/L (3.5-5.1) 03/31/24 09:50 03/31/24 Sodium 142 mmol/L (136-145) 03/31/24 09:50 03/31/24 BUN 11 mg/dL (7-18) 03/31/24 09:50 03/31/24 Creatinine 0.83 mg/dL (0.55-1.02) 03/31/24 09:50 03/31/24 Glucose 106 mg/dL (74-106) 03/31/24 09:50 03/31/24 TSH 1.430 uIU/mL (0.358-3.740) 03/31/24 09:50 09/ COAG PT 12.9 SECONDS (11.7-14.9) 08/29/21 11:52 Pre-Assessment Diagnosis/Proposed Procedure Planned Operative Procedure(s): RIGHT OPEN CARPAL TUNNEL RELEASE AND LEFT CARPAL TUNNEL INJECTION Anesthesia History 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 When Was Last Pacemaker Check QUESTION #4 FULL TEXT: You/Your Family Experience fever (hyperthermia) with Anesthesia Last Oral Intake Last Oral intake: Last Oral Intake NPO since 04:00 08/19/24 09:36 Meds taken in AM with sips of Yes 08/19/24 09:36 water? Meds patient instructed to see mar 08/19/24 09:36 take am of surgery Any additional information?: Yes NPO since: 04:20 (Patient had water at 4:20 AM) Meds taken in AM with sips of water?: Yes PONV PONV - civil drafting technician: PONV - civil drafting technician Female Yes 07/24/24 11:05 HX of Motion Sickness No 07/24/24 11:05 HX of N/V After Surgery No 07/24/24 11:05 Non-Smoker Yes 07/24/24 11:05 Duration of Surgery greater No 07/24/24 11:05 than 60 minutes Number of Risk Factors 2 07/24/24 11:05 PONV Score Moderate Risk 07/24/24 11:05 Height & Weight Height & Weight: Anesthesia: Height & Weight Height 5 ft 5 in 08/19/24 09:36 Weight: 72.121 kg 08/19/24 09:36 Body Mass Index (BMI) 26.4 08/19/24 09:36 Respiratory Assessment Respiratory Assessment - civil drafting technician: Respiratory Tract Infection Hx - civil drafting technician Hx Respiratory Tract Infection No 07/24/24 11:05 Any additional information?: Yes Hx Respiratory Tract Infection: Yes (Patient has recently recovered from viral upper respiratory tract infection) STOP Sleep Apnea STOP Sleep Apnea - civil drafting technician: STOP Sleep Apnea - civil drafting technician Hx Hypertension Yes: CONTROLLED WITH MED 07/24/24 11:05 Hx Sleep Apnea No 07/24/24 11:05 CPAP BIPAP Do you snore loudly (louder No 07/24/24 11:05 than talking or can be heard Do you often feel tired/ Yes 07/24/24 11:05 fatigued/ sleepy during daytime? Has anyone observed you stop No 07/24/24 11:05 breathing during sleep? STOP Results Positive 07/24/24 11:05 QUESTION #5 FULL TEXT : Do you snore loudly (louder than talking or can be heard through closed doors)? Tobacco Use History Tobacco Use History - civil drafting technician: Tobacco Use History - civil drafting technician Tobacco Use Smoking Status Never smoker 07/24/24 11:05 Hx Tobacco Use No 07/24/24 11:05 Years Smoking Packs Smoked per Day Smoking Cessation Date was within the last 15 years Hx Smoking Cessation Date Hx Smoking Cessation Counseling Hematologic Medial History Hematologic Hx - civil drafting technician: Hematologic Medical Hx - cardiovascular disease specialist Hx of Blood Transfusion No 07/24/24 11:05 Hx of Transfusion in last 3 No 07/24/24 11:05 Months Date of Last Transfusion (if within last 3 months) Ever experience any problems No 07/24/24 11:05 with transfusion(s)? Specify any problems Hx of Preganancy in last 3 No 07/24/24 11:05 Months Nurse Filling Out Transfusion DSCHRIBER 07/24/24 11:05 & Questions: Date: 07/24/24 07/24/24 11:05 Time: 11:06 07/24/24 11:05 Patient unable to answer at this time (ie. confused, unrespo /Reproduction History /Reproductive History - civil drafting technician: /Reproductive Hx- civil drafting technician Hx Now No 07/24/24 11:05 Gestational Age (in weeks): EDC: Hx Hx Para Hx Section SAB No 07/24/24 11:05 Active Medications Active Medications: Current Medications Generic Name Dose Route Start Last Admin Trade Name Freq PRN Reason Stop Dose Admin Cefazolin Sodium 2 gm/ N/A 20 mls @ 400 mls/hr 08/19/24 14:10 IV 08/19/24 14:12 PREOP ONE PFSH Medical History Wears glasses Wears contact lenses Wears partial dentures Post-menopausal Depression High cholesterol DVT (deep venous thrombosis) Back pain Seasonal allergies Non-smoker History of stress test Osteoarthritis Hypothyroidism Hypertension Home Medications ?Medication ?Instructions ?Recorded ?Last Taken ?Type calcium 500 mg (as 1 ea PO BID SUPP;EMENT 04/30 Unknown History carbonate)-vitamin D3 15 mcg (600 unit) tablet multivitamin 1 ea PO DAILY 04/30/18 Unkno wn History omega-3 fatty acids-fish oil 340 1 ea PO DAILY 8 Unknown History mg-1,000 mg capsule pravastatin 40 mg tablet 40 mg PO QHS 04/30/18 Unknow n History vitamin E 670 mg (1,000 unit) 1,000 unit PO DAILY 04/03 Unknown History capsule losartan 100 mg tablet 100 mg PO DAILY 06/26/19 History famotidine 40 mg tablet 40 mg PO Q12H 03/28/23 Unkno wn History fexofenadine 180 mg tablet 360 mg PO BID 03/28/23 Unkn own History (Kirstie Allergy) bupropion HCl 150 mg 24 hr tablet, 150 mg PO DAILY 11/22 Unknown History extended release thyroid (pork) 90 mg tablet (MANAGER MUTUAL FUND 90 mg PO DAILY 4 08/19/24 History Thyroid) omalizumab 150 mg/mL subcutaneous 150 mg subcut Q4W Unknown History auto-injector (Xolair) Lactobacillus acidophilus 250 500 mmu cells PO DAILY 0 07/24/24 Unknown History million cell capsule (Probiotic Acidophilus) Allergy/AdvReac Type Severity Reaction Status Date / Time No Known Allergies Allergy Verified 08/19/24 09:35 Surgical History (Updated 08/19/24 @ 09:[address] José Miguel Tatum MD) History of bunionectomy of right great toe Hx of fracture of wrist Hx of knee surgery Social History Smoking Status: Never smoker Review of Systems (Anesthesia) ROS Narrative System reviewed and no additional complaints, except as documented.
--- NOTE | 2024-08-19 10:03 | PCM.HP.BLA ---
History and Physical Date of Admission: 08/19/24 [facility] [address] [place] [address] OFFICE VISIT Date of Service: 07/14/24 MR#: [id number] Acct: [id number] Name: KJ DUMAS Rep #: [id number] : 1950 Provider: Dr. Sergo Gipson DO Age/Sex: 73/F Location[place] [facility] [place] Status: Signed Intake Vital Signs 10/04/2417:33 07/08/2508:49 Height 5 ft 5 in 5 ft 5 in Intake Visit Reasons: BILATERAL HANDS Chief Complaint: Left shoulder pain Allergies No Known Allergies Allergy (Verified 07/14/24 13:30) Medications ?Medication ?Instructions ?Recorded ?Confirmed ?Type calcium 500 mg (as 1 ea PO BID SUPP;EMENT 04/30/18 07/14/24 History carbonate)-vitamin D3 15 mcg (600 unit) tablet multivitamin 1 ea PO DAILY 04/30/18 07/14/24 History omega-3 fatty acids-fish oil 340 1 ea PO DAILY 04/30/18 07/14/24 History mg-1,000 mg capsule pravastatin 40 mg tablet 40 mg PO DAILY 04/30/18 07/14/24 History vitamin E 670 mg (1,000 unit) 1,000 unit PO DAILY 04/30/18 07/14/24 History capsule losartan 100 mg tablet 100 mg PO DAILY 06/26/19 07/14/24 History famotidine 40 mg tablet 40 mg PO Q12H 03/28/23 07/14/24 History fexofenadine 180 mg tablet 360 mg PO DAILY 03/28/23 07/14/24 History (Kirstie Allergy) bupropion HCl 150 mg 24 hr tablet, 150 mg PO DAILY 10/05/23 07/14/24 History extended release thyroid (pork) 90 mg tablet (TAPPER HAND 90 mg PO DAILY 10/05/23 07/14/24 History Thyroid) omalizumab 150 mg/mL subcutaneous 150 mg subcut Q4W 06/11/24 07/14/24 History auto-injector (Xolair) Have you fallen in the past year?: No [facility] Medical History Rash Borderline hyperlipidemia Osteoarthritis Hypothyroidism Hypertension Surgical History History of surgery on left wrist History of arthroplasty of right knee Social History Smoking Status: Never smoker HPI BILATERAL HANDS Details: This documentation accurately reflects the service provided and the decisions made by me, Dr. Sergo Gipson, DO 07/14/24 0834. Part of today?s visit was documented by Nica NELSON, acting as scribe. KJ DUMAS is a 73 year old F here today for bilateral hand EMG review. She denies any changes. 06/11/2024 visit: 73 year old F here today for bilateral hands. She states that this past summer her hands would go numb. Then in April she started having severe pain. She has stiffness which is worse in the morning. She tried working on range of motion with a ball. She notes that she has decreased strength and is dropping dishes. She notes that her numbness is into her entire hand although it is worse in her thumb and palm. She complains of pain into her index and middle finger as well. She isnt able to take NSAIDs due to allergy injections. She has been taking tylenol which is not helpful. Patient denies any injections, physical therapy, or treatment.She denies any xrays. She is right hand dominant. Patient had a left wrist fracture and surgery [address] Cabral. She denies any radiating pain from her cervical spine. Plan: Recommended an EMG to evaluate her nerves and what nerve is being compressed. She may wear wrist braces at night. She is unable to take NSAIDs due to a recommended of her collar setter overlock Ortho Exam General General: Yes no acute distress Neurologic: Yes alert and Yes oriented x3 Psychologic: Yes reasonable and appropriate Right Wrist/Hand Skin/Wound: No Swelling, No Ecchymosis, Yes nail intact and Yes capillary refill normal Right Wrist: Yes Durken's Test, Phalen's, CMC Grind and tender to palpate carpometacarpal joint WRIST: 2cm tip to palm Left Wrist/Hand Skin/Wound: No Swelling, No Ecchymosis, Yes nail intact, Yes capillary refill normal and No erythema Left Wrist: Yes Durken's Test and Yes Phalen's WRIST: full pronation, 88 supination, 50 extension, 50 flexion, well healed volar scar. prominence at base of thumb bilaterally. positive tinels into middle finger. dorsal first webspace interosseous wasting bilaterally. negative tinels at elbow, tingling with elbow flexion Head: Normocephalic Atraumatic Chest: symmetrical rise, non-labored breathing, no audible wheeze Abdomen: no guarding, non-rigid Supplemental Info 07/14/2024 x-ray left hand: There is advanced first CMC joint arthrosis, orthopedic hardware in the distal radius, mild degenerative changes of the IP and DIP joints 07/14/2024 x-ray right hand moderate first CMC joint arthrosis mild degenerative changes in the PIP and DIP joints 07/09/2024 EM. Electrodiagnostic findings suggestive of bilateral median mononeuropathy. This is consistent with a moderate bilateral carpal tunnel syndrome. 03/28/2023 x-ray left shoulder: No acute findings 12/20/2020 MRI cervical spine: C5/C6: Moderate right and moderate left foraminal stenosis. 08/25/2020 x-ray left shoulder: No acute findings 08/25/2020 x-ray cervical spine:Moderate degenerative disc disease C5-6And C6-7 Coding Level of Care Code Off vis,est,level 4 Diagnoses Carpal tunnel syndrome, bilateral G56.03 Arthritis of carpometacarpal (CMC) joint of both thumbs M18.0 Assessment and Plan Assessment and Plan (1) Carpal tunnel syndrome, bilateral: Status: Acute (2) Arthritis of carpometacarpal (CMC) joint of both thumbs: Status: Acute Orders: Orders Hand Min 3 Views Today M79.642 - Pain in left hand Hand Min 3 Views Today M79.641 - Pain in right hand Plan Patient is here today for bilateral hand EMG review. I reviewed her EMGs today and advised her that she does have moderate carpal tunnel in both hands. I advised patient that pain and stiffness in her knuckles is a sign or arthritis and not related to her carpal tunnel syndrome. Spoke patient that her non surgical options would be night bracing which she has been doing for 5 weeks, anti-inflammatories. Her surgical option would be a carpal tunnel release. I did review risk benefits and alternatives of surgical nonsurgical intervention including but not limited to incisional hypersensitivity pillar pain continued symptoms stiffness nerve injury infection and expected postoperative course spoke with her that after surgery she will have restrictions for .5lb for the first 2 weeks the a 5lb restrictions for the next week. Reviewed xrays of her bilateral hands today with patient and advised her that she does have arthritis mostly at the CMC joint but at a lesser degree in the interphalangeal joints. Patient wishes to proceed with a right open carpal tunnel release with a left carpal tunnel injection at the time of the surgery. Tentative surgery date August 05, 2024 Instructed to hold NSAIDs 7 days prior to surgery Clinical Quality Measures Falls Risk Screening/Assistive Devices Have you fallen in the past year?: No 07/14/24 1532 <Electronically signed by Sergo Gipson DO> Date Sergo Gipson DO Cosigner Signature: Date (if applicable) I have examined the patient and the H&P has been reviewed. There are no clinical changes since date of exam.
[2024-08-19] MEDS: Cefazolin 2 GM in Syringe IV (10:45)
[2024-08-19] MEDS: Bupiv/Epi 0.25% 30 ML Vial (11:00)
[2024-08-19] MEDS: Bupivacaine 0.25% 30 ML Vial (11:14)
[2024-08-19] MEDS: MethylPREDNISolone Acetate 40 MG/ML Vial (11:15)
--- NOTE | 2024-08-19 11:26 | OP.PCM_ITS ---
Operative Report (Standard) Operative Information Date of Procedure: 08/19/24 Pre-Operative Diagnosis: Bilateral carpal tunnel syndrome Post-Operative Diagnosis: Same Surgery/Procedure Performed: Right open carpal tunnel release left carpal tunnel injection grain merchandiser: Yes Dispensing Operator: Zain Rodriguez Tasks completed by tourist information assistant: Opening & closing Type of Anesthesia: Local and MAC RN Documented Start/Stop Times: Operation Date: 08/19/24 10:45 Case Time Into Pre-Op 08/19/24 09:15 Out of Pre-Op 08/19/24 10:42 Anesthesia Start 08/19/24 10:48 Into Room 08/19/24 10:48 Procedure Start 08/19/24 11:00 Procedure End 08/19/24 11:16 Anesthesia End 08/19/24 11:22 Out of Room 08/19/24 11:22 Procedure Start Time: 11:00 Procedure Stop Time: 11:16 Select all DRAINS/GRAFTS/IMPLANTS that apply: None Estimated Blood Loss: 0 Specimen collected: No Description of surgery: Preoperative diagnosis; bilateral carpal tunnel syndrome Postoperative diagnosis; same Procedure: Right open carpal tunnel release left carpal tunnel injection Anesthesia: Local with MAC Tourniquet time; [10] minutes 250 mm Hg Complications: None Indication for procedure; This is a 73-year-old [female] with long-standing symptoms consistent with carpal tunnel syndrome the patient did have electrodiagnostic evidence of this and has failed conservative treatment. Risks benefits and alternatives were reviewed including risks of bleeding infection nerve artery tissue damage need for further surgery and continued pain and symptoms, hypersensitivity to scar and Pillar pain. Procedure; The patient was met in the preoperative holding area the operative extremity was identified by both patient and physician and was marked the patient was met by anesthesia and brought back to the operating room and transferred to the operating table in the supine position. Anesthesia was started. A well-padded tourniquet was placed on the operative upper extremity. The patient was prepped and draped in the usual sterile fashion. A timeout was called to ensure the proper patient procedure and extremity were being contemplated. 0.5 percent [ Lidocaine] with epinephrine was injected into the incisional area. An Esmarch was used to exsanguinate the extremity. The tourniquet was inflated to 250 mmHg. A midline incision was made with a 15 blad e scalpel between the thenar and hypothenar eminence. This was carried down through the skin and subcutaneous tissue. Matt retractors were then used, a deep blade scalpel was used to make a deep incision in the palmar aponeurosis. The matt retractors were then placed deep to this and the transverse carpal ligament was identified a perforation was made with a scalpel and a Littler scissors were used to complete the release of the transverse carpal ligament distally under direct visualization with the tips facing ulnarly until the perivascular fat was reached. Then turning our attention proximally using a tension slide technique the proximal extent of the transverse carpal ligament was released . There was noted to be [hourglass configuration to the median nerve and hypertrophy of the transverse carpal ligament without other findings]. The wound was thoroughly irrigated and was closed with 4-0 nylon vertical mattress stitches. Dressing was applied in the form of xeroform 4 x 4, web roll and an charla wrap. Tourniquet was let down there is no intraoperative complications patient tolerated the procedure well Attention was turned to the left carpal tunnel it was prepped with alcohol and was injected with 20 mg of Depo-Medrol and 0.5 cc of 0.25% Marcaine plain Band- Aid was applied Did well and was transferred to the PACU. All counts were correct. Surgical Findings: Hypertrophied transverse carpal ligament Complications Complications: No
--- NOTE | 2024-08-19 11:28 | PCM.POST.ANE ---
Anesthesia: Postop Eval I Current Vital Signs Temperature: 98.3 F Pulse Rate: 68 Blood Pressure: 148/83 Respiratory Rate: 16 Pulse Ox: 99 Assessment Airway patent: Yes Spontaneous unlabored respirations: Yes nausea: No Vomiting: No Anesthesia Complication: No Fluid Hydration Crystalloid volume administer (ml): 20 Total IV fluid infused: 20 Progress Note Anesthesia document: Postop Eval 1 completed: Yes
--- NOTE | 2024-08-19 11:29 | DCINST_ITS ---
Discharge Instructions Diet Discharge Diet: No restrictions Dressing / Incision Call your doctor if you observe: Shortness of breath and Chest pain Additional Dressing/Incision Instructions:: Ice and elevate operative extremity next 72 hours. Keep dressing on clean and dry for 48 hours then may remove and allow warm soapy water to rinse over incision but do not submerge until sutures are out. Then apply bandaid over incision and change daily. encourage finger range of motion. Not lift more than 1/2 pound. Minimize narcotic use only as needed and directed, may use OTC NSAID and Tylenol to supplement/substitute for pain control. Follow Up Care Please Follow Up With: Segro Gipson DO When: 2 weeks Test Results: Test results from this visit will be discussed in further detail at your follow- up appointment, if applicable. Discharge Plan Admission Primary Reason for Your Visit: Right carpal tunnel release Attending Provider: Sergo Gipson Primary Care Provider: Lamine Manzanares Chi Instructions Print Language: Greenlandic Discharge Orders/Prescriptions Prescriptions: No Action famotidine 40 mg tablet 40 mg PO Q12H Patient Comments: TAKE 1 TABLET BY MOUTH TWICE DAILY 30-60 MINUTES BEFORE BREAKFAST AND EVENING MEAL fexofenadine [Kirstie Allergy] 180 mg tablet 360 mg PO BID Xolair 150 mg/mL auto-injector 150 mg subcut Q4W multivitamin 1 EACH tablet 1 ea PO DAILY vitamin E 1,000 UNIT capsule 1,000 unit PO DAILY pravastatin 40 MG tablet 40 mg PO QHS omega-3 fatty acids-fish oil 1 EACH capsule 1 ea PO DAILY calcium carbonate-vitamin D3 1 EACH tablet 1 ea PO BID losartan 100 MG tablet 100 mg PO DAILY thyroid (pork) [SENIOR DIRECTOR OF STRATEGY Thyroid] 90 mg tablet 90 mg PO DAILY bupropion HCl 150 mg tablet extended release 24 hr 150 mg PO DAILY Probiotic Acidophilus 250 million cell capsule 500 mmu cells PO DAILY Referrals / Follow Up: Lamine Manzanares Chi, MD [Primary Care Provider] - Disposition Disposition (needs filled in before D/C Order can be placed): Home, Self Care
--- NOTE | 2024-08-19 18:18 | POSTOPAN2_ITS ---
Anesthesia Postop Eval I Sum Postop Eval Completion status Anesthesia document: Postop Eval 1 completed: Yes Anesthesia Postop Eval I Summary Anesthesia Postop Eval I Summary: Anesthesia Postop Eval I: Assessment Summary Airway patent Yes 08/19/24 11:28 DIRECTOR [email or web address] Spontaneous unlabored Yes 08/19/24 11:28 DIRECTOR [email or web address] respirations Mental status nausea No 08/19/24 11:28 DIRECTOR [email or web address] Vomiting No 08/19/24 11:28 DIRECTOR [email or web address] Anesthesia Postop Eval I: Fluid Summary Crystalloid volume administer 20 08/19/24 11:28 DIRECTOR [email or web address] (ml) Colloids volume administered ( ml) Blood Product volume administered (ml) Total IV fluid infused 20 08/19/24 11:28 DIRECTOR [email or web address] Anesthesia Postop Eval I: Summary Notes Anesthesia Complication No 08/19/24 11:28 DIRECTOR [email or web address] Anesthesia Complication Comment: Post-operative progress note Anesthesia: Postop Eval II Evaluation Mental status: Awake and Calm Pain Level: 1 nausea: No Vomiting: No Complications Anesthesia Complication: No
--- NOTE | 2024-08-19 18:18 | PCM.POSTANE2 ---
Anesthesia Postop Eval I Sum Postop Eval Completion status Anesthesia document: Postop Eval 1 completed: Yes Anesthesia Postop Eval I Summary Anesthesia Postop Eval I Summary: Anesthesia Postop Eval I: Assessment Summary Airway patent Yes 08/19/24 11:28 BUSINESS [email or web address] Spontaneous unlabored Yes 08/19/24 11:28 BUSINESS [email or web address] respirations Mental status nausea No 08/19/24 11:28 BUSINESS [email or web address] Vomiting No 08/19/24 11:28 BUSINESS [email or web address] Anesthesia Postop Eval I: Fluid Summary Crystalloid volume administer 20 08/19/24 11:28 BUSINESS [email or web address] (ml) Colloids volume administered ( ml) Blood Product volume administered (ml) Total IV fluid infused 20 08/19/24 11:28 BUSINESS [email or web address] Anesthesia Postop Eval I: Summary Notes Anesthesia Complication No 08/19/24 11:28 BUSINESS [email or web address] Anesthesia Complication Comment: Post-operative progress note Anesthesia: Postop Eval II Evaluation Mental status: Awake and Calm Pain Level: 1 nausea: No Vomiting: No Complications Anesthesia Complication: No
== END 2024-08-19 12:37 | disposition home or self-care (01) ==
LOC: SDC 09:10 → AC 09:11
PROVIDERS: PCP Family Medicine Geriatric Medicine; Referring Provider Orthopaedic Surgery; Visit Provider Orthopaedic Surgery
PROC: (CPT 64721; principal; 2024-08-19 10:30)
DX: G56.03 Carpal tunnel syndrome, bilateral upper limbs (principal); I10 Essential (primary) hypertension; Z79.899 Other long term (current) drug therapy
CPT/HCPCS: 64721; 20526; 01810; A4216

== ENCOUNTER → 2024-09-25 | Outpatient (CLI) | payer MEDICARE, OTHER, SELFPAY ==
[2024-09-25 09:53] LABS: Absolute Lymphocyte Count 2.52 X10^3/uL (0.83-4.51); Absolute Neutrophil Count 5.5 X10^3/uL (2.0-7.7); Basophil# 0.02 X10^3/uL; Basophil% 0.2 % (0-1); Eosinophil# 0.68 X10^3/uL; Eosinophils% 7.3 % (0-5); Hematocrit 40.2 % (37-47); Lymphocyte # 2.52 X10^3/ul (0.83-4.51); Lymphocyte % 27.2 % (19-41); Mean Corp Hgb Conc 32.3 g/dL (32-36); Mean Corpuscular Hgb 28.9 pg (27.0-32.0); Mean Corpuscular Volume 89.3 fL (81-99); Mean Platelet Vol. 9.6 fl (6.2-12.0); Monocyte# 0.49 X10^3/uL; Monocyte% 5.3 % (0-10); NRBC Flagged by Analyzer 0 % (0-5); Neutrophil # 5.53 X10^3/uL (2.7-7.7); Neutrophil % 59.8 % (47-70); Platelet Count 275 K/mm3 (150-450); RBC Distribution Width CV 13.2 % (11.6-14.6); RBC Distribution Width SD 43.2 fl (35.1-43.9); White Blood Count 9.3 K/mm3 (4.4-11.0)
[2024-09-25 11:22] LABS: ALB/GLOB Ratio 0.9 RATIO (0.9-2.4); AST(SGOT) 18 U/L (<=31); Alanine Aminotransfer ALT/SGPT 14 U/L (<=34); Albumin, Serum 2.9 g/dL (3.4-4.8); Alkaline Phosphatase 121 U/L (35-104); Anion Gap 11 (5-15); BUN 10 mg/dL (4-19); Calcium,Total 8.3 mg/dL (7.6-11.0); Carbon Dioxide 23.6 mmol/L (21.0-32.0); Chloride 107 mmol/L (98-108); Creatinine, Serum 0.69 mg/dL (0.70-1.20); EST Glomerular Filtration Rate 92 (>60); Globulin 3.4 g/dL (2.2-4.2); Glucose 87 mg/dL (70-99); Potassium 3.8 mmol/L (3.3-5.1); Protein, Total 6.3 g/dL (5.9-8.4); Sodium Level 141 mmol/L (133-145); Total Bilirubin 0.32 mg/dL (0.00-1.30); Vitamin D,25 Hydroxy 40.2 ng/mL (30-100)
== END | disposition home or self-care (01) ==
LOC: POLAB3 09:26
PROVIDERS: PCP Family Medicine Geriatric Medicine; Visit Provider Family Medicine Geriatric Medicine
DX: I10 Essential (primary) hypertension (principal); E55.9 Vitamin D deficiency, unspecified
CPT/HCPCS: 36415; 80053; 82306; 84443; 85025

== ENCOUNTER → 2024-11-06 | Outpatient (CLI) | payer MEDICARE, OTHER, SELFPAY ==
[2024-11-06 15:37] LABS: Thyroid Stim Hormone (TSH) 0.358 uIU/mL (0.300-4.200)
== END | disposition home or self-care (01) ==
LOC: LAB 14:13
PROVIDERS: PCP Family Medicine Geriatric Medicine; Referring Provider Family Medicine Geriatric Medicine; Visit Provider Family Medicine Geriatric Medicine
DX: E03.9 Hypothyroidism, unspecified (principal)
CPT/HCPCS: 36415; 84443

== ENCOUNTER 2024-11-20 19:07 | Emergency (ER) | payer MEDICARE, OTHER, SELFPAY ==
[2024-11-20] VITALS (13 sets, daily range): BP systolic 145–209; BP diastolic 63–78; PULSE 63–90; RESP 12–24; TEMP 36.4–36.5; O2SAT 97–100; BMI 27.1
--- NOTE | 2024-11-20 19:28 | ED.VIS.CHEST ---
HPI History of Present Illness Chief Complaint: Chest Pain Informant: patient and family Narrative Narrative: 74-year-old female presenting to the emergency room out of concerns regarding chest pain. Patient states couple weeks ago she began to feel very sharp intermittent pains in her chest. She states over the past week or so she has been have intermittent bursts of left jaw and arm pain which she states lasts seconds and more of a dull throbbing. They seem to be worse at night. She is beginning to notice symptoms underneath the left breast that are also intermittent. Today the jaw pain lasted a couple hours. Today is her birthday. She notes no change in exercise tolerance but has felt more fatigued the past week. She notes that she had her thyroid medication increased about 6 weeks ago. She denies any leg swelling. No cough or fever. She notes not much of an appetite which has been an ongoing issue. She has had prior stress test but no heart catheterization. She does not have a history of hypertension and dyslipidemia. [facility] Medical History Wears glasses Wears contact lenses Wears partial dentures Post-menopausal Depression High cholesterol DVT (deep venous thrombosis) Back pain Seasonal allergies Non-smoker History of stress test Osteoarthritis Hypothyroidism Hypertension Home Medications ?Medication ?Instructions ?Recorded ?Last Taken ?Type calcium 500 mg (as 1 ea PO BID SUPP;EMENT 04/30/18 Unknown History carbonate)-vitamin D3 15 mcg (600 unit) tablet multivitamin 1 ea PO DAILY 04/30/18 Unknown History omega-3 fatty acids-fish oil 340 1 ea PO DAILY 04/30/18 Unknown History mg-1,000 mg capsule pravastatin 40 mg tablet 40 mg PO QHS 04/30/18 Unknown History vitamin E 670 mg (1,000 unit) 1,000 unit PO DAILY 04/30/18 Unknown History capsule losartan 100 mg tablet 100 mg PO DAILY 06/26/19 08/19/24 History famotidine 40 mg tablet 40 mg PO Q12H 03/28/23 Unknown History fexofenadine 180 mg tablet 360 mg PO BID 03/28/23 Unknown History (Kirstie Allergy) bupropion HCl 150 mg 24 hr tablet, 150 mg PO DAILY 10/05/23 Unknown History extended release thyroid (pork) 90 mg tablet (FURNITURE MECHANIC 120 mg PO DAILY 10/05/23 08/19/24 History Thyroid) omalizumab 150 mg/mL subcutaneous 150 mg subcut Q4W 06/11/24 Unknown History auto-injector (Xolair) Lactobacillus acidophilus 250 500 mmu cells PO DAILY 07/24/24 Unknown History million cell capsule (Probiotic Acidophilus) Allergy/AdvReac Type Severity Reaction Status Date / Time No Known Allergies Allergy Verified 11/20/24 19:08 Surgical History History of bunionectomy of right great toe Hx of fracture of wrist Hx of knee surgery Social History Smoking Status: Never smoker ROS ROS ED Constitutional Constitutional ED: Denies chills, fever(s) or weight loss Eyes Eyes: Denies change in vision or diplopia ENT ENT ED: Denies ear pain, rhinorrhea or sore throat Cardiovascular Cardiovascular: Reports as per HPI and chest pain; Denies orthopnea, palpitations or racing heartbeat Respiratory/Chest Respiratory/Chest: Denies cough, dyspnea or orthopnea Gastrointestinal Gastrointestinal: Denies abdominal pain, diarrhea, nausea or vomiting Genitourinary Genitourinary ED: Denies dysuria, hematuria or urinary frequency Musculoskeletal Musculoskeletal: Denies arthralgias or myalgias Integumentary Denies abscess or rash Neurologic Neurologic: Denies headache(s) or weakness Psychiatric Psychiatric: Denies anxiety, depression, suicidal ideation or suicidal thoughts Endocrine Endocrinology: Denies polydipsia, polyphagia or polyuria Allergic/Immunologic Allergic/Immunologic ED: Denies mouth swelling, tongue swelling or urticaria EXAM Physical Exam Const Vital Signs: 11/20/24 19:08 11/20/24 19:32 11/20/24 19:45 Temperature 97.6 F L Temperature Source Temporal Pulse Rate 90 77 64 Respiratory Rate 16 19 H 19 H Blood Pressure 209/78 H 154/71 H Blood Pressure Mean 121 94 Pulse Ox 100 100 100 Oxygen Delivery Method Room Air 11/20/24 20:00 11/20/24 20:15 11/20/24 20:30 Temperature Temperature Source Pulse Rate 70 63 66 Respiratory Rate 21 H 15 24 H Blood Pressure 145/65 H 153/72 H 150/63 H Blood Pressure Mean 84 90 84 Pulse Ox 100 100 100 Oxygen Delivery Method 11/20/24 20:45 Temperature Temperature Source Pulse Rate 69 Respiratory Rate 20 H Blood Pressure 173/72 H Blood Pressure Mean 98 Pulse Ox 100 Oxygen Delivery Method Positive well nourished and well developed General Appearance ED: well developed HEENT Reports normocephalic, head/scalp atraumatic and moist mucous membranes Eyes PERRL and EOMs intact bilaterally Neck no lymphadenopathy, supple and no JVD Resp normal respiratory effort and clear to auscultation bilaterally Cardio regular rate, regular rhythm and no murmurs Peripheral Pulses: pulses 2+ throughout GI normal to inspection, nondistended, normoactive bowel sounds and non-tender Palpation: soft Back/Spine no CVA tenderness and normal ROM Extremity normal to inspection General Extremety ED: Negative for edema General Extremity: Negative for edema Neuro oriented x3 and CN's II-XII intact bilaterally Sensorium / Orientation: alert Motor Exam: strength 5/5 throughout Psych mental status grossly normal Mood & Affect: Negative for depressed or tearful Skin no rashes or lesions noted and no wounds MDM MDM MDM Narrative Medical decision making narrative: Differential diagnosis includes but not limited to acute coronary syndrome chest wall pain pleural effusion pleurisy costochondritis diaphragmatic irritation Patient's EKG is a normal sinus rhythm ischemia. Initial troponin is 8 glucose 108 white count of 6 hemoglobin 12 platelet count 259. Patient's creatinine 0.89. My independent interpretation of the chest x-ray is no acute process. A second troponin was obtained and was Patient's blood pressure has been significantly better from her triage. Currently 145/81. History & Record Review Discussion w/independent historian: Patient and Family Additional record(s) reviewed:: Prior outpatient record, Prior ED visit and Prior labs Lab Data Attestation: I reviewed the patient's lab results. Labs: Laboratory Results - last 24 hr 11/20/24 19:33 WBC 6.0 RBC 4.11 L Hgb 12.0 Hct 36.4 L MCV 88.6 MCH 29.2 MCHC 33.0 RDW Std Deviation 39.9 RDW Coeff of Angela 12.3 Plt Count 259 MPV 9.3 Immature Gran % (Auto) 0.200 Neut % (Auto) 47.2 Lymph % (Auto) 42.0 H [place] % (Auto) 6.9 Eos % (Auto) 3.2 Baso % (Auto) 0.5 Absolute Neuts (auto) 2.8 Absolute Lymphs (auto) 2.51 Nucleated RBC % 0 Sodium 140 Potassium 3.8 Chloride 106 Carbon Dioxide 24.4 Anion Gap 11 BUN 9 Creatinine 0.89 Estim Creat Clear Calc 55.83 Est GFR (MDRD) Non-Af 68 BUN/Creatinine Ratio 9.6 L Glucose 108 H Calcium 10.0 Troponin T High Sens 8 Radiography Diagnostic Testing: Clinical Impression(s) from Imaging Studies Chest X-Ray 11/20/24 19:31 IMPRESSION: No focal consolidations. Reading Location: [facility] EKG Initial EKG: Attestation: I personally reviewed and interpreted this EKG as follows: Comments: Normal sinus rhythm ventricular rate of 82 bpm Discharge Plan Triage Chief Complaint: Chest Pain ED Provider: Rui Qureshi Dx/Rx/DC Orders Clinical Impression: Chest pain, Hypertension Prescriptions: No Action famotidine 40 mg tablet 40 mg PO Q12H Patient Comments: TAKE 1 TABLET BY MOUTH TWICE DAILY 30-60 MINUTES BEFORE BREAKFAST AND EVENING MEAL fexofenadine [Kirstie Allergy] 180 mg tablet 360 mg PO BID Xolair 150 mg/mL auto-injector 150 mg subcut Q4W multivitamin 1 EACH tablet 1 ea PO DAILY vitamin E 1,000 UNIT capsule 1,000 unit PO DAILY pravastatin 40 MG tablet 40 mg PO QHS omega-3 fatty acids-fish oil 1 EACH capsule 1 ea PO DAILY calcium carbonate-vitamin D3 1 EACH tablet 1 ea PO BID losartan 100 MG tablet 100 mg PO DAILY thyroid (pork) [FURNITURE MECHANIC Thyroid] 90 mg tablet 120 mg PO DAILY bupropion HCl 150 mg tablet extended release 24 hr 150 mg PO DAILY Probiotic Acidophilus 250 million cell capsule 500 mmu cells PO DAILY Primary Care Provider: Lamine Manzanares Chi Referrals: Lamine Manzanares Chi, MD [Primary Care Provider] - Print Language: South Korean
--- NOTE | 2024-11-20 19:30 | EKG12_ITS ---
Test Reason : CP Blood Pressure : */* mmHG Vent. Rate : 82 BPM Atrial Rate : 82 BPM P-R Int : 168 ms QRS Dur : 84 ms QT Int : 368 ms P-R-T Axes : 73 27 41 degrees QTcB Int : 429 ms Normal sinus rhythm Possible Left atrial enlargement Nonspecific ST and T wave abnormality Abnormal ECG Confirmed by JIMENA LYNCH, ELIJAH ([id number]), order editor AMPARO PLATT ([id number]) on 11/25/2024 6:53:25 AM Referred By: Rui Qureshi Confirmed By: ELIJAH HESS MD
--- NOTE | 2024-11-20 19:31 | RAD_ITS ---
PROCEDURE: CHEST 1 VIEW (PORTABLE) 11/20/2024 REASON FOR EXAM: CHEST PAIN TECHNIQUE: Frontal view of the chest. COMPARISON: None FINDINGS: No focal consolidation. No pleural effusion or pneumothorax. Cardiac silhouette is unremarkable. No acute fractures. RAD/Chest 1 View (Portable) IMPRESSION: No focal consolidations. Reading Location: [id number]
[2024-11-20 19:39] LABS: Absolute Lymphocyte Count 2.51 X10^3/uL (0.83-4.51); Absolute Neutrophil Count 2.8 X10^3/uL (2.0-7.7); Basophil# 0.03 X10^3/uL; Basophil% 0.5 % (0-1); Eosinophil# 0.19 X10^3/uL; Eosinophils% 3.2 % (0-5); Hematocrit 36.4 % (37-47); Lymphocyte # 2.51 X10^3/ul (0.83-4.51); Mean Corpuscular Hgb 29.2 pg (27.0-32.0); Mean Corpuscular Volume 88.6 fL (81-99); Mean Platelet Vol. 9.3 fl (6.2-12.0); Monocyte# 0.41 X10^3/uL; Monocyte% 6.9 % (0-10); NRBC Flagged by Analyzer 0 % (0-5); Neutrophil # 2.83 X10^3/uL (2.7-7.7); Neutrophil % 47.2 % (47-70); Platelet Count 259 K/mm3 (150-450); RBC Distribution Width CV 12.3 % (11.6-14.6); RBC Distribution Width SD 39.9 fl (35.1-43.9); Red Blood Count 4.11 M/mm3 (4.2-5.4)
[2024-11-20 20:00] LABS: Anion Gap 11 (5-15); BUN 9 mg/dL (4-19); BUN/Creat Ratio 9.6 RATIO (10-20); Carbon Dioxide 24.4 mmol/L (21.0-32.0); Chloride 106 mmol/L (98-108); Creatinine, Serum 0.89 mg/dL (0.70-1.20); EST Glomerular Filtration Rate 68 (>60); Estimated Creatinine Clearance 55.83 ml/min (50-250); Glucose 108 mg/dL (70-99); Potassium 3.8 mmol/L (3.3-5.1); Sodium Level 140 mmol/L (133-145); Troponin T High Sensitivity 8 ng/L (<=14)
[2024-11-20 22:09] LABS: Troponin T High Sens 2 HR 8 ng/L (<=14)
== END 2024-11-20 22:29 | disposition home or self-care (01) ==
PROVIDERS: Emergency Provider Emergency Medicine; PCP Family Medicine Geriatric Medicine; Referring Provider Emergency Medicine; Visit Provider Emergency Medicine
DX: R07.9 Chest pain, unspecified (principal); I10 Essential (primary) hypertension; Z79.899 Other long term (current) drug therapy
CPT/HCPCS: 36415; 71045; 80048; 84484; 85025; 93005; 99283; A4216

== ENCOUNTER → 2025-02-20 | Outpatient (CLI) | payer MEDICARE, OTHER, SELFPAY ==
--- NOTE | 2025-02-20 09:10 | RAD_ITS ---
EXAM: Single and double contrast esophagram CLINICAL HISTORY: Dysphagia, pharyngo esophageal phase COMPARISON: None. TECHNIQUE: Single and double contrast esophagram FINDINGS: Limited imaging of the swallowing mechanism shows no abnormality. No aspiration was identified. The esophagus shows no area of persistent narrowing. No mucosal changes are identified. A widely patent esophagogastric junction was seen. Limited imaging of the stomach and duodenum show no abnormality. During the time of imaging, gastroesophageal reflux was not elicited. No hiatal hernia was seen. RAD/Esophagus Dual Contrast IMPRESSION: No significant abnormality is identified Reading Location: [place] [id number]
== END | disposition home or self-care (01) ==
LOC: RAD 08:49
PROVIDERS: PCP Family Medicine Geriatric Medicine; Referring Provider Otolaryngology Otolaryngology/Facial Plastic Surgery; Visit Provider Otolaryngology Otolaryngology/Facial Plastic Surgery
DX: R13.14 Dysphagia, pharyngoesophageal phase (principal)
CPT/HCPCS: 74221

== ENCOUNTER → 2025-04-02 | Outpatient (CLI) | payer MEDICARE, OTHER, SELFPAY ==
[2025-04-02 09:34] LABS: Hematocrit 36.0 % (37-47); Hemoglobin 11.9 g/dL (12.0-15.0); Immature Granulocytes Count 0.020 X10^3/uL (0.0-0.0); Mean Corp Hgb Conc 33.1 g/dL (32-36); Mean Corpuscular Volume 86.1 fL (81-99); Mean Platelet Vol. 9.6 fl (6.2-12.0); NRBC Flagged by Analyzer 0 % (0-5); Platelet Count 262 K/mm3 (150-450); RBC Distribution Width CV 12.5 % (11.6-14.6); RBC Distribution Width SD 39.6 fl (35.1-43.9); Red Blood Count 4.18 M/mm3 (4.2-5.4); White Blood Count 9.2 K/mm3 (4.4-11.0)
[2025-04-02 10:17] LABS: AST(SGOT) 24 U/L (<=31); Alanine Aminotransfer ALT/SGPT 20 U/L (<=34); Albumin, Serum 4.0 g/dL (3.4-4.8); Alkaline Phosphatase 120 U/L (35-104); Anion Gap 12 (5-15); BUN 9 mg/dL (4-19); BUN/Creat Ratio 13.8 RATIO (10-20); Calcium,Total 10.1 mg/dL (7.6-11.0); Carbon Dioxide 21.9 mmol/L (21.0-32.0); Chloride 104 mmol/L (98-108); Globulin 2.5 g/dL (2.2-4.2); Glucose 112 mg/dL (70-99); Potassium 3.8 mmol/L (3.3-5.1); Vitamin D,25 Hydroxy 45.0 ng/mL (30-100)
[2025-04-02 17:00] LABS: Xtra Tube Kwok EXTRA TUBE
== END | disposition home or self-care (01) ==
LOC: POLAB3 09:11
PROVIDERS: PCP Family Medicine Geriatric Medicine; Visit Provider Family Medicine Geriatric Medicine
DX: I10 Essential (primary) hypertension (principal); E03.9 Hypothyroidism, unspecified; E55.9 Vitamin D deficiency, unspecified
CPT/HCPCS: 36415; 80053; 82306; 84443; 85025

== ENCOUNTER → 2025-04-20 | Outpatient (CLI) | payer MEDICARE, OTHER, SELFPAY ==
--- NOTE | 2025-04-20 16:56 | RAD_ITS ---
PROCEDURE: FOOT MIN 3 VIEWS 04/20/2025 REASON FOR EXAM: PAIN IN FOOT TECHNIQUE: Procedure Code: RADFO Modality: DX Procedure: FOOT MIN 3 VIEWS Three views of the left foot COMPARISON: None FINDINGS: There is hardware fixation of the distal 1st metatarsal which appears well corticated. There is a oblique fracture in the 5th metatarsal diaphysis with 0.3 cm overriding. There is no definite callus formation. There is no dislocation. A benign-appearing calcaneal spur is noted. RAD/Foot min 3 Views IMPRESSION: There is hardware fixation of the distal 1st metatarsal which appears well lara icated. There is a oblique fracture in the 5th metatarsal diaphysis with 0.3 cm overrid ing, age-indeterminate. There is no definite callus formation. Reading Location: [id number]
--- OUTSIDE RECORDS SUMMARY | 2025-04-20 17:08 | XMS RPT_ITS | CCD ---
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 Lamine Jordan Primary Care Provider [phone] Leighton LYNCH, Dr. Lamine Jordan Referring Provider Dr. Sergo Gipson DO Attending Provider Leighton LYNCH, Dr. Lamine Jordan Attending Provider Dr. Sergo Gipson DO Referring Provider Dr. Sergo Gipson DO Other Provider [phone] Shen LYNCH, Dr. Otto Attending Provider Lavinia LYNCH, Dr. Naylor Attending Provider Leighton LYNCH, Dr. Lamine Jordan Primary Care Provider [phone] Leighton LYNCH, Dr. Lamine Jordan Referring Provider Dr. Sergo Gipson DO Attending Provider Leighton LYNCH, Dr. Lamine Jordan Attending Provider [phone] Sergo Gipson DO Referring Provider Dr. Sergo Gipson DO Other Provider [phone] Leighton LYNCH, Dr. Lamine Chi Primary Care Provider Leighton LYNCH, Dr. Lamine Jordan Attending Provider Leighton LYNCH, Dr. Lamine Jordan Referring Provider Kiera REN, Dr. Fabian Attending Provider [place] DO, Dr. Fabian Referring Provider Kiera REN, Dr. Fabian Emergency Provider Kamron LYNCH, Dr. Christopher Shanks Attending Provider Kamron LYNCH, Dr. Christopher Shanks Referring Provider LEIGHTON, LAMINE CHI Primary Care Unavailable ETHAN MIXON Attending Unavailable Leighton LYNCH, Dr. Lamine Jordan Primary Care Physician Kamron LYNCH, Dr. Christopher Shanks Attending Physician Leighton LYNCH, Dr. Lamine Jordan Attending Physician Leighton, Lamine Chi Primary Care Unavailable Leighton, Lamine Chi Attending Unavailable Leighton, Lamine Chi Primary Care Unavailable Leighton, Lamine Chi Attending Unavailable Leighton, Lamine Chi Primary Care Unavailable Leighton, Lamine Chi Referring Unavailable Leighton, Lamine Chi Attending Unavailable Leighton, Lamine Chi Primary Care Unavailable Dayday Kate Attending Unavailable Leighton, Lamine Chi Primary Care Unavailable Leighton, Lamine Chi Referring Unavailable BorrusoSergo Attending Unavailable Leighton, Lamine Chi Primary Care Unavailable BorrusoSergo Consulting Unavailable Borruso, Sergo Referring Unavailable Borruso, Esrgo Attending Unavailable Clarita Gotti Attending Unavailable Borruso Sergo Consulting Unavailable Borruso, Sergo Referring Unavailable Leighton, Lamine Chi Primary Care Unavailable Leighton, Lamine Chi Referring Unavailable Borruso Sergo Attending Unavailable Leighton, Lamine Chi Primary Care Unavailable Leighton, Lamine Chi Primary Care Unavailable Leighton, Lamine Chi Referring Unavailable Borruso, Sergo Attending Unavailable Leighton, Lamine Chi Primary Care Unavailable Christopher Lundy Referring Unavailable Christopher Lundy Attending Unavailable Leighton, Lamine Chi Primary Care Unavailable Leighton, Lamine Chi Attending Unavailable Leighton, Lamine Chi Referring Unavailable Leighton, Lamine Chi Attending Unavailable Leighton, Lamine Chi Primary Care Unavailable Borruso, Sergo Referring Unavailable Borruso, Sergo Attending Unavailable Leighton, Lamine Chi Primary Care Unavailable Leighton, Lamine Chi Primary Care Unavailable [place], Rui Referring Unavailable Rui Qureshi Attending Unavailable Lamine Jaramillo Chi Primary Care Unavailable Sergo Gipson Referring Unavailable Sergo Gipson Attending Unavailable Medications Current Medications Medication Drug Class(es) Dates Sig (Normalized) Sig (Original) 24 hr buPROPion hydrochloride 150 mg extended release oral tablet (18 sources) Aminoketone Start: 10-05-2023 take 1 tablet by mouth once daily Start: 06-06-2019 End: 10-05-2023 take 1 tablet by mouth twice daily Bupropion Hcl 150 mg tablet sustained-release 12 hr Discontinued 150 mg PO TWICE A DAY 180 0 June 06, 2019 1:00am October 05, 2023 6:51pm Comment on above: Take 150 mg by mouth twice daily. calcium carbonate 1250 mg / cholecalciferol 600 unt oral tablet (11 sources) Vitamin D Start: 04-30-2018 Start: 04-30-2018 Calcium Carbon ate-Vitamin D3 Active 1 EACH PO TWICE A DAY April 30, 2018 12:00am cephalexin 500 mg oral capsule (1 source) Cephalosporin Antibacterial Start: 06-17-2022 End: 06-24-2022 take 1 capsule by mouth twice daily cephALEXin (KEFLEX) 500 mg capsule Take 1 capsule by mouth twice daily for 7 days. 14 capsule 0 06/17/2022 06/24/2022 Active Comment on above: Take 1 capsule by [facility] twice daily for 7 days. fexofenadine hydrochloride 180 mg oral tablet (6 sources) Histamine-1 Receptor Antagonist Start: 03-28-2023 take 2 tablets by mouth twice daily Start: 03-28-2023 take 2 tablets by [facility] once daily Fexofenadine (Kirstie Allergy) 180 mg tablet Active 360 MG PO DAILY March 28, 2023 12:00am Start: 03-28-2023 take 1 tablet by [facility] once daily Fexofenadine (Kirstie Allergy) 180 mg tablet Active 180 MG PO DAILY March 28, 2023 12:00am lactobacillus acidophilus 1.5 mg oral capsule (4 sources) Start: 07-24-2024 losartan potassium 100 mg oral tablet (13 sources) Angiotensin 2 Receptor Melba Start: 06-26-2019 take 1 tablet by mouth once daily Comment on above: Take by mouth. Multivitamin 1 EACH tablet (4 sources) Start: 04-30-2018 Start: 04-30-2018 Multivitamin 1 EACH tablet Active 1 NMA PO DAILY April 30, 2018 12:00am Multivitamin preparation (7 sources) Start: 04-30-2018 Multivitamin A ctive 1 EACH PO DAILY April 30, 2018 9:21am Start: 04-30-2018 Multivitamin A ctive 1 EACH PO DAILY April 29, 2018 11:00pm Start: 04-30-2018 Multivitamin A ctive 1 EACH PO DAILY April 30, 2018 12:00am Omalizumab (1 source) Anti-IgE Start: 06-11-2024 Omalizumab (Xolair) 150 mg/mL auto-injector (3 sources) Start: 06-11-2024 Omalizumab (Xo lair) 150 mg/mL auto-injector Active 150 mg SC every 4 weeks June 11, 2024 1:00am [place]-3 Fatty Acids-Fish Oil (7 sources) Start: 04-30-2018 [place]-3 Fatty Acids-Fish Oil Active 1 EACH PO DAILY April 30, 2018 9:21am Start: 04-30-2018 [place]-3 Fatty Acids-Fish Oil Active 1 EACH PO DAILY April 29, 2018 11:00pm Start: 04-30-2018 [place]-3 Fatty Acids-Fish Oil Active 1 EACH PO DAILY April 30, 2018 12:00am [place]-3 Fatty Acids-Fish Oil 1 EACH capsule (4 sources) Start: 04-30-2018 Start: 04-30-2018 [place]-3 Fatty Acids-Fish Oil 1 EACH capsule Active 1 NMA PO DAILY April 30, 2018 12:00am pravastatin sodium 40 mg oral tablet (13 sources) HMG-CoA Reductase Inhibitor Start: 04-30-2018 take 1 tablet by mouth at bedtime Comment on above: TAKE 1 TABLET BY ABDIEL TH ONCE DAILY AT BEDTIME FOR 90 DAYS Thyroid (Pork) (Electrical Estimator Thyroid) 90 mg tablet (3 sources) Start: 10-05-2023 Thyroid (Pork) (Electrical Estimator Thyroid) 90 mg tablet Active 120 mg PO DAILY October 05, 2023 12:00am Start: 10-05-2023 take 1 tablet by mouth once da hardeep Thyroid (Pork) (Electrical Estimator Thyroid) 90 mg tablet Active 90 mg PO DAILY October 05, 2023 12:00am Thyroid (Pork) (Thyroid (Pork) 90 Mg Tablet) 90 mg tablet (1 source) Start: 10-05-2023 take 1 tablet by mouth once daily Thyroid (Pork) (Thyroid (Pork) 90 Mg Tablet) 90 mg tablet Active 90 MG PO DAILY October 05, 2023 12:00am thyroid (shelter) 90 mg oral tablet (3 sources) Start: 10-05-2023 Start: 03-28-2023 End: 10-05-2023 take 1 tablet by mouth once daily Thyroid (Pork) ([place] Thyroid) 60 mg tablet Discontinued 60 mg PO DAILY March 28, 2023 12:00am October 05, 2023 6:48pm Start: 03-28-2023 End: 10-05-2023 take 1 tablet by mouth once daily Thyroid (Pork) ([place] Thyroid) 15 mg tablet Discontinued 15 mg PO DAILY March 28, 2023 12:00am October 05, 2023 6:48pm vitamin e 450 mg oral capsul e (13 sources) Start: 04-30-2018 take 1 capsule by [facility] once daily Start: 04-14-2008 VITAMIN E 400 UNIT CAP Take one(1) tablet daily. 0 04/14/2008 Active Comment on above: Take one(1) tablet d aily. Completed/Discontinued Medications Medication Drug Class(es) Dates Sig (Normalized) Sig (Original) acetaminophen 300 mg / codeine phosphate 30 mg oral tablet (11 sources) Opioid Agonist Start: 05-15-2018 End: 06-06-2019 Acetaminophen-Codei ne 1 TABLET tablet Discontinued 1 - 2 {tbl} PO EVERY 6 HOURS NEEDED as needed for Pain 30 May 15, 2018 1:00am June 06, 2019 9:43am Start: 05-15-2018 End: 06-06-2019 take 1 tablet by mouth every six hours as needed Acetaminophen-Codeine Discontinued 1 - 2 TABLET PO EVERY 6 HOURS NEEDED May 15, 2018 1:00am June 06, 2019 9:43am acetaminophen 325 mg / HYDROcodone bitartrate 5 mg oral tablet (20 sources) Opioid Agonist Start: 12-20-2020 End: 03-28-2023 Hydrocodone-Acetaminophen 1 TABLET tablet Discontinued 1 {tbl} PO EVERY 6 HOURS NEEDED as needed for Pain 10 3 0 December 20, 2020 March 28, 2023 1:28pm Musculoskeletal back pain Dorsalgia, unspecified Start: 12-20-2020 End: 03-28-2023 take 1 tablet by mouth every six hours as needed Hydrocodone-Acetaminophen Discontinued 1 TABLET PO EVERY 6 HOURS NEEDED 10 December 20, 2020 March 28, 2023 1:28pm Start: 07-03-2019 End: 07-08-2019 Hydrocodone-Acetaminophen 1 TABLET tablet Discontinued 1 - 2 {tbl} PO EVERY 4 HOURS NEEDED as needed for Pain 30 5 0 July 03, 2019 July 07, 2019 1:00am July 08, 2019 1:08am Other acute postprocedural pain Start: 07-03-2019 End: 07-08-2019 take 1 tablet by mouth every four hours as needed Hydrocodone-Acetaminophen Discontinued 1 - 2 TABLET PO EVERY 4 HOURS NEEDED 30 5 July 03, 2019 July 08, 2019 1:08am acetaminophen 325 mg / oxyCODONE hydrochloride 5 mg oral tablet (11 sources) Opioid Agonist Start: 04-30-2018 End: 05-05-2018 Oxycodone-Acetaminophen 1 TABLET tablet Discontinued 1 {tbl} PO EVERY 6 HOURS NEEDED as needed for Pain 20 5 0 April 30, 2018 12:00am May 04, 2018 12:00am May 05, 2018 12:14am Fracture of distal end of radius with volar angulation Start: 04-30-2018 End: 05-05-2018 take 1 tablet by mouth every six hours as needed Oxycodone-Acetaminophen Discontinued 1 TABLET PO EVERY 6 HOURS NEEDED 20 5 April 30, 2018 12:00am May 05, 2018 12:14am amLODIPine 5 mg oral tablet (2 sources) Dihydropyridine Calcium Channel Melba Start: 04-14-2008 amlodipine besylate(NORVASC 5 MG TAB) Take one(1) tablet daily. 0 04/14/2008 Active Comment on above: Take one(1) tablet d aily. aspirin 81 mg delayed release oral tablet (11 sources) Platelet Aggregation Inhibitor, Nonsteroidal Anti-inflammatory Drug Start: 04-30-2018 End: 03-28-2023 take 1 tablet by mouth once daily Aspirin 81 MG tablet,delayed release (DR/EC) Discontinued 81 mg PO DAILY April 30, 2018 12:00am March 28, 2023 1:28pm diphenhydrAMINE hydrochloride 25 mg oral capsule (5 sources) Histamine-1 Receptor Antagonist Start: 10-05-2023 End: 06-11-2024 take 1 capsule by mouth three times daily as needed Diphenhydramine Hcl (Benadryl) 25 mg capsule Discontinued 25 mg PO THREE TIMES A DAY as needed for allergic reaction 21 7 0 October 05, 2023 12:00am June 11, 2024 11:49am famotidine 20 mg oral tablet (11 sources) Histamine-2 Receptor Antagonist Start: 10-05-2023 End: 06-11-2024 take 1 tablet by mouth twice daily Famotidine (Pepcid) 20 mg tablet Discontinued 20 mg PO TWICE A DAY 14 7 0 October 05, 2023 12:00am June 11, 2024 11:49am Start: 03-28-2023 take 1 tablet by abdiel th every twelve hours Start: 03-28-2023 Famotidine Act tim MG PO March 28, 2023 12:00am hydrOXYzine hydrochloride 25 mg oral tablet (6 sources) Antihistamine Start: 03-28-2023 End: 10-05-2023 Hydroxyzine Hcl 25 mg tablet Discontinued mg PO March 28, 2023 12:00am October 05, 2023 6:49pm Start: 03-28-2023 End: 10-05-2023 Hydroxyzine Hcl Discontinued MG PO March 28, 2023 12:00am October 05, 2023 6:49pm levothyroxine sodium 0.112 mg oral tablet (20 sources) l-Thyroxine Start: 08-25-2020 End: 03-28-2023 Levothyroxine 112 mcg tablet Discontinued 88 ug PO DAILY August 25, 2020 11:03am March 28, 2023 1:29pm Start: 08-25-2020 End: 03-28-2023 take 88 ug by mouth once daily Levothyroxine Discontin ued 88 MCG PO DAILY August 25, 2020 11:03am March 28, 2023 1:29pm Start: 04-30-2018 End: 08-25-2020 take 1 tablet by mouth once daily Levothyroxine 112 MCG tablet Discontinued 112 ug PO DAILY April 30, 2018 12:00am August 25, 2020 11:04am Start: 04-14-2008 levothyroxine sodium(SYNTHROID 75 MCG TAB) Take one(1) tablet daily. 0 04/14/2008 Active Comment on above: Take one(1) tablet d aily. meloxicam 7.5 mg oral tablet (20 sources) Nonsteroidal Anti-inflammatory Drug Start: End: take 1 tablet by mouth once daily as needed for pain Meloxicam 7.5 mg tablet Discontinued 7.5 mg PO DAILY as needed for pain 10 December 17, 2020 11:07am March 28, 2023 1:30pm Start: 08-18-2019 End: 08-25-2020 take 1 tablet by mouth once daily Meloxicam (Mobic) 15 mg tablet Discontinued 15 mg PO DAILY January 12, 2020 3:09pm August 25, 2020 11:04am Do not take with other NSAIDs. Tylenol is okay methylPREDNISolone acetate 40 mg/ml injectable suspension (1 source) Corticosteroid Start: 01-12-2020 End: 01-12-2020 Depo-Medrol (methylprednisolone acetate) 40 mg/mL suspension for injection Discontinued 40 MG INTRAARTIC ONCE January 12, 2020 2:14pm January 12, 2020 2:54pm montelukast 10 mg oral tablet (5 sources) Leukotriene Receptor Antagonist Start: 10-05-2023 End: 06-11-2024 take 1 tablet by mouth once daily Montelukast 10 mg tablet Discontinued 10 mg PO DAILY October 05, 2023 12:00am June 11, 2024 11:50am MULTIVITAMIN TAB (2 sources) Start: 04-14-2008 MULTIVITAMIN TAB Take one(1) tablet daily. 0 04/14/2008 Active Comment on above: Take one(1) tablet d aily. omega-3 fatty acids/fish oil (FISH OIL-OMEGA-3 FATTY ACIDS) 300-1,000 mg cap (2 sources) Start: 04-30-2018 omega-3 fatty acids/fish oil (FISH OIL-OMEGA-3 FATTY ACIDS) 300-1,000 mg cap Take by mouth. 0 04/30/2018 Active Comment on above: Take by mouth. 12 hr orphenadrine citrate 100 mg extended release oral tablet (11 sources) Muscle Relaxant Start: 12-17-2020 End: 03-28-2023 take 1 tablet by mouth every twelve hours as needed for muscle spasms Orphenadrine Citrate 100 mg tablet extended release Discontinued 100 mg PO Q12H as needed for muscle spasm 6 0 December 17, 2020 11:06am March 28, 2023 1:31pm oxyCODONE hydrochloride 5 mg oral tablet (4 sources) Opioid Agonist Start: 08-19-2024 End: 09-01-2024 take 2.5-5 mg by mouth every four hours as needed for pain Oxycodone 5 mg tablet Discontinued 2.5 - 5 mg PO Q4H as needed for pain 7 7 0 August 19, 2024 September 01, 2024 10:57am Other acute postprocedural pain Other acute postprocedural pain Thyroid (Pork) ([place] Thyroid) 15 mg tablet (5 sources) Start: 03-28-2023 End: 10-05-2023 take 1 tablet by mouth once daily Thyroid (Pork) ([place] Thyroid) 15 mg tablet Discontinued 15 mg PO DAILY March 28, 2023 12:00am October 05, 2023 6:48pm Start: 03-28-2023 End: 10-05-2023 take 1 tablet by mouth once daily Thyroid (Pork) ([place] Thyroid) 15 mg tablet Discontinued 15 MG PO DAILY March 28, 2023 12:00am October 05, 2023 6:48pm Start: 03-28-2023 take 1 tablet by abdiel th once daily Thyroid (Pork) ([place] Thyroid) 15 mg tablet Active 15 MG PO DAILY March 28, 2023 12:00am Thyroid (Pork) ([place] Thyroid) 60 mg tablet (5 sources) Start: 03-28-2023 End: 10-05-2023 take 1 tablet by mouth once daily Thyroid (Pork) ([place] Thyroid) 60 mg tablet Discontinued 60 mg PO DAILY March 28, 2023 12:00am October 05, 2023 6:48pm Start: 03-28-2023 End: 10-05-2023 take 1 tablet by mouth once daily Thyroid (Pork) ([place] Thyroid) 60 mg tablet Discontinued 60 MG PO DAILY March 28, 2023 12:00am October 05, 2023 6:48pm Start: 03-28-2023 take 1 tablet by abdiel th once daily Thyroid (Pork) ([place] Thyroid) 60 mg tablet Active 60 MG PO DAILY March 28, 2023 12:00am vit c/vit e acetate/lutein/min(LUTEIN VISON FORMULA CAP) (2 sources) Start: 04-14-2008 vit c/vit e acetate/lutein/min(LUTEIN VISON FORMULA CAP) Take one(1) tablet daily. 0 04/14/2008 Active Comment on above: Take one(1) tablet d aily. Problems Active Problems Problem Classification Problem Date Documented Date Episodic/Chronic Allergic reactions (8 sources) Urticaria; Translations: [Urticaria, unspecified] Onset: 8 04-14-2008 Episodic Disorders of lipid metabolism (11 sources) Hyperlipidemia; Translations: [Hyperlipidemia, unspecified] 05-15-2018 Chronic Essential hypertension (14 sources) Benign essential hypertension; Translations: [Essential (primary) hypertension] Onset: 5 05-15-2018 Chronic Genitourinary symptoms and ill-defined conditions (2 sources) Increased frequency of urination; Translations: [Frequency of micturition] Onset: 5 Episodic Osteoarthritis (6 sources) Arthritis of bilateral first carpometacarpal joints; Translations: [Bilateral primary osteoarthritis of first carpometacarpal joints] 07-14-2024 Chronic Other aftercare (6 sources) Follow-up status; Translations: [Encounter for other orthopedic aftercare] 09-01-2024 Episodic Other connective tissue disease (10 sources) Thigh pain; Translations: [Pain in right thigh] 04-01-2019 Episodic Other connective tissue disease (2 sources) H/O: osteoarthritis; Translations: [Personal history of other diseases of the musculoskeletal system and connective tissue] 12-06-2020 Episodic Other connective tissue disease (6 sources) Subdeltoid bursitis of left shoulder; Translations: [Bursitis of left shoulder] 03-28-2023 Episodic Other connective tissue disease (1 source) Pain of right thigh; Translations: [Pain in right thigh] 04-01-2019 Episodic Other gastrointestinal disorders (1 source) Dysphagia, pharyngoesophageal phase; Translations: [Dysphagia, pharyngoesophageal phase] Onset: 5 Episodic Other nervous system disorders (6 sources) Carpal tunnel syndrome; Translations: [Carpal tunnel syndrome, bilateral upper limbs] 07-14-2024 Chronic Other nervous system disorders (1 source) Bilateral carpal tunnel syndrome; Translations: [Carpal tunnel syndrome, bilateral upper limbs] 07-14-2024 Chronic Other nervous system disorders (2 sources) Carpal tunnel syndrome, bilateral upper limbs; Translations: [Carpal tunnel syndrome, bilateral upper limbs] Onset: Chronic Other nervous system disorders (4 sources) Acute postoperative pain; Translations: [Other acute postprocedural pain] 08-19-2024 Episodic Other non-traumatic joint disorders (6 sources) Disorder of shoulder; Translations: [Other specified joint disorders, left shoulder] 03-28-2023 Episodic Other skin disorders (1 source) Tongue swelling; Translations: [Localized swelling, mass and lump, head] 10-05-2023 Episodic Spondylosis; intervertebral disc disorders; other back problems (11 sources) Backache; Translations: [Dorsalgia, unspecified] 12-17-2020 Episodic Thyroid disorders (14 sources) Hypothyroidism; Translations: [Hypothyroidism, unspecified] Onset: 04-14-2008 Chronic Unclassified (1 source) for further testing Past or Other Problems Problem Classification Problem Date Documented Da te Episodic/Chronic Nonspecific chest pain (3 sources) Chest pain; Translations: [Chest pain, unspecified] Onset: 11-26-2024 11-28-2024 Episodic Other acquired deformities (3 sources) Spondylolisthesis , lumbar region; Translations: [Spondylolisthesi s, lumbar region] Onset: 10-16-2018 Episodic Other connective tissue disease (1 source) Pain in left hand; Translations: [Pain in left hand] Onset: 07-14-2024 Episodic Other connective tissue disease (1 source) Pain in right hand; Translations: [Pain in right hand] Onset: 07-14-2024 Episodic Other injuries and conditions due to external causes (2 sources) Angioedema; Translations: [Angioneurotic edema, initial encounter] Onset: 04-14-2008 04-14-2008 Episodic Other screening for suspected conditions (not mental disorders or infectious disease) (1 source) Encounter for screening for osteoporosis; Translations: [Encounter for screening for osteoporosis] Onset: 07-29-2024 Episodic Residual codes; unclassified (1 source) Chills (without fever); Translations: [Chills (without fever)] Onset: 08-14-2024 Episodic Results Test Name Value Interpretation Reference Range Facility Absolute lymphocyte countOrd ered By: Lamine Jaramillo on 04-02-2025 Lymphocytes Auto (Unsp spec) [#/Vol] 2.59 10*3/uL 0.83-4.51 [facility] Absolute neutrophil countOrd ered By: Lamine Jaramillo on 04-02-2025 Neutrophils (Bld) [#/Vol] 5.9 10*3/uL 2.0-7.7 [facility] Anion gap in Serum or Plasma Ordered By: Lamine Jaramillo on 04-02-2025 Anion gap [Moles/Vol] 12 mmol/L 5-15 [facility] Automated blood erythrocyte countOrdered By: Lamine Jaramillo on 04-02-2025 RBC (Bld) [#/Vol] 4.18 10*6/uL Low 4.2-5.4 [facility] Comment on above: Performed By: #### L 506.1001, [id number], L500.4050, L100.0100 ####[facility] [address] [place], [place], [id number] Automated blood hematocrit ( percentage)Ordered By: Lamine Jaramillo on 04-02-2025 Hematocrit (Bld) [Volume fraction] 36.0 % Low 37-47 [facility] Comment on above: Performed By: #### L 506.1001, [id number], L500.4050, L100.0100 ####[facility] [address] [place], [place], [id number] Automated lymphocyte count a s percentage of total leukocytesOrdered By: Lamine Jaramillo on 04-02-2025 Lymphocytes/100 WBC Auto (Unsp spec) 28.2 % 19-41 [facility] BUN/creatinine ratioOrdered By: Lamine Jaramillo on 04-02-2025 Urea nitrogen/Creatinine [Mass ratio] 13.8 mg/mg 10- [facility] Basophil percentageOrdered B y: Lamine Jaramillo on 04-02-2025 Basophils/100 WBC (Bld) 0.4 % Normal 0-1 [facility] Comment on above: Performed By: #### L 506.1001, [id number], L500.4050, L100.0100 ####[facility] [address] [place], [address] Bilirubin, totalOrdered By: Lamine Jaramillo on 04-02-2025 Bilirubin [Mass/Vol] 0.50 mg/dL Normal 0.00-1.30 [facility] Comment on above: Performed By: #### L 506.1001, [id number], [id number], L100.0100 ####[facility] [address] [place], [address] CBC W/Diff, Automatedon 10-0 Absolute Lymph 2.59 X10 3/uL Normal 0.83-4.51 [facility] Comment on above: Performed By: #### L 506.1001, [id number], [id number], L100.0100 ####[facility] [address] [place], [address] Absolute Neut 5.9 X10 3/uL Normal 2.0-7.7 [facility] Comment on above: Performed By: #### L 506.1001, [id number], [id number], L100.0100 ####[facility] [address] [place], [address] IG% 0.200 Normal 0.0-0.9 [facility] Comment on above: Result Comment: IG% - Immature Granulocytes (promyelocytes, myelocytes and metamyelocytes) > 1% indicates that a LEFT SHIFT is Present. Performed By: #### L 506.1001, [id number], [id number], L100.0100 ####[facility] [address] [place], [address] Lymphocytes/100 WBC (Bld) 28.2 % Normal 19-41 [facility] Comment on above: Performed By: #### L 506.1001, [id number], [id number], L100.0100 ####[facility] [address] [place], [address] Nucleated RBC (Bld) [#/Vol] 0 10*3/uL Normal 0-5 [facility] Comment on above: Performed By: #### L 506.1001, [id number], [id number], L100.0100 ####[facility] [address] [place], [address] RDW SD 39.6 fl Normal 35.1-43.9 [facility] Comment on above: Performed By: #### L 506.1001, [id number], [id number], L100.0100 ####[facility] [address] [place], [address] Carbon dioxide, total [Moles /volume] in Central venous bloodOrdered By: Lamine Jaramillo on 04-02-2025 CO2 [Moles/Vol] 21.9 mmol/L Normal 21.0-32.0 [facility] Comment on above: Performed By: #### L 506.1001, L501.9520, L500.4050, L100.0100 ####[facility] [address] [place], [address] Chloride assayOrdered By: Khalif Jaramillo on 04-02-2025 Chloride [Moles/Vol] 104 mmol/L Normal 98-108 [facility] Comment on above: Performed By: #### L 506.1001, L501.9520, L500.4050, L100.0100 ####[facility] [address] [place], [address] Comprehensive Metabolic Prof ilon 04-02-2025 ALK PHOS 120 U/L High 35-104 [facility] Comment on above: Performed By: #### L 506.1001, L501.9520, L500.4050, L100.0100 ####[facility] [address] [place], [address] BUN/CRE 13.8 RATIO Normal 10-20 [facility] Comment on above: Performed By: #### L 506.1001, L501.9520, L500.4050, L100.0100 ####[facility] [address] [place], [address] GAP 12 Normal 5-15 [facility] Comment on above: Performed By: #### L 506.1001, L501.9520, L500.4050, L100.0100 ####[facility] [address] [place], [address] Potassium [Moles/Vol] 3.8 mmol/L Normal 3.3-5.1 [facility] Comment on above: Performed By: #### L 506.1001, L501.9520, L500.4050, L100.0100 ####[facility] [address] [place], [address] T PROT 6.5 g/dL Normal 5.9-8.4 [facility] Comment on above: Performed By: #### L 506.1001, L501.9520, L500.4050, L100.0100 ####[facility] [address] [place], [address] Comprehensive Metabolic Prof ilOrdered By: Lamine Jaramillo on 04-02-2025 AST [Catalytic activity/Vol] 24 U/L Normal <=31 [facility] Comment on above: Performed By: #### L 506.1001, L501.9520, L500.4050, L100.0100 ####[facility] [address] [place], [address] Eosinophil percentageOrdered By: Lamine Jaramillo on 04-02-2025 Eosinophils/100 WBC (Bld) 2.4 % Normal 0-5 [facility] Comment on above: Performed By: #### L 506.1001, L501.9520, L500.4050, L100.0100 ####[facility] [address] [place], [address] Erythrocyte distribution wid th ratioOrdered By: Lamine Jaramillo on 04-02-2025 Erythrocyte distribution width (RBC) [Ratio] 12.5 % Normal 11.6-14.6 [facility] Comment on above: Performed By: #### L 506.1001, L501.9520, L500.4050, L100.0100 ####[facility] [address] [place], [address] Erythrocyte distribution wid th standard deviationOrdered By: Lamine Jaramillo on 04-02-2025 Erythrocyte distribution width (RBC) [Ratio] 39.6 fl 35.1-43.9 [facility] Glomerular filtration rate ( GFR) estimation/1.73 sq m using serum, plasma, or whole bOrdered By: Lamine Jaramillo on 04-02-2025 GFR/1.73 sq M.predicted among non-blacks MDRD (S/P/Bld) [Vol rate/Area] 92 mL/min/{1.73_m2} Normal >60 [facility] Comment on above: mL/min/1.73m2 CKD-EP I Creatinine Equation (2020) Result Comment: mL/m in/1.73m2 CKD-EPI Creatinine Equation (2020) Performed By: #### L 506.1001, L501.9520, L500.4050, L100.0100 ####[facility] [address] [place], [address] Hemoglobin measurementOrdere d By: Lamine Jaramillo on 04-02-2025 Hemoglobin (Bld) [Mass/Vol] 11.9 g/dL Low 12.0-15.0 [facility] Comment on above: Performed By: #### L 506.1001, L501.9520, L500.4050, L100.0100 ####[facility] [address] [place], [address] Immature granulocytes/100 WB C Auto (Bld)Ordered By: Lamine Jaramillo on 04-02-2025 Immature granulocytes/100 WBC (Bld) 0.200 % 0.0-0.9 [facility] Comment on above: IG% - Immature Granu locytes (promyelocytes, myelocytes and metamyelocytes) > 1% indicates that a LEFT SHIFT is Present. MCV (mean corpuscular volume ) determinationOrdered By: Lamine Jaramillo on 04-02-2025 MCV (RBC) [Entitic vol] 86.1 fL Normal 81-99 [facility] Comment on above: Performed By: #### L 506.1001, L501.9520, L500.4050, L100.0100 ####[facility] [address] [place], [address] Mean corpuscular hemoglobin (MCH) determinationOrdered By: Lamine Jaramillo on 04-02-2025 MCH (RBC) [Entitic mass] 28.5 pg Normal 27.0-32.0 [facility] Comment on above: Performed By: #### L 506.1001, L501.9520, L500.4050, L100.0100 ####[facility] [address] [place], [place], [id number] Mean corpuscular hemoglobin concentration (MCHC) determinationOrdered By: Lamine Jaramillo on 04-02-2025 MCHC (RBC) [Mass/Vol] 33.1 g/dL Normal 32-36 [facility] Comment on above: Performed By: #### L 506.1001, L501.9520, L500.4050, L100.0100 ####[facility] [address] [place], [address] Mean platelet volume determi nationOrdered By: Lamine Jaramillo on 04-02-2025 Platelet mean volume (Bld) [Entitic vol] 9.6 fL Normal 6.2-12.0 [facility] Comment on above: Performed By: #### L 506.1001, L501.9520, L500.4050, L100.0100 ####[facility] [address] [place], [address] Monocyte percentageOrdered B y: Lamine Jaramillo on 04-02-2025 Monocytes/100 WBC (Bld) 4.6 % Normal 0-10 [facility] Comment on above: Performed By: #### L 506.1001, L501.9520, L500.4050, L100.0100 ####[facility] [address] [place], [address] Neutrophil percentageOrdered By: Lamine Jaramillo on 04-02-2025 Neutrophils/100 WBC (Bld) 64.2 % Normal 47-70 [facility] Comment on above: Performed By: #### L 506.1001, L501.9520, L500.4050, L100.0100 ####[facility] [address] [place], [address] Nucleated red blood cell per centageOrdered By: Lamine Jaramillo on 04-02-2025 Nucleated RBC/100 WBC (Bld) [Ratio] 0 % 0-5 [facility] Platelet countOrdered By: Khalif Jaramillo on 04-02-2025 Platelets (Bld) [#/Vol] 262 10*3/uL Normal 150-450 [facility] Comment on above: Performed By: #### L 506.1001, L501.9520, L500.4050, L100.0100 ####[facility] [address] [place], [address] Potassium measurement (mass/ volume)Ordered By: Lamine Jaramillo on 04-02-2025 Potassium (Unsp spec) [Mass/Vol] 3.8 mmol/L 3.3-5.1 [facility] Serum creatinine measurement (mass/volume)Ordered By: Lamine Jaramillo on 04-02-2025 Creatinine [Mass/Vol] 0.67 mg/dL Low 0.70-1.20 [facility] Comment on above: Performed By: #### L 506.1001, L501.9520, L500.4050, L100.0100 ####[facility] [address] [place], [address] Serum globulin measurementOr dered By: Lamine Jaramillo on 04-02-2025 Globulin (S) [Mass/Vol] 2.5 g/dL Normal 2.2-4.2 [facility] Comment on above: Performed By: #### L 506.1001, L501.9520, L500.4050, L100.0100 ####[facility] [address] [place], [address] Serum glucose measurement (m ass/volume)Ordered By: Lamine Jaramillo on 04-02-2025 Glucose [Mass/Vol] 112 mg/dL High 70-99 [facility] Comment on above: Performed By: #### L 506.1001, L501.9520, L500.4050, L100.0100 ####[facility] [address] [place], [address] Serum or plasma alanine vasquez otransferase (ALT) measurementOrdered By: Lamine Jaramillo on 04-02-2025 ALT [Catalytic activity/Vol] 20 U/L Normal <=34 [facility] Comment on above: Performed By: #### L 506.1001, L501.9520, L500.4050, L100.0100 ####[facility] [address] [place], [address] Serum or plasma albumin gini urement (mass/volume)Ordered By: Lamine Jaramillo on 04-02-2025 Albumin [Mass/Vol] 4.0 g/dL Normal 3.4-4.8 [facility] Comment on above: Performed By: #### L 506.1001, L501.9520, L500.4050, L100.0100 ####[facility] [address] [place], [address] Serum or plasma albumin/glob ulin mass ratioOrdered By: Lamine Jaramillo on 04-02-2025 Albumin/Globulin [Mass ratio] 1.6 {ratio} Normal 0.9-2.4 [facility] Comment on above: Performed By: #### L 506.1001, L501.9520, L500.4050, L100.0100 ####[facility] [address] [place], [address] Serum or plasma alkaline jah sphatase measurementOrdered By: Lamine Jaramillo on 04-02-2025 ALP [Catalytic activity/Vol] 120 U/L High 35-104 [facility] Serum or plasma calcium gini urement (mass/volume)Ordered By: Lamine Jaramillo on 04-02-2025 Calcium [Mass/Vol] 10.1 mg/dL Normal 7.6-11.0 [facility] Comment on above: Performed By: #### L 506.1001, L501.9520, L500.4050, L100.0100 ####[facility] [address] [place], [address] Serum or plasma urea nitroge n measurement (mass/volume)Ordered By: Lamine Jaramillo on 04-02-2025 Urea nitrogen [Mass/Vol] 9 mg/dL Normal 4-19 [facility] Comment on above: Performed By: #### L 506.1001, L501.9520, L500.4050, L100.0100 ####[facility] [address] [place], [address] Sodium levelOrdered By: Lamine Jaramillo on 04-02-2025 Sodium [Moles/Vol] 138 mmol/L Normal 133-145 [facility] Comment on above: Performed By: #### L 506.1001, L501.9520, L500.4050, L100.0100 ####[facility] [address] [place], [address] TSH DL <= 0.005 mIU/L QnOrde red By: Lamine Jaramillo on 04-02-2025 TSH Qn 0.159 uIU/mL Low 0.300-4.20 0 [facility] Thyroid Stim Hormone (TSH)on 04-02-2025 TSH 0.159 uIU/mL Low 0.300-4.20 0 [facility] Comment on above: Performed By: #### L 506.1001, L501.9520, L500.4050, L100.0100 ####[facility] [address] [place], [address] Total proteinOrdered By: Lamine Jaramillo on 04-02-2025 Protein [Mass/Vol] 6.5 g/dL 5.9-8.4 [facility] Vitamin D,25 Hydroxyon 04-02 Vitamin D 25-OH 45.0 ng/mL Normal 30-100 [facility] Comment on above: Result Comment: Juli min D Status Deficiency: <20 ng/mL (50nmol/L) Insufficiency: 20-30 ng/mL (50-75 nmol/L) Sufficiency: 30-100 ng/mL (75-250 nmol/L) Toxicity: >100 ng/mL (>250 nmol/L) Performed By: #### L 506.1001, L501.9520, L500.4050, L100.0100 ####[facility] [address] [place], [address] White blood cell (WBC) count Ordered By: Lamine Jaramillo on 04-02-2025 WBC (Bld) [#/Vol] 9.2 10*3/uL Normal 4.4-11.0 [facility] Comment on above: Performed By: #### L 506.1001, L501.9520, L500.4050, L100.0100 ####[facility] [address] [place], [address] Bacteria Ur Culton Bacteria identified Cx Nom (U) ORGANISM ID: 1 >=100,000 CFU/ml Escherichia coli ORGANISM ID: 1 (ESCHERICHIA COLI) ------ ANTIBIOTIC INTERPRETATION MAREN STATUS REFERENCE RANGE ------ Ampicillin S 4 F Susceptible <=8 , Intermediate >8 , Resistant >16 Cefazolin S <=4 F Susceptible 0-16 , Intermediate <0 or >16 , Resistant >16 For uncomplicated urinary tract infections, cefazolin results can be used to predict susceptibility or resistance to cephalexin. Ceftriaxone S <=1 F Susceptible <=1 , Intermediate >1 , Resistant >=4 Cefepime S <=1 F Susceptible <=2 , Susceptible-Dose Dependent >2 , Resistant >=16 Ertapenem S <=0.5 F Susceptible <=0.5 , Intermediate >.5 , Resistant >1 Meropenem S <=0.25 F Susceptible <=1 , Intermediate >1 , Resistant >2 Ampicillin/Sulbact S <=2 F Susceptible <=8 , Intermediate >8 , Resistant >16 Piperacillin/Tazobac S <=4 F Susceptible <16 , Susceptible-Dose Dependent >=16 , Resistant >=32 Gentamicin S <=1 F Susceptible <=2 , Intermediate >2 , Resistant >=8 Tobramycin S <=1 F Susceptible <4 , Intermediate >=4 , Resistant >=8 Trimeth sulfameth S <=20 F Susceptible <=40 , Resistant >40 Ciprofloxacin S <=0.25 F Susceptible <0.5 , Intermediate >=.5 , Resistant >=1 Nitrofurantoin S <=16 F Susceptible <=32 , Intermediate >32 , Resistant >64 Abnormal [facility] Comment on above: Performed By: #### 6 30-4 #### [facility] CLIA [id number] [address] [place] [address] STATES OF [facility] CNOVon 03-23-2025 CNOV Office Visit ([facility]) ANITA MURRAY ([id number]) 1950 F Date Time Provider Department 03/23/25 9:45 AM ETHAN MIXON During your visit today, we recorded the following information about you: Temperature Pulse Respiration Blood pressure 98.1 degrees 97/minute 20/minute 142/90 Weight 69.3 kg Ethan Mixon APRN.BIT SHARPENER OPERATOR 03/23/2025 10:43 AM Signed [facility] Subjective Anita Shanks Terri is a 74 year old female presenting with burning, and pain with urination. She reports she has taken oregonal oil, and azo for multiple doses which helped alleviate some of her symptoms. By Sunday her symptoms worsened. Pertinent negatives include no fever, chills, fatigue, no flank pain, no blood in her urine. Review of Systems Constitutional: Negative for chills, fatigue and fever. Gastrointestinal: Negative for abdominal distention, abdominal pain, constipation, diarrhea, nausea and vomiting. Genitourinary: Positive for dysuria and frequency. Negative for decreased urine volume, difficulty urinating, flank pain, pelvic pain, urgency, vaginal bleeding, vaginal discharge and vaginal pain. Burning Objective BP 142/90 Pulse 97 Temp 36.7 ?C (98.1 ?F) Resp 20 Wt 69.3 kg (152 lb 12.5 oz) SpO2 98% Physical Exam Vitals and nursing note reviewed. Constitutional: General: She is awake. Cardiovascular: Rate and Rhythm: Regular rhythm. Heart sounds: Normal heart sounds, S1 normal and S2 normal. No murmur heard. Pulmonary: Effort: Pulmonary effort is normal. Breath sounds: Normal breath sounds. No decreased breath sounds or wheezing. Abdominal: General: Abdomen is flat. Bowel sounds are normal. Palpations: Abdomen is soft. Tenderness: There is no abdominal tenderness. Hernia: No hernia is present. Skin: General: Skin is warm. Neurological: Mental Status: She is alert and oriented to person, place, and time. Psychiatric: Mood and Affect: Mood normal. {ASSESSMENT/PLAN: 1. Burning with urination - ICD9: 788.1, ICD10: R30.0 acute - UA positive - Send urine for culture - Begin treatment with Macrobid 100 mg BID for 7 days - Patient education for prevention given - UA DIP, URINE (POC) URINE POC GLUCOSE UA (POCT) Negative 03/23/2025 BILIRUBIN UA (POCT) Negative 03/23/2025 KETONE UA (POCT) Negative 03/23/2025 SPECIFIC GRAVITY UA (POCT) 1.010 03/23/2025 HEMOGLOBIN/BLOOD UA (POCT) Small 03/23/2025 PH UA (POCT) 6.0 03/23/2025 PROTEIN UA (POCT) Negative 03/23/2025 UROBILINOGEN UA (POCT) 0.2 03/23/2025 NITRITE UA (POCT) Negative 03/23/2025 LEUKOCYTES UA (POCT) Large 03/23/2025 COLOR UA (POCT) Yellow 03/23/2025 CLARITY UA (POCT) Cloudy 03/23/2025 - BACTERIAL CULTURE, URINE History and Record Review External record(s) reviewed: prior outpatient record. Findings from review of outpatient records: previous UTI in 2021 for e.coli Disposition The patient was discharged. Procedures Discussed medication dosage, usage, goals of therapy, and side effects. Return to [facility], call primary care provider, or go to the emergency department for problems, worsening, increased or new symptoms, etc. Red flag symptoms discussed with the patient and when to go to ER. Patient verbalized understanding to plan of care. Amberly Contreras INSTRUMENTATION TECHNICIAN student TEACHING PROVIDER (Physician/PA/VEGETABLE II FARMWORKER) NOTE OF PERSONAL INVOLVEMENT IN CARE: I have personally seen and examined the patient and performed the medical decision-making components. I have reviewed the Advanced Practice Registered Nurse (VEGETABLE II FARMWORKER) Student's documentation and verified the findings in the note as written. Any additions or changes are noted in bold/italics. Signature: Ethan Mixon Date: 03/23/2025 Time: 10:43 AM Allergies As of Date: 03/23/2025 (No Known Allergies) Date Reviewed: 03/23/2025 Reviewed by: Zainab Higgins MA - Fully Assessed Reason for Visit: Urinary Problem [252] Cmt: Burning with urination and pain, frequency x 1.5 weeks Primary Visit Diagnosis:Burning with urination [R30.0] Order(s):UA DIP, URINE (POC) [1222458] Order #: [id number]. #:[id number] BACTERIAL CULTURE, URINE [SQURCUL] Order #: [id number]. #:[id number] nitrofurantoin monohydrate and macrocrystal (MACROBID) 100 mg capsuleTake 1 capsule by mouth two times a day for 5 days.Disp: 10 capsuleRfl: 0 Prescriptions as of 03/23/2025 - INSTRUMENTATION TECHNICIAN THYROID 120 mg tablet Take 1 tablet by mouth once daily. - nitrofurantoin monohydrate and macrocrystal (MACROBID) 100 mg capsule Take 1 capsule by mouth two times a day for 5 days. - buPROPion SR (ZYBAN SR; WELLBUTRIN SR) 150 mg 12 hr tablet Take 150 mg by mouth twice daily. - losartan (COZAAR) 100 mg tablet Take by mouth. - pravastatin (PRAVACHOL) 40 mg tablet TAKE 1 TABLET BY MOUTH ONCE DAILY AT BEDTIME FOR 90 DAYS - omega-3 fatty acids/fish oil (FISH O (more content not included)... Normal [facility] Esophagus Dual Contraston Esophagus Dual Contrast [facility] [address] [place] [address] Esophagus Dual Contrast MR#: [id number] Acct: [id number] Name: ANITA MURRAY Rep #: [id number] : 1950 F 74 From: Arturo Buck PCP: Dr. Lamine Jaramillo MD Status: [facility] CLI Study: Esophagus Dual Contrast Date of Exam: 02/20/25 Exam# [id number] Ordering Dr: Christopher Lundy MD EXAM: Single and double contrast esophagram CLINICAL HISTORY: Dysphagia, pharyngo esophageal phase COMPARISON: None. TECHNIQUE: Single and double contrast esophagram FINDINGS: Limited imaging of the swallowing mechanism shows no abnormality. No aspiration was identified. The esophagus shows no area of persistent narrowing. No mucosal changes are identified. A widely patent esophagogastric junction was seen. Limited imaging of the stomach and duodenum show no abnormality. During the time of imaging, gastroesophageal reflux was not elicited. No hiatal hernia was seen. RAD/Esophagus Dual Contrast IMPRESSION: No significant abnormality is identified Reading Location: [place] [address] CC: Dr. Christopher Lundy MD; Dr. Lamine Jaramillo MD Consultant Dietitian: Signed Normal [facility] 12 Lead EKGon 2024 12 Lead EKG [facility] Cardiovascular Services [address] [place] [address] 12 Lead EKG 11/20/24 1915 MR#: [id number] Acct: [id number] Name: ANITA MURRAY Rep #: [id number] : 1950 74 From: Mary Estes MD Attending Dr: Status: DEP ER Ordering Dr: Rui Qureshi DO Date: 11/20/24 Location: ED Sex: F C Admitted: Test Reason : CP Blood Pressure : */* mmHG Vent. Rate : 82 BPM Atrial Rate : 82 BPM P-R Int : 168 ms QRS Dur : 84 ms QT Int : 368 ms P-R-T Axes : 73 27 41 degrees QTcB Int : 429 ms Normal sinus rhythm Possible Left atrial enlargement Nonspecific ST and T wave abnormality Abnormal ECG Confirmed by JIMENA LYNCH, ELIJAH ([id number]), make up editor AMPARO PLATT ([id number]) on 11/25/2024 6:53:25 AM Referred By: Rui Qureshi Confirmed By: ELIJAH ESTES MD 11/25/24 0653 Date Mary Estes MD CC: Dr. Rui Qureshi DO; Dr. Lamine Jaramillo MD Signed Normal [facility] Absolute lymphocyte countOrd ered By: Rui Qureshi on 2024 Lymphocytes Auto (Unsp spec) [#/Vol] 2.51 10*3/uL 0.83-4.51 [facility] Absolute neutrophil countOrd ered By: Rui Qureshi on 2024 Neutrophils (Bld) [#/Vol] 2.8 10*3/uL 2.0-7.7 [facility] Anion gap in Serum or Plasma Ordered By: Rui Qureshi on 2024 Anion gap [Moles/Vol] 11 mmol/L - [facility] Automated lymphocyte count a s percentage of total leukocytesOrdered By: Rui Qureshi on 2024 Lymphocytes/100 WBC Auto (Unsp spec) 42.0 % High 19-41 [facility] BUN/creatinine ratioOrdered By: Rui Qureshi on 2024 Urea nitrogen/Creatinine [Mass ratio] 9.6 mg/mg Low 10-20 [facility] Basic Metabolic Profile (BMP )on 2024 BUN/CRE 9.6 RATIO Low 10-20 [facility] Comment on above: Performed By: #### L 501.4021, L100.0100, L500.2500 ####[facility] [address] [place], [address] ECRCL 55.83 ml/min Normal 50-250 [facility] Comment on above: Performed By: #### L 501.4021, L100.0100, L500.2500 ####[facility] [address] [place], [address] GAP 11 Normal - [facility] Comment on above: Performed By: #### L 501.4021, L100.0100, L500.2500 ####[facility] [address] [place], [address] Potassium [Moles/Vol] 3.8 mmol/L Normal 3.3-5.1 [facility] Comment on above: Performed By: #### L 501.4021, L100.0100, L500.2500 ####[facility] [address] [place], [address] Basophil percentageOrdered B y: Rui Qureshi on 2024 Basophils/100 WBC (Bld) 0.5 % 0-1 [facility] CBC W/Diff, Automatedon 10-31 Absolute Lymph 2.51 X10 3/uL Normal 0.83-4.51 [facility] Comment on above: Performed By: #### L 501.4021, L100.0100, L500.2500 ####[facility] [address] [place], [address] Absolute Neut 2.8 X10 3/uL Normal 2.0-7.7 [facility] Comment on above: Performed By: #### L 501.4021, L100.0100, L500.2500 ####[facility] [address] [place], [address] Basophils/100 WBC (Bld) 0.5 % Normal 0-1 [facility] Comment on above: Performed By: #### L 501.4021, L100.0100, L500.2500 ####[facility] [address] [place], [address] Eosinophils/100 WBC (Bld) 3.2 % Normal 0-5 [facility] Comment on above: Performed By: #### L 501.4021, L100.0100, L500.2500 ####[facility] [address] [place], [address] Erythrocyte distribution width (RBC) [Ratio] 12.3 % Normal 11.6-14.6 [facility] Comment on above: Performed By: #### L 501.4021, L100.0100, L500.2500 ####[facility] [address] [place], [address] Hematocrit (Bld) [Volume fraction] 36.4 % Low 37-47 [facility] Comment on above: Performed By: #### L 501.4021, L100.0100, L500.2500 ####[facility] [address] [place], [address] Hemoglobin (Bld) [Mass/Vol] 12.0 g/dL Normal 12.0-15.0 [facility] Comment on above: Performed By: #### L 501.4021, L100.0100, L500.2500 ####[facility] [address] [place], [address] IG% 0.200 Normal 0.0-0.9 [facility] Comment on above: Result Comment: IG% - Immature Granulocytes (promyelocytes, myelocytes and metamyelocytes) > 1% indicates that a LEFT SHIFT is Present. Performed By: #### L 501.4021, L100.0100, L500.2500 ####[facility] [address] [place], [address] Lymphocytes/100 WBC (Bld) 42.0 % High 19-41 [facility] Comment on above: Performed By: #### L 501.4021, L100.0100, L500.2500 ####[facility] [address] [place], [address] MCH (RBC) [Entitic mass] 29.2 pg Normal 27.0-32.0 [facility] Comment on above: Performed By: #### L 501.4021, L100.0100, L500.2500 ####[facility] [address] [place], [address] MCHC (RBC) [Mass/Vol] 33.0 g/dL Normal 32-36 [facility] Comment on above: Performed By: #### L 501.4021, L100.0100, L500.2500 ####[facility] [address] [place], [address] MCV (RBC) [Entitic vol] 88.6 fL Normal 81-99 [facility] Comment on above: Performed By: #### L 501.4021, L100.0100, L500.2500 ####[facility] [address] [place], [address] Monocytes/100 WBC (Bld) 6.9 % Normal 0-10 [facility] Comment on above: Performed By: #### L 501.4021, L100.0100, L500.2500 ####[facility] [address] [place], [address] Neutrophils/100 WBC (Bld) 47.2 % Normal 47-70 [facility] Comment on above: Performed By: #### L 501.4021, L100.0100, L500.2500 ####[facility] [address] [place], [address] Nucleated RBC (Bld) [#/Vol] 0 10*3/uL Normal 0-5 [facility] Comment on above: Performed By: #### L 501.4021, L100.0100, L500.2500 ####[facility] [address] [place], [address] Platelet mean volume (Bld) [Entitic vol] 9.3 fL Normal 6.2-12.0 [facility] Comment on above: Performed By: #### L 501.4021, L100.0100, L500.2500 ####[facility] [address] [place], [address] Platelets (Bld) [#/Vol] 259 10*3/uL Normal 150-450 [facility] Comment on above: Performed By: #### L 501.4021, L100.0100, L500.2500 ####[facility] [address] [place], [address] RBC (Bld) [#/Vol] 4.11 10*6/uL Low 4.2-5.4 [facility] Comment on above: Performed By: #### L 501.4021, L100.0100, L500.2500 ####[facility] [address] [place], [address] RDW SD 39.9 fl Normal 35.1-43.9 [facility] Comment on above: Performed By: #### L 501.4021, L100.0100, L500.2500 ####[facility] [address] [place], [address] WBC (Bld) [#/Vol] 6.0 10*3/uL Normal 4.4-11.0 [facility] Comment on above: Performed By: #### L 501.4021, L100.0100, L500.2500 ####[facility] [address] [place], [address] Carbon dioxide, total [Moles /volume] in Central venous bloodOrdered By: Rui Qureshi on 2024 CO2 [Moles/Vol] 24.4 mmol/L Normal 21.0-32.0 [facility] Comment on above: Performed By: #### L 501.4021, L100.0100, L500.2500 ####[facility] [address] [place], [address] Chest 1 View (Portable)on Chest 1 View (Portable) [facility] Imaging Services [address] [place] [address] Chest 1 View (Portable) MR#: [id number] Acct: [id number] Name: ANITA MURRAY Rep #: [id number] : 1950 F 74 From: Yas Buck PCP: Dr. Lamine Jaramillo MD Status: REG ER Study: Chest 1 View (Portable) Date of Exam: 11/20/24 Exam# [id number] Ordering Dr: Rui Qureshi DO PROCEDURE: CHEST 1 VIEW (PORTABLE) 2024 REASON FOR EXAM: CHEST PAIN TECHNIQUE: Frontal view of the chest. COMPARISON: None FINDINGS: No focal consolidation. No pleural effusion or pneumothorax. Cardiac silhouette is unremarkable. No acute fractures. RAD/Chest 1 View (Portable) IMPRESSION: No focal consolidations. Reading Location: [facility] CC: Dr. Rui Qureshi DO; Dr. Lamine Jaramillo MD Consultant Dietitian: Signed Normal [facility] Chloride assayOrdered By: Deniz Qureshi on 2024 Chloride [Moles/Vol] 106 mmol/L Normal 98-108 [facility] Comment on above: Performed By: #### L 501.4021, L100.0100, L500.2500 ####[facility] [address] [facility] [place], [address] Emergency Department Summary on 2024 Emergency Department Summary [facility] Medical Records Department [address] [place] [address] Emergency Department Summary 11/20/24 MR#: [id number] Acct: [id number] Name: ANITA MURRAY Rep #: [id number] : 1950 74 From: Rui Qureshi DO PCP: Dr. Lamine Jaramillo MD Status:DEP ER Location: ED HPI History of Present Illness Chief Complaint: Chest Pain Informant: patient and family Narrative Narrative: 74-year-old female presenting to the emergency room out of concerns regarding chest pain. Patient states couple weeks ago she began to feel very sharp intermittent pains in her chest. She states over the past week or so she has been have intermittent bursts of left jaw and arm pain which she states lasts seconds and more of a dull throbbing. They seem to be worse at night. She is beginning to notice symptoms underneath the left breast that are also intermittent. Today the jaw pain lasted a couple hours. Today is her birthday. She notes no change in exercise tolerance but has felt more fatigued the past week. She notes that she had her thyroid medication increased about 6 weeks ago. She denies any leg swelling. No cough or fever. She notes not much of an appetite which has been an ongoing issue. She has had prior stress test but no heart catheterization. She does not have a history of hypertension and dyslipidemia. [facility] Medical History Wears glasses Wears contact lenses Wears partial dentures Post-menopausal Depression High cholesterol DVT (deep venous thrombosis) Back pain Seasonal allergies Non-smoker History of stress test Osteoarthritis Hypothyroidism Hypertension Home Medications ???Medication ???Instructions ???Recorded ???Last Taken ???Type calcium 500 mg (as 1 ea PO BID SUPP;EMENT 04/30/18 Un known History carbonate)-vitamin D3 15 mcg (600 unit) tablet multivitamin 1 ea PO DAILY 04/30/18 Unknown His tory omega-3 fatty acids-fish oil 340 1 ea PO DAILY 04/30/18 Unknown His tory mg-1,000 mg capsule pravastatin 40 mg tablet 40 mg PO QHS 04/30/18 Unknown Hist ory vitamin E 670 mg (1,000 unit) 1,000 unit PO DAILY 04/30/18 Unkno wn History capsule losartan 100 mg tablet 100 mg PO DAILY 06/26/19 08/19/24 History famotidine 40 mg tablet 40 mg PO Q12H 03/28/23 Unknown His tory fexofenadine 180 mg tablet 360 mg PO BID 03/28/23 Unknown His tory (Kirstie Allergy) bupropion HCl 150 mg 24 hr tablet, 150 mg PO DAILY 10/05/23 Unknown History extended release thyroid (pork) 90 mg tablet (INSTRUMENTATION TECHNICIAN 120 mg PO DAILY 10/05/23 08/19/24 History Thyroid) omalizumab 150 mg/mL subcutaneous 150 mg subcut Q4W 06/11/24 Unknow n History auto-injector (Xolair) Lactobacillus acidophilus 250 500 mmu cells PO DAILY 07/24/24 Un known History million cell capsule (Probiotic Acidophilus) Allergy/AdvReac Type Severity Reaction Status Date / Time No Known Allergies Allergy Verified 11/20/24 19:08 Surgical History History of bunionectomy of right great toe Hx of fracture of wrist Hx of knee surgery Social History Smoking Status: Never smoker ROS ROS ED Constitutional Constitutional ED: Denies chills, fever(s) or weight loss Eyes Eyes: Denies change in vision or diplopia ENT ENT ED: Denies ear pain, rhinorrhea or sore throat Cardiovascular Cardiovascular: Reports as per HPI and chest pain; Denies orthopnea, palpitations or racing heartbeat Respiratory/Chest Respiratory/Chest: Denies cough, dyspnea or orthopnea Gastrointestinal Gastrointestinal: Denies abdominal pain, diarrhea, nausea or vomiting Genitourinary Genitourinary ED: Denies dysuria, hematuria or urinary frequency Musculoskeletal Musculoskeletal: Denies arthralgias or myalgias Integumentary Denies abscess or rash Neurologic Neurologic: Denies headache(s) or weakness Psychiatric Psychiatric: Denies anxiety, depression, suicidal ideation or suicidal thoughts Endocrine Endocrinology: Denies polydipsia, polyphagia or polyuria Allergic/Immunologic Allergic/Immunologic ED: Denies mouth swelling, tongue swelling or urticaria EXAM Physical Exam Const Vital Signs: 11/20/24 19:08 11/20/24 19:32 11/20/24 19:45 Temperature 97.6 F L Temperature Source Temporal Pulse Rate 90 77 64 Respiratory Rate 16 19 H 19 H Blood Pressure 209/78 H 154/71 H Blood Pressure Mean 121 94 Pulse Ox 100 100 100 Oxygen Delivery Method Room Air 11/20/24 20:00 11/20/24 20:15 11/20/24 20:30 Temperature Temperature Source Pulse Rate 70 63 66 Respiratory Rate 21 H 15 24 H Blood Pressure 145/65 H 153/72 H 150/63 H Blood Pressure Mean (more content not included)... Normal [facility] Eosinophil percentageOrdered By: Rui Qureshi on 2024 Eosinophils/100 WBC (Bld) 3.2 % 0-5 [facility] Erythrocyte distribution wid th ratioOrdered By: Rui Qureshi on 2024 Erythrocyte distribution width (RBC) [Ratio] 12.3 % 11.6-14.6 [facility] Erythrocyte distribution wid th standard deviationOrdered By: Rui Qureshi on 2024 Erythrocyte distribution width (RBC) [Ratio] 39.9 fl 35.1-43.9 [facility] Glomerular filtration rate ( GFR) estimation/1.73 sq m using serum, plasma, or whole bOrdered By: Rui Qureshi on 2024 GFR/1.73 sq M.predicted among non-blacks MDRD (S/P/Bld) [Vol rate/Area] 68 mL/min/{1.73_m2} Normal >60 [facility] Comment on above: mL/min/1.73m2 CKD-EP I Creatinine Equation (2020) Result Comment: mL/m in/1.73m2 CKD-EPI Creatinine Equation (2020) Performed By: #### L 501.4021, L100.0100, L500.2500 ####[facility] [address] [place], [address] Hematocrit Auto (Bld) [Volum e fraction]Ordered By: Rui Qureshi on 2024 Hematocrit (Bld) [Volume fraction] 36.4 % Low 37-47 [facility] Hemoglobin measurementOrdere d By: Rui Qureshi on 2024 Hemoglobin (Bld) [Mass/Vol] 12.0 g/dL 12.0-15.0 [facility] Immature granulocytes/100 WB C Auto (Bld)Ordered By: Rui Qureshi on 2024 Immature granulocytes/100 WBC (Bld) 0.200 % 0.0-0.9 [facility] Comment on above: IG% - Immature Granu locytes (promyelocytes, myelocytes and metamyelocytes) > 1% indicates that a LEFT SHIFT is Present. L499.0042on 2024 Trop T High Sen 8 ng/L Normal <=14 [facility] Comment on above: Performed By: #### L 499.0042 #### [facility] [address] [place], [place], [address] Performed By: #### L 501.4021, L100.0100, L500.2500 ####[facility] [address] [place], [address] MCV (mean corpuscular volume ) determinationOrdered By: Rui Qureshi on 2024 MCV (RBC) [Entitic vol] 88.6 fL 81-99 [facility] Mean corpuscular hemoglobin (MCH) determinationOrdered By: Riu Qureshi on 2024 MCH (RBC) [Entitic mass] 29.2 pg 27.0-32.0 [facility] Mean corpuscular hemoglobin concentration (MCHC) determinationOrdered By: Rui Qureshi on 2024 MCHC (RBC) [Mass/Vol] 33.0 g/dL 32-36 [facility] Mean platelet volume determi nationOrdered By: Rui Qureshi on 2024 Platelet mean volume (Bld) [Entitic vol] 9.3 fL 6.2-12.0 [facility] Monocyte percentageOrdered B y: Rui Qureshi on 2024 Monocytes/100 WBC (Bld) 6.9 % 0-10 [facility] Neutrophil percentageOrdered By: Rui Qureshi on 2024 Neutrophils/100 WBC (Bld) 47.2 % 47-70 [facility] Nucleated red blood cell per centageOrdered By: Rui Qureshi on 2024 Nucleated RBC/100 WBC (Bld) [Ratio] 0 % 0-5 [facility] Platelet countOrdered By: Deniz Qureshi on 2024 Platelets (Bld) [#/Vol] 259 10*3/uL 150-450 [facility] Potassium measurement (mass/ volume)Ordered By: Rui Qureshi on 2024 Potassium (Unsp spec) [Mass/Vol] 3.8 mmol/L 3.3-5.1 [facility] RBC Auto (Bld) [#/Vol]Ordere d By: Rui Qureshi on 2024 RBC (Bld) [#/Vol] 4.11 10*6/uL Low 4.2-5.4 [facility] Serum creatinine measurement (mass/volume)Ordered By: Rui Qureshi on 2024 Creatinine [Mass/Vol] 0.89 mg/dL Normal 0.70-1.20 [facility] Comment on above: Performed By: #### L 501.4021, L100.0100, L500.2500 ####[facility] [address], [address] Serum glucose measurement (m ass/volume)Ordered By: Rui Qureshi on 2024 Glucose [Mass/Vol] 108 mg/dL High 70-99 [facility] Comment on above: Performed By: #### L 501.4021, L100.0100, L500.2500 ####[facility] [address] [place], [address] Serum or plasma calcium gini urement (mass/volume)Ordered By: Rui Qureshi on 2024 Calcium [Mass/Vol] 10.0 mg/dL Normal 7.6-11.0 [facility] Comment on above: Performed By: #### L 501.4021, L100.0100, L500.2500 ####[facility] [address] [place], [address] Serum or plasma urea nitroge n measurement (mass/volume)Ordered By: Rui Qureshi on 2024 Urea nitrogen [Mass/Vol] 9 mg/dL Normal 4-19 [facility] Comment on above: Performed By: #### L 501.4021, L100.0100, L500.2500 ####[facility] [address] [place], [address] Sodium levelOrdered By: Balbir Qureshi on 2024 Sodium [Moles/Vol] 140 mmol/L Normal 133-145 [facility] Comment on above: Performed By: #### L 501.4021, L100.0100, L500.2500 ####[facility] [address] [place], [place], [address] Troponin T.cardiac [Mass/vol ume] in Serum or Plasma by High sensitivity methodOrdered By: Rui Qureshi on 2024 Troponin T.cardiac High sensitivity method [Mass/Vol] 8 ng/L <14 [facility] Troponin T.cardiac High sensitivity method [Mass/Vol] 8 ng/L <14 [facility] White blood cell (WBC) count Ordered By: Rui Qureshi on 2024 WBC (Bld) [#/Vol] 6.0 10*3/uL 4.4-11.0 [facility] TSH DL <= 0.005 mIU/L QnOrde red By: Lamine Jaramillo on 11-06-2024 TSH Qn 0.358 uIU/mL 0.300-4.20 0 [facility] Thyroid Stim Hormone (TSH)on 11-06-2024 TSH 0.358 uIU/mL Normal 0.300-4.20 0 [facility] Comment on above: Performed By: #### L 501.9520 ####[facility] [address] [place], [place], [id number] Absolute lymphocyte countOrd ered By: Lamine Jaramillo on 09-25-2024 Lymphocytes Auto (Unsp spec) [#/Vol] 2.52 10*3/uL 0.83-4.51 [facility] Absolute neutrophil countOrd ered By: Lamine Jaramillo on 09-25-2024 Neutrophils (Bld) [#/Vol] 5.5 10*3/uL 2.0-7.7 [facility] Anion gap in Serum or Plasma Ordered By: Lamine Jaramillo on 09-25-2024 Anion gap [Moles/Vol] 11 mmol/L 5- [facility] Automated lymphocyte count a s percentage of total leukocytesOrdered By: Lamine Jaramillo on 09-25-2024 Lymphocytes/100 WBC Auto (Unsp spec) 27.2 % - [facility] BUN/creatinine ratioOrdered By: Lamine Jaramillo on 09-25-2024 Urea nitrogen/Creatinine [Mass ratio] 15.0 mg/mg 10- [facility] Basophil percentageOrdered B y: Lamine Jaramillo on 09-25-2024 Basophils/100 WBC (Bld) 0.2 % 0-1 [facility] Bilirubin, totalOrdered By: Lamine Jaramillo on 09-25-2024 Bilirubin [Mass/Vol] 0.32 mg/dL 0.00-1.30 [facility] CBC W/Diff, Automatedon 08-31 Absolute Lymph 2.52 X10 3/uL Normal 0.83-4.51 [facility] Comment on above: Performed By: #### L 500.4050, L100.0100, L506.1001, L501.9520 #### [facility] [address] [place], [address] Absolute Neut 5.5 X10 3/uL Normal 2.0-7.7 [facility] Comment on above: Performed By: #### L 500.4050, L100.0100, L506.1001, L501.9520 #### [facility] [address] [place], [address] Basophils/100 WBC (Bld) 0.2 % Normal 0-1 [facility] Comment on above: Performed By: #### L 500.4050, L100.0100, L506.1001, L501.9520 #### [facility] [address] [place], [address] Eosinophils/100 WBC (Bld) 7.3 % High 0-5 [facility] Comment on above: Performed By: #### L 500.4050, L100.0100, L506.1001, L501.9520 #### [facility] [address] [place], [address] Erythrocyte distribution width (RBC) [Ratio] 13.2 % Normal 11.6-14.6 [facility] Comment on above: Performed By: #### L 500.4050, L100.0100, L506.1001, L501.9520 #### [facility] [address] [place], [address] Hematocrit (Bld) [Volume fraction] 40.2 % Normal 37-47 [facility] Comment on above: Performed By: #### L 500.4050, L100.0100, L506.1001, L501.9520 #### [facility] [address] [place], [address] Hemoglobin (Bld) [Mass/Vol] 13.0 g/dL Normal 12.0-15.0 [facility] Comment on above: Performed By: #### L 500.4050, L100.0100, L506.1001, L501.9520 #### [facility] [address] [place], [address] IG% 0.200 Normal 0.0-0.9 [facility] Comment on above: Result Comment: IG% - Immature Granulocytes (promyelocytes, myelocytes and metamyelocytes) > 1% indicates that a LEFT SHIFT is Present. Performed By: #### L 500.4050, L100.0100, L506.1001, L501.9520 #### [facility] [address] [place], [address] Lymphocytes/100 WBC (Bld) 27.2 % Normal 19-41 [facility] Comment on above: Performed By: #### L 500.4050, L100.0100, L506.1001, L501.9520 #### [facility] [address] [place], [address] MCH (RBC) [Entitic mass] 28.9 pg Normal 27.0-32.0 [facility] Comment on above: Performed By: #### L 500.4050, L100.0100, L506.1001, L501.9520 #### [facility] [address] [place], [address] MCHC (RBC) [Mass/Vol] 32.3 g/dL Normal 32-36 [facility] Comment on above: Performed By: #### L 500.4050, L100.0100, L506.1001, L501.9520 #### [facility] [address] [place], [address] MCV (RBC) [Entitic vol] 89.3 fL Normal 81-99 [facility] Comment on above: Performed By: #### L 500.4050, L100.0100, L506.1001, L501.9520 #### [facility] [address] [place], [address] Monocytes/100 WBC (Bld) 5.3 % Normal 0-10 [facility] Comment on above: Performed By: #### L 500.4050, L100.0100, L506.1001, L501.9520 #### [facility] [address] [place], [address] Neutrophils/100 WBC (Bld) 59.8 % Normal 47-70 [facility] Comment on above: Performed By: #### L 500.4050, L100.0100, L506.1001, L501.9520 #### [facility] [address] [place], [address] Nucleated RBC (Bld) [#/Vol] 0 10*3/uL Normal 0-5 [facility] Comment on above: Performed By: #### L 500.4050, L100.0100, L506.1001, L501.9520 #### [facility] [address] [place], [address] Platelet mean volume (Bld) [Entitic vol] 9.6 fL Normal 6.2-12.0 [facility] Comment on above: Performed By: #### L 500.4050, L100.0100, L506.1001, L501.9520 #### [facility] [address] [place], [address] Platelets (Bld) [#/Vol] 275 10*3/uL Normal 150-450 [facility] Comment on above: Performed By: #### L 500.4050, L100.0100, L506.1001, L501.9520 #### [facility] [address] [place], [address] RBC (Bld) [#/Vol] 4.50 10*6/uL Normal 4.2-5.4 [facility] Comment on above: Performed By: #### L 500.4050, L100.0100, L506.1001, L501.9520 #### [facility] [address] [place], [address] RDW SD 43.2 fl Normal 35.1-43.9 [facility] Comment on above: Performed By: #### L 500.4050, L100.0100, L506.1001, L501.9520 #### [facility] [address] [place], [address] WBC (Bld) [#/Vol] 9.3 10*3/uL Normal 4.4-11.0 [facility] Comment on above: Performed By: #### L 500.4050, L100.0100, L506.1001, L501.9520 #### [facility] [address] [place], [address] Carbon dioxide, total [Moles /volume] in Central venous bloodOrdered By: Lamine Jaramillo on 09-25-2024 CO2 [Moles/Vol] 23.6 mmol/L 21.0-32.0 [facility] Chloride assayOrdered By: Khalif Jaramillo on 09-25-2024 Chloride [Moles/Vol] 107 mmol/L 98-108 [facility] Comprehensive Metabolic Prof ilon 09-25-2024 Albumin [Mass/Vol] 2.9 g/dL Low 3.4-4.8 [facility] Comment on above: Performed By: #### L 500.4050, L100.0100, L506.1001, L501.9520 #### [facility] [address] [place], [address] Albumin/Globulin [Mass ratio] 0.9 {ratio} Normal 0.9-2.4 [facility] Comment on above: Performed By: #### L 500.4050, L100.0100, L506.1001, L501.9520 #### [facility] [address] [place], [address] ALK PHOS 121 U/L High 35-104 [facility] Comment on above: Performed By: #### L 500.4050, L100.0100, L506.1001, L501.9520 #### [facility] [address] [place], [address] ALT [Catalytic activity/Vol] 14 U/L Normal <=34 [facility] Comment on above: Performed By: #### L 500.4050, L100.0100, L506.1001, L501.9520 #### [facility] [address] [place], [address] AST [Catalytic activity/Vol] 18 U/L Normal <=31 [facility] Comment on above: Performed By: #### L 500.4050, L100.0100, L506.1001, L501.9520 #### [facility] [address] [place], [address] Bilirubin [Mass/Vol] 0.32 mg/dL Normal 0.00-1.30 [facility] Comment on above: Performed By: #### L 500.4050, L100.0100, L506.1001, L501.9520 #### [facility] [address] [place], [address] BUN/CRE 15.0 RATIO Normal 10-20 [facility] Comment on above: Performed By: #### L 500.4050, L100.0100, L506.1001, L501.9520 #### [facility] [address] [place], [address] Calcium [Mass/Vol] 8.3 mg/dL Normal 7.6-11.0 [facility] Comment on above: Performed By: #### L 500.4050, L100.0100, L506.1001, L501.9520 #### [facility] [address] [place], [address] Chloride [Moles/Vol] 107 mmol/L Normal 98-108 [facility] Comment on above: Performed By: #### L 500.4050, L100.0100, L506.1001, L501.9520 #### [facility] [address] [place], [address] CO2 [Moles/Vol] 23.6 mmol/L Normal 21.0-32.0 [facility] Comment on above: Performed By: #### L 500.4050, L100.0100, L506.1001, L501.9520 #### [facility] [address] [place], [address] Creatinine [Mass/Vol] 0.69 mg/dL Low 0.70-1.20 [facility] Comment on above: Performed By: #### L 500.4050, L100.0100, L506.1001, L501.9520 #### [facility] [address] [place], [address] GAP 11 Normal 5-15 [facility] Comment on above: Performed By: #### L 500.4050, L100.0100, L506.1001, L501.9520 #### [facility] [address] [place], [address] GFR/1.73 sq M.predicted among non-blacks MDRD (S/P/Bld) [Vol rate/Area] 92 mL/min/{1.73_m2} Normal >60 [facility] Comment on above: Result Comment: mL/m in/1.73m2 CKD-EPI Creatinine Equation (2020) Performed By: #### L 500.4050, L100.0100, L506.1001, L501.9520 #### [facility] [address] [place], [address] Globulin (S) [Mass/Vol] 3.4 g/dL Normal 2.2-4.2 [facility] Comment on above: Performed By: #### L 500.4050, L100.0100, L506.1001, L501.9520 #### [facility] [address] [place], [address] Glucose [Mass/Vol] 87 mg/dL Normal 70-99 [facility] Comment on above: Performed By: #### L 500.4050, L100.0100, L506.1001, L501.9520 #### [facility] [address] [place], [address] Potassium [Moles/Vol] 3.8 mmol/L Normal 3.3-5.1 [facility] Comment on above: Result Comment: Hemo lysis present, Results??could be affected. ?? Performed By: #### L 500.4050, L100.0100, L506.1001, L501.9520 #### [facility] [address] [place], [address] Sodium [Moles/Vol] 141 mmol/L Normal 133-145 [facility] Comment on above: Performed By: #### L 500.4050, L100.0100, L506.1001, L501.9520 #### [facility] [address] [place], [address] T PROT 6.3 g/dL Normal 5.9-8.4 [facility] Comment on above: Performed By: #### L 500.4050, L100.0100, L506.1001, L501.9520 #### [facility] [address] [place], [address] Urea nitrogen [Mass/Vol] 10 mg/dL Normal 4-19 [facility] Comment on above: Performed By: #### L 500.4050, L100.0100, L506.1001, L501.9520 #### [facility] [address] [place], [address] Eosinophil percentageOrdered By: Lamine Jaramillo on 09-25-2024 Eosinophils/100 WBC (Bld) 7.3 % High 0-5 [facility] Erythrocyte distribution wid th ratioOrdered By: Lamine Jaramillo on 09-25-2024 Erythrocyte distribution width (RBC) [Ratio] 13.2 % 11.6-14.6 [facility] Erythrocyte distribution wid th standard deviationOrdered By: Lamine Jaramillo on 09-25-2024 Erythrocyte distribution width (RBC) [Entitic vol] 43.2 fL 35.1-43.9 [facility] Erythrocyte distribution width (RBC) [Ratio] 43.2 fl 35.1-43.9 [facility] GFR/1.73 sq M.predicted nneka g non-blacks MDRD (S/P/Bld) [Vol rate/Area]Ordered By: Lamine Jaramillo on 09-25-2024 Estimated GFR (MDRD) Non-Af Amer 92 >60 [facility] Comment on above: mL/min/1.73m2 CKD-EP I Creatinine Equation (2020) Glomerular filtration rate ( GFR) estimation/1.73 sq m using serum, plasma, or whole bOrdered By: Lamine Jaramillo on 09-25-2024 GFR/1.73 sq M.predicted among non-blacks MDRD (S/P/Bld) [Vol rate/Area] 92 mL/min/{1.73_m2} >60 [facility] Comment on above: mL/min/1.73m2 CKD-EP I Creatinine Equation (2020) Hematocrit Auto (Bld) [Volum e fraction]Ordered By: Lamine Jaramillo on 09-25-2024 Hematocrit (Bld) [Volume fraction] 40.2 % 37-47 [facility] Hemoglobin measurementOrdere d By: Lamine Jaramillo on 09-25-2024 Hemoglobin (Bld) [Mass/Vol] 13.0 g/dL 12.0-15.0 [facility] Immature granulocytes/100 WB C Auto (Bld)Ordered By: Lamine Jaramillo on 09-25-2024 Immature granulocytes/100 WBC (Bld) 0.200 % 0.0-0.9 [facility] Comment on above: IG% - Immature Granu locytes (promyelocytes, myelocytes and metamyelocytes) > 1% indicates that a LEFT SHIFT is Present. L506.1001on 09-25-2024 Vitamin D 25-OH 40.2 ng/mL Normal 30-100 [facility] Comment on above: Result Comment: Juli min D Status Deficiency: <20 ng/mL (50nmol/L) Insufficiency: 20-30 ng/mL (50-75 nmol/L) Sufficiency: 30-100 ng/mL (75-250 nmol/L) Toxicity: >100 ng/mL (>250 nmol/L) Performed By: #### L 500.4050, L100.0100, L506.1001, L501.9520 ####[facility] [address] [place], [address] Laboratory - Chemistry and C hemistry - challengeOrdered By: Lamine Jaramillo on 09-25-2024 AST [Catalytic activity/Vol] 18 U/L <32 [facility] Lymphocytes Auto (Unsp spec) [#/Vol]Ordered By: Lamine Jaramillo on 09-25-2024 Lymphocytes (Bld) [#/Vol] 2.52 10*3/uL 0.83-4.51 [facility] Lymphocytes/100 WBC Auto (Un sp spec)Ordered By: Lamine Jaramillo 09-25-2024 Lymphocytes/100 WBC (Bld) 27.2 % 19-41 [facility] MCV (mean corpuscular volume ) determinationOrdered By: Lamine Jaramillo on 09-25-2024 MCV (RBC) [Entitic vol] 89.3 fL 81-99 [facility] Mean corpuscular hemoglobin (MCH) determinationOrdered By: Lamine Jaramillo on 09-25-2024 MCH (RBC) [Entitic mass] 28.9 pg 27.0-32.0 [facility] Mean corpuscular hemoglobin concentration (MCHC) determinationOrdered By: Lamine Jaramillo on 09-25-2024 MCHC (RBC) [Mass/Vol] 32.3 g/dL 32-36 [facility] Mean platelet volume determi nationOrdered By: Lamine Jaramillo on 09-25-2024 Platelet mean volume (Bld) [Entitic vol] 9.6 fL 6.2-12.0 [facility] Monocyte percentageOrdered B y: Lamine Jaramillo on 09-25-2024 Monocytes/100 WBC (Bld) 5.3 % 0-10 [facility] Neutrophil percentageOrdered By: Lamine Jaramillo on 09-25-2024 Neutrophils/100 WBC (Bld) 59.8 % 47-70 [facility] Nucleated red blood cell per centageOrdered By: Lamine Jaramillo on 09-25-2024 Nucleated RBC/100 WBC (Bld) [Ratio] 0 % 0-5 [facility] Platelet countOrdered By: Khalif Jaramillo on 09-25-2024 Platelets (Bld) [#/Vol] 275 10*3/uL 150-450 [facility] Potassium (Unsp spec) [Mass/ Vol]Ordered By: Lamine Jaramillo on 09-25-2024 Potassium [Moles/Vol] 3.8 mmol/L 3.3-5.1 [facility] Comment on above: Hemolysis present, R esults could be affected. Potassium measurement (mass/ volume)Ordered By: Lamine Jaramillo 09-25-2024 Potassium (Unsp spec) [Mass/Vol] 3.8 mmol/L 3.3-5.1 [facility] Comment on above: Hemolysis present, R esults could be affected. RBC Auto (Bld) [#/Vol]Ordere d By: Lamine Jaramillo on 09-25-2024 RBC (Bld) [#/Vol] 4.50 10*6/uL 4.2-5.4 [facility] Serum creatinine measurement (mass/volume)Ordered By: Lamine Jaramillo on 09-25-2024 Creatinine [Mass/Vol] 0.69 mg/dL Low 0.70-1.20 [facility] Serum globulin measurementOr dered By: Lamine Jaramillo on 09-25-2024 Globulin (S) [Mass/Vol] 3.4 g/dL 2.2-4.2 [facility] Serum glucose measurement (m ass/volume)Ordered By: Lamine Jaramillo on 09-25-2024 Glucose [Mass/Vol] 87 mg/dL 70-99 [facility] Serum or plasma alanine vasquez otransferase (ALT) measurementOrdered By: Lamine Jaramillo 09-25-2024 ALT [Catalytic activity/Vol] 14 U/L <35 [facility] Serum or plasma albumin gini urement (mass/volume)Ordered By: Lamine Jaramillo 09-25-2024 Albumin [Mass/Vol] 2.9 g/dL Low 3.4-4.8 [facility] Serum or plasma albumin/glob ulin mass ratioOrdered By: Lamine Jaramillo 09-25-2024 Albumin/Globulin [Mass ratio] 0.9 {ratio} 0.9-2.4 [facility] Serum or plasma alkaline jah sphatase measurementOrdered By: Lamine Jaramillo 09-25-2024 ALP [Catalytic activity/Vol] 121 U/L High 35-104 [facility] Serum or plasma calcium gini urement (mass/volume)Ordered By: Lamine Jaramillo 09-25-2024 Calcium [Mass/Vol] 8.3 mg/dL 7.6-11.0 [facility] Serum or plasma urea nitroge n measurement (mass/volume)Ordered By: Lamine Jaramillo 09-25-2024 Urea nitrogen [Mass/Vol] 10 mg/dL 4-19 [facility] Sodium levelOrdered By: Lamine Jaramillo 09-25-2024 Sodium [Moles/Vol] 141 mmol/L 133-145 [facility] TSH DL <= 0.005 mIU/L QnOrde red By: Lamine Jaramillo 09-25-2024 Thyroid Stimulating Hormone (TSH) 7.380 uIU/mL High 0.300-4.20 0 [facility] TSH Qn 7.380 uIU/mL High 0.300-4.20 0 [facility] Thyroid Stim Hormone (TSH)on 09-25-2024 TSH 7.380 uIU/mL High 0.300-4.20 0 [facility] Comment on above: Performed By: #### L 500.4050, L100.0100, L506.1001, L501.9520 #### [facility] [address] [place], [address] Total proteinOrdered By: Lamine Jaramillo on 09-25-2024 Protein [Mass/Vol] 6.3 g/dL 5.9-8.4 [facility] Vitamin D, 25-hydroxyOrdered By: Lamine Jaramillo on 09-25-2024 Vitamin D 25-Hydroxy 40.2 ng/mL 30-100 [facility] Comment on above: Vitamin D StatusDefi ciency: <20 ng/mL (50nmol/L)Insufficiency: 20-30 ng/mL (50-75 nmol/L)Sufficiency: 30-100 ng/mL (75-250 nmol/L)Toxicity: >100 ng/mL (>250 nmol/L) White blood cell (WBC) count Ordered By: Lamine Jaramillo on 09-25-2024 WBC (Bld) [#/Vol] 9.3 10*3/uL 4.4-11.0 [facility] Orthopedic Visit Reporton Orthopedic Visit Report [facility] [address] [place] [address] [address] [place] [address] OFFICE VISIT Date of Service: 09/01/24 MR#: [id number] Acct: [id number] Name: ADRIANITA ESPINOZA Dimitris Rep #: [id number] : 1950 Provider: Dr. Sergo ken DO Age/Sex: 73/F Location: [facility] Status: Signed Intake Vital Signs 07/08/24 09:49 08/19/24 09:36 Height 5 ft 5 in 5 ft 5 in Intake Visit Reasons: bilateral hands Chief Complaint: 2 week post-op Accompanied by: Self Is patient in pain?: No Allergies No Known Allergies Allergy (Verified 09/01/24 09:57) Medications ???Medication ???Instructions ???Recorded ???Confirmed ???Type calcium 500 mg (as 1 ea PO BID SUPP;EMENT 04/30/18 History carbonate)-vitamin D3 15 mcg (600 unit) tablet multivitamin 1 ea PO DAILY 04/30/18 09/01/24 Hi story omega-3 fatty acids-fish oil 340 1 ea PO DAILY 04/30/18 09/01/24 Hi story mg-1,000 mg capsule pravastatin 40 mg tablet 40 mg PO QHS 04/30/18 09/01/24 His tory vitamin E 670 mg (1,000 unit) 1,000 unit PO DAILY 04/30/1809/01 History capsule losartan 100 mg tablet 100 mg PO DAILY 06/26/19 09/01/24 History famotidine 40 mg tablet 40 mg PO Q12H 03/28/23 09/01/24 Hi story fexofenadine 180 mg tablet 360 mg PO BID 03/28/23 09/01/24 Hi story (Kirstie Allergy) bupropion HCl 150 mg 24 hr tablet, 150 mg PO DAILY 10/05/23 5 History extended release thyroid (pork) 90 mg tablet (INSTRUMENTATION TECHNICIAN 90 mg PO DAILY 10/05/23 09/01/24 H istory Thyroid) omalizumab 150 mg/mL subcutaneous 150 mg subcut Q4W 06/11/24 History auto-injector (Xolair) Lactobacillus acidophilus 250 500 mmu cells PO DAILY 07/24/24 History million cell capsule (Probiotic Acidophilus) Have you fallen in the past year?: No PFSH Medical History Wears glasses Wears contact lenses Wears partial dentures Post-menopausal Depression High cholesterol DVT (deep venous thrombosis) Back pain Seasonal allergies Non-smoker History of stress test Osteoarthritis Hypothyroidism Hypertension Surgical History History of bunionectomy of right great toe Hx of fracture of wrist Hx of knee surgery Social History Smoking Status: Never smoker HPI bilateral hands Details: This documentation accurately reflects the service provided and the decisions made by me, Dr. Sergo Gipson, DO 09/01/24 0743. Part of today???s visit was documented by Nikia Mills ATC, acting as scribe. ANITA MURRAY is a 73 year old F here today for 2-week follow-up DOS 08/19/2024 Procedure Performed: Right open carpal tunnel release left carpal tunnel injection. Patient states she is doing good and has no pain numbness or tingling or any complaints today. Patient denies any redness/drainage at the incisions. She states the injection in the left hand did give her relief and she is happy with it currently and would like to hold off on any surgery on it. Ortho Exam General General: Yes no acute distress and Yes well groomed Neurologic: Yes alert and Yes oriented x3 Psychologic: Yes reasonable and appropriate Right Wrist/Hand Skin/Wound: Yes CDI, Yes healing, Yes suture/martin removed, No Swelling, No Ecchymosis and Yes capillary refill normal WRIST: Sutures were removed today there is no sign of infection she has full finger flexion extension and near full wrist range of motion. Left Wrist/Hand Skin/Wound: No Swelling and No Ecchymosis Right Foot/Ankle Skin/Wound: Yes suture/martin removed Supplemental Info 08/19/2024 Procedure Performed: Right open carpal tunnel release left carpal tunnel injection 07/14/2024 x-ray left hand: There is advanced first CMC joint arthrosis, orthopedic hardware in the distal radius, mild degenerative changes of the IP and DIP joints 07/14/2024 x-ray right hand moderate first CMC joint arthrosis mild degenerative changes in the PIP and DIP joints 07/09/2024 EM. Electrodiagnostic findings suggestive of bilateral median mononeuropathy. This is consistent with a moderate bilateral carpal tunnel syndrome. 03/28/2023 x-ray left shoulder: No acute findings 12/20/2020 MRI cervical spine: C5/C6: Moderate right and moderate left foraminal stenosis. 08/25/2020 x-ray left shoulder: No acute findings 08/25/2020 x-ray cervical spine:Moderate degenerative disc disease C5-6And C6-7 Coding Level of Care Code Global Post Op Diagnoses Orthopedic aftercare Z47.89 Assessment and Plan Assessment and Plan (1) Orthopedic aftercare: Status: Acute Plan Removed patient's sutures today with her motion being as good as it is I do not think she need (more content not included)... Normal [facility] Discharge Instructionon 08-02 Discharge Instruction [facility] Medical Records Department [address] [place] [address] Instructions for Home/Discharge Instructions 08/19/24 1129 MR#: [id number] Acct: [id number] Name: ANITA MURRAY Rep #: [id number] : 1950 73 From: Sergo Gipson DO PCP: Dr. Lamine Jaramillo MD Status:DEP [facility] Discharge Instructions Diet Discharge Diet: No restrictions Dressing / Incision Call your doctor if you observe: Shortness of breath and Chest pain Additional Dressing/Incision Instructions:: Ice and elevate operative extremity next 72 hours. Keep dressing on clean and dry for 48 hours then may remove and allow warm soapy water to rinse over incision but do not submerge until sutures are out. Then apply bandaid over incision and change daily. encourage finger range of motion. Not lift more than 1/2 pound. Minimize narcotic use only as needed and directed, may use OTC NSAID and Tylenol to supplement/substitute for pain control. Follow Up Care Please Follow Up With: Sergo Gipson DO When: 2 weeks Test Results: Test results from this visit will be discussed in further detail at your follow-up appointment, if applicable. Discharge Plan Admission Primary Reason for Your Visit: Right carpal tunnel release Attending Provider: Sergo Gipson Primary Care Provider: Lamine Jaramillo Chi Instructions Print Language: Chinese Discharge Orders/Prescriptions Prescriptions: No Action famotidine 40 mg tablet 40 mg PO Q12H Patient Comments: TAKE 1 TABLET BY MOUTH TWICE DAILY 30-60 MINUTES BEFORE BREAKFAST AND EVENING MEAL fexofenadine [Kirstie Allergy] 180 mg tablet 360 mg PO BID Xolair 150 mg/mL auto-injector 150 mg subcut Q4W multivitamin 1 EACH tablet 1 ea PO DAILY vitamin E 1,000 UNIT capsule 1,000 unit PO DAILY pravastatin 40 MG tablet 40 mg PO QHS omega-3 fatty acids-fish oil 1 EACH capsule 1 ea PO DAILY calcium carbonate-vitamin D3 1 EACH tablet 1 ea PO BID losartan 100 MG tablet 100 mg PO DAILY thyroid (pork) [INSTRUMENTATION TECHNICIAN Thyroid] 90 mg tablet 90 mg PO DAILY bupropion HCl 150 mg tablet extended release 24 hr 150 mg PO DAILY Probiotic Acidophilus 250 million cell capsule 500 mmu cells PO DAILY Referrals / Follow Up: Lamine Jaramillo Chi, MD [Primary Care Provider] - Disposition Disposition (needs filled in before D/C Order can be placed): Home, Self Care 08/19/24 1404 Sergo Leonela DO CC: Dr. Lamine Jaramillo MD Signed [facility] MR/POSTOP.ANEon 08-19-2024 MR/POSTOP.[facility] Medical Records Department [address] [address] Anesthesia Postop Eval I 08/19/241127 MR#: [id number] Acct: [id number] Name: ANITA MURRAY Rep #: [id number] : 1950 73 From: Jacobo Richmond CRNA PCP: Dr. Lamine Jaramillo MD Status:REG [facility] Y Race: C Location: [place] [address] Anesthesia: Postop Eval I Current Vital Signs Temperature: 98.3 F Pulse Rate: 68 Blood Pressure: 148/83 Respiratory Rate: 16 Pulse Ox: 99 Assessment Airway patent: Yes Spontaneous unlabored respirations: Yes nausea: No Vomiting: No Anesthesia Complication: No Fluid Hydration Crystalloid volume administer (ml): 20 Total IV fluid infused: 20 Progress Note Anesthesia document: Postop Eval 1 completed: Yes 08/19/241127 Date Jacobo Richmond MASTICATOR Cosigner Signature: Date CC: Signed [facility] MR/HANNLPMB7bx 08-19-2024 MR/POSTOPA[address] Medical Records Department [address] [place] [address] Anesthesia Postop Eval II 08/19/241817 MR#: [id number] Acct: [id number] Name: ANITA MURRAY Rep #: [id number] : 1950 73 From: José Miguel Tatum MD PCP: Dr. Lamine Jaramillo MD Status:DEP [facility] Y Race: C Location: [facility] Anesthesia Postop Eval I Sum Postop Eval Completion status Anesthesia document: Postop Eval 1 completed: Yes Anesthesia Postop Eval I Summary Anesthesia Postop Eval I Summary: Anesthesia Postop Eval I: Assessment Summary Airway patent Yes 08/19/24 11:28 [email or web address] Spontaneous unlabored Yes 08/19/24 11:28 [email or web address] respirations Mental status nausea No 08/19/24 11:28 [email or web address] Vomiting No 08/19/24 11:28 [email or web address] Anesthesia Postop Eval I: Fluid Summary Crystalloid volume administer 20 08/19/24 11:28 [email or web address] (ml) Colloids volume administered ( ml) Blood Product volume administered (ml) Total IV fluid infused 20 08/19/24 11:28 [email or web address] Anesthesia Postop Eval I: Summary Notes Anesthesia Complication No 08/19/24 11:28 [email or web address] Anesthesia Complication Comment: Post-operative progress note Anesthesia: Postop Eval II Evaluation Mental status: Awake and Calm Pain Level: 1 nausea: No Vomiting: No Complications Anesthesia Complication: No 08/19/241818 Date José Miguel Tatum MD Cosigner Signature: Date CC: Signed Normal [facility] Operative Reporton 5 Operative Report [facility] Medical Records Department [address] [place] [place] [address] Operative Report 08/19/24 1126 MR#: [id number] Acct: [id number] Name: ANITA MURRAY Rep #: [id number] : 1950 73 From: Sergo Gipson DO PCP: Dr. Lamine Jaramillo MD Status:REG [facility] Location: [place] [address] Operative Report (Standard) Operative Information Date of Procedure: 08/19/24 Pre-Operative Diagnosis: Bilateral carpal tunnel syndrome Post-Operative Diagnosis: Same Surgery/Procedure Performed: Right open carpal tunnel release left carpal tunnel injection cut off worker: Yes Manager Labor Delivery: Zain Rodriguez Tasks completed by culinary assistant: Opening closing Type of Anesthesia: Local and MAC RN Documented Start/Stop Times: Operation Date: 08/19/24 10:45 Case Time Into Pre-Op 08/19/24 09:15 Out of Pre-Op 08/19/24 10:42 Anesthesia Start 08/19/24 10:48 Into Room 08/19/24 10:48 Procedure Start 08/19/24 11:00 Procedure End 08/19/24 11:16 Anesthesia End 08/19/24 11:22 Out of Room 08/19/24 11:22 Procedure Start Time: 11:00 Procedure Stop Time: 11:16 Select all DRAINS/GRAFTS/IMPLANTS that apply: None Estimated Blood Loss: 0 Specimen collected: No Description of surgery: Preoperative diagnosis; bilateral carpal tunnel syndrome Postoperative diagnosis; same Procedure: Right open carpal tunnel release left carpal tunnel injection Anesthesia: Local with MAC Tourniquet time; [10] minutes 250 mm Hg Complications: None Indication for procedure; This is a 73-year-old [female] with long-standing symptoms consistent with carpal tunnel syndrome the patient did have electrodiagnostic evidence of this and has failed co nservative treatment. Risks benefits and alternatives were reviewed including risks of bleeding infection nerve artery tissue damage need for further surgery and continued pain and symptoms, hypersensitivity to scar and Pillar pain. Procedure; The patient was met in the preoperative holding area the operative extremity was identified by both patient and physician and was marked the patient was met by anesthesia and brought back to the operating room and transferred to the operating table in the supine position. Anesthesia was started. A well-padded tourniquet was placed on the operative upper extremity. The patient was prepped and draped in the usual sterile fashion. A timeout was called to ensure the proper patient procedure and extremity were being contemplated. 0.5 percent [ Lidocaine] with epinephrine was injected into the incisional area. An Esmarch was used to exsanguinate the extremity. The tourniquet was inflated to 250 mmHg. A midline incision was made with a 15 blade scalpel between the thenar and hypothenar eminence. This was carried down through the skin and subcutaneous tissue. Ludmila retractors were then used, a deep blade scalpel was used to make a deep incision in the palmar aponeurosis. The ludmial retractors were then placed deep to this and the transverse carpal ligament was identified a perforation was made with a scalpel and a Littler scissors were used to complete the release of the transverse carpal ligament distally under direct visualization with the tips facing ulnarly until the perivascular fat was reached. Then turning our attention proximally using a tension slide technique the proximal extent of the transverse carpal ligament was released . There was noted to be [hourglass configuration to the median nerve and hypertrophy of the transverse carpal ligament without other findings]. The wound was thoroughly irrigated and was closed with 4-0 nylon vertical mattress stitches. Dressing was applied in the form of xeroform 4 x 4, web roll and an charla wrap. Tourniquet was let down there is no intraoperative complications patient tolerated the procedure well Attention was turned to the left carpal tunnel it was prepped with alcohol and was injected with 20 mg of Depo-Medrol and 0.5 cc of 0.25% Marcaine plain Band-Aid was applied Did well and was transferred to the PACU. All counts were correct. Surgical Findings: Hypertrophied transverse carpal ligament Complications Complications: No 08/19/24 1129 Cosigner Signature (if applicable): CC: Dr. Sergo Gipson DO; Dr. Lamine Jaramillo MD Signed Normal [facility] Influenza virus A and B and SARS-CoV-2 (COVID-19) and Respiratory syncytial virus RNAOrdered By: Lamine Jaramillo on 07-29-2024 SARS-CoV-2 (COVID-19) RNA EMMANUELLE+probe Ql (Unsp spec) [facility] M100.678on 07-29-2024 M100.678 SARS-CoV-2 (COVID 19 ) Negative INFLUENZA A Negative INFLUENZA B Negative RSV PCR Negative Normal [facility] Comment on above: Performed By: #### M 100.678 ####[facility] [address] [place], [place], [address] MR/PAT.NOHEMYon 07-24-2024 MR/PAT.NOHEMY [facility] Medical Records Department [address] [place] [address] PAT - Anesthesia 07/24/24 1829 MR#: [id number] Acct: [id number] Name: ANITA DUMAS Rep #: [id number] : 1950 73 From: José Miguel Tatum MD PCP: Dr. Lamine Jaramillo MD Status:PRE [facility] Y Race: C Location: [facility] Pre-Assessment Diagnosis/Proposed Procedure Planned Operative Procedure(s): RIGHT OPEN CARPAL TUNNEL RELEASE AND LEFT CARPAL TUNNEL INJECTION Anesthesia History Anesthesia History - engineering executive: Anesthesia History - engineering executive Hx Hospitalization No 07/24/24 11:05 Any Problems With Anesthesia No 07/24/24 11:05 Cholinesterase deficiency No 07/24/24 11:05 You/Your Family Experience No 07/24/24 11:05 fever (hyperthermia) with Relationship Recent Exposure to Contagious No 07/03/19 06:41 Disease Does patient have nerve No 07/24/24 11:05 stimulator Patient instructed to have device shut off --Does patient have Pacemaker or ICD? When Was Last Pacemaker Check QUESTION #4 FULL TEXT: You/Your Family Experience fever (hyperthermia) with Anesthesia Last Oral Intake Last Oral intake: Last Oral Intake NPO since Meds taken in AM with sips of water? Meds patient instructed to take am of surgery PONV PONV - engineering executive: PONV - engineering executive Female Yes 07/24/24 11:05 HX of Motion Sickness No 07/24/24 11:05 HX of N/V After Surgery No 07/24/24 11:05 Non-Smoker Yes 07/24/24 11:05 Duration of Surgery greater No 07/24/24 11:05 than 60 minutes Number of Risk Factors 2 07/24/24 11:05 PONV Score Moderate Risk 07/24/24 11:05 Height Weight Height Weight: Anesthesia: Height Weight Height 5 ft 5 in 07/08/24 09:49 Respiratory Assessment Respiratory Assessment - engineering executive: Respiratory Tract Infection Hx - engineering executive Hx Respiratory Tract Infection No 07/24/24 11:05 STOP Sleep Apnea STOP Sleep Apnea - engineering executive: STOP Sleep Apnea - engineering executive Hx Hypertension Yes: CONTROLLED WITH MED 07/24/24 11:05 Hx Sleep Apnea No 07/24/24 11:05 CPAP BIPAP Do you snore loudly (louder No 07/24/24 11:05 than talking or can be heard Do you often feel tired/ Yes 07/24/24 11:05 fatigued/ sleepy during daytime? Has anyone observed you stop No 07/24/24 11:05 breathing during sleep? STOP Results Positive 07/24/24 11:05 QUESTION #5 FULL TEXT : Do you snore loudly (louder than talking or can be heard through closed doors)? 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 Specify any problems Hx of Preganancy in last 3 No 07/24/24 11:05 Months Nurse Filling Out Transfusion DSCHRIBER 07/24/24 11:05 Questions: Date: 07/24/24 07/24/24 11:05 Time: 11:06 07/24/24 11:05 Patient unable to answer at this time (ie. confused, unrespo /Reproduction History /Reproductive History - engineering executive: /Reproductive Hx- engineering executive Hx Now No 07/24/24 11:05 Gestational Age (in weeks): EDC: Hx Hx Para Hx Section SAB No 07/24/24 11:05 PFSH Medical History (Updated 07/24/24 @ 11:12 by Cira Xie) Wears glasses Wears contact lenses Wears partial dentures Post-menopausal Depression High cholesterol DVT (deep venous thrombosis) Back pain Seasonal allergies Non-smoker History of stress test Hx of fracture of wrist Osteoarthritis Hypothyroidism Hypertension Home Medications ???Medication ???Instructions ???Recorded ???Last Taken ???Type calcium 500 mg (as 1 ea PO BID SUPP;EMENT 04/30/18 Unknown History carbonate)-vitamin D3 15 mcg (600 unit) tablet multivitamin 1 ea PO DAILY 04/30/18 Unknown History omega-3 fatty acids-fish oil 340 1 ea PO DAILY 04/30/18 Unknown History mg-1,000 mg capsule pravastatin 40 mg tablet 40 mg PO QHS 04/30/18 Unknown History vitamin E 670 mg (1,000 unit) 1,000 unit PO DAILY 04/30/18 Unknown History capsule losartan 100 mg tablet 100 mg PO DAILY 06/26/19 (more content not included)... Normal [facility] Hand Min 3 Viewson 5 Hand Min 3 Views [facility] [address] [place] [address] Hand Min 3 Views MR#: [id number] Acct: [id number] Name: ANITA DUMAS Rep #: [id number] : 1950 F 73 From: Thien Crawford MD PCP: Dr. Lamine Jaramillo MD Status: DEP AMB Study: Hand Min 3 Views Date of Exam: 07/14/24 Exam# [id number] Ordering Dr: Sergo Gipson DO :[id number] STUDY: X-RAY - RIGHT HAND REASON FOR EXAM: Female, 73 years old. Pain. TECHNIQUE: 3 views of the right hand. COMPARISON: None. FINDINGS: Normal radiocarpal articulation. Normal distal radioulnar joint. Normal visualized carpal bones. Normal carpal articulations. There is moderate degenerative arthrosis of the carpometacarpal articulation of the thumb with lateral subluxation of the first metacarpus. Normal second through fifth carpometacarpal joints. Normal metacarpi. Normal metacarpophalangeal joint of the thumb. Normal interphalangeal joint of the thumb. Normal proximal and distal phalanges of the thumb. Normal metacarpophalangeal joints of the second through fifth fingers. There is minimal degenerative arthrosis of the proximal and distal interphalangeal joints of the second through fifth fingers. Normal phalanges of the second through fifth fingers. The soft tissue structures are unremarkable. RAD/Hand Min 3 Views IMPRESSION: Moderate degenerative arthrosis of the carpometacarpal articulation of the thumb with lateral subluxation of the first metacarpus. Minimal degenerative arthrosis of the proximal and distal interphalangeal joints of the second through fifth fingers. Electronically Signed: Thien Crawford MD at 8:48 EST Reading Location ID and State: [facility] / [place] , Service support , CC: Dr. Sergo Gipson DO; Dr. Lamine Jaramillo MD Consultant Dietitian: Signed Normal [facility] Hand Min 3 Views [facility] [address] [place] [address] Hand Min 3 Views MR#: [id number] Acct: [id number] Name: ANITA DUMAS Rep #: [id number] : 1950 F 73 From: Thien Crawford MD PCP: Dr. Lamine Jaramillo MD Status: DEP AMB Study: Hand Min 3 Views Date of Exam: 07/14/24 Exam# [id number] Ordering Dr: Sergo Gipson DO :[id number] STUDY: X-RAY - LEFT HAND REASON FOR EXAM: Female, 73 years old. Pain. TECHNIQUE: 3 views of the left hand. COMPARISON: Left hand radiographs dated 10/31/2021. FINDINGS: There is unchanged volar plate and screw fixation of the distal radius. Normal radiocarpal articulation. Normal distal radioulnar joint. Normal visualized carpal bones. Normal carpal articulations. There is persistent severe degenerative arthrosis of the carpometacarpal articulation of the thumb with lateral subluxation of the first metacarpus. Normal second through fifth carpometacarpal joints. Normal metacarpi. Normal metacarpophalangeal joint of the thumb. Normal interphalangeal joint of the thumb. Normal proximal and distal phalanges of the thumb. Normal metacarpophalangeal joints of the second through fifth fingers. There is unchanged mild degenerative arthrosis of the proximal and distal interphalangeal joints of the second through fifth fingers. Normal phalanges of the second through fifth fingers. The soft tissue structures are unremarkable. RAD/Hand Min 3 Views IMPRESSION: Persistent severe degenerative arthrosis of the carpometacarpal articulation of the thumb with lateral subluxation of the first metacarpus. Unchanged mild degenerative arthrosis of the proximal and distal interphalangeal joints of the second through fifth fingers. Electronically Signed: Thien Crawford MD at 9:01 EST Reading Location ID and State: [facility] / [place] , Service support , CC: Dr. Sergo Gipson DO; Dr. Lamine Jaramillo MD Consultant Dietitian: Signed Normal [facility] Orthopedic Visit Reporton Orthopedic Visit Report [facility] [address] [place] [address] OFFICE VISIT Date of Service: 07/14/24 MR#: [id number] Acct: [id number] Name: ANITA DUMAS Rep #: [id number] : 1950 Provider: Dr. Sergo ken DO Age/Sex: 73/F Location: [facility] [place] Status: Signed Intake Vital Signs 10/05/23 18:33 07/08/24 09:49 Height 5 ft 5 in 5 ft 5 in Intake Visit Reasons: BILATERAL HANDS Chief Complaint: Left shoulder pain Allergies No Known Allergies Allergy (Verified 07/14/24 13:30) Medications ???Medication ???Instructions ???Recorded ???Confirmed ???Type calcium 500 mg (as 1 ea PO BID SUPP;EMENT 04/30/18 07/14/24 History carbonate)-vitamin D3 15 mcg (600 unit) tablet multivitamin 1 ea PO DAILY 04/30/18 07/14/24 History omega-3 fatty acids-fish oil 340 1 ea PO DAILY 04/30/18 07/14/24 History mg-1,000 mg capsule pravastatin 40 mg tablet 40 mg PO DAILY 04/30/18 07/14/24 History vitamin E 670 mg (1,000 unit) 1,000 unit PO DAILY 04/30/18 07/14/24 History capsule losartan 100 mg tablet 100 mg PO DAILY 06/26/19 07/14/24 History famotidine 40 mg tablet 40 mg PO Q12H 03/28/23 07/14/24 History fexofenadine 180 mg tablet 360 mg PO DAILY 03/28/23 07/14/24 History (Kirstie Allergy) bupropion HCl 150 mg 24 hr tablet, 150 mg PO DAILY 10/05/23 07/14/24 History extended release thyroid (pork) 90 mg tablet (INSTRUMENTATION TECHNICIAN 90 mg PO DAILY 10/05/23 07/14/24 History Thyroid) omalizumab 150 mg/mL subcutaneous 150 mg subcut Q4W 06/11/24 07/14/24 History auto-injector (Xolair) Have you fallen in the past year?: No PFSH Medical History Rash Borderline hyperlipidemia Osteoarthritis Hypothyroidism Hypertension Surgical History History of surgery on left wrist History of arthroplasty of right knee Social History Smoking Status: Never smoker HPI BILATERAL HANDS Details: This documentation accurately reflects the service provided and the decisions made by me, Dr. Sergo Gipson, DO 07/14/24 0834. Part of today???s visit was documented by Nica NELSON, acting as scribe. ANITA DUMAS is a 73 year old F here today for bilateral hand EMG review. She denies any changes. 06/11/2024 visit: 73 year old F here today for bilateral hands. She states that this past summer her hands would go numb. Then in April she started having severe pain. She has stiffness which is worse in the morning. She tried working on range of motion with a ball. She notes that she has decreased strength and is dropping dishes. She notes that her numbness is into her entire hand although it is worse in her thumb and palm. She complains of pain into her index and middle finger as well. She isnt able to take NSAIDs due to allergy injections. She has been taking tylenol which is not helpful. Patient denies any injections, physical therapy, or treatment.She denies any xrays. She is right hand dominant. Patient had a left wrist fracture and surgery [address] Cabral. She denies any radiating pain from her cervical spine. Plan: Recommended an EMG to evaluate her nerves and what nerve is being compressed. She may wear wrist braces at night. She is unable to take NSAIDs due to a recommended of her obstetrician and gynaecologist Ortho Exam General General: Yes no acute distress Neurologic: Yes alert and Yes oriented x3 Psychologic: Yes reasonable and appropriate Right Wrist/Hand Skin/Wound: No Swelling, No Ecchymosis, Yes nail intact and Yes capillary refill normal Right Wrist: Yes Durken's Test, Phalen's, CMC Grind and tender to palpate carpometacarpal joint WRIST: 2cm tip to palm Left Wrist/Hand Skin/Wound: No Swelling, No Ecchymosis, Yes nail intact, Yes capillary refill normal and No erythema Left Wrist: Yes Durken's Test and Yes Phalen's WRIST: full pronation, 88 supination, 50 extension, 50 flexion, well healed volar scar. prominence at base of thumb bilaterally. positive tinels into middle finger. dorsal first webspace interosseous wasting bilaterally. 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 Electrodiagnostic findings suggestive of bilateral median mononeuropathy. This is consistent with a moderate bilateral carpal tunnel syndrome. 03/28/2023 x-ray left shoulder: No acute findings 12/20/2020 MRI cervical spine: C5/C6: Moderate right and moderate left f (more content not included)... Normal [facility] NCS and/or EMG Patienton NCS and/or EMG Patient [facility]Neurology [address] [place] [address] MR#: [id number] Acct: [id number] Name: ANITA DUMAS Rep #: [id number] : 1950 73 From: Clarita Gotti MD Referring Dr: Sergo Gipson DO Status: REG CLI Location: PSN Date: 07/09/24 Sex: F C NCS and/or EMG Patient Report Ordering Doctor: Sergo Gipson DATE OF SERVICE: 07/09/24 Anita presents with complaints of numbness, tingling and pain in both hands. Electrodiagnostic findings: Left median motor nerve demonstrates prolonged latency with normal amplitude and borderline reduced conduction velocity. Right median motor nerve demonstrates prolonged latency with normal amplitude and reduced conduction velocity. Ulnar motor response is within normal limits bilaterally. Prolonged left and right median F???wave. Prolonged median sensory latency at the wrist bilaterally. Normal ulnar and radial sensory responses. Needle EMG testing was performed in the upper limbs. All muscles tested showed no evidence of denervation with normal motor unit action potentials. Electrodiagnostic impression: This is an abnormal study. 1. Electrodiagnostic findings suggestive of bilateral median mononeuropathy. This is consistent with a moderate bilateral carpal tunnel syndrome. Multi Select Codes Neurology Neurology Interp Codes: 75229-03 Musc test done w/n test comp (interp) (2) and 21148-86 [facility] cndj test 9-10 studies (interp) 07/09/24 1125 Date Clarita Gotti MD CC: Dr. Clarita Gotti MD; Dr. Sergo Gipson DO; Dr. Lamine Jaramillo MD Date Dictated: 07/09/24 1123 Date Transcribed: 07/09/24 112 Consultant Dietitian: AA Signed Normal [facility] Dexa Bone Density Studyon Dexa Bone Density Study [facility] [address] [place], [place] [address] Dexa Bone Density Study MR#: [id number] Acct: [id number] Name: ANITA DUMAS Rep #: [id number] : 1950 F 73 From: Chema medina MD PCP: Dr. Lamine Jaramillo MD Status: REG CLI Study: Dexa Bone Density Study Date of Exam: 07/08/24 Exam# [id number] Ordering Dr: Lamine Jaramillo MD :[id number] STUDY: DUAL ENERGY X-RAY ABSORPTIOMETRY / DXA REASON FOR EXAM: Female, 73 years old. 627.8Menopausal postmenopausal BONE DENSITY REASON FOR EXAM TECHNIQUE: Bone Mineral Density (BMD) measurements of lumbar spine and bilateral hips were obtained. COMPARISON: Comparison is made with prior study dated December 30, 2020. FINDINGS: Lumbar Spine (L1-L4): g/cm2 (0.904) / T-score (-1.3) / Z-score (1.0) Findings are suggestive of osteopenia with a low fracture risk. Left Femur Total: g/cm2 (0.739) / T-score (-1.7) / Z-score (0.0) Left Femoral Neck: g/cm2 (0.660) / T-score (-1.7) / Z-score (0.3) Right Femur Total: g/cm2 (0.696) / T-score (-2.0) / Z-score (-0.3) Right Femoral Neck: g/cm2 (0.558) / T-score (-2.6) / Z-score (-0.6) The T-Scores on the most recent prior examination were: Lumbar Spine (L1-L4): There has been worsening of bone density since the previous examination. Left Femur Total: which represents a worsening of 8.5%. Right Femur Total: which represents a worsening of 2.4%. BD/Dexa Bone Density Study IMPRESSION: The patient is considered osteoporotic as outlined below according to World Misael Organization (WHO) criteria with a high fracture risk. There has been worsening of [...] 1. NIH Osteoporosis and Related Bone Diseases www osteo.org 2. International Society for Clinical Densitometry www iscd.org 3. National Osteoporosis Foundation www nof.org Electronically Signed: Chema Olguin MD at 14:49 EST , CC: Dr. Lamine Jaramillo MD Consultant Dietitian: Signed Normal [facility] SCRN MAMM (CAD)W/KARENA Negron n 07-08-2024 SCRN MAMM (CAD)W/KARENAErin VALDEZ [facility] [address], [place] [address] SCRN MAMM (CAD)W/KARENA VALDEZ MR#: [id number] Acct: [id number] Name: ANITA MURRAY Rep #: [id number] : 1950 F 73 From: Chema medina MD PCP: Dr. Lamine Jaramillo MD Status: REG [facility] Study: SCRN MAMM (CAD)W/KARENA BILAT Date of Exam: 01/23 Exam# [id number] Ordering Dr: Lamine Jaramillo MD :[id number] MAMMOGRAPHY - BILATERAL SCREENING REASON FOR EXAM: Female, 73 years old. Routine annual screening examination. PERTINENT HISTORY: Non-contributory. TECHNIQUE: Digital bilateral breast karena (3D mammographic acquisition) in the CC and MLO projections. 2-D mediolateral oblique (MLO) and craniocaudad (CC) views of both breasts were obtained. CAD: Full Field Digital Mammography with Computer Added Detection was performed. COMPARISON: Comparison is made with prior study April 11, 2022 and February 13, 2020. FINDINGS: Breast Composition: There are scattered areas of fibroglandular density. There are no dominant masses or suspicious calcifications. Stable bilateral axillary lymph nodes. No other significant abnormalities are identified. There has been no significant change since the prior study. BI/SCRN MAMM (CAD)W/KARENA BILAT IMPRESSION: Stable bilateral screening mammogram. Yearly follow-up mammogram recommended. (A) ASSESSMENT CATEGORY: BIRADS Category 2: Benign. A letter regarding these results will be sent to the patient by the facility within 30 days. Approximately 10% of breast cancers are not detected by mammography. A normal mammogram should not delay biopsy of a clinically suspicious abnormality. [id number] Electronically Signed: Chema Olguin MD at 12:06 EST , CC: Dr. Lamine Jaramillo MD Consultant Dietitian: Signed Normal [facility] Orthopedic Visit Reporton Orthopedic Visit Report [facility] [address] [place] [address] [address] [place] [address] OFFICE VISIT Date of Service: 06/11/24 MR#: [id number] Acct: [id number] Name: ANITA MURRAY Rep #: [id number] : 1950 Provider: Dr. Sergo ken, DO Age/Sex: 73/F Location: [facility] [place] Status: Signed Intake Vital Signs 10/05/23 18:33 Height 5 ft 5 in Intake Visit Reasons: BL HANDS Is patient in pain?: Yes Allergies No Known Allergies Allergy (Verified 06/11/24 10:47) Medications ???Medication ???Instructions ???Recorded ???Confirmed ???Type calcium 500 mg (as 1 ea PO BID SUPP;EMENT 04/30/18 06/11/24 History carbonate)-vitamin D3 15 mcg (600 unit) tablet multivitamin 1 ea PO DAILY 04/30/18 06/11/24 History omega-3 fatty acids-fish oil 340 1 ea PO DAILY 04/30/18 06/11/24 History mg-1,000 mg capsule pravastatin 40 mg tablet 40 mg PO DAILY 04/30/18 06/11/24 History vitamin E 670 mg (1,000 unit) 1,000 unit PO DAILY 04/30/18 06/11/24 History capsule losartan 100 mg tablet 100 mg PO DAILY 06/26/19 06/11/24 History famotidine 40 mg tablet 40 mg PO Q12H 03/28/23 06/11/24 History fexofenadine 180 mg tablet 360 mg PO DAILY 03/28/23 06/11/24 History (Kirstie Allergy) bupropion HCl 150 mg 24 hr tablet, 150 mg PO DAILY 10/05/23 06/11/24 History extended release thyroid (pork) 90 mg tablet (INSTRUMENTATION TECHNICIAN 90 mg PO DAILY 10/05/23 06/11/24 History Thyroid) omalizumab 150 mg/mL subcutaneous 150 mg subcut Q4W 06/11/24 06/11/24 History auto-injector (Xolair) Have you fallen in the past year?: No [facility] Medical History (Updated 10/13/23 @ 00:37 by Ana Guillen) Rash Borderline hyperlipidemia Osteoarthritis Hypothyroidism Hypertension Surgical History History of surgery on left wrist History of arthroplasty of right knee Social History Smoking Status: Never smoker HPI BL HANDS Details: This documentation accurately reflects the service provided and the decisions made by me, Dr. Sergo Gipson, DO 06/11/24 0803. Part of today???s visit was documented by [ ], acting as scribe. ANITA MURRAY is a 73 year old F here today for bilateral hands. She states that this past summer her hands would go numb. Then in April she started having severe pain. She has stiffness which is worse in the morning. She tried working on range of motion with a ball. She notes that she has decreased strength and is dropping dishes. She notes that her numbness is into her entire hand although it is worse in her thumb and palm. She complains of pain into her index and middle finger as well. She isnt able to take NSAIDs due to allergy injections. She has been taking tylenol which is not helpful. Patient denies any injections, physical therapy, or treatment.She denies any xrays. She is right hand dominant Patient had a left wrist fracture and surgery [address] Cabral. She denies any radiating pain from her cervical spine. Ortho Exam General General: Yes no acute distress Neurologic: Yes alert and Yes oriented x3 Psychologic: Yes reasonable and appropriate Right Wrist/Hand Skin/Wound: No Swelling, No Ecchymosis, Yes nail intact and Yes capillary refill normal Right Wrist: Yes Durken's Test, Phalen's, CMC Grind and tender to palpate carpometacarpal joint WRIST: 80 wrist extension, 50 wrist flexion, early thenar atrophy as well as first dorsal interosseous wasting, positive tinels into middle finger. Left Wrist/Hand Skin/Wound: No Swelling, No Ecchymosis, Yes nail intact, Yes capillary refill normal and No erythema Left Wrist: Yes Durken's Test and Yes Phalen's WRIST: full pronation, 88 supination, 50 extension, 50 flexion, well healed volar scar. prominence at base of thumb bilaterally. positive tinels into middle finger. dorsal first webspace interosseous wasting bilaterally. negative tinels at elbow, tingling with elbow flexion Supplemental Info 03/28/2023 x-ray left shoulder: No acute findings 12/20/2020 MRI cervical spine: C5/C6: Moderate right and moderate left foraminal stenosis. 08/25/2020 x-ray left shoulder: No acute findings 08/25/2020 x-ray cervical spine:Moderate degenerative disc disease C5-6And C6-7 Coding Level of Care Code Off vis,est,level 4 Diagnoses Carpal tunnel syndrome, bilateral G56.03 Assessment and Plan Assessment and Plan (1) Carpal tunnel syndrome, bilateral: Orders: Orders NCS and/or EMG - Left Upper and Right Upper Today G56.03 - Carpal tunnel syndrome, bilateral upper limbs Plan Recommended an EMG to evaluate her nerves and what nerve is being compressed. She may wear wrist braces at night. She is unable to take NSAIDs due to a recommended of h (more content not included)... Normal [facility] Absolute lymphocyte countOrd ered By: Lamine Jaramillo on 09-24-2023 Lymphocytes Auto (Unsp spec) [#/Vol] 1.87 10*3/uL 0.83-4.51 [facility] Automated lymphocyte count a s percentage of total leukocytesOrdered By: Lamine Jaramillo on 09-24-2023 Lymphocytes/100 WBC Auto (Unsp spec) 26.6 % 19-41 [facility] Basophil percentageOrdered B y: Lamine Jaramillo on 09-24-2023 Basophils/100 WBC (Bld) 0.1 % 0-1 [facility] Bilirubin [Mass/Vol] 0.50 mg/dL 0.20-1.00 [facility] Comment on above: For patients on eltr ombopag therapy, use of Dimension [place] TBIL is not recommended. Chloride [Moles/Vol] 107 mmol/L 98-107 [facility] Eosinophils/100 WBC (Bld) 0.1 % 0-5 [facility] Glucose [Mass/Vol] 100 mg/dL 74-106 [facility] Comment on above: Fasting Glucose resu lt from 100 to 125 mg/dL suggests IMPAIRED HOMEOSTASIS per A.D.A. criteria. Hemoglobin (Bld) [Mass/Vol] 13.2 g/dL 12.0-15.0 [facility] Monocytes/100 WBC (Bld) 4.1 % 0-10 [facility] Neutrophils (Bld) [#/Vol] 4.8 10*3/uL 2.0-7.7 [facility] Neutrophils/100 WBC (Bld) 69.0 % 47-70 [facility] Potassium [Moles/Vol] 3.5 mmol/L 3.5-5.1 [facility] Protein [Mass/Vol] 6.2 g/dL 6.4-8.2 [facility] Sodium [Moles/Vol] 141 mmol/L 136-145 [facility] WBC (Bld) [#/Vol] 7.0 10*3/uL 4.4-11.0 [facility] Determination of erythrocyte mean corpuscular volume (MCV)Ordered By: Lamien Jaramillo on 09-24-2023 MCV (RBC) [Entitic vol] 89.2 fL 81-99 [facility] Erythrocyte distribution wid th ratioOrdered By: Lamine Jaramillo 09-24-2023 Erythrocyte distribution width (RBC) [Ratio] 12.6 % 11.6-14.6 [facility] Erythrocyte distribution wid th standard deviationOrdered By: [facility] Leighton 09-24-2023 Erythrocyte distribution width (RBC) [Entitic vol] 41.1 fL 35.1-43.9 [facility] Hematocrit Auto (Bld) [Volum e fraction]Ordered By: Lamine Jaramillo 09-24-2023 Hematocrit (Bld) [Volume fraction] 40.5 % 37-47 [facility] Immature granulocytes/100 WB C Auto (Bld)Ordered By: Lamine Jaramillo on 09-24-2023 Immature granulocytes/100 WBC (Bld) 0.100 % 0.0-0.9 [facility] Comment on above: IG% - Immature Granu locytes (promyelocytes, myelocytes and metamyelocytes) > 1% indicates that a LEFT SHIFT is Present. Laboratory - Chemistry and C hemistry - challengeOrdered By: Lamine Jaramillo on 09-24-2023 Albumin/Globulin [Mass ratio] 1.2 {ratio} 0.9-2.4 [facility] ALP [Catalytic activity/Vol] 90 U/L 45-117 [facility] ALT [Catalytic activity/Vol] 18 U/L 13-56 [facility] CO2 [Moles/Vol] 27.0 mmol/L 21.0-32.0 [facility] Globulin (S) [Mass/Vol] 2.8 g/dL 2.2-4.2 [facility] Urea nitrogen/Creatinine [Mass ratio] 13.7 mg/mg 10-20 [facility] Laboratory - Hematology and Cell countsOrdered By: Lamine Jaramillo on 09-24-2023 MCH (RBC) [Entitic mass] 29.1 pg 27.0-32.0 [facility] MCHC (RBC) [Mass/Vol] 32.6 g/dL 32-36 [facility] Nucleated RBC/100 WBC (Bld) [Ratio] 0 % 0-5 [facility] Platelet mean volume (Bld) [Entitic vol] 9.7 fL 6.2-12.0 [facility] Platelets (Bld) [#/Vol] 297 10*3/uL 150-450 [facility] No Panel InformationOrdered By: Lamine Jaramillo on 09-24-2023 Estimated GFR (MDRD) Amer 113 mL/min >60 [facility] Comment on above: GFR Calc Estimated GFR (MDRD) Non-Af Amer 94 mL/min >60 [facility] Comment on above: Non- GFR Calc Vitamin D 25-Hydroxy 41.0 ng/mL [facility] Comment on above: Vitamin D 25(OH) Sta tus Range Deficiency <20 ng/mL (50nmol/L) Insufficiency 20 - 30 ng/mL (50 - 75 nmol/L) Sufficiency 30 - 100 ng/mL (75 - 250 nmol/L) Toxicity >100 ng/mL (>250 nmol/L) RBC Auto (Bld) [#/Vol]Ordere d By: Lamine Jaramillo on 09-24-2023 RBC (Bld) [#/Vol] 4.54 10*6/uL 4.2-5.4 [facility] Serum or plasma calcium gini urement (mass/volume)Ordered By: Lamine Jaramillo on 09-24-2023 Calcium [Mass/Vol] 9.6 mg/dL 8.5-10.1 [facility] Serum or plasma creatinine m easurement (mass/volume)Ordered By: Lamine Jaramillo on 09-24-2023 Creatinine [Mass/Vol] 0.66 mg/dL 0.55-1.02 [facility] Comment on above: The validity of the calculated GFR & GFRAA in patients over 70 years has not been determined. Clinical correlation is essential. Serum or plasma thyroid stim ulating hormone (TSH) measurement (units/volume)Ordered By: Lamine Jaramillo on 09-24-2023 TSH Qn 5.73 uIU/mL 0.358-3.74 [facility] Serum or plasma urea nitroge n measurement (mass/volume)Ordered By: Lamine Jaramillo on 09-24-2023 Urea nitrogen [Mass/Vol] 9 mg/dL 7-18 [facility] Thin prep Papanicolaou smear with manual screeningOrdered By: Lamine Jaramillo on 09-24-2023 Thin prep Papanicolaou smear with manual screening 3.4 g/dL 3.2-5.0 [facility] Thin prep Papanicolaou smear with manual screening 13 U/L 15-37 [facility] Thin prep Papanicolaou smear with manual screening 7 5-15 [facility] No Panel InformationOrdered By: Dr. Jaramillo on 10-23-2022 Thyroid Stimulating Hormone (TSH) 1.85 uIU/mL 0.358-3.74 [facility] No Panel Informationon 09-27 Miscellaneous Test See comment [facility] Comment on above: TEST RESULTS LIMITSC hronic Urticariacu index 34.5 High <10The CU Index(R) test is the second generation FunctionalAnti-FceR test. Patients with a CU Index(R) greater thanor equal to 10 have basophil reactive factors in theirserum which supports an autoimmune basis for disease.*This test was developed and its performancecharacteristics determined by [employer]. It has notbeen cleared or approved by the U.S. Food and DrugAdministration. TESTING PERFORMED AT [facility]. ORIGINAL REPORT ON FILE IN LAB CONTAINS ADDITIONAL TEST SITE INFORMATION. Tryptase 5.0 ug/L 2.2-13.2 [facility] Comment on above: Performed at: [address] [id number] Director: Mary Ellen Sandoval MD, Phone: [phone] Absolute lymphocyte countOrd ered By: Dr. Jaramillo on 09-07-2022 Lymphocytes Auto (Unsp spec) [#/Vol] 2.12 10*3/uL 0.83-4.51 [facility] Basophil percentageOrdered B y: Dr. Jaramillo on 09-07-2022 Basophils/100 WBC (Bld) 0.0 % 0-1 [facility] Bilirubin [Mass/Vol] 0.40 mg/dL 0.20-1.00 [facility] Comment on above: For patients on eltr ombopag therapy, use of Dimension [place] TBIL is not recommended. Chloride [Moles/Vol] 105 mmol/L 98-107 [facility] Eosinophils/100 WBC (Bld) 0.2 % 0-5 [facility] Glucose [Mass/Vol] 110 mg/dL 74-106 [facility] Comment on above: Fasting Glucose resu lt from 100 to 125 mg/dL suggests IMPAIRED HOMEOSTASIS per A.D.A. criteria. Neutrophils (Bld) [#/Vol] 4.0 10*3/uL 2.0-7.7 [facility] Neutrophils/100 WBC (Bld) 61.4 % 47-70 [facility] Potassium [Moles/Vol] 3.6 mmol/L 3.5-5.1 [facility] Protein [Mass/Vol] 6.3 g/dL 6.4-8.2 [facility] Sodium [Moles/Vol] 139 mmol/L 136-145 [facility] WBC (Bld) [#/Vol] 6.5 10*3/uL 4.4-11.0 [facility] Blood erythrocytes count (nu mber/volume)Ordered By: Dr. Jaramillo on 09-07-2022 RBC (Bld) [#/Vol] 4.36 10*6/uL 4.2-5.4 [facility] Blood hemoglobin measurement (mass/volume)Ordered By: Dr. Jaramillo on 09-07-2022 Hemoglobin (Bld) [Mass/Vol] 12.6 g/dL 12.0-15.0 [facility] Blood lymphocytes/100 leukoc ytesOrdered By: Dr. Jaramillo on 09-07-2022 Lymphocytes/100 WBC (Bld) 32.8 % 19-41 [facility] Blood monocytes/100 leukocyt esOrdered By: Dr. Jaramillo on 09-07-2022 Monocytes/100 WBC (Bld) 5.4 % 0-10 [facility] Blood platelet mean volumeOr dered By: Dr. Jaramillo on 09-07-2022 Platelet mean volume (Bld) [Entitic vol] 9.8 fL 6.2-12.0 [facility] Determination of erythrocyte mean corpuscular volume (MCV)Ordered By: Dr. Jaramillo on 09-07-2022 MCV (RBC) [Entitic vol] 92.9 fL 81-99 [facility] Hematocrit Auto (Bld) [Volum e fraction]Ordered By: Dr. Jaramillo on 09-07-2022 Hematocrit (Bld) [Volume fraction] 40.5 % 37-47 [facility] Laboratory - Chemistry and C hemistry - challengeOrdered By: Dr. Jaramillo on 09-07-2022 ALP [Catalytic activity/Vol] 79 U/L 45-117 [facility] ALT [Catalytic activity/Vol] 22 U/L 13-56 [facility] CO2 [Moles/Vol] 24.0 mmol/L 21.0-32.0 [facility] Globulin (S) [Mass/Vol] 2.9 g/dL 2.2-4.2 [facility] Urea nitrogen/Creatinine [Mass ratio] 9.7 mg/mg 10-20 [facility] Laboratory - Hematology and Cell countsOrdered By: Dr. Jaramillo on 09-07-2022 Erythrocyte distribution width (RBC) [Entitic vol] 44.1 fL 35.1-43.9 [facility] Erythrocyte distribution width (RBC) [Ratio] 12.9 % 11.6-14.6 [facility] Immature granulocytes/100 WBC (Bld) 0.200 % 0.0-0.9 [facility] Comment on above: IG% - Immature Granu locytes (promyelocytes, myelocytes and metamyelocytes) > 1% indicates that a LEFT SHIFT is Present. MCH (RBC) [Entitic mass] 28.9 pg 27.0-32.0 [facility] Nucleated RBC/100 WBC (Bld) [Ratio] 0 % 0-5 [facility] MCHC Auto (RBC) [Mass/Vol]Or dered By: Dr. Jaramillo on 09-07-2022 MCHC (RBC) [Mass/Vol] 31.1 g/dL 32-36 [facility] No Panel InformationOrdered By: Dr. Jaramillo on 09-07-2022 Estimated GFR (MDRD) Amer 88 mL/min >60 [facility] Comment on above: GFR Calc Estimated GFR (MDRD) Non-Af Amer 72 mL/min >60 [facility] Comment on above: Non- GFR Calc Thyroid Stimulating Hormone (TSH) 6.85 uIU/mL 0.358-3.74 [facility] Vitamin D 25-Hydroxy 31.5 ng/mL [facility] Comment on above: Vitamin D 25(OH) Sta tus Range Deficiency <20 ng/mL (50nmol/L) Insufficiency 20 - 30 ng/mL (50 - 75 nmol/L) Sufficiency 30 - 100 ng/mL (75 - 250 nmol/L) Toxicity >100 ng/mL (>250 nmol/L) Platelets bldOrdered By: Dr. Jaramillo on 09-07-2022 Platelets (Bld) [#/Vol] 329 10*3/uL 150-450 [facility] Serum or plasma albumin gini urement (mass/volume)Ordered By: Dr. Jaramillo on 09-07-2022 Albumin [Mass/Vol] 3.4 g/dL 3.2-5.0 [facility] Serum or plasma albumin/glob ulin mass ratioOrdered By: Dr. Jaramillo on 09-07-2022 Albumin/Globulin [Mass ratio] 1.2 {ratio} 0.9-2.4 [facility] Serum or plasma calcium gini urement (mass/volume)Ordered By: Dr. Jaramillo on 09-07-2022 Calcium [Mass/Vol] 9.3 mg/dL 8.5-10.1 [facility] Serum or plasma creatinine m easurement (mass/volume)Ordered By: Dr. Jaramillo on 09-07-2022 Creatinine [Mass/Vol] 0.82 mg/dL 0.55-1.02 [facility] Comment on above: The validity of the calculated GFR & GFRAA in patients over 70 years has not been determined. Clinical correlation is essential. Serum or plasma urea nitroge n measurement (mass/volume)Ordered By: Dr. Jaramillo on 09-07-2022 Urea nitrogen [Mass/Vol] 8 mg/dL 7-18 [facility] Thin prep Papanicolaou smear with manual screeningOrdered By: Dr. Jaramillo on 09-07-2022 Thin prep Papanicolaou smear with manual screening 16 U/L 15-37 [facility] Thin prep Papanicolaou smear with manual screening 10 5-15 [facility] Cervical or vagninal specime n microscopic examination by cytology stain (reported asOrdered By: Dr. Shen on 08-14-2022 Cytology report Cyto stain Doc (Cvx/Vag) Comment . [facility] Comment on above: The Pap smear is a s creening test designed to aid in thedetection of premalignant and malignant conditions of theuterine cervix. It is not a diagnostic procedure andshould not be used as the sole means of detecting cervicalcancer. Both false-positive and false-negative reports dooccur. Detection in cervical specim en of any of human papilloma virus (HPV) 16, 18, 31, 33,Ordered By: Dr. Shen on 08-14-2022 HPV 16+18+31+33+35+39+45+5 1+52+56+58+59+66+68 DNA Probe+sig amp Ql (Cvx) Negative Negative [facility] Comment on above: This nucleic acid am plification test detects fourteen high- risk HPV types (16,18,31,33,35,39,45,51,52,56,58,59,66,68)without differentiation. Laboratory - CytologyOrdered By: Dr. Shen on 08-14-2022 Research Microbiologist Cyto stain Nom (Cvx/Vag) [ID] Comment . [facility] Comment on above: Willam Eli ytotechnologist (ASCP) Laboratory - Miscellaneous t estsOrdered By: Dr. Shen on 08-14-2022 Service comment (Unsp spec) [Interp] Comment . [facility] Comment on above: This liquid based Th inPrep(R) pap test was screened withthe use of an image guided system. Service comment (Unsp spec) [Interp] . . [facility] Liquid-based cerv Pap + CT/G C by EMMANUELLE w reflex to high-risk HPV for ASCUSOrdered By: Dr. Shen on 08-14-2022 Cytology report Cyto stain.thin prep Doc (Cvx/Vag) Comment . [facility] Comment on above: Criteria not met, HP V Genotype not performed.Performed at: - [facility] [id number] Director: Karen Yusuf MD, Phone: [phone] at: = - [facility] [id number] Director: Karen Yusuf MD, Phone: [phone] No Panel InformationOrdered By: Dr. Shen on 08-14-2022 Pathology report final diagnosis Narrative Comment . [facility] Comment on above: NEGATIVE FOR INTRAEP ITHELIAL LESION OR MALIGNANCY.CELLULAR CHANGES ASSOCIATED WITH ATROPHY ARE PRESENT.CELLULAR CHANGES ASSOCIATED WITH INFLAMMATION ARE PRESENT. UA DIP, URINE (POC)on 2021 BILIRUBIN UA (POCT) Negative Negative [facility] CLARITY [facility]PO[facility]) [facility] COLOR [facility] (PO[facility]) Dark yellow [facility] GLUCOSE UA (POCT) Negative Negative mg/dL [facility] HEMOGLOBIN/BLOOD UA (POCT) Moderate Abnormal Negative [facility] KETONE UA (POCT) Negative Negative mg/dL [facility] LEUKOCYTES UA (POCT) Small [facility]normal [facility] NITRITE [facility]A (POCT) Negative Negative [facility] PH UA (POCT) 6.5 4.5 - 8.[address] [facility] Protein Ql (U) 100 mg/dL Abnormal Negative mg/dL [facility] SPECIFIC GRAVITY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 Jaramillo MD Work Phone: -Radiology [facility] Start: 02-20-2025 End: 02-20-[address] Christopher Lundy MD -Radiology [facility] Work Phone: Start: 02-20-2025 End: 02-20-2025 ambulatory Lamine Chi Leighton Facility:[facility] Start: 2024 End: 2024 Emergency department patient visit Dr. Rui Qureshi DO -Emergency Department Work Phone: Start: 11-06-2024 End: 11-06-[address] Lamine Jaramillo MD Work Phone: [facility] Work Phone: Start: 11-06-2024 End: 11-06-[address] Lamine Jaramillo MD -Laboratory Work Phone: Start: 11-06-2024 End: 11-06-2024 ambulatory Lamine Julian Jaramillo Facility:[facility] Start: 09-25-2024 End: 09-25-[address] Lamine Jaramillo MD Work Phone: [facility] Work Phone: Start: 09-25-2024 End: 09-25-[address] Lamine Jaramillo MD -Laboratory, Phy Office 3rd Flr Start: 09-25-2024 End: 09-25-2024 ambulatory [facility] Facility:[facility] Start: 09-01-2024 End: 09-01-[address] Sergo Gipson DO -[facility] Work Phone: Start: 09-01-2024 End: 09-01-2024 ambulatory [facility] Facility:[facility] Start: 08-19-2024 Non-patient / Non-visit Dr. Sergo Gipson DO -[facility] Start: 08-19-2024 End: 08-19-2024 Admission to same day surgery center Dr. Sergo Gipson DO -[facility] Start: 08-19-2024 End: 08-19-2024 ambulatory [facility] Facility:[facility] Start: 07-29-2024 End: 07-29-[address] Lamine Jaramillo MD -Laboratory, Phy Office 3rd Flr Start: 07-29-2024 End: 07-29-2024 ambulatory Lamine Julian Jaramillo Facility:[facility] Start: 07-14-2024 End: 07-14-[address] [facility] Start: 07-14-2024 End: 07-14-2024 ambulatory Lamine Chi Leighton Facility:[facility] Start: 07-09-2024 ambulatory Clarita Gotti Facility:[facility] Start: 07-09-2024 Non-patient / Non-visit Dr. Clarita Gotti MD -[facility]- Start: 07-09-2024 End: 07-09-[address] Sergo Gipson DO -Pulmonary Services/Neurology Work Phone: Start: 07-09-2024 End: 07-09-2024 ambulatory Sergo Gipson Facility:[facility] Start: 07-08-2024 End: 07-08-[address] Lamine Jaramillo MD -Outpatient Bone Densitometry Work Phone: Start: 07-08-2024 End: 07-08-2024 ambulatory [facility] Facility:[facility] Start: 06-11-2024 End: 06-11-[address] Sergo Gipson DO -[facility] Work Phone: Start: 06-11-2024 End: 06-11-2024 ambulatory [facility] Facility:[facility] Start: 10-05-2023 End: 10-05-2023 Emergency department patient visit [facility]-Emergency Department Work Phone: Start: 10-05-2023 End: 10-05-2023 Patient encounter procedure Emigdio Tovar MD Work Phone: [facility] Comment on above: Tongue swelling (Malika marvin Dx); Urticaria, unspecified Start: 09-24-2023 End: 09-24-2023 ambulatory [facility] Work Phone: Start: 09-24-2023 End: 09-24-2023 Patient encounter procedure [facility]-Laboratory, Phy Office 3rd Flr Start: 10-23-2022 End: 10-23-2022 ambulatory [facility] Work Phone: Start: 10-23-2022 End: 10-23-2022 Patient encounter procedure [facility]-Laboratory, Phy Office 3rd Flr Start: 09-27-2022 End: 09-27-2022 Patient encounter procedure [facility]-Laboratory Start: 09-07-2022 End: 09-07-2022 Patient encounter procedure [facility]-Laboratory, Phy Office 3rd Flr Start: 08-14-2022 End: 08-14-2022 ambulatory [facility] Work Phone: Start: 08-14-2022 End: 08-14-2022 Patient encounter procedure [facility]-Laboratory, Specimen Start: 06-17-2022 End: 06-17-2022 Patient encounter procedure Phoebe Knox PA-C Work Phone: [facility] Comment on above: Urinary frequency (P rimary Dx) Start: 03-10-2022 End: 03-10-2022 ambulatory [facility] Work Phone: Start: 03-10-2022 End: 03-10-2022 [facility] Start: 01-27-2022 End: 01-27-2022 Patient encounter procedure [facility]-Cardiovascular Services Start: 10-31-2021 End: 10-31-2021 [facility] Start: 10-27-2021 End: 10-27-2021 [facility] Start: 08-29-2021 End: 08-29-2021 [facility] Start: 10-26-2018 End: 10-26-2018 [facility] Start: 10-16-2018 End: 01-17-2019 [facility] Procedures Date Procedure Procedure Detail Performing Clinician Start: 04-02-2025 Vitamin D, 25-hydrox y measurement Dr. Lamine Jaramillo MD Work Phone: Comment on above: Vitamin D StatusDefi ciency: <20 ng/mL (50nmol/L)Insufficiency: 20-30 ng/mL (50-75 nmol/L)Sufficiency: 30-100 ng/mL (75-250 nmol/L)Toxicity: >100 ng/mL (>250 nmol/L) Start: 02-20-2025 X-ray of esophagus w ith double contrast Dr. Lamine Jaramillo MD Work Phone: Start: [address] Lamine Jaramillo MD Work Phone: Start: 2024 Plain chest X-ray Dr. Jayson Jaramillo MD Work Phone: Start: 09-25-2024 Vitamin D, 25-hydrox y measurement Dr. Lamine Jaramillo MD Work Phone: Comment on above: Vitamin D StatusDefi ciency: <20 ng/mL (50nmol/L)Insufficiency: 20-30 ng/mL (50-75 nmol/L)Sufficiency: 30-100 ng/mL (75-250 nmol/L)Toxicity: >100 ng/mL (>250 nmol/L) Start: 07-29-2024 SARS-CoV-2, Influenz a & RSV (PCR) Dr. Lamine Jaramillo MD Work Phone: Start: 07-14-2024 Plain x-ray of hand Dr. Lamine Jaramillo MD Work Phone: Start: 07-08-2024 Dual energy X-ray absorptiometry Dr. Lamine Jaramillo MD Work Phone: Start: 07-08-2024 Screening mammography Heber Jaramillo MD Work Phone: Start: 06-17-2022 Urnls dip stick/tabl et rgnt auto w/o microscopy Shayna Phillip APRN.BIT SHARPENER OPERATOR Work Phone: Start: 01-27-2022 Radiologic examinati on of knee Start: 10-31-2021 Plain x-ray of hand Investigation of transfusion reaction Microbial culture, routine Plan of Treatment Date Care Activity Detail Author Start: 2024 [facility] Start: 2024 [facility] Start: 08-19-2024 Anes nerve muscle tdn fascia&bursa forearm wrist ANESTH LOWER ARM SURGERY [facility] Start: 08-19-2024 Injection therapeutic carpal tunnel THER INJECTION CARP TUNNEL [facility] Start: 08-19-2024 Neuroplasty &/transpos median nrv carpal tunne CARPAL TUNNEL SURGERY [facility] Start: 08-19-2024 Patient discharge [facility] Start: 08-19-2024 Application of ice collar, cap or bag [facility] Start: 08-19-2024 Catheterization of vein [facility] Start: 08-19-2024 Elevation of affected extremity [facility] Start: 08-19-2024 Following clinical pathway protocol [facility] Start: 08-19-2024 Procedure discontinued [facility] Start: 08-19-2024 Taking patient vital signs [facility] Start: 08-19-2024 Vital signs measurements [facility] Start: 08-19-2024 [facility] Start: 08-19-2024 Medication education [facility] Start: 10-05-2023 [facility] Start: 07-02-2023 Advance Directive Discussion Advance Directive Discussion [facility] Start: 07-02-2023 Behavioral Health Screening Behavioral Health Screening [facility] Start: 04-22-2023 Urine microalbumin profile DTaP,Tdap,Td Vaccine (2 - Td or Tdap) [facility] Start: 03-02-2023 Covid-19 Vaccine () Covid-19 Vaccine () [facility] Start: 03-26-2022 Screening for malignant neoplasm of colon [facility] Start: 03-02-2022 Influenza vaccination INFLUENZA (#1) [facility] Start: 07-02-2021 ADVANCE DIRECTIVE DISCUSSION ADVANCE DIRECTIVE DISCUSSION [facility] Start: 07-02-2021 DEPRESSION ASSESSMENT DEPRESSION ASSESSMENT [facility] Start: 04-01-2021 COVID-19 VACCINE (4 - Booster for Moderna series) COVID-19 VACCINE (4 - Booster for Moderna series) [facility] Start: 11-21-2015 BONE DENSITY BONE DENSITY [facility] Start: 11-21-2015 Pneumococcal Vaccine: 65+ (1 of 1 - PCV) Pneumococcal Vaccine: 65+ (1 of 1 - PCV) [facility] Start: 11-21-2015 PNEUMOCOCCAL: 65+ (1 - PCV) PNEUMOCOCCAL: 65+ (1 - PCV) [facility] Start: 11-21-2015 Screening for osteoporosis Bone Density Screening [facility] Start: 04-14-2011 DIABETES SCREEN DIABETES SCREEN [facility] Start: 04-14-2011 Diabetes Screening Diabetes Screening [facility] Start: 2010 RSV Vaccine (1 - 1-dose 60+ series) RSV Vaccine (1 - 1-dose 60+ series) [facility] Start: 2000 SHINGRIX VACCINE (1 of 2) SHINGRIX VACCINE (1 of 2) [facility] Start: 11-21-1995 COLOGUARD (FIT-DNA) COLOGUARD (FIT-DNA) [facility] Start: 11-21-1995 Colonoscopy COLONOSCOPY [facility] Start: 11-21-1995 COLORECTAL CANCER SCREENING COLORECTAL CANCER SCREENING [facility] Start: 11-21-[address] COLONOGRAPHY [facility] Start: 11-21-1995 FECAL OCCULT BLOOD FECAL OCCULT BLOOD [facility] Start: 11-21-1995 Lipid panel Lipid Screening [facility] Start: 11-21-1995 LIPID SCREEN LIPID SCREEN [facility] Start: 11-21-1995 Screening for malignant neoplasm of colon [facility] Start: 11-21-1995 SIGMOIDOSCOPY SIGMOIDOSCOPY [facility] Start: 1990 Mammography MAMMOGRAM [facility] Start: 1990 Screening for malignant neoplasm of breast Mammogram Screening [facility] Start: 1969 Urine microalbumin profile DTAP,TDAP,TD (1 - Tdap) [facility] Start: 1968 ANNUAL PCP TEAM CHRONIC DISEASE VISIT ANNUAL PCP TEAM CHRONIC DISEASE VISIT [facility] Start: 1968 HEPATITIS C SCREENING HEPATITIS C SCREENING [facility] Start: 1968 Hepatitis C screening Hepatitis C Screening [facility] Bacteria identified in Urine by Culture URINE CULTURE Microbiology Routine Urinary frequency 06/17/2022 9:56 AM EST [facility] Work Phone: Patient Education [facility] Work Phone: Patient referral [facility] Work Phone: Payers Date Payer Category Payer Self-pay [id number] 2017 Private Health Insurance [employer] A ETNA MEDICARE SUPPLEMENT [id number] 2017-Present [phone] [address] [address] [place] [address] Indemnity [id number] 2017 Private Health Insurance [facility] [id number] 2015 Medicare MEDICARE MEDICAR E A AND B [id number] 2015-Present [phone] [address] [address] [place] [address] Medicare [id number] 2015 Medicare [id number] 1950 Unknown [id number]. 2.651 1950 Unknown [id number]. 2.651 Private Health Insurance [facility] PVZRX [id number] Private Health Insurance [facility] [id number] Unknown [id number] Unknown [id number]. 2.462 Unknown [id number] [id number]. 2.462 Unknown [id number] [id number]. 2.462 Unknown [id number] 2.16.840.1.538422.3.579. 2.462 Unknown [id number] 2.16.840.1.840597.3.579. 2.462 Unknown [id number] 2.16.840.1.890925.3.579. 2.462 Unknown [id number] 2.16840.1.882144.3.579. 2.462 Unknown [id number] 2.16.840.1.499427.3.579. 2.462 Unknown [id number] 2.16.840.1.092059.3.579. 2.462 Unknown [id number] 2.16.840.1.745278.3.579. 2.462 Unknown [id number] 2.16840.1.707777.3.579. 2.462 Unknown [id number] 2.16.840.1.187657.3.579. 2.462 Unknown [id number] 2.16.840.1.353043.3.579. 2.462 Unknown [id number] 2.16.840.1.800008.3.579. 2.462 Unknown [id number] [id number]. 2.462 Social History Date Type Detail Facility Start: 12-20-2020 End: 10-05-2023 Tobacco smoking status IAIS Unknown if ever smoked [facility] Start: 12-08-2020 Rare [facility] Start: 12-08-2020 None [facility] Start: 06-26-2019 Non-smoker [facility] Start: 1950 Sex Assigned At Female [facility] Start: 06-17-2022 End: 2024 Tobacco smoking status NHIS Never smoked tobacco [facility] Start: 06-17-2022 Tobacco use and exposure Smokeless tobacco non-user [facility] Start: 1950 Sex Assigned At Not on file [facility] Start: 06-09-2020 End: 06-17-2022 History of Social function [facility] Start: 06-09-2020 End: 06-17-2022 Tobacco use panel [facility] National Score (1-100), lower number is lower risk Not on file [facility] Start: 09-30-2024 Sex Female (finding) [facility] NEGATED: Highlighted row Not [facility] Medical Equipment Procedure Code Equipment Code Equipment Origin al Text Equipment Identifier Dates 2.4MM SELF TAP CORTEX SCREW FDA Start: 05-15-2018 2.4MM SLEF TAP CORTEX SCREW FDA Start: 05-15-2018 2.4MM VA LOCKING SCREW FDA Start: 05-15-2018 2.4MM VA LOCKING SCREW FDA Start: 05-15-2018 2.4MM VA-LCP VOL AR DR PLATE FDA Start: 05-15-2018 2.7MM SELF TAP CORTEX SCREW FDA Start: 05-15-2018 3.5MM VA LOCKING SCREW FDA Start: 05-15-2018 2.4MM SELF TAP CORTEX SCREW FDA Start: 05-15-2018 2.4MM SLEF TAP CORTEX SCREW FDA Start: 05-15-2018 2.4MM VA LOCKING SCREW FDA Start: 05-15-2018 2.4MM VA LOCKING SCREW FDA Start: 05-15-2018 2.4MM VA-LCP VOL AR DR PLATE FDA Start: 05-15-2018 2.7MM SELF TAP CORTEX SCREW FDA Start: 05-15-2018 3.5MM VA LOCKING SCREW FDA Start: 05-15-2018 2.4MM SELF TAP CORTEX SCREW FDA Start: 05-15-2018 2.4MM SLEF TAP CORTEX SCREW FDA Start: 05-15-2018 2.4MM VA LOCKING SCREW FDA Start: 05-15-2018 2.4MM VA LOCKING SCREW FDA Start: 05-15-2018 2.4MM VA-LCP VOL AR DR PLATE FDA Start: 05-15-2018 2.7MM SELF TAP CORTEX SCREW FDA Start: 05-15-2018 3.5MM VA LOCKING SCREW FDA Start: 05-15-2018 2.4MM SELF TAP CORTEX SCREW FDA Start: 05-15-2018 2.4MM SLEF TAP CORTEX SCREW FDA Start: 05-15-2018 2.4MM VA LOCKING SCREW FDA Start: 05-15-2018 2.4MM VA LOCKING SCREW FDA Start: 05-15-2018 2.4MM VA-LCP VOL AR DR PLATE FDA Start: 05-15-2018 2.7MM SELF TAP CORTEX SCREW FDA Start: 05-15-2018 3.5MM VA LOCKING SCREW FDA Start: 05-15-2018 2.4MM SELF TAP CORTEX SCREW FDA Start: 05-15-2018 2.4MM SLEF TAP CORTEX SCREW FDA Start: 05-15-2018 2.4MM VA LOCKING SCREW FDA Start: 05-15-2018 2.4MM VA LOCKING SCREW FDA Start: 05-15-2018 2.4MM VA-LCP VOL AR DR PLATE FDA Start: 05-15-2018 2.7MM SELF TAP CORTEX SCREW FDA Start: 05-15-2018 3.5MM VA LOCKING SCREW FDA Start: 05-15-2018 2.4MM SELF TAP CORTEX SCREW FDA Start: 05-15-2018 2.4MM SLEF TAP CORTEX SCREW FDA Start: 05-15-2018 2.4MM VA LOCKING SCREW FDA Start: 05-15-2018 2.4MM VA LOCKING SCREW FDA Start: 05-15-2018 2.4MM VA-LCP VOL AR DR PLATE FDA Start: 05-15-2018 2.7MM SELF TAP CORTEX SCREW FDA Start: 05-15-2018 3.5MM VA LOCKING SCREW FDA Start: 05-15-2018 2.4MM SELF TAP CORTEX SCREW FDA Start: 05-15-2018 2.4MM SLEF TAP CORTEX SCREW FDA Start: 05-15-2018 2.4MM VA LOCKING SCREW FDA Start: 05-15-2018 2.4MM VA LOCKING SCREW FDA Start: 05-15-2018 2.4MM VA-LCP VOL AR DR PLATE FDA Start: 05-15-2018 2.7MM SELF TAP CORTEX SCREW FDA Start: 05-15-2018 3.5MM VA LOCKING SCREW FDA Start: 05-15-2018 2.4MM SELF TAP CORTEX SCREW FDA Start: 05-15-2018 2.4MM SLEF TAP CORTEX SCREW FDA Start: 05-15-2018 2.4MM VA LOCKING SCREW FDA Start: 05-15-2018 2.4MM VA LOCKING SCREW FDA Start: 05-15-2018 2.4MM VA-LCP VOL AR DR PLATE FDA Start: 05-15-2018 2.7MM SELF TAP CORTEX SCREW FDA Start: 05-15-2018 3.5MM VA LOCKING SCREW FDA Start: 05-15-2018 2.4MM SELF TAP CORTEX SCREW FDA Start: 05-15-2018 2.4MM SLEF TAP CORTEX SCREW FDA Start: 05-15-2018 2.4MM VA LOCKING SCREW FDA Start: 05-15-2018 2.4MM VA LOCKING SCREW FDA Start: 05-15-2018 2.4MM VA-LCP VOL AR DR PLATE FDA Start: 05-15-2018 2.7MM SELF TAP CORTEX SCREW FDA Start: 05-15-2018 3.5MM VA LOCKING SCREW FDA Start: 05-15-2018 2.4MM SELF TAP CORTEX SCREW FDA Start: 05-15-2018 2.4MM SLEF TAP CORTEX SCREW FDA Start: 05-15-2018 2.4MM VA LOCKING SCREW FDA Start: 05-15-2018 2.4MM VA LOCKING SCREW FDA Start: 05-15-2018 2.4MM VA-LCP VOL AR DR PLATE FDA Start: 05-15-2018 2.7MM SELF TAP CORTEX SCREW FDA Start: 05-15-2018 3.5MM VA LOCKING SCREW FDA Start: 05-15-2018 2.4MM SELF TAP CORTEX SCREW FDA Start: 05-15-2018 2.4MM SLEF TAP CORTEX SCREW FDA Start: 05-15-2018 2.4MM VA LOCKING SCREW FDA Start: 05-15-2018 2.4MM VA LOCKING SCREW FDA Start: 05-15-2018 2.4MM VA-LCP VOL AR DR PLATE FDA Start: 05-15-2018 2.7MM SELF TAP CORTEX SCREW FDA Start: 05-15-2018 3.5MM VA LOCKING SCREW FDA Start: 05-15-2018 Goals Date Patient Goal Desired Activity /State Mental Status Date Assessment Result Facility 2024 Cognitive function Level Of Cons ciousness Awake;Alert;Appropriate;Follow s Commands [facility] Work Phone: 08-19-2024 Cognitive function Voice/Name [facility] Work Phone: Clinical Notes 06-17-2022 to 03-23-2025 Note Date & Type Note Facility 03-23-2025 Note HNO ID: [id number] Author: ETHAN MIXON APRN.BIT SHARPENER OPERATOR Service: ? Author Type: Nurse Practitioner Type: Progress Notes Filed: 03/23/2025 10:43 Note Text: URGENT CARE [facility] Anita Murray is a 74 year old female presenting with burning, and pain with urination. She reports she has taken oregonal oil, and azo for multiple doses which helped alleviate some of her symptoms. By Sunday her symptoms worsened. Pertinent negatives include no fever, chills, fatigue, no flank pain, no blood in her urine. Review of Systems Constitutional: Negative for chills, fatigue and fever. Gastrointestinal: Negative for abdominal distention, abdominal pain, constipation, diarrhea, nausea and vomiting. Genitourinary: Positive for dysuria and frequency. Negative for decreased urine volume, difficulty urinating, flank pain, pelvic pain, urgency, vaginal bleeding, vaginal discharge and vaginal pain. Burning Objective BP 142/90 Pulse 97 Temp 36.7 ?C (98.1 ?F) Resp 20 Wt 69.3 kg (152 lb 12.5 oz) SpO2 98% Physical Exam Vitals and nursing note reviewed. Constitutional: General: She is awake. Cardiovascular: Rate and Rhythm: Regular rhythm. Heart sounds: Normal heart sounds, S1 normal and S2 normal. No murmur heard. Pulmonary: Effort: Pulmonary effort is normal. Breath sounds: Normal breath sounds. No decreased breath sounds or wheezing. Abdominal: General: Abdomen is flat. Bowel sounds are normal. Palpations: Abdomen is soft. Tenderness: There is no abdominal tenderness. Hernia: No hernia is present. Skin: General: Skin is warm. Neurological: Mental Status: She is alert and oriented to person, place, and time. Psychiatric: Mood and Affect: Mood normal. {ASSESSMENT/PLAN: 1. Burning with urination - ICD9: 788.1, ICD10: R30.0 acute - UA positive - Send urine for culture - Begin treatment with Macrobid 100 mg BID for 7 days - Patient education for prevention given - UA DIP, URINE (POC) URINE POC GLUCOSE UA (POCT) Negative 03/23/2025 BILIRUBIN UA (POCT) Negative 03/23/2025 KETONE UA (POCT) Negative 03/23/2025 SPECIFIC GRAVITY UA (POCT) 1.010 03/23/2025 HEMOGLOBIN/BLOOD UA (POCT) Small 03/23/2025 PH UA (POCT) 6.0 03/23/2025 PROTEIN UA (POCT) Negative 03/23/2025 UROBILINOGEN UA (POCT) 0.2 03/23/2025 NITRITE UA (POCT) Negative 03/23/2025 LEUKOCYTES UA (POCT) Large 03/23/2025 COLOR UA (POCT) Yellow 03/23/2025 CLARITY UA (POCT) Cloudy 03/23/2025 - BACTERIAL CULTURE, URINE History and Record Review External record(s) reviewed: prior outpatient record. Findings from review of outpatient records: previous UTI in 2021 for e.coli Disposition The patient was discharged. Procedures Discussed medication dosage, usage, goals of therapy, and side effects. Return to [facility], call primary care provider, or go to the emergency department for problems, worsening, increased or new symptoms, etc. Red flag symptoms discussed with the patient and when to go to ER. Patient verbalized understanding to plan of care. Amberly Contreras INSTRUMENTATION TECHNICIAN student TEACHING PROVIDER (Physician/PA/VEGETABLE II FARMWORKER) NOTE OF PERSONAL INVOLVEMENT IN CARE: I have personally seen and examined the patient and performed the medical decision-making components. I have reviewed the Advanced Practice Registered Nurse (VEGETABLE II FARMWORKER) Student's documentation and verified the findings in the note as written. Any additions or changes are noted in bold/italics. Signature: Ethan Mixon Date: 03/23/2025 Time: 10:43 AM [facility] 02-20-2025 Radiology Diagnostic study note [facility] Imaging Services [address] [place] [address] Esophagus Dual Contrast MR#: [id number] Acct: [id number] Name: ANITA MURRAY Rep #: [id number] : 1950 F 74 From: Siva Waldrop MD PCP: Dr. Lamine Jaramillo MD Status: REG Wilalm CONNELL Study:Esophagus Dual Contrast Date of Exam: 02/20/25 Exam# [id number] Ordering Dr: Patrick Lundy MD EXAM: Single and double contrast esophagram CLINICAL HISTORY: Dysphagia, pharyngo esophageal phase COMPARISON: None. TECHNIQUE: Single and double contrast esophagram FINDINGS: Limited imaging of the swallowing mechanism shows no abnormality. No aspirationwas identified. The esophagus shows no area of persistent narrowing. No mucosal changes are identified. A widely patent esophagogastric junction was seen. Limited imaging of the stomach and duodenum show no abnormality. During the time of imaging, gastroesophageal reflux was not elicited. No hiatal hernia was seen. RAD/Esophagus Dual Contrast IMPRESSION: No significant abnormality is identified Reading Location: [place] [address] CC: Dr. Christopher Lundy MD; Dr. Lamine Jaramillo MD ~ Consultant Dietitian: Signed [facility] 08-19-2024 Note [facility] Medical Records Department [address] [place] [address] History Physical Exam 08/19/24 1003 MR#: [id number] Acct: [id number] Name: ANITA MURRAY Rep #: [id number] : 1950 73 From: Sergo Gipson DO PCP: Dr. Lamine Jaramillo MD Status:REG [facility] Location: AC AC02-1 History and Physical Date of Admission: 08/19/24 [facility] [place] [address] OFFICE VISIT Date of Service: 07/14/24 MR#: [id number] Acct: [id number] Name: ANITA DUMAS Rep #: [id number] : 1950 Provider: Dr. Sergo Gipson DO Age/Sex: 73/F Location: [facility] Status: Signed Intake Vital Signs 10/04/2417:33 07/08/2508:49 Height 5 ft 5 in 5 ft 5 in Intake Visit Reasons: BILATERAL HANDS Chief Complaint: Left shoulder pain Allergies No Known Allergies Allergy (Verified 07/14/24 13:30) Medications ???Medication ???Instructions ???Recorded ???Confirmed ???Type calcium 500 mg (as 1 ea PO BID SUPP;EMENT 04/30/18 07/14/24 History carbonate)-vitamin D3 15 mcg (600 unit) tablet multivitamin 1 ea PO DAILY 04/30/18 07/14/24 History omega-3 fatty acids-fish oil 340 1 ea PO DAILY 04/30/18 07/14/24 History mg-1,000 mg capsule pravastatin 40 mg tablet 40 mg PO DAILY 04/30/18 07/14/24 History vitamin E 670 mg (1,000 unit) 1,000 unit PO DAILY 04/30/18 07/14/24 History capsule losartan 100 mg tablet 100 mg PO DAILY 06/26/19 07/14/24 History famotidine 40 mg tablet 40 mg PO Q12H 03/28/23 07/14/24 History fexofenadine 180 mg tablet 360 mg PO DAILY 03/28/23 07/14/24 History (Kirstie Allergy) bupropion HCl 150 mg 24 hr tablet, 150 mg PO DAILY 10/05/23 07/14/24 History extended release thyroid (pork) 90 mg tablet (INSTRUMENTATION TECHNICIAN 90 mg PO DAILY 10/05/23 07/14/24 History Thyroid) omalizumab 150 mg/mL subcutaneous 150 mg subcut Q4W 06/11/24 07/14/24 History auto-injector (Xolair) Have you fallen in the past year?: No PFSH Medical History Rash Borderline hyperlipidemia Osteoarthritis Hypothyroidism Hypertension Surgical History History of surgery on left wrist History of arthroplasty of right knee Social History Smoking Status: Never smoker HPI BILATERAL HANDS Details: This documentation accurately reflects the service provided and the decisions made by me, Dr. Sergo Gipson, DO 07/14/24 0834. Part of today???s visit was documented by Nica NELSON, acting as scribe. ANITA DUMAS is a 73 year old F here today for bilateral hand EMG review. She denies any changes. 06/11/2024 visit: 73 year old F here today for bilateral hands. She states that this past summer her hands would go numb. Then in April she started having severe pain. She has stiffness which is worse in the morning. She tried working on range of motion with a ball. She notes that she has decreased strength and is dropping dishes. She notes that her numbness is into her entire hand although it is worse in her thumb and palm. She complains of pain into her index and middle finger as well. She isnt able to take NSAIDs due to allergy injections. She has been taking tylenol which is not helpful. Patient denies any injections, physical therapy, or treatment.She denies any xrays. She is right hand dominant. Patient had a left wrist fracture and surgery [address] Cabral. She denies any radiating pain from her cervical spine. Plan: Recommended an EMG to evaluate her nerves and what nerve is being compressed. She may wear wrist braces at night. She is unable to take NSAIDs due to a recommended of her obstetrician and gynaecologist Ortho Exam General General: Yes no acute distress Neurologic: Yes alert and Yes oriented x3 Psychologic: Yes reasonable and appropriate Right Wrist/Hand Skin/Wound: No Swelling, No Ecchymosis, Yes nail intact and Yes capillary refill normal Right Wrist: Yes Durken's Test, Phalen's, CMC Grind and tender to palpate carpometacarpal joint WRIST: 2cm tip to palm Left Wrist/Hand Skin/Wound: No Swelling, No Ecchymosis, Yes nail intact, Yes capillary refill normal and No erythema Left Wrist: Yes Durken's Test and Yes Phalen's WRIST: full pronation, 88 supination, 50 extension, 50 flexion, well healed volar scar. prominence at base of thumb bilaterally. positive tinels into middle finger. dorsal first webspace interosseous wasting bilaterally. negative tinels at elbow, tingling with elbow flexion Head: Normocephalic Atraumatic Tracie (more content not included)... [facility] 07-14-2024 Evaluation note Diagnosis Onset Date Resolution Arthritis of carpometacarpal (CMC) joint of both thumbs acute July 1:23pm Carpal tunnel syndrome, bilateral acute July 14 1:23pm Orthopedic aftercare acute [facility] 2024 9:43am [facility] Work Phone: 1(990) 262-946412-11-2024 Evaluation note* Diagnosis Onset Date Resolution Status Admit Date Carpal tunnel syndrome, bilateral noneactive June 11, 2 024 10:23am Arthritis of carpometacarpal (CMC) joint of both thumbs acute 2024 1:23pm Carpal tunnel syndrome, bilateral acute July 14 1:23pm Orthopedic aftercare acute [facility] 2024 9:43am [facility] Work Phone: 1(306) 858-167104-05-2024 History of Present illness Narrative* Emigdio Tovar MD - 10/05/2023 6:14 PM EDT [facility] Triage Note: [facility] of tongue swelling. Patient has had issues withrecurrent urticaria for years. She sees an obstetrician and gynaecologist in [place]. She is currently on oral prednisone for a flareup of hives. This afternoon she noticed her tongue was swollen and her throat hurt. She has never had tongue swelling with her urticaria. She is alert and in no acute distress. Speech isfluent and no difficulty breathing. Patient referred to the emergency room for symptoms of angioedema; her will take her. [facility] NotePap Smear Specimen AdequacyFebruary 2022 11:31amComment.Satisfactory for evaluation. Endocervical and/or squamous metaplasticcells (endocervical component)are present.[facility] INTERFACED A#[id number] Mansfield Hospitalment on above: Satisfactory for evaluation. Endocervical and/or squamous metaplasticcells (endocervical component)are present.08-14-2022 NotePap Smear Specimen Adequacy August 14, 2022 12:31pmComment.Satisfactory for evaluation. Endocervical and/or squamous metaplasticcells (endocervical component)are present.[facility] INTER[facility]ACED A#[id number] Regional Medical CenterComment on above:Satisfactory for evaluation. Endocervical and/or squamous metaplasticcells (endocervical component)are present.06-17-2022 History of Present illness Narrative* Phoebe Knox PA-C - 06/17/2022 9:18 AM EST This note was created using LumiTherariter. Subjective Anita Dumas is a 71 year old female. HPI Patient presents with dysuria, frequency and urgency for 3 days. Denies back pain. She has had somesuprapubic pain. No nausea or vomiting. She did try Azo [id number]. Stopped taking it yesterday. Denies vaginal itching or discharge. She recently did become sexually active as she had gotten engaged around Thanksgiving time. Review of Systems Constitutional: Negative. HENT: Negative. Respiratory: Negative. Cardiovascular: Negative. Gastrointestinal: Negative. Genitourinary: Positive for dysuria, frequency, pelvic pain and urgency. Negative for flank pain, hematuria, vaginal bleeding, vaginal discharge and vaginal pain. Musculoskeletal: Negative for back pain. Skin: Negative. All other systems reviewed and are negative. PAST MEDICAL HISTORY Diagnosis Date Essential hypertension History of degenerative disc disease Hypothyroidism Vitiligo Current Outpatient Medications Medication Sig Dispense Refill buPROPion SR (ZYBAN SR; WELLBUTRIN SR) 150 mg 12 hr tablet Take 150 mg by mouth twice daily. losartan (COZAAR) 100 mg tablet Take by mouth. pravastatin (PRAVACHOL) 40 mg tablet TAKE 1 TABLET BY MOUTH ONCE DAILY AT BEDTIME FOR 90 DAYS omega-3 fatty acids/fish oil (FISH OIL-OMEGA-3 FATTY ACIDS) 300-1,000 mg cap Take by mouth. levothyroxine sodium(SYNTHROID 75 MCG TAB) Take one(1) tablet daily. 0 VITAMIN E 400 UNIT CAP Take one(1) tablet daily. 0 vit c/vit e acetate/lutein/min(LUTEIN VISON FORMULA CAP) Take one(1) tablet daily. 0 MULTIVITAMIN TAB Take one(1) tablet daily. 0 cephALEXin (KEFLEX) 500 mg capsule Take 1 capsule by mouth twice daily for 7 days. 14 capsule 0 amlodipine besylate(NORVASC 5 MG TAB) Take one(1) tablet daily. (Patient not taking: Reported on 06/17/2022) 0 No current facility-administered medications for this visit. PAST SURGICAL HISTORY Procedure Laterality Date KNEE SURGERY HX Right arthroscopic meniscus repair WRIST SURGERY HX Left ORIF No family history on file. Social History Tobacco Use Smoking status: Never Smokeless tobacco: Never Objective BP 126/82 Pulse 72 Temp 36.6 C (97.8 F) (Tympanic) Resp 18 Wt 71.1 kg (156 lb 12.8 oz) SpO2 99% Physical Exam Vitals reviewed. Constitutional: Appearance: Normal appearance. HENT: Head: Normocephalic and atraumatic. Cardiovascular: Rate and Rhythm: Normal rate and regular rhythm. Heart sounds: Normal heart sounds. Pulmonary: Effort: Pulmonary effort is normal. Breath sounds: Normal breath sounds. Abdominal: General: Abdomen is flat. Palpations: Abdomen is soft. Tenderness: There is abdominal tenderness. There is no right CVA tenderness, left CVA tenderness orguarding. Comments: Moderate suprapubic ttp. No guarding or rebound. Musculoskeletal: Cervical back: Neck supple. Skin: General: Skin is warm and dry. Neurological: Mental Status: She is alert. Assessment and Plan ASSESSMENT/PLAN: 1. Urinary frequency - ICD9: 788.41, ICD10: R35.0 acute - UA positive for louise esterase, hematuria, and proteinuria - Send urine for culture - Begin treatment with keflex for 7 days - UA DIP, URINE (POC) - URINE CULTURE Phoebe Knox PA-C [facility] noteNo assessment information availableWC[facility] Work Phone: Evaluation note* Diagnosis Urinary frequency- Primary documented in this encounter [facility] note* Diagnosis Tongue swelling- Primary Swelling, mass, or lump in head and neck Urticaria, unspecified [facility] Additional Instructions I prescribed Pepcid and Benadryl to further treat your allergic symptoms and you should continue the prednisone from your obstetrician and gynaecologist.[facility] Work Phone: Reason for referral (narrative)No reason for referral information availableWCleveland Clinic Eucl[facility] Work Phone: Summary Purpose Family History No Family History Records FoundNo Family History Records FoundNo Family History Records Found Advance Directives No Advanced Directives Records Found Advance Directive Response Recorded Date/ Time Living Will No December 20, 2020 4:44am Power of Cd Reactor Operator Head No December 20 4:44am Advance Directive Response Recorded Date/ Time Living Will No December 20, 2020 3:44am Power of Cd Reactor Operator Head No December 20 3:44am Advance Directive Response Recorded Date/ Time Living Will No October 05, 2023 6:46pm Power of Cd Reactor Operator Head No October 04 6:46pm Advance Directive Response Recorded Date/ Time Living Will No October 05, 2023 6:46pm Do you have a Healthcare Power of Cd Reactor Operator Head? No October 05, 2023 6:46pm Living Will Yes July 24 12:05pm Do you have a Healthcare Power of Cd Reactor Operator Head? Yes July 24, 2024 12:05pm Name of Medical Power of Cd Reactor Operator Head DAUGHTER July 24, 2024 12:05pm Advance Directive Response Recorded Date/ Time Living Will Yes July 24 12:05pm Do you have a Healthcare Power of Cd Reactor Operator Head? Yes July 24, 2024 12:05pm Name of Medical Power of Cd Reactor Operator Head DAUGHTER July 24, 2024 12:05pm Advance Directive Response Recorded Date/ Time Do you have a Healthcare Power of Cd Reactor Operator Head? Yes 2024 7:26pm Name of Medical Power of Cd Reactor Operator Head tad 2024 7:26pm Chief Complaint and Reason for Visit Chief Complaint RIGHT LOWER EXT MEL A Chief Complaint RIGHT LOWER EXT MEL A LABWORK Chief Complaint DUE ON OR AROUND DAVID E LISTED Chief Complaint UTICARIA Chief Complaint Admit Date BL HANDS June 11, 2024 10:23am SCREENING July 08, 2024 9: 43am BUE; Carpal tunnel syndrome, bilateral u pper l July 09, 2024 9:49am BUE; Carpal tunnel syndrome, bilateral u pper l July 09, 2024 11:23am BILATERAL HANDS July 14, 2024 1 :23pm RM 3 July 14, 2024 2 :07pm Right open Carpal Tunnel Release and lef t carpal t August 19, 2024 9:09am Right open Carpal Tunnel Release and lef t carpal t August 19, 2024 10:03am bilateral hands September 01, 2024 9:43 am Reason for Visit Admit Date Carpal tunnel syndrome, bilateral Decemb er 2023 10:23am Arthritis of carpometacarpal (CMC) joint of both thumbs July 14, 2024 1:23pm Carpal tunnel syndrome, bilateral Januar y 2024 1:23pm Orthopedic aftercare September 01, 2024 9:4 3am Chief Complaint Admit Date BILATERAL HANDS July 14, 2024 1 :23pm RM 3 July 14, 2024 2 :07pm Right open Carpal Tunnel Release and lef t carpal t August 19, 2024 9:09am Right open Carpal Tunnel Release and lef t carpal t August 19, 2024 10:03am bilateral hands September 01, 2024 9:43 am Reason for Visit Admit Date Arthritis of carpometacarpal (CMC) joint of both thumbs July 14, 2024 1:23pm Carpal tunnel syndrome, bilateral Januar y 2024 1:23pm Orthopedic aftercare September 01, 2024 9:4 3am Chief Complaint Admit Date CP 2024 7:07p m Dysphagia, pharyngoesophageal phase Augu 2024 8:48am Chief Complaint Admit Date Dysphagia, pharyngoesophageal phase Augu 2024 8:48am Additional Source Comments INFORMATION SOURCE (unrecogn ized section and content) DATE CREATED AUTHOR 02/08/2019 Lawrence Pomerene [facility] DATE CREATED AUTHOR AUTHOR'S ORGANIZ ATION 03/26/2025 [facility] DATE CREATED AUTHOR AUTHOR'S ORGANIZ ATION 04/10/2025 [facility] Goals (unrecognized section and content) Goals may be documented in a n alternate sectionGoals may be documented in an alternate sectionGoals may be documented in an alternate sectionGoals may be documented in an alternate sectionGoals may be documented in an alternate sectionGoals may be documented in an alternate sectionGoals may be documented in an alternate sectionGoals may be documented in an alternate sectionGoals may be documented in an alternate section Source Comments (unrecognize d section and content) In the event this informatio n is protected by the Federal Confidentiality of Alcohol and Drug Abuse Patient Records regulations: The Federal rules restrict any use of the information to criminally investigate or prosecute any alcohol or drug abuse patient.[facility] CenterIn the event this information is protected by the Federal Confidentiality of Alcohol and Drug Abuse Patient Records regulations: The Federal rules restrict any use of the information to criminally investigate or prosecute any alcohol or drug abuse patient.[facility] Reason for Visit (unrecogniz ed section and content) Reason Comments Urinary Frequency Frequency, urgency a nd burning x 3 days Care Teams (unrecognized sec tion and content) Geologist Petroleum Relationship Specialty Start Date End Date Lamine Jaramillo Chi [address] [place] [address] PCP - General Gerontology 03/31/19 Team Status: Active Member Role Status Dates Dr. Lamine Jaramillo MD Family Provider Active Dr. Lamine Jaramillo MD Primary Care Provider Active Team Status: Inactive Member Role Status Dates Dr. Lamine Jaramillo MD Primary Care Provider Active Dr. Valencia Shen DO Attending Provider Active Team Status: Inactive Member Role Status Dates Dr. Lamine Jaramillo MD Primary Care Provider, Attending Provider Active Team Status: Inactive Member Role Status Dates Dr. Lamine Jaramillo MD Primary Care Provider Active [facility] Attending Provider, Referring Provid er Active Geologist Pet[employer] Relationship Specialty Start Date End Date Leighton Lamine Jordan [address] [place] [id number] PCP - General Gerontology 03/31/19 Team Status: Inactive Member Role Status Dates Dr. Lamine Jaramillo MD Primary Care Provider Active Dr. Grey Nguyen DO Emergency Provider Active Team Status: Active Member Role Status Dates Dr. Lamine Jaramillo MD Primary Care Provider Active Team Status: Inactive Member Role Status Dates Dr. Lamine Jaramillo MD Primary Care Provider Active Start: June 11, 2024 End: June 11, 2024 Dr. Lamine Jaramillo MD Referring Provider Active Start: June 11, 2024 End: June 11, 2024 Dr. Sergo Gipson DO Attending Provider Active Start: June 11, 2024 End: June 11, 2024 Team Status: Inactive Member Role Status Dates Dr. Lamine Jaramillo MD Primary Care Provider Active Start: July 08, 2024 End: July 08, 2024 Dr. Lamine Jaramillo MD Attending Provider Active Start: July 08, 2024 End: July 08, 2024 Dr. Lamine Jaramillo MD Referring Provider Active Start: July 08, 2024 End: July 08, 2024 Team Status: Inactive Member Role Status Dates Dr. Lamine Jaramillo MD Primary Care Provider Active Start: July 09, 2024 End: July 09, 2024 Dr. Sergo Gipson DO Attending Provider Active Start: July 09, 2024 End: July 09, 2024 Dr. Sergo Gipson DO Referring Provider Active Start: July 09, 2024 End: July 09, 2024 Team Status: Active Member Role Status Dates Dr. Lamine Jaramillo MD Primary Care Provider Active Start: July 09, 2024 Dr. Sergo Gipson DO Referring Provider Active Start: July 09, 2024 Dr. Sergo Gipson DO Other Provider Active St art: July 09, 2024 Dr. Clarita Gotti MD Attending Provider Active S tart: July 09, 2024 Team Status: Inactive Member Role Status Dates Dr. Lamine Jaramillo MD Primary Care Provider Active Start: July 14, 2024 End: July 14, 2024 Dr. Lamine Jaramillo MD Referring Provider Active Start: July 14, 2024 End: July 14, 2024 Dr. Sergo Gipson DO Attending Provider Active Start: July 14, 2024 End: July 14, 2024 Team Status: Inactive Member Role Status Dates Dr. Lamine Jaramillo MD Primary Care Provider Active Start: July 14, 2024 End: July 14, 2024 Dr. Dayday Kate MD Attending Provider Active S tart: July 14, 2024 End: July 14, 2024 Team Status: Inactive Member Role Status Dates Dr. Lamine Jaramillo MD Primary Care Provider Active Start: July 29, 2024 End: July 29, 2024 Dr. Lamine Jaramillo MD Attending Provider Active Start: July 29, 2024 End: July 29, 2024 Team Status: Inactive Member Role Status Dates Dr. Lamine Jaramillo MD Primary Care Provider Active Start: August 19, 2024 End: August 19, 2024 Dr. Sergo Gipson DO Attending Provider Active Start: August 19, 2024 End: August 19, 2024 Dr. Sergo Gipson DO Referring Provider Active Start: August 19, 2024 End: August 19, 2024 Team Status: Active Member Role Status Dates Dr. Lamine Jaramillo MD Primary Care Provider Active Start: August 19, 2024 Dr. Sergo Gipson DO Attending Provider Active Start: August 19, 2024 Dr. Sergo Gipson DO Referring Provider Active Start: August 19, 2024 Dr. Sergo Gipson DO Other Provider Active St art: August 19, 2024 Team Status: Inactive Member Role Status Dates Dr. Lamine Jaramillo MD Primary Care Provider Active Start: September 01, 2024 End: September 01, 2024 Dr. Lamine Jaramillo MD Referring Provider Active Start: September 01, 2024 End: September 01, 2024 Dr. Sergo Gipson DO Attending Provider Active Start: September 01, 2024 End: September 01, 2024 Team Status: Inactive Member Role Status Dates Dr. Lamine Jaramillo MD Primary Care Provider Active Start: September 25, 2024 End: September 25, 2024 Dr. Lamine Jaramillo MD Attending Provider Active Start: September 25, 2024 End: September 25, 2024 Team Status: Inactive Member Role Status Dates Dr. Lamine Jaramillo MD Primary Care Provider Active Start: November 06, 2024 End: November 06, 2024 Dr. Lamine Jaramillo MD Attending Provider Active Start: November 06, 2024 End: November 06, 2024 Dr. Lamine Jaramillo MD Referring Provider Active Start: November 06, 2024 End: November 06, 2024 Team Status: Active Member Role/Relationship Status Dates Dr. Lamine Jaramillo MD Primary Care Provider Active Team Status: Inactive Member Role/Relationship Status Dates Dr. Lamine Jaramillo MD Primary Care Provider Active Start: November 06, 2024 End: November 06, 2024 Dr. Lamine Jaramillo MD Attending Provider Active Start: November 06, 2024 End: November 06, 2024 Dr. Lamine Jaramillo MD Referring Provider Active Start: November 06, 2024 End: November 06, 2024 Team Status: Inactive Member Role/Relationship Status Dates Dr. Lamine Jaramillo MD Primary Care Provider Active Start: 2024 End: 2024 Dr. Rui Qureshi DO Attending Provider Active Start: 2024 End: 2024 Dr. Rui Qureshi DO Referring Provider Active Start: 2024 End: 2024 Dr. Rui Qureshi DO Emergency Provider Active Start: 2024 End: 2024 Team Status: Inactive Member Role/Relationship Status Dates Dr. Lamine Jaramillo MD Primary Care Provider Active Start: February 20, 2025 End: February 20, 2025 Dr. Christopher Lundy MD Attending Provider Active Start: February 20, 2025 End: February 20, 2025 Dr. Christopher Lundy MD Referring Provider Active Start: February 20, 2025 End: February 20, 2025 Team Status: Active Member Role/Relationship Status Dates Dr. Lamine Jaramillo MD Primary care physician Active Team Status: Inactive Member Role/Relationship Status Dates Dr. Lamine Jaramillo MD Primary care physician Active Start: February 20, 2025 End: February 20, 2025 Dr. Christopher Lundy MD Attending physician Active Start: February 20, 2025 End: February 20, 2025 Dr. Christopher Lundy MD Referring Provider Active Start: February 20, 2025 End: February 20, 2025 Team Status: Inactive Member Role/Relationship Status Dates Dr. Lamine Jaramillo MD Primary care physician Active Start: April 02, 2025 End: April 02, 2025 Dr. Lamine Jaramillo MD Attending physician Active Start: April 02, 2025 End: April 02, 2025 FOR RECORDS PERTAINING TO PATIENTS WHO ARE OR HAVE BEEN ENROLLED IN A CHEMICAL DEPENDENCY/SUBSTANCEABUSE PROGRAM, SOME INFORMATION MAY BE OMITTED. This clinical summary was aggregated from multiple sources. Caution should be exercised in using it in the provision of clinical care. This summary normalizes information from multiple sources, and as a consequence, information in this document may materially change the coding, format and clinical context of patient data. In addition, data may be omitted in some cases. CLINICAL DECISIONS SHOULD BE BASED ON THE PRIMARY CLINICAL RECORDS. [facility] [employer] [facility]. provides no warranty or guarantee of the accuracy or completeness of information in this document.
== END | disposition home or self-care (01) ==
LOC: RAD 16:55
PROVIDERS: PCP Family Medicine Geriatric Medicine; Referring Provider Family Medicine Geriatric Medicine; Visit Provider Family Medicine Geriatric Medicine
DX: M79.672 Pain in left foot (principal)
CPT/HCPCS: 73630

== ENCOUNTER 2025-05-04 11:02 | Emergency (ER) | payer MEDICARE, OTHER, SELFPAY ==
[2025-05-04 11:03] VITALS: BP 137/78; PULSE 86; RESP 16; TEMP 36.9; O2SAT 100
[2025-05-04 11:55] VITALS: BMI 26.4
--- NOTE | 2025-05-04 12:07 | VDLE_ITS ---
Reason For Study VL/Venous Duplex US, Unilateral
--- NOTE | 2025-05-04 12:20 | ED.VIS.LOWEX ---
HPI History of Present Illness Chief Complaint: Lower Extremity Injury Narrative Narrative: Patient is a 74-year-old female presenting to the emergency department for left calf swelling and pain. Patient states that she broke her foot and the surgeon is trying to manage it nonoperatively by wearing a boot for 6 weeks. States that she has been in a boot for about a week and on Sunday, 5 days ago she developed pain and swelling of her left calf. States that she does have a history of a DVT. She denies any numbness or weakness in her leg. Denies any fever or chills. Denies any shortness of breath or chest pain. [facility] Medical History Wears glasses Wears contact lenses Wears partial dentures Post-menopausal Depression High cholesterol DVT (deep venous thrombosis) Back pain Seasonal allergies Non-smoker History of stress test Osteoarthritis Hypothyroidism Hypertension Home Medications ?Medication ?Instructions ?Recorded ?Last Taken ?Type calcium 500 mg (as 1 ea PO BID SUPP;EMENT 04/30/18 Unknown History carbonate)-vitamin D3 15 mcg (600 unit) tablet multivitamin 1 ea PO DAILY 04/30/18 Unknown History omega-3 fatty acids-fish oil 340 1 ea PO DAILY 04/30/18 Unknown History mg-1,000 mg capsule pravastatin 40 mg tablet 40 mg PO QHS 04/30/18 Unknown History vitamin E 670 mg (1,000 unit) 1,000 unit PO DAILY 04/30/18 Unknown History capsule losartan 100 mg tablet 100 mg PO DAILY 06/26/19 08/19/24 History famotidine 40 mg tablet 40 mg PO Q12H 03/28/23 Unknown History fexofenadine 180 mg tablet 360 mg PO BID 03/28/23 Unknown History (Kirstie Allergy) bupropion HCl 150 mg 24 hr tablet, 150 mg PO DAILY 10/05/23 Unknown History extended release thyroid (pork) 90 mg tablet (SYRUP MAKER COOK 120 mg PO DAILY 10/05/23 08/19/24 History Thyroid) omalizumab 150 mg/mL subcutaneous 150 mg subcut Q4W 06/11/24 Unknown History auto-injector (Xolair) Lactobacillus acidophilus 250 500 mmu cells PO DAILY 07/24/24 Unknown History million cell capsule (Probiotic Acidophilus) Allergy/AdvReac Type Severity Reaction Status Date / Time No Known Allergies Allergy Verified 05/04/25 11:03 Surgical History History of bunionectomy of right great toe Hx of fracture of wrist Hx of knee surgery Social History Smoking Status: Never smoker ROS ROS ED ROS Narrative See HPI EXAM Physical Exam Narrative Exam Narrative: Vital signs: Reviewed General: Alert and oriented x 3. No acute distress HEENT: Head is normocephalic and atraumatic, sinuses nontender, pupils equal round and reactive. Nares are patent. Oropharynx and throat exams normal. Neck: Supple without lymphadenopathy nontender Cardiovascular: Regular rate and rhythm, no murmurs. No rubs or gallops. Normal S1 and S2 Respiratory: Clear to auscultation bilaterally. No wheezes, rales, rhonchi Abdominal: Soft and nontender. Normal bowel sounds. No guarding or rebound. Nonsurgical abdomen Extremities: There is mild asymmetric swelling to the left calf compared to the right. There is no erythema, warmth or fluctuance. There is tenderness to palpation of the posterior calf. DP and PT pulses intact bilaterally. Motor and sensation intact bilaterally. Neurological: Cranial nerves II through XII are grossly intact. Normal strength and sensation. Normal cerebellar function The rest of the physical exam is unremarkable Const Vital Signs: 05/04/25 11:03 05/04/25 13:56 Temperature 98.4 F 98.2 F Temperature Source Oral Pulse Rate 86 85 Respiratory Rate 16 18 Blood Pressure 137/78 H 151/70 H Blood Pressure Mean 97 97 Pulse Ox 100 99 Oxygen Delivery Method Room Air MDM MDM MDM Narrative Medical decision making narrative: Patient is a 74-year-old female presenting to the emergency department for left calf swelling and pain. Patient was seen and examined. Vitals are stable. Patient resting in bed comfortably no acute distress. Ultrasound of the calf will be obtained to rule out DVT. She is having no chest pain or shortness of breath. She is not tachycardic or hypoxic. Do not think she has a pulmonary embolism. Ultrasound was negative for DVT. There is evidence of a Edmonds's cyst. The tach that ultrasounded. She also states that there is a small fluid pocket along the calf muscle where she is having the pain. This may be a small hematoma from her original injury. Her pain is likely caused by this small hematoma as well as a Edmonds's cyst. Norberto compression wrap was placed for comfort. She was encouraged to take NSAIDs for pain control. Where the fluid pocket is seen on ultrasound there is no erythema, warmth, fluctuance consistent with cellulitis or abscess. Patient discharged from the Emergency Department. I do not feel that the patient's evaluation reveals any acute reason for admission at this time. I instructed them to either follow-up with their primary care physician or promptly return to the Emergency Department for reevaluation should symptoms worsen or new symptoms develop. I explained what symptoms would indicate the need to return to the emergency department. Shared decision making was used. The patient voiced understanding of the treatment plan and is agreeable with it. Clinical impression Edmonds's cyst Calf pain History & Record Review Discussion w/independent historian: Patient and Family Discharge Plan Triage Chief Complaint: Lower Extremity Injury ED Provider: Sara Heart Dx/Rx/DC Orders Clinical Impression: Edmonds cyst, Calf pain Instructions: Edmonds's Cyst Popliteal, ED Bandage Elastic Wrap Prescriptions: No Action famotidine 40 mg tablet 40 mg PO Q12H Patient Comments: TAKE 1 TABLET BY MOUTH TWICE DAILY 30-60 MINUTES BEFORE BREAKFAST AND EVENING MEAL fexofenadine [Kirstie Allergy] 180 mg tablet 360 mg PO BID Xolair 150 mg/mL auto-injector 150 mg subcut Q4W multivitamin 1 EACH tablet 1 ea PO DAILY vitamin E 1,000 UNIT capsule 1,000 unit PO DAILY pravastatin 40 MG tablet 40 mg PO QHS omega-3 fatty acids-fish oil 1 EACH capsule 1 ea PO DAILY calcium carbonate-vitamin D3 1 EACH tablet 1 ea PO BID losartan 100 MG tablet 100 mg PO DAILY thyroid (pork) [SYRUP MAKER COOK Thyroid] 90 mg tablet 120 mg PO DAILY bupropion HCl 150 mg tablet extended release 24 hr 150 mg PO DAILY Probiotic Acidophilus 250 million cell capsule 500 mmu cells PO DAILY Primary Care Provider: Lamine Manzanares Chi Referrals: Lamine Manzanares Chi, MD [Primary Care Provider, Geriatrics] - As soon as possible Activity Restrictions/Additional Instructions: Keep your calf and knee wrapped with a compression dressing. If you are still having pain in the next week you can follow-up with your primary care doctor for a repeat ultrasound. Your evaluation in the Emergency Department did not reveal any acute reason for admission. However, I want to emphasize that you may be early in the course of a disease process or illness even if it is not present. For this reason you should follow-up within 24 hours for reevaluation with either your primary care physician or if necessary back here in the Emergency Department. You should return to the Emergency Department immediately if your symptoms worsen or new symptoms develop. Print Language: Ghanaian Disposition Disposition: Home, Self Care Discharge Date/Time: 05/04/25 14:03
[2025-05-04 13:56] VITALS: BP 151/70; PULSE 85; RESP 18; TEMP 36.8; O2SAT 99
== END 2025-05-04 14:03 | disposition home or self-care (01) ==
PROVIDERS: Emergency Provider Student in an Organized Health Care Education/Training Program; PCP Family Medicine Geriatric Medicine; Visit Provider Student in an Organized Health Care Education/Training Program
DX: M71.22 Synovial cyst of popliteal space [Baker], left knee (principal); M79.662 Pain in left lower leg; E78.00 Pure hypercholesterolemia, unspecified; M79.89 Other specified soft tissue disorders; E03.9 Hypothyroidism, unspecified; I10 Essential (primary) hypertension; Z79.890 Hormone replacement therapy; Z79.899 Other long term (current) drug therapy; Z86.718 Personal history of other venous thrombosis and embolism
CPT/HCPCS: 93971; 99282

== ENCOUNTER → 2025-05-11 | Outpatient (CLI) | payer MEDICARE, OTHER, SELFPAY | END | disposition home or self-care (01) | LOC: POLAB3 11:56 | PROVIDERS: PCP Family Medicine Geriatric Medicine; Visit Provider Family Medicine Geriatric Medicine | DX: E03.9 Hypothyroidism, unspecified (principal) | CPT/HCPCS: 36415; 84443 ==